=== PATIENT | female | born 1965 | race Caucasian/White ===

== ENCOUNTER 2017-02-11 17:37 | Inpatient (IN) | payer MEDICARE, MEDICAID ==
[2017-02-11] MEDS ORDERED: Albuterol/Ipratropium NEB.SOL* Albuterol 2.5 MG/Ipratropium 0.5 MG 3 ML INH ONE ×2 (18:05→20:23)
[2017-02-11] MEDS ORDERED: methylPREDNISolone 125 MG* 2 ML VIAL IV ONE (18:09)
[2017-02-11 18:38] LABS: Hematocrit 47 % (35-47); Hemoglobin 15.6 g/dl (12.0-16.0); Mean Corpuscular HGB Conc 33 g/dl (31-36); Mean Corpuscular Hemoglobin 29 pg (27-31); Mean Corpuscular Volume 89 fL (80-97); Mean Platelet Volume 8 um3 (7.4-10.4); Red Blood Count 5.33 10^6/ul (4.0-5.4); Red Cell Distribution Width 16 % (10.5-15); White Blood Count 13.3 10^3/ul (3.5-10.8)
[2017-02-11 18:49] LABS: Albumin 3.8 g/dL (3.2-5.2); BUN/Creatinine Ratio 16.2 (8-20); Calcium 9.6 mg/dL (8.6-10.3); EGFR African American 71.6 (>60); EGFR Non-African American 55.7 (>60); Globulin 3.7 g/dL (2-4); Potassium 3.4 mmol/L (3.5-5.0); Total Bilirubin 0.8 mg/dL (0.2-1.0); Total Protein 7.5 g/dL (6.4-8.9)
[2017-02-11 18:51] LABS: Troponin I 0.02 ng/mL (<0.04)
--- NOTE | 2017-02-11 18:54 | RAD ---
INDICATION: Shortness of breath. COMPARISON: Comparison is made with a prior study from April 10, 2014. TECHNIQUE: A portable view of the chest was obtained. FINDINGS: The heart is mildly enlarged. There is mild diffuse prominence of the interstitial markings. No focal infiltrate or pleural effusion is seen. IMPRESSION: MILD PROMINENCE OF THE INTERSTITIAL MARKINGS SUGGESTING THE POSSIBILITY OF MILD CONGESTIVE HEART FAILURE.
[2017-02-11] MEDS ORDERED: Furosemide IV* 10 MG/ML VIAL (40 MG) IV SLOW PU ONE (21:02)
[2017-02-11] MEDS ORDERED: Nitroglycerin TAB 0.4 MG* 0.4 MG TAB SL ONE (21:02)
[2017-02-11] MEDS ORDERED: Nicotine Inhaler* 10 MG AMP INH ONE (21:03)
[2017-02-11] MEDS ORDERED: oxyCODONE/Acetamin 5/325 MG* TAB PO ONE (21:06)
[2017-02-11] MEDS ORDERED: ALPRAZolam TAB* 0.5 MG PO ONE (21:06)
[2017-02-11] MEDS ORDERED: Mouth Piece, Nicotine* 1 EACH CARTRIDGE ONE (21:07)
[2017-02-11] MEDS ORDERED: Nitroglycerin 2% OINT* 1 GM PAK TOPICAL ONE (22:07)
--- NOTE | 2017-02-11 23:43 | ED ---
Dea Temple Gabriel, scribed for Dionicio Chowdary MD on 02/11/17 at 1808 . Respiratory - HPI Summary HPI Summary: This patient is a 51 year old F BIBA to [facility] accompanied by daughter and niece with a chief complaint of brown productive cough since 3 days prior. Patient reports wheezing, SOB, and rhinorrhea. Patient denies fever, diaphoresis, chills , edema, and CP. Patient is on a nebulizer and used it 3 hours ago. She has a history of COPD and CHF. Patients daughter says that her symptoms are worse at night and she cannot lay flat. - History of Current Complaint Chief Complaint: EDShortnessOfBreath Stated Complaint: SHORTNESS OF BREATH Time Seen by Provider: 02/11/17 18:05 Hx Obtained From: Patient Onset/Duration: Lasting Days - 3, Still Present Timing: Constant Pain Intensity: 0 Character: Wheezing, Orthopnea Sputum Amount: Small - brown Aggravating Factor(s): Other - night Associated Signs and Symptoms: Negative - fever, diaphoresis, chills, edema, and CP, Wheezing - Allergy/Home Medications Allergies/Adverse Reactions: Allergies Allergy/AdvReac Type Severity Reaction Status Date / Time Clindamycin Allergy Intermediate Difficulty Verified 02/08/17 11:23 Swallowing Penicillins Allergy Intermediate blisters Verified 02/08/17 11:23 on face as a kid Home Medications: Home Medications Senna TAB* [Senokot TAB*] 2 tab PO BEDTIME 02/11/17 [History Confirmed 02/11/17] traZODone TAB* [Desyrel TAB*] 75 mg PO BEDTIME 02/11/17 [History Confirmed 02/11] PMH/Surg Hx/FS Hx/Imm Hx Previously Healthy: No Endocrine/Hematology History: Reports: Hx Anemia Denies: Hx Diabetes, Hx Thyroid Disease Cardiovascular History: Reports: Hx Congestive Heart Failure - 05/2014 hospitalized, Hx Hypertension Respiratory History: Reports: Hx Asthma, Hx Chronic Bronchitis, Hx Chronic Obstructive Pulmonary Disease (COPD), Hx Pneumonia, Hx Sleep Apnea - Unable to tolerate CPAP, Other Respiratory Problems/Disorders GI History: Reports: Hx Gall Bladder Disease - Cholecystectomy, Hx Gastroesophageal Reflux Disease Denies: Hx Ulcer History: Reports: Other Problems/Disorders - Reports blood in urine. ED test negative. Musculoskeletal History: Reports: Hx Arthritis, Other Musculoskeletal History - bilateral knee pain Sensory History: Reports: Hx Contacts or Glasses Denies: Hx Hearing Problem, Other Sensory Impairments Opthamlomology History: Reports: Hx Contacts or Glasses Denies: Other Sensory Impairments Neurological History: Reports: Hx Headaches Psychiatric History: Reports: Hx Anxiety Denies: Hx of Violent Episodes Against Others - Cancer History Hx Chemotherapy: No Hx Radiation Therapy: No - Surgical History Surgery Procedure, Year, and Place: x 3. cholecystectomy. T&A tonsillectomy. Endoscopy x3 Hx Anesthesia Reactions: No - Immunization History Date of Tetanus Vaccine: UTD Date of Influenza Vaccine: NO Infectious Disease History: No Infectious Disease History: Denies: Hx Clostridium Difficile, Hx Hepatitis, Hx Human Immunodeficiency Virus (HIV), Hx of Known/Suspected MRSA, History Other Infectious Disease, Traveled Outside the [place] in Last 30 Days - Family History Known Family History: Positive: Other - sister of sepsis at age 34 Family History: Mother: Lung CA. Father: CHF - Social History Alcohol Use: None Substance Use Type: Reports: None Substance Use Comment - Amount & Last Used: chronic oxycodone Hx Tobacco Use: Yes Smoking Status (MU): Current Every Day Smoker Type: Cigarettes Amount Used/How Often: 5-10 cigarettes/day Length of Time of Smoking/Using Tobacco: 35 years Have You Smoked in the Last Year: Yes Review of Systems Negative: Fever, Chills Negative: Erythema Positive: Nasal Discharge. Negative: Sore Throat Negative: Chest Pain Positive: Shortness Of Breath, Cough, Other - wheezing Negative: Abdominal Pain, Vomiting, Nausea Negative: dysuria, hematuria Negative: Myalgia, Edema Negative: Rash Neurological: Negative - dizziness All Other Systems Reviewed And Are Negative: Yes Physical Exam - Summary Physical Exam Summary: Constitutional: Well-developed, Well-nourished, Alert. (-) Distressed Skin: Warm, Dry HENT: Normocephalic; Atraumatic Eyes: Conjunctiva normal Neck: Musculoskeletal ROM normal neck. (-) JVD, (-) Stridor, (-) Tracheal deviation Cardio: Rhythm regular, rate normal, Heart sounds normal; Intact distal pulses; The pedal pulses are 2+ and symmetric. Radial pulses are 2+ and symmetric. (-) Murmur Pulmonary/Chest wall: Effort normal. (-) Respiratory distress, (-) Wheezes, (-) Rales. Very diminished breath sounds. Abd: Soft, (-) Tenderness, (-) Distension, (-) Guarding, (-) Rebound Musculoskeletal: (-) Edema Lymph: (-) Cervical adenopathy Neuro: Alert, Oriented x3 Psych: Mood and affect Normal Triage Information Reviewed: Yes Vital Signs On Initial Exam: Initial Vitals Temp Pulse Resp BP Pulse Ox 97.5 F 84 19 126/79 86 02/11/17 17:39 02/11/17 17:39 02/11/17 17:39 02/11/17 17:39 02/11/17 17:39 Vital Signs Reviewed: Yes - [place] Coma Scale Coma Scale Total: 15 Diagnostics - Vital Signs Vital Signs Temp Pulse Resp BP Pulse Ox 02/11/17 17:39 97.5 F 84 19 126/79 86 - Laboratory Result Diagrams: 02/11/17 18:15 02/11/17 18:15 Lab Statement: Any lab studies that have been ordered have been reviewed, and results considered in the medical decision making process. - Radiology CXR Radiology Interpretation Completed By: Radiologist - MILD PROMINENCE OF THE INTERSTITIAL MARKINGS SUGGESTING THE POSSIBILITY OF MILD CONGESTIVE HEART FAILURE. ED physician has reviewed this radiology report and agrees. - EKG 19:21 Cardiac Rate: NL EKG Rhythm: Sinus Rhythm - 84 BPM EKG Interpretation: No STEMI Re-Evaluation - Re-Evaluation First Eval Re-Evaluation Time: 21:00 Change: Unchanged Comment: Patient is at 85% O2 sat. at 5L NC O2. Second Eval Re-Evaluation Time: 21:25 Change: Unchanged - Patient is irritable and is at 82% oxygen sat on 3L NC O2. Third Eval Re-Evaluation Time: 22:00 Change: Unchanged - Patient states she has been out of her chlorthalidone ( Diuretic ) perscription. Comment: Patient says she ran out of her diuretic medication recently. Fourth Eval Re-Evaluation Time: 22:04 Change: Improved - Patient has improved with medication. Disposition - Course Assessment/Plan: This patient is a 51 year old F BIBA to [facility] accompanied by daughter and niece with a chief complaint of brown productive cough since 3 days prior. Patient reports wheezing, SOB, and rhinorrhea. Patient denies fever , diaphoresis, chills, edema, and CP. Patient is on a nebulizer and used it 3 hours ago. She has a history of COPD and CHF. Blood work was drawn with an abnormal BNP An EKG reveals NSR at 84 BPM. CXR reveals, per radiologist, MILD PROMINENCE OF THE INTERSTITIAL MARKINGS SUGGESTING THE POSSIBILITY OF MILD CONGESTIVE HEART FAILURE. Blood tests were obtained. In the ED course the patient was given Albuterol nebulizer and methylprednisone. We discussed patient care with Dr. Pacheco and they agreed to admit the patient for CHF and COPD exacerbation. Patient will be admitted with and follow up from Dr. James. The patient is agreeable with this plan. - Diagnoses Provider Diagnoses: CHF exacerbation, COPD exacerbation, Acute respiratory failure with hypoxemia - Physician Notifications Discussed Care Of Patient With: Jerome Gannon MD Time Discussed With Above Provider: 21:58 Instructed by Provider To: Other - We discussed patient care with Dr. Pacheco and they agreed to admit the patient for CHF and COPD exacerbation. - Critical Care Time Critical Care Time: 30-74 min - 16 minutes Discharge - Discharge Plan Condition: Stable Disposition: ADMITTED TO [facility] Referrals: No Primary Care Phys,NOPCP [Primary Care Provider] - The documentation as recorded by the Dea santa Gabriel accurately reflects the service I personally performed and the decisions made by , Dionicio Chowdary MD.
[2017-02-12] MEDS ORDERED: Cyclobenzaprine TAB* 10 MG PO ONE (01:40)
[2017-02-12] MEDS ORDERED: Spiriva Inhaler DEVICE* 1 EACH DEVICE INH ONE ×2 (02:00→09:00)
[2017-02-12] MEDS: methylPREDNISolone SOD 40 MG* 1 ML VIAL IV SCH ×3 (02:38→17:11)
--- NOTE | 2017-02-12 03:41 | HP ---
H&P (Free Text) History and Physical: PCP: Sean Salgado MD Date/Time: 02/11/20170 CC: SOB HPI: Mrs Reza is a 51YO female HX COPD continuing to smoke 1PPD who began developing progressive SOB 3 days ago associated with cough producing yellowish- brown phlegm and prominent wheeze, but didn't seek evaluation as she "thought it was just pneumonia". SOB is worse with activity, better at rest. Home nebs did not help, but a Duoneb en route via EMS did. She denies chest pain, palpitations, light-headedness, F/C, sweats, N/V, and diarrhea. Of note she was out of chlorthalidone for ~2 weeks last month, but has been back on it for the past 3 weeks. PMedHx chronic diastolic HF COPD tobacco use disorder GERD HTN OA KATHY not on CPAP psoriasis Ambulatory Orders Lisinopril TAB* [Prinivil TAB 10 MG*] 20 mg PO DAILY 01/19/12 Chlorthalidone TAB* [Hygroton TAB*] 50 mg PO DAILY 10/31/13 Ibuprofen [Ibuprofen 200 MG] 400 - 600 mg PO BID PRN 04/03/14 Aspirin [Aspirin Low Dose] 81 mg PO DAILY 07/01/15 oxyCODONE/Acetamin 10/325(NF) [Percocet 10/325 (NF)] 1 tab PO Q4H PRN 12/01/16 Senna TAB* [Senokot TAB*] 2 tab PO BEDTIME 02/11/17 traZODone TAB* [Desyrel TAB*] 75 mg PO BEDTIME 02/11/17 Allergies Clindamycin Allergy (Intermediate, Verified 02/08/17 11:23) Difficulty Swallowing difficulty swallowing Penicillins Allergy (Intermediate, Verified 02/08/17 11:23) blisters on face as a kid SocHx: 1PPD cigarettes w/ ~40PYHX, denies alcohol & recreational drugs; full code status FamHx: positive for HTN, COPD ROS: as above, otherwise reviewed and all were negative vitals: Vital Signs Temp 36.8 C 02/11/17 23:29 Pulse 93 02/11/17 23:29 Resp 24 02/12/17 01:50 BP 134/40 02/11/17 23:29 Pulse Ox 94 02/12/17 01:51 Intake & Output 02/11/17 02/11/17 02/12/17 11:59 23:59 11:59 Weight 126.099 kg Constitutional: NAD, normally developed, morbidly obese white female HEENM: atraumatic; sclera/conjunctiva: anicteric/clear; hearing: clinically intact; oropharynx: clear, mucosa moist Neck: soft tissue: non-tender; thyroid: normal Pulmonary: prominent mid- to end- expiratory wheeze, fair to poor aeration, no accessory muscle use CV: RR/RR, normal S1S2, no carotid bruit, no jugular venous distention, 2+ B DP/ PT, trace BLE edema Abdominal: soft, non-distended, non-tender, no rebound/guarding/rigidity, normoactive bowel sounds, no hepatosplenomegaly or masses, no costovertebral angle tenderness Musculoskeletal: general: grossly intact, no palpable tenderness Integumental: face flushed; otherwise no acute rash or wounds Psychiatric orientation: AA&O to PPS affect: calm mood: cooperative eye contact: good content: reliable responses: timely insight: poor Testing: Lab Results 02/11/17 02/11/17 02/11/17 Range/Units 18:15 18:15 18:15 WBC 13.3 H (3.5-10.8) 10^3/ul RBC 5.33 (4.0-5.4) 10^6/ul Hgb 15.6 (12.0-16.0) g/dl Hct 47 (35-47) % MCV 89 (80-97) fL MCH 29 (27-31) pg MCHC 33 (31-36) g/dl RDW 16 H (10.5-15) % Plt Count 208 (150-450) 10^3/ul MPV 8 (7.4-10.4) um3 Neut % (Auto) 77.8 (38-83) % Lymph % (Auto) 14.3 L (25-47) % [place] % (Auto) 5.4 (1-9) % Eos % (Auto) 1.4 (0-6) % Baso % (Auto) 1.1 (0-2) % Absolute Neuts (auto) 10.4 H (1.5-7.7) 10^3/ul Absolute Lymphs (auto) 1.9 (1.0-4.8) 10^3/ul Absolute Monos (auto) 0.7 (0-0.8) 10^3/ul Absolute Eos (auto) 0.2 (0-0.6) 10^3/ul Absolute Basos (auto) 0.1 (0-0.2) 10^3/ul Absolute Nucleated RBC 0 10^3/ul Nucleated RBC % 0 D-Dimer, Quantitative (Less Than 230) ng/mL Sodium 134 (133-145) mmol/L Potassium 3.4 L (3.5-5.0) mmol/L Chloride 93 L (101-111) mmol/L Carbon Dioxide 36 H (22-32) mmol/L Anion Gap 5 (2-11) mmol/L BUN 17 (6-24) mg/dL Creatinine 1.05 H (0.51-0.95) mg/dL Est GFR ( Amer) 71.6 (>60) Est GFR (Non-Af Amer) 55.7 (>60) BUN/Creatinine Ratio 16.2 (8-20) Glucose 113 H (70-100) mg/dL Lactic Acid (0.5-2.0) mmol/L Calcium 9.6 (8.6-10.3) mg/dL Total Bilirubin 0.80 (0.2-1.0) mg/dL AST 14 (13-39) U/L ALT 10 (7-52) U/L Alkaline Phosphatase 69 (34-104) U/L Troponin I 0.02 (<0.04) ng/mL B-Natriuretic Peptide 145 H ( - 100) pg/mL Total Protein 7.5 (6.4-8.9) g/dL Albumin 3.8 (3.2-5.2) g/dL Globulin 3.7 (2-4) g/dL Albumin/Globulin Ratio 1.0 (1-3) 02/11/17 02/11/17 Range/Units 18:15 18:15 WBC (3.5-10.8) 10^3/ul RBC (4.0-5.4) 10^6/ul Hgb (12.0-16.0) g/dl Hct (35-47) % MCV (80-97) fL MCH (27-31) pg MCHC (31-36) g/dl RDW (10.5-15) % Plt Count (150-450) 10^3/ul MPV (7.4-10.4) um3 Neut % (Auto) (38-83) % Lymph % (Auto) (25-47) % [place] % (Auto) (1-9) % Eos % (Auto) (0-6) % Baso % (Auto) (0-2) % Absolute Neuts (auto) (1.5-7.7) 10^3/ul Absolute Lymphs (auto) (1.0-4.8) 10^3/ul Absolute Monos (auto) (0-0.8) 10^3/ul Absolute Eos (auto) (0-0.6) 10^3/ul Absolute Basos (auto) (0-0.2) 10^3/ul Absolute Nucleated RBC 10^3/ul Nucleated RBC % D-Dimer, Quantitative < 200 (Less Than 230) ng/mL Sodium (133-145) mmol/L Potassium (3.5-5.0) mmol/L Chloride (101-111) mmol/L Carbon Dioxide (22-32) mmol/L Anion Gap (2-11) mmol/L BUN (6-24) mg/dL Creatinine (0.51-0.95) mg/dL Est GFR ( Amer) (>60) Est GFR (Non-Af Amer) (>60) BUN/Creatinine Ratio (8-20) Glucose (70-100) mg/dL Lactic Acid 0.9 (0.5-2.0) mmol/L Calcium (8.6-10.3) mg/dL Total Bilirubin (0.2-1.0) mg/dL AST (13-39) U/L ALT (7-52) U/L Alkaline Phosphatase (34-104) U/L Troponin I (<0.04) ng/mL B-Natriuretic Peptide ( - 100) pg/mL Total Protein (6.4-8.9) g/dL Albumin (3.2-5.2) g/dL Globulin (2-4) g/dL Albumin/Globulin Ratio (1-3) ECG, personally reviewed: NSR rate 84, subtle ST depressions in II/III/AVF; similar to 04/08/2014 comparison CXR, personally reviewed: IMPRESSION: MILD PROMINENCE OF THE INTERSTITIAL MARKINGS SUGGESTING THE POSSIBILITY OF MILD CONGESTIVE HEART FAILURE. Impression: 51F presenting with COPD exacerbation, ongoing tobacco abuse DIAGNOSIS & PLAN Primary COPD exacerbation : albuterol nebs : mometasone/formoterol : tiotropium : IV methylprednisolone : guaifenesin : supplemental oxygen : incentive spirometry : supportive care : smoking cessation recommended, low motivation chronic diastolic HF : CXR suggesting mild congestive failure : continue chlorthalidone : given 40mg furosemide in ED : strict I&Os : daily weights : low sodium diet Secondary GERD : omeprazole HTN : continue lisinopril & chlorthalidone OA : continue aspirin & oxycodone KATHY : not on CPAP Admission Rational: inpatient for management of COPD excerbation & CHF not anticipated to be adequately resolved w/i 48h to allow for discharge DVTp: heparin SQ & SCDs Code Status: full
[2017-02-12] MEDS: oxyCODONE TAB* 5 MG TAB PO PRN ×4 (03:42→19:37)
[2017-02-12] MEDS ORDERED: Albuterol 2.5 MG/3 ML NEB.SOL* (0.083%) INH SCH (07:00)
[2017-02-12 07:13] LABS: Hematocrit 45 % (35-47); Hemoglobin 14.9 g/dl (12.0-16.0); Mean Corpuscular HGB Conc 33 g/dl (31-36); Mean Corpuscular Hemoglobin 29 pg (27-31); Mean Corpuscular Volume 89 fL (80-97); Mean Platelet Volume 8 um3 (7.4-10.4); Red Blood Count 5.08 10^6/ul (4.0-5.4); Red Cell Distribution Width 16 % (10.5-15); White Blood Count 11.4 10^3/ul (3.5-10.8)
[2017-02-12 07:26] LABS: BUN/Creatinine Ratio 23.7 (8-20); Calcium 9.4 mg/dL (8.6-10.3); EGFR African American 65.2 (>60); EGFR Non-African American 50.7 (>60); Potassium 3.7 mmol/L (3.5-5.0)
[2017-02-12] MEDS: Mometasone/Formoter 200/5 MDI INH SCH ×2 (07:31→20:18)
[2017-02-12] MEDS: Tiotropium CAP.INH* CAP.INH/18 MCG (USE ORDER SET !) INH SCH (07:32)
[2017-02-12] MEDS: Chlorthalidone TAB* 50 MG PO SCH (08:26)
[2017-02-12] MEDS: Lisinopril TAB* 10 MG PO SCH (08:26)
[2017-02-12] MEDS: guaiFENesin ER TAB 600 MG PO SCH ×2 (08:26→21:55)
[2017-02-12] MEDS: Aspirin EC Low Dose* 81 MG TAB.EC PO SCH (08:26)
[2017-02-12] MEDS ORDERED: Pneumococcal *Vac Polyvalent 0.5 ML VIAL IM ONE (09:00)
[2017-02-12] MEDS ORDERED: Influenza VAC *QUAD* 2017-18* 0.5 ML SYRINGE IM ONE (09:00)
[2017-02-12] MEDS: Nicotine Inhaler* 10 MG AMP INH PRN (11:41)
[2017-02-12] MEDS: Albuterol 2.5 MG/3 ML NEB.SOL* (0.083%) INH PRN ×2 (17:09→20:17)
--- NOTE | 2017-02-12 17:45 | PN ---
Progress Note - Progress Note Date of Service: 02/12/17 Note: Patient admitted at 3AM this morning. She is still dyspneic w/ exertion. She lost primary care due to repeated no-shows. She is working on quitting smoking. Selected Entries 02/12/17 02/12/17 02/12/17 15:50 15:53 15:57 Temperature 35.9 C Pulse Rate 72 Respiratory 20 16 Rate Blood Pressure 111/70 (mmHg) O2 Sat by Pulse 93 Oximetry Oxygen Flow 8 Rate Patient on Room No No Air 02/12/17 17:30 Temperature Pulse Rate Respiratory 18 Rate Blood Pressure (mmHg) O2 Sat by Pulse Oximetry Oxygen Flow Rate Patient on Room Air Alert, conversant Lungs: diminished throughout, scattered wheezes Heart; RRR, no murmur A/P: COPD exacerbation: will need at least another 24 hours of therapy before potential discharge. CHF: strict I/O, daily weights ordered. On chronic diuretics.
[2017-02-12] MEDS: Azithromycin IV(*) 500 MG in NS 0.9% 250 ML* 250 ML IVPB SCH (18:00)
[2017-02-12] MEDS: Senna TAB PO SCH (21:55)
[2017-02-12] MEDS ORDERED: ALPRAZolam TAB* 0.5 MG PO ONE (23:00)
[2017-02-12] MEDS: traZODone TAB* 50 MG TAB PO SCH (23:35)
[2017-02-12] MEDS ORDERED: ALPRAZolam TAB* 0.5 MG ONE (23:46)
[2017-02-13] MEDS: Nicotine Inhaler* 10 MG AMP INH PRN ×4 (00:30→16:19)
[2017-02-13] MEDS: methylPREDNISolone SOD 40 MG* 1 ML VIAL IV SCH ×3 (01:57→17:53)
[2017-02-13 07:08] LABS: Hematocrit 46 % (35-47); Hemoglobin 14.9 g/dl (12.0-16.0); Mean Corpuscular HGB Conc 33 g/dl (31-36); Mean Corpuscular Hemoglobin 29 pg (27-31); Mean Corpuscular Volume 90 fL (80-97); Mean Platelet Volume 8 um3 (7.4-10.4); Red Cell Distribution Width 16 % (10.5-15); White Blood Count 19.3 10^3/ul (3.5-10.8)
[2017-02-13 07:23] LABS: BUN/Creatinine Ratio 30.8 (8-20); Calcium 9.5 mg/dL (8.6-10.3); EGFR African American 84.5 (>60); EGFR Non-African American 65.7 (>60); Potassium 4.2 mmol/L (3.5-5.0)
[2017-02-13] MEDS: Mometasone/Formoter 200/5 MDI INH SCH ×2 (08:10→20:01)
[2017-02-13] MEDS: Tiotropium CAP.INH* CAP.INH/18 MCG (USE ORDER SET !) INH SCH (08:11)
[2017-02-13] MEDS: guaiFENesin ER TAB 600 MG PO SCH ×2 (09:04→20:42)
[2017-02-13] MEDS: Chlorthalidone TAB* 50 MG PO SCH (09:04)
[2017-02-13] MEDS: oxyCODONE TAB* 5 MG TAB PO PRN ×4 (09:04→21:43)
[2017-02-13] MEDS: Lisinopril TAB* 10 MG PO SCH (09:05)
[2017-02-13] MEDS: Aspirin EC Low Dose* 81 MG TAB.EC PO SCH (09:05)
--- NOTE | 2017-02-13 16:21 | PN ---
Subjective Date of Service: 02/13/17 Interval History: Patient seen and examined at bedside. Denies fever, chills, chest discomfort, N/ V/D. Pt states that she continues to have shortness of breath, but this is improving. Pt reports being out of medications for a least a month after she lost her PCP. Tele: Sinus rhythm, rate 60's. Family History: Unchanged from Admission Social History: Unchanged from Admission Past Medical History: Unchanged from Admission Objective Active Medications: Albuterol (Ventolin 2.5 Mg/3 Ml Neb.Shira*) 2.5 mg INH Q2H PRN Reason: SOB/ WHEEZING Aspirin (Aspirin Ec Low Dose*) 81 mg PO DAILY NATHANAEL Chlorthalidone (Hygroton Tab*) 50 mg PO DAILY NATHANAEL Guaifenesin (Mucinex*) 1,200 mg PO BID NATHANAEL Azithromycin 500 mg/ Sodium (Chloride) 250 mls @ 250 mls/hr IVPB Q24H NATHANAEL Lisinopril (Prinivil Tab*) 20 mg PO DAILY NATHANAEL Methylprednisolone Sodium Succinate (Solu-Medrol 40 Mg) 40 mg IV Q8H NATHANAEL Mometasone Furoate/Formoterol Fumar (Dulera 200/5 Mdi*) 2 puff INH BID NATHANAEL Nicotine (Nicotine Inhaler*) 10 mg INH Q2H PRN Reason: CRAVING Oxycodone HCl (Roxycodone Tab*) 10 mg PO Q4H PRN Reason: PAIN Senna (Senokot Tab*) 2 tab PO BEDTIME NATHANAEL Tiotropium [place] (Spiriva Cap.Inh*) 1 cap INH DAILY NATHANAEL Trazodone HCl (Desyrel Tab*) 75 mg PO BEDTIME [facility] Vital Signs 02/12/17 02/12/17 02/12/17 17:30 19:24 19:37 Temperature 97.6 F Pulse Rate 75 Respiratory 18 20 20 Rate Blood Pressure 138/59 (mmHg) O2 Sat by Pulse 96 Oximetry 02/12/17 02/12/17 02/12/17 20:19 20:20 23:32 Temperature 97.4 F Pulse Rate 69 83 Respiratory 20 20 Rate Blood Pressure 142/71 (mmHg) O2 Sat by Pulse 98 98 95 Oximetry 02/12/17 02/13/17 02/13/17 23:50 00:00 00:51 Temperature Pulse Rate Respiratory 18 20 Rate Blood Pressure (mmHg) O2 Sat by Pulse 95 Oximetry 02/13/17 02/13/17 02/13/17 03:36 03:42 07:40 Temperature 98.2 F Pulse Rate 71 74 Respiratory 18 20 20 Rate Blood Pressure 127/57 121/59 (mmHg) O2 Sat by Pulse 97 97 Oximetry 02/13/17 02/13/17 02/13/17 08:00 08:11 09:04 Temperature Pulse Rate 88 Respiratory 20 20 Rate Blood Pressure (mmHg) O2 Sat by Pulse 97 Oximetry 02/13/17 02/13/17 02/13/17 11:54 13:00 13:03 Temperature Pulse Rate Respiratory 20 22 Rate Blood Pressure (mmHg) O2 Sat by Pulse 98 Oximetry Oxygen Devices in Use Now: High Flow Nasal Cannula - 7L Appearance: NAD, sitting up on the side of the bed Respiratory: Symmetrical Chest Expansion and Respiratory Effort, Clear to Auscultation - , diminished Cardiovascular: NL Sounds; No Murmurs; No JVD, RRR Abdominal: NL Sounds; No Tenderness; No Distention Extremities: No Edema Skin: No Rash or Ulcers Neurological: Alert and Oriented x 3, NL Muscle Strength and Tone Lines/Tubes/Other Access: Clean, Dry and Intact Peripheral IV - site benign Nutrition: Taking PO's Result Diagrams: 02/13/17 06:42 02/13/17 06:42 Assess/Plan/Problems-Billing Assessment: Ms. Reza is a 51 yo female with PMH significant for chronic diastolic HF, COPD , tobacco abuse, GERD, HTN, KATHY not treated, psoriasis who presented to the emergency room with complaints of shortness of breath. - Patient Problems (1) COPD (chronic obstructive pulmonary disease) Code(s): J44.9 - CHRONIC OBSTRUCTIVE PULMONARY DISEASE, UNSPECIFIED SNOMED Code(s): 27901418 Comment: - with exacerbation - on 02 at home, requiring increased O2 now - Continue albuterol nebs, dulera, spiriva, guaifenesin, and azithromycin (2) CHF (congestive heart failure) Code(s): I50.9 - HEART FAILURE, UNSPECIFIED SNOMED Code(s): 90530341 Comment: - Chronic diastolic, EF 65% in 2012 - Chest Xray on admission, mild congestive failure - Continue chlorthalidone, strict I+O's and daily weights (3) Tobacco abuse Code(s): Z72.0 - TOBACCO USE SNOMED Code(s): 611724231 Comment: - Nicotine supplementation. - Encouraged smoking cessation (4) GERD (gastroesophageal reflux disease) Code(s): K21.9 - GASTRO-ESOPHAGEAL REFLUX DISEASE WITHOUT ESOPHAGITIS SNOMED Code(s): 988086340 Comment: - Continue omeprazole (5) Hypertension Code(s): I10 - ESSENTIAL (PRIMARY) HYPERTENSION SNOMED Code(s): 88004133 Comment: - SBP 110-140's - Continue lisinopril and chlorthalidone (6) Osteoarthritis Code(s): M19.90 - UNSPECIFIED OSTEOARTHRITIS, UNSPECIFIED SITE SNOMED Code(s) : 815187921 Comment: - Continue ASA and oxycodone (7) KATHY (obstructive sleep apnea) Code(s): G47.33 - OBSTRUCTIVE SLEEP APNEA (ADULT) (PEDIATRIC) SNOMED Code(s): 82378221 Comment: - Not on CPAP (8) DVT prophylaxis Current Visit: No Status: Acute Priority: Medium Onset Date: 04/08/14 Code(s): DBL8183 - SNOMED Code(s): 249545113 Comment: - SQ heparin and SCDs. (9) Full code status Code(s): Z78.9 - OTHER SPECIFIED HEALTH STATUS SNOMED Code(s): 906877178 Status and Disposition: Inpatient. Discharge to home when medically stable, possibly 1-2 days.
[2017-02-13] MEDS: Azithromycin IV(*) 500 MG in NS 0.9% 250 ML* 250 ML IVPB SCH (17:53)
[2017-02-13] MEDS: Albuterol 2.5 MG/3 ML NEB.SOL* (0.083%) INH PRN (19:59)
[2017-02-13] MEDS: Senna TAB PO SCH (20:42)
[2017-02-13] MEDS: ALPRAZolam TAB* 0.5 MG PO PRN (20:42)
[2017-02-13] MEDS: traZODone TAB* 50 MG TAB PO SCH (20:42)
[2017-02-13] MEDS ORDERED: CMCS: Melatonin (NF) 3 MG TAB PO SCH (21:00)
[2017-02-13] MEDS: Heparin VIAL(*) 5000 UNITS/ML VIAL (FIVE THOUSAND) SUBCUT SCH (21:43)
[2017-02-14] MEDS: methylPREDNISolone SOD 40 MG* 1 ML VIAL IV SCH ×2 (01:05→08:48)
[2017-02-14] MEDS: Albuterol 2.5 MG/3 ML NEB.SOL* (0.083%) INH SCH ×4 (01:36→20:34)
[2017-02-14] MEDS: Heparin VIAL(*) 5000 UNITS/ML VIAL (FIVE THOUSAND) SUBCUT SCH ×3 (06:01→20:06)
[2017-02-14] MEDS: oxyCODONE TAB* 5 MG TAB PO PRN ×4 (06:12→20:04)
[2017-02-14 06:59] LABS: Hematocrit 45 % (35-47); Hemoglobin 14.5 g/dl (12.0-16.0); Mean Corpuscular HGB Conc 32 g/dl (31-36); Mean Corpuscular Hemoglobin 29 pg (27-31); Mean Corpuscular Volume 90 fL (80-97); Mean Platelet Volume 8 um3 (7.4-10.4); Red Blood Count 5.03 10^6/ul (4.0-5.4); Red Cell Distribution Width 17 % (10.5-15); White Blood Count 15.6 10^3/ul (3.5-10.8)
[2017-02-14 07:13] LABS: BUN/Creatinine Ratio 36.3 (8-20); Calcium 8.9 mg/dL (8.6-10.3); EGFR Non-African American 76.2 (>60); Potassium 4.2 mmol/L (3.5-5.0)
[2017-02-14] MEDS: Mometasone/Formoter 200/5 MDI INH SCH ×2 (08:16→20:35)
[2017-02-14] MEDS: Tiotropium CAP.INH* CAP.INH/18 MCG (USE ORDER SET !) INH SCH (08:16)
[2017-02-14] MEDS: guaiFENesin ER TAB 600 MG PO SCH ×2 (08:46→20:04)
[2017-02-14] MEDS: Chlorthalidone TAB* 50 MG PO SCH (08:47)
[2017-02-14] MEDS: Aspirin EC Low Dose* 81 MG TAB.EC PO SCH (08:47)
[2017-02-14] MEDS: Nicotine Inhaler* 10 MG AMP INH PRN ×4 (08:47→20:06)
[2017-02-14] MEDS: Lisinopril TAB* 10 MG PO SCH (08:47)
[2017-02-14] MEDS ORDERED: Al Hydrox/Mg Hydrox/Simet LIQ* 30 ML UDC PO PRN (09:51)
[2017-02-14] MEDS ORDERED: Melatonin (NF) 3 MG TAB PO PRN (10:19)
[2017-02-14] MEDS: Omeprazole CAP* 20 MG PO SCH (10:32)
--- NOTE | 2017-02-14 10:32 | PN ---
Subjective Date of Service: 02/14/17 Interval History: Patient seen and examined at bedside. Denies fever, chills, chest discomfort, N/ V/D. Pt reports feeling bloated with abdominal discomfort. She is passing flatus and having small BMs. Pt continues to have shortness of breath, but feels this is improving. She reports being on 2L oxygen at home and has been titrated down to 3L. Pt's weight is up today, question the accuracy of the weight. Pt states that she doesn't feel like she is retaining fluid, no LE edema or UE edema. Pt states that Dr. Pina has agreed to be her PCP in the past, but she was unable to keep appointments. Tele: Sinus rhythm, rate 60-70's Family History: Unchanged from Admission Social History: Unchanged from Admission Past Medical History: Unchanged from Admission Objective Active Medications: Al Hydrox/Mg Hydrox/Simethicone (Maalox Plus*) 30 ml PO Q6H PRN Reason: INDIGESTION Albuterol (Ventolin 2.5 Mg/3 Ml Neb.Shira*) 2.5 mg INH Q2H PRN Reason: SOB/ WHEEZING Albuterol (Ventolin 2.5 Mg/3 Ml Neb.Shira*) 2.5 mg INH [id number] AWAKE NATHANAEL Alprazolam (Xanax Tab*) 0.5 mg PO BEDTIME PRN Reason: ANXIETY/INSOMNIA Aspirin (Aspirin Ec Low Dose*) 81 mg PO DAILY NATHANAEL Chlorthalidone (Hygroton Tab*) 50 mg PO DAILY NATHANAEL Guaifenesin (Mucinex*) 1,200 mg PO BID NATHANAEL Heparin Sodium (Porcine) (Heparin Vial(*)) 5,000 units SUBCUT Q8HR NATHANAEL Azithromycin 500 mg/ Sodium (Chloride) 250 mls @ 250 mls/hr IVPB Q24H NATHANAEL Lisinopril (Prinivil Tab*) 20 mg PO DAILY [facility] Melatonin (Melatonin (Nf)) 3 mg PO BEDTIME NATHANAEL Mometasone Furoate/Formoterol Fumar (Dulera 200/5 Mdi*) 2 puff INH BID NATHANAEL Nicotine (Nicotine Inhaler*) 10 mg INH Q2H PRN Reason: CRAVING Omeprazole (Prilosec Cap*) 20 mg PO DAILY@0600 NATHANAEL Oxycodone HCl (Roxycodone Tab*) 10 mg PO Q4H PRN Reason: PAIN Prednisone (Deltasone Tab*) 40 mg PO DAILY WITH MEAL [facility] Senna (Senokot Tab*) 2 tab PO BEDTIME NATHANAEL Tiotropium Tobias (Spiriva Cap.Inh*) 1 cap INH DAILY [facility] Trazodone HCl (Desyrel Tab*) 75 mg PO BEDTIME [facility] Vital Signs 02/13/17 02/13/17 02/13/17 11:54 13:00 13:03 Temperature Pulse Rate Respiratory 20 22 Rate Blood Pressure (mmHg) O2 Sat by Pulse 98 Oximetry 02/13/17 02/13/17 02/13/17 15:19 15:48 16:00 Temperature 97.3 F Pulse Rate 68 Respiratory 18 18 Rate Blood Pressure 134/69 (mmHg) O2 Sat by Pulse 98 97 Oximetry 02/13/17 02/13/17 02/13/17 17:52 19:54 19:55 Temperature 97.7 F Pulse Rate 67 Respiratory 20 22 20 Rate Blood Pressure 147/70 (mmHg) O2 Sat by Pulse 98 Oximetry 02/13/17 02/13/17 02/13/17 20:02 20:03 20:42 Temperature Pulse Rate 71 Respiratory 20 18 Rate Blood Pressure (mmHg) O2 Sat by Pulse 97 97 Oximetry 02/13/17 02/13/17 02/13/17 21:43 21:46 23:50 Temperature 97.6 F Pulse Rate 66 Respiratory 20 20 20 Rate Blood Pressure 123/65 (mmHg) O2 Sat by Pulse 98 Oximetry 02/14/17 02/14/17 02/14/17 00:00 03:32 04:13 Temperature 97.7 F Pulse Rate 71 Respiratory 20 20 Rate Blood Pressure 117/67 (mmHg) O2 Sat by Pulse 98 96 Oximetry 02/14/17 02/14/17 02/14/17 04:14 06:12 08:00 Temperature Pulse Rate Respiratory 20 18 22 Rate Blood Pressure (mmHg) O2 Sat by Pulse 95 Oximetry 02/14/17 02/14/17 02/14/17 08:09 08:23 08:47 Temperature 97.7 F Pulse Rate 60 86 Respiratory 16 14 22 Rate Blood Pressure 124/86 (mmHg) O2 Sat by Pulse 95 98 Oximetry 02/14/17 08:58 Temperature Pulse Rate Respiratory Rate Blood Pressure (mmHg) O2 Sat by Pulse 90 Oximetry Oxygen Devices in Use Now: High Flow Nasal Cannula - 3L Appearance: NAD, sitting up on the side of the bed Respiratory: Symmetrical Chest Expansion and Respiratory Effort, - - Lung sounds clear with few scattered wheezes Cardiovascular: NL Sounds; No Murmurs; No JVD, RRR Abdominal: NL Sounds; No Tenderness; No Distention Extremities: No Edema Skin: No Rash or Ulcers Neurological: Alert and Oriented x 3, NL Muscle Strength and Tone Lines/Tubes/Other Access: Clean, Dry and Intact Peripheral IV - site benign Nutrition: Taking PO's Result Diagrams: 02/14/17 06:15 02/14/17 06:15 Assess/Plan/Problems-Billing Assessment: Ms. Reza is a 51 yo female with PMH significant for chronic diastolic HF, COPD , tobacco abuse, GERD, HTN, KATHY not treated, psoriasis who presented to the emergency room with complaints of shortness of breath. - Patient Problems (1) COPD (chronic obstructive pulmonary disease) Code(s): J44.9 - CHRONIC OBSTRUCTIVE PULMONARY DISEASE, UNSPECIFIED SNOMED Code(s): 91812844 Comment: - with exacerbation - on 02 at home, requiring increased O2 now at 3L - Continue albuterol nebs, dulera, spiriva, guaifenesin, steroids (change to PO in AM) and azithromycin - Dr. Luu will see Pt while she is here (2) CHF (congestive heart failure) Code(s): I50.9 - HEART FAILURE, UNSPECIFIED SNOMED Code(s): 69971992 Comment: - Chronic diastolic, EF 65% in 2011 - Chest Xray on admission, mild congestive failure - Continue chlorthalidone, strict I+O's and daily weights (3) Tobacco abuse Code(s): Z72.0 - TOBACCO USE SNOMED Code(s): 980934882 Comment: - Nicotine supplementation. - Encouraged smoking cessation (4) GERD (gastroesophageal reflux disease) Code(s): K21.9 - GASTRO-ESOPHAGEAL REFLUX DISEASE WITHOUT ESOPHAGITIS SNOMED Code(s): 165066860 Comment: - Continue omeprazole (5) Hypertension Code(s): I10 - ESSENTIAL (PRIMARY) HYPERTENSION SNOMED Code(s): 84802523 Comment: - SBP 110-140's - Continue lisinopril and chlorthalidone (6) Osteoarthritis Code(s): M19.90 - UNSPECIFIED OSTEOARTHRITIS, UNSPECIFIED SITE SNOMED Code(s) : 462424206 Comment: - Continue ASA and oxycodone (7) KATHY (obstructive sleep apnea) Code(s): G47.33 - OBSTRUCTIVE SLEEP APNEA (ADULT) (PEDIATRIC) SNOMED Code(s): 56573878 Comment: - Not on CPAP (8) DVT prophylaxis Current Visit: No Status: Acute Priority: Medium Onset Date: 04/08/14 Code(s): TCQ8153 - SNOMED Code(s): 411794824 Comment: - SQ heparin and SCDs. (9) Full code status Code(s): Z78.9 - OTHER SPECIFIED HEALTH STATUS SNOMED Code(s): 867464322 Status and Disposition: Inpatient. Discharge to home when medically stable, possibly 1-2 days.
[2017-02-14] MEDS ORDERED: Magnesium Hydroxide LIQ* 30 ML UDC PO PRN (12:15)
[2017-02-14] MEDS ORDERED: Polyethylene Glycol 3350* 17 GM PACKET PO PRN (12:16)
--- NOTE | 2017-02-14 12:49 | PN ---
"Progress Note - Progress Note Date of Service: 02/14/17 Note: Search Terms: nick reza, 10/28/1911 Search Date: 02/14/2017 12:48:43 PM The Drug Utilization Report below displays all of the controlled substance prescriptions, if any, that your patient has filled in the last twelve months. The information displayed on this report is compiled from pharmacy submissions to the Department, and accurately reflects the information as submitted by the pharmacies. This report was requested by: Tushar Harrington | Reference #: [id number] Others' Prescriptions Patient Name: Nick Reza Date: 10/28/1911 Address: [place] [address] Sex: Female Rx Written Rx Dispensed Drug Quantity Days Supply Prescriber Name 07/19/2016 07/19/2016 lorazepam 0.5 mg tablet 25 6 Cristine Cuellar ([employer]) 04/27/2016 04/28/2016 lorazepam 0.5 mg tablet 20 10 Afshin Davis MD 03/24/2016 03/29/2016 tramadol hcl 50 mg tablet 50 8 Jasen Umanzor MD Patient Name: Nick Reza Date: 10/28/1911 Address: [address] [place] [address] Sex: Female Rx Written Rx Dispensed Drug Quantity Days Supply Prescriber Name 07/04/2016 07/06/2016 tramadol hcl 50 mg tablet 120 20 Corine Umer 07/04/2016 07/06/2016 lorazepam 0.5 mg tablet 90 22 CorineUgoelsa 07/03/2016 07/03/2016 lorazepam 0.5 mg tablet 20 5 Jose Luis Blair DO 07/03/2016 07/03/2016 tramadol hcl 50 mg tablet 30 5 Jose Luis Blair DO"
[2017-02-14] MEDS: Azithromycin IV(*) 500 MG in NS 0.9% 250 ML* 250 ML IVPB SCH (17:36)
[2017-02-14] MEDS: Senna TAB PO SCH (20:03)
[2017-02-14] MEDS: traZODone TAB* 50 MG TAB PO SCH (20:05)
[2017-02-14] MEDS: ALPRAZolam TAB* 0.5 MG PO PRN (20:06)
--- NOTE | 2017-02-14 20:31 | CONS ---
PULMONARY CONSULTATION REPORT: DATE OF CONSULT: 02/14/17 CONSULTATION REQUESTED BY: Ciara Zhang NP REASON FOR CONSULTATION: Evaluation of COPD. HISTORY OF PRESENT ILLNESS: The patient is a 51-year-old old morbidly obese female with history of COPD, current smoker known to me from outpatient evaluation. The patient presents to the hospital for evaluation of worsening shortness of breath associated with cough productive of brown phlegm. The patient reports sick contacts recently, father and other family members with similar symptoms. The patient's symptoms worsened and decided to come into the emergency room for further evaluation. The patient denies chest pain, palpitations, dizziness, nausea, vomiting and diarrhea. The patient also denies urinary symptoms. The patient has history of sleep apnea diagnosed in the past, not being compliant with CPAP. Her machine was taken away due to noncompliance. The patient is on home oxygen and claims to be compliant with usage. Last exacerbation was long time ago. The patient was found to be wheezing significantly, O2 requirements have also increased and she was started on treatment for acute COPD exacerbation. The patient reports slight improvement in her symptoms, not returned to baseline. Her O2 requirements have been improving. The patient is currently on prednisone , antibiotics for possible bronchitis/pneumonia. I have personally reviewed her chest x-ray, evidence of mild congestion with no acute airspace opacities. PAST MEDICAL HISTORY: 1. Chronic diastolic CHF. 2. COPD, on home O2. 3. Current tobacco usage. 4. GERD. 5. Hypertension. 6. Obstructive sleep apnea, not using CPAP. 7. Osteoarthritis. 8. Psoriasis. MEDICATIONS: At home: 1. Lisinopril. 2. Chlorthalidone. 3. Ibuprofen. 4. Aspirin. 5. Oxycodone. 6. Senna. 7. Trazodone. ALLERGIES: 1. CLINDAMYCIN. 2. PENICILLIN. FAMILY HISTORY: Father with COPD and hypertension. SOCIAL HISTORY: One pack per day smoking, currently cut down to 2 to 3 cigarettes per day. Denies alcohol or drug abuse. REVIEW OF SYSTEMS: All systems reviewed and as per HPI. PHYSICAL EXAM: The patient is sitting in bed, in no apparent distress. Vital Signs: Temperature 97.7, heart rate 16 beats per minute, respiratory rate 16 per minute, O2 sat 98% on 3 L, blood pressure 124/68. HEENT: Pupils are equal and reactive to light, mucous membranes moist. No scleral icterus. Neck: Supple. Thyroid is normal. Mallampati class 4 airway. Lungs: No accessory muscle usage, diminished air entry bilaterally, distant breath sounds, and expiratory wheeze. Cardiovascular: S1 and S2 present, regular. No murmurs. Musculoskeletal: Normal range of motion, trace edema bilaterally. Abdomen: Obese, bowel sounds present, nondistended, nontender. Skin: No rash or bruises. Neuro: No focal deficits. DIAGNOSTIC STUDIES/LAB DATA: WBC count 15.6, hemoglobin 14.5, hematocrit 45, and platelet count of 209,000. D-dimer is less than 200. Sodium is 136, potassium 4.2, chloride 94, bicarb 39, BUN 29, creatinine 0.8. Lactic within normal limits. BNP slightly elevated at 145, LFTs within normal limits, calcium is within normal limits. Chest x-ray as described above in the HPI. No acute air space opacities. IMPRESSION AND RECOMMENDATIONS: 51-year-old morbidly obese female, current smoker with history of chronic obstructive pulmonary disease with acute chronic obstructive pulmonary disease exacerbation, likely secondary to viral bronchitis. The patient is improving currently. Continue with prednisone taper. FiO2 requirements coming down. The patient has a history of obstructive sleep apnea and component of obesity hypoventilation, which is also probably resulting in hypoxemia. The patient is noncompliant with CPAP. Discussed pathophysiology of chronic obstructive pulmonary disease in detail. Discussed importance of smoking cessation, smoking cessation counseling and education was performed that lasted 4 minutes. Consequences of smoking and interventions to quit smoking were discussed. She is agreeable to quit smoking. She is more interested in cutting down on the cigarettes and eventually quitting than doing pharmacological therapy. Pathophysiology of sleep apnea was discussed. Consequences of untreated sleep apnea were discussed. She is agreeable to trying CPAP again. The patient reports anxiety with CPAP usage. Mask desensitization might be needed prior to starting CPAP therapy. Will need PFTs and 6-minute walk test as outpatient. The patient does not qualify for low-dose CT for lung cancer screening. Thank you for allowing me to participate in the care of your patient. Will follow up with you. [id number]/[facility] #: [id number] PHYLLIS
[2017-02-15] MEDS: Albuterol 2.5 MG/3 ML NEB.SOL* (0.083%) INH SCH ×2 (01:46→07:36)
[2017-02-15] MEDS: Heparin VIAL(*) 5000 UNITS/ML VIAL (FIVE THOUSAND) SUBCUT SCH (05:31)
[2017-02-15] MEDS: Nicotine Inhaler* 10 MG AMP INH PRN ×2 (05:31→08:19)
[2017-02-15] MEDS: oxyCODONE TAB* 5 MG TAB PO PRN ×2 (05:32→09:36)
[2017-02-15] MEDS: Omeprazole CAP* 20 MG PO SCH (05:32)
[2017-02-15] MEDS: Mometasone/Formoter 200/5 MDI INH SCH (07:39)
[2017-02-15] MEDS: Tiotropium CAP.INH* CAP.INH/18 MCG (USE ORDER SET !) INH SCH (07:40)
[2017-02-15] MEDS: Chlorthalidone TAB* 50 MG PO SCH (08:20)
[2017-02-15] MEDS: Aspirin EC Low Dose* 81 MG TAB.EC PO SCH (08:20)
[2017-02-15] MEDS: guaiFENesin ER TAB 600 MG PO SCH (08:20)
[2017-02-15] MEDS: Lisinopril TAB* 10 MG PO SCH (08:20)
[2017-02-15] MEDS ORDERED: predniSONE TAB* 20 MG PO SCH (08:30)
[2017-02-15 08:38] VITALS: BP 123/56
--- NOTE | 2017-02-15 13:11 | PN ---
Progress Note - Progress Note Date of Service: 02/15/17 - Pulmf/u note Note: Ptseena nd examined at bedside. Reports feeling better. SOB and cough improved. Active Medications Generic Name Dose Route Start Last Admin Trade Name Freq PRN Reason Stop Dose Admin Al Hydrox/Mg Hydrox/Simethicone 30 ml 02/14/17 09:51 02/14/17 10:32 Maalox Plus* PO 30 ml Q6H PRN Administration INDIGESTION Albuterol 2.5 mg 02/12/17 01:40 02/13/17 19:59 Ventolin 2.5 Mg/3 Ml Neb.Shira* INH 2.5 mg Q2H PRN Administration SOB/WHEEZING Albuterol 2.5 mg 02/14/17 01:00 02/15/17 07:36 Ventolin 2.5 Mg/3 Ml Neb.Shira* INH 2.5 mg [id number] AWAKE NATHANAEL Administration Alprazolam 0.5 mg 02/13/17 20:29 02/14/17 20:06 Xanax Tab* PO 0.5 mg BEDTIME PRN Administration ANXIETY/INSOMNIA Aspirin 81 mg 02/12/17 09:00 02/15/17 08:20 Aspirin Ec Low Dose* PO 81 mg DAILY NATHANAEL Administration Chlorthalidone 50 mg 02/12/17 09:00 02/15/17 08:20 [place] Tab* PO 50 mg DAILY NATHANAEL Administration Guaifenesin 1,200 mg 02/12/17 09:00 02/15/17 08:20 Mucinex* PO 1,200 mg BID NATHANAEL Administration Heparin Sodium (Porcine) 5,000 units 02/13/17 22:00 02/15/17 05:31 Heparin Vial(*) SUBCUT 5,000 units Q8HR NATHANAEL Administration Azithromycin 500 mg/ Sodium 250 mls @ 250 mls/hr 02/12/17 18:00 02/14/17 17: 36 Chloride IVPB 250 mls/hr Q24H NATHANAEL Administration Lisinopril 20 mg 02/12/17 09:00 02/15/17 08:20 Prinivil Tab* PO 20 mg DAILY NATHANAEL Administration Magnesium Hydroxide 30 ml 02/14/17 12:15 02/14/17 14:38 Milk Of Magnesia Liq* PO 30 ml Q6H PRN Administration CONSTIPATION Melatonin 3 mg 02/14/17 10:19 Melatonin (Nf) PO BEDTIME PRN INSOMNIA Mometasone Furoate/Formoterol Fumar 2 puff 02/12/17 09:00 02/15/17 07:39 Dulera 200/5 Mdi* INH 2 puff BID NATHANAEL Administration Nicotine 10 mg 02/12/17 10:24 02/15/17 08:19 Nicotine Inhaler* INH 10 mg Q2H PRN Administration CRAVING Omeprazole 20 mg 02/14/17 10:00 02/15/17 05:32 Prilosec Cap* PO 20 mg DAILY@0600 NATHANAEL Administration Oxycodone HCl 10 mg 02/12/17 03:20 02/15/17 09:36 Roxycodone Tab* PO 10 mg Q4H PRN Administration PAIN Polyethylene Glycol/Electrolytes 17 gm 02/14/17 12:16 02/14/17 14:38 Miralax* PO 17 gm DAILY PRN Administration CONSTIPATION Prednisone 40 mg 02/15/17 08:30 02/15/17 08:20 Deltasone Tab* PO 40 mg DAILY WITH MEAL NATHANAEL Administration Senna 2 tab 02/12/17 21:00 02/14/17 20:03 Senokot Tab* PO 2 tab BEDTIME NATHANAEL Administration Tiotropium [place] 1 cap 02/12/17 09:00 02/15/17 07:40 Spiriva Cap.Inh* INH 1 cap DAILY NATHANAEL Administration Trazodone HCl 75 mg 02/12/17 21:00 02/14/17 20:05 Desyrel Tab* PO 75 mg BEDTIME NATHANAEL Administration Vital Signs Temp Pulse Resp BP Pulse Ox 97.6 F 72 20 123/56 91 02/15/17 08:38 02/15/17 08:38 02/15/17 12:07 02/15/17 08:38 02/15/17 08:38 O/E: Pt in NAD HEENT: PERRLA Lungs: Distant breath sounds, scaterred wheeze+ CVS: S1, S2+ Abd: Obese, BS+ Ext: Noraml ROM, trace edema Skin: NO rash or bruise Neuro: No focal defecits Labs: No new labs I/R; 51 y o morbidly obese female, current smoker with acute COPD exacerbation Pt was educated on risk of continued lung damage with smoking Will be d/edouard home with tapering doses of prednisone c/w nebs Pt will complete course of abxx Will f/u as out pt Will need PFTs and sleep study
--- NOTE | 2017-02-16 12:33 | DS ---
CC: Dr. Jarrett; Dr. Luu * DISCHARGE SUMMARY: DATE OF ADMISSION: 02/12/17 DATE OF DISCHARGE: 02/15/17 PRIMARY CARE PROVIDER: None - Dr. Jarrett to be established. CONSULTING DRAIN CLEANER: Dr. Luu. DISCHARGING PROVIDER: CASE Farooq SUPERVISING PHYSICIAN: Dr. Yves Harrington * (DICTATED BY CASE FAROOQ) PRIMARY DISCHARGE DIAGNOSIS: Acute chronic obstructive pulmonary disease exacerbation. SECONDARY DISCHARGE DIAGNOSES: 1. Chronic hypoxic respiratory failure secondary to chronic obstructive pulmonary disease. 2. Chronic diastolic heart failure without acute exacerbation. 3. Tobacco abuse. 4. Gastroesophageal reflux disease. 5. Hypertension. 6. Obstructive sleep apnea. 7. Medical noncompliance. 8. Morbid obesity with a BMI of 50. DISCHARGE MEDICATIONS: 1. DuoNebs 1 neb inhaled q.4 hours as needed for shortness of breath. 2. Aspirin 81 mg p.o. daily. 3. Chlorthalidone 50 mg p.o. daily. 4. Ibuprofen 400 to 600 mg p.o. b.i.d. as needed for pain. 5. Lisinopril 20 mg p.o. daily. 6. Dulera 200/5 two puffs inhaled twice daily. 7. Oxycodone/acetaminophen 1 tablet p.o. q.4 hours as needed for pain. 8. Prednisone at a tapering dose with instructions to take 40 mg x3 days, followed by 20 mg x3 days, then stop. 9. Senna 2 tablets p.o. at bedtime. 10. Spiriva 1 capsule inhaled daily. 11. Trazodone 75 mg p.o. daily. Medication changes: 1. Start Spiriva. 2. Prednisone in a tapering dose. 3. Start Dulera. 4. Start DuoNebs. HOSPITAL IMAGING: Chest x-ray shows mild prominence of interstitial marking suggestive of possible mild pulmonary edema. HOSPITAL COURSE: This is a 51-year-old female with morbid obesity, chronic respiratory failure secondary to COPD, chronic diastolic heart failure, obstructive sleep apnea noncompliant with CPAP, GERD and hypertension, who presented to the emergency department with complaints of shortness of breath. The patient had had a productive cough with increasing shortness of breath for approximately 3 days prior to admission. She had been attempting to use home nebulizer treatments and home oxygen therapy without improvement in her symptoms. Of note, the patient has really been lost to appropriate medical care for quite some time. She has a history of significant noncompliance stating mostly transportation difficulties getting to her appointments and had been excused from her prior primary care provider's office. The patient had mild leukocytosis at the time of admission. No significant infiltrate appreciated on initial chest x-ray. Initial chemistries were significant only for mild hypokalemia and slightly elevated serum bicarb. D- dimer was noted to be negative. She is subsequently admitted for COPD exacerbation, started on appropriate inhalers and corticosteroids. She initially required up to 10 L of supplemental oxygen and titrated down to 3 L at the time of discharge. No signs of associated heart failure. The patient was evaluated by Dr. Luu during this hospitalization, who agreed with plan of care. The patient will continue on supplemental oxygen at home, does require a CPAP machine, but likely requires an additional outpatient sleep study prior to this being ordered. DISPOSITION AND FOLLOWUP PLAN: The patient is being discharged to home with medications as listed above. Attempts were made to get the patient an appointment with Dr. Jarrett to establish primary care as well as follow up with Dr. Luu for further pulmonology care. The patient will need to follow up with these offices to get appropriate appointments. TIME SPENT: Greater than 30 minutes spent on discharge. CASE FAROOQ [id number]/[facility] #: [id number] PHYLLIS
== END 2017-02-15 12:30 | disposition home or self-care (01) | DRG 191 ==
LOC: ED 17:37 → MED 22:26
PROVIDERS: ADMIT Hospitalist; ATTEND Internal Medicine
DX: J44.1 Chronic obstructive pulmonary disease with (acute) exacerbation (principal); I50.32 Chronic diastolic (congestive) heart failure; J96.11 Chronic respiratory failure with hypoxia; I11.0 Hypertensive heart disease with heart failure; E66.2 Morbid (severe) obesity with alveolar hypoventilation; Z68.43 Body mass index [BMI] 50.0-59.9, adult; F17.210 Nicotine dependence, cigarettes, uncomplicated; K21.9 Gastro-esophageal reflux disease without esophagitis; M19.90 Unspecified osteoarthritis, unspecified site; G47.33 Obstructive sleep apnea (adult) (pediatric); L40.9 Psoriasis, unspecified; F41.9 Anxiety disorder, unspecified; R40.2412 Glasgow coma scale score 13-15, at arrival to emergency department; E87.6 Hypokalemia; D72.829 Elevated white blood cell count, unspecified; Z88.0 Allergy status to penicillin; Z88.1 Allergy status to other antibiotic agents; Z82.49 Family history of ischemic heart disease and other diseases of the circulatory system; Z82.5 Family history of asthma and other chronic lower respiratory diseases; Z87.01 Personal history of pneumonia (recurrent); Z80.1 Family history of malignant neoplasm of trachea, bronchus and lung; Z91.19 Patient's noncompliance with other medical treatment and regimen; Z23 Encounter for immunization; Z79.82 Long term (current) use of aspirin; Z99.81 Dependence on supplemental oxygen
CPT/HCPCS: A9270-GY; G0463; G8427; G8730; J0456; J1644; J1940; J2920; J2930; J7512

== ENCOUNTER 2017-06-30 11:43 | Inpatient (IN) | payer MEDICARE, MEDICAID ==
[~2017-06-30 11:43] MED LIST: Buffered Lidocaine 0.9% SYRIN* 5 ML/SYR SYRINGE INTRADERM ONE; Dexamethasone IV* 4 MG/ML 1 ML (4 MG) IV SLOW PU ONE; Famotidine TAB* 20 MG PO ONE
--- OUTSIDE RECORDS SUMMARY | 2017-06-30 11:47 | XMS REPORT ---
:1965 External Reference #:[id number] Author Organization [facility] Address [address] [place] [address] Phone [phone] Care Team Providers Name Role Phone Jaiden Jarrett M.D. 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 Primary Care Physician Unavailable Payers Type Date Identification Numbers Payment Provider Subscriber Medicare Primary Policy Number: [id number] [place] [employer] Niharika Reza PayID: [id number] [address] [place] [address] Problems Date Description Provider Status Onset: 08/14/2014 Essential hypertension Kamlesh Espinoza MD Active Onset: 06/29/2017 Neoplasm of uncertain behavior of larynx Kamlesh Espinoza MD Active Onset: 06/29/2017 Difficulty speaking Kamlesh Espinoza MD Active Onset: 06/29/2017 Esophageal dysphagia Kamlesh Espinoza MD Active Family History Date Family Member(s) Problem(s) Comments General Allergies General Asthma General Cancer Social History Type Date Description Comments Occupation Disabled Cigarette Use Current Cigarette Smoker 1 Pack Daily Cigarette Use for 20 yrs Cigars Never Smoked Cigars Pipe Never Smoked A Pipe Smokeless Tobacco Never Used Smokeless Tobacco ETOH Use Currently rarely consumes alcohol Allergies, Adverse Reactions, Alerts Date Description Reaction Status Severity Comments 07/25/2008 Penicillin active rash, blisters 08/14/2014 Clindamycin active Medications Medication Date Status Form Strength Qnty SIG Indications Ordering Provider Combivent / Active Aerosol 20-100mcg/ 1 puff 4 Arcenio Patel Respimat 0000 Act times M.D. daily Oxycodone-Acetam / Active Tablets 7.5-325mg 1 by Arcenio Patel inophen 0000 mouth M.D. every 4 hours as needed for pain Triamcinolone / Active Cream 0.1% twice a Arcenio Patel Acetonide 0000 day M.D. Chlorthalidone / Active Tablets 25mg 1/2 by Law, Arcenio mouth M.D. every day Lisinopril / Active Tablets 20mg 1 by Law, Arcenio mouth M.D. every day Trazodone HCL / Active Tablets 50mg as Arcenio Patel directed M.D. Omeprazole / Active Capsules 20mg one by Arcenio Patel DR mouth one M.D. per day Aspirin Low Dose / Active Chewtabs 81mg 1 by , Arcenio mouth M.D. every day Dulera / Active Aerosol 100-5mcg/A [address] twice a M.D. day No Active Unknown Medications 2014 - 2014 Omeprazole 07/25/ Hx Capsules 40mg 120cap 40mg PO 530.81 Kamlesh 2008 - DR chris Espinoza 08/14/ MD 2014 Albuteral / Hx Unknown Inhaler - 2014 Atrovent / Hx Unknown - 2014 Triamcinolone / Hx Unknown Long-Term, 0000 - Micronized 2014 Vital Signs Date Vital Result Comment 06/29/2017 Weight 289.00 lb Weight in kg's 131.090 Height 63 inches 5'3" Height in cm's 160.0 cm BMI (Body Mass Index) 51.2 kg/m2 08/28/2008 Heart Rate 82 /min Respiratory Rate 16 /min Weight 325.00 lb Weight in kg's 147.420 07/25/2008 Heart Rate 86 /min Respiratory Rate 20 /min Weight 325.00 lb Weight in kg's 147.420 Results Description No Information Procedures Date CPT Code Description Status 06/29/2017 73884 Fiberoptic Laryngoscopy Completed 08/28/2008 51680 Fiberoptic Laryngoscopy Completed 07/25/2008 03135 Fiberoptic Laryngoscopy Completed Encounters Type Date Location Provider CPT E/M Dx Office Visit 06/29/2017 10:15a [place] 03/20/07 [place] [address] R13.14 R49.8 D38.0 Office Visit 08/28/2008 8:45a [place] 03/20/07 [place] [id number] 784.49 530.81 787.24 780.59 Office Visit 07/25/2008 9:00a [place] 03/20/07 [place] [id number] 787.24 530.81 784.49 Plan of Care Future Appointment(s):06/30/2017 10:45 am - Saul Gotti MD at [facility] [place] O R0 7:00 am - Kamlesh Espinoza MD at [place] 03/20/803 - Kamlesh Espinoza MDR13.14 Dysphagia, pharyngoesophageal phaseNew Labs:Basic Metabolic PanelCBC Auto DiffNew Xrays:EKGR49.8 Other voice and resonance lysqaswicR53.0 Neoplasm of uncertain behavior of larynxComments: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 This is an obstructive lesion. We did discuss options of treatment including awake laryngoscopy flexible endoscopy and intubation subsequently tracheostomy and then subsequently biopsy of the laryngeal lesion with reducing the bulk of the lesion. Further investigations including a PET scan. Further management based on the pathology ofthe laryngeal lesion. She is scheduled for awake tracheostomy, laryngeal biopsy
[2017-06-30] MEDS ORDERED: Dexamethasone IV* 4 MG/ML 1 ML (4 MG) ONE (11:53)
[2017-06-30] MEDS ORDERED: Famotidine TAB* 20 MG ONE (11:54)
[2017-06-30] MEDS ORDERED: Acetaminophen TAB* 325 MG PO PRN (11:56)
[2017-06-30] MEDS ORDERED: Albuterol 2.5 MG/3 ML NEB.SOL* (0.083%) INH PRN (11:56)
[2017-06-30] MEDS ORDERED: Ondansetron INJ* 2 MG/ML VIAL IV PRN (11:56)
[2017-06-30] MEDS ORDERED: oxyCODONE/Acetamin 10/325(NF) TAB PO PRN (11:57)
[2017-06-30] MEDS ORDERED: clonazePAM TAB(*) 0.5 MG PO PRN (11:57)
[2017-06-30] MEDS ORDERED: Nicotine Inhaler* 10 MG AMP INH PRN (12:09)
[2017-06-30] MEDS ORDERED: Mouth Piece, Nicotine* 1 EACH CARTRIDGE INH PRN ×2 (12:09)
[2017-06-30] MEDS ORDERED: Buffered Lidocaine 0.9% SYRIN* 5 ML/SYR SYRINGE ONE (12:11)
[2017-06-30] MEDS ORDERED: oxyCODONE TAB* 5 MG TAB PO PRN (12:18)
[2017-06-30] MEDS ORDERED: Lidocaine 4% TOPICAL* 50 ML TOP.SOLN ONE ×2 (12:28→13:09)
[2017-06-30] MEDS ORDERED: Lidocaine 2% EPI 1:200000 MPF*10-20 ML VIAL ONE ×2 (12:28→13:57)
[2017-06-30] MEDS ORDERED: Oxymetazoline 0.05% NASAL SPR* 15 ML BTL ONE (12:28)
[2017-06-30] MEDS ORDERED: Dexmedetomidine* 200 MCG/2 ML 2 ML VIAL ONE (12:42)
[2017-06-30] MEDS ORDERED: Sodium Chloride 0.9%* 10 ML ONE (12:42)
[2017-06-30] MEDS ORDERED: Lidocaine 1%* 5 ML VIAL ONE (12:53)
[2017-06-30] MEDS ORDERED: Lidocaine 2% VISCOUS* 15 ML UDC ONE (13:42)
[2017-06-30] MEDS ORDERED: fentaNYL* 50 MCG/ML 2 ML VIAL (100 MCG VIAL) ONE (14:34)
[2017-06-30] MEDS ORDERED: oxyCODONE/Acetamin 5/325 MG* TAB PO PRN (15:11)
--- NOTE | 2017-06-30 15:13 | HP ---
AMENDED REPORT NOW INCLUDES COSIGNER DESIGNATION - ESIGNED BEFORE ADJUSTMENT CC: Dr. Raul Jarrett; Dr. Kamlesh Espinoza * ADMISSION HISTORY AND PHYSICAL: DATE OF ADMISSION: 06/30/17 PRIMARY CARE PROVIDER: Dr. Raul Jarrett. MY ATTENDING WHILE IN THE HOSPITAL: Dr. Micha Bean.* (DICTATED BY CASE COFFEY) CONSULTING ENT: Dr. Kamlesh Espinoza. 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 HISTORY OF PRESENT ILLNESS: Ms. Reza is a 52-year-old female with a past medical history significant for COPD, obstructive sleep apnea, diastolic CHF, ongoing tobacco abuse, and recent diagnosis of laryngeal mass, who presents today for surgery with Dr. Espinoza of ENT for removal. The patient states that she is feeling well except for being exhausted because whenever she lies flat, she feels like she cannot breathe and that her trachea becomes occluded. This has been significantly decreasing her ability to sleep; however, she has not noticed any upper respiratory stress. The patient has wheezing but she feels like it originates from her upper airway, does not feel like previous COPD exacerbations. The patient has increased swelling in her legs, but has not been able to lie flat and has not been elevating her legs for over a week. The patient has known diastolic CHF. The patient has not had any dietary indiscretions. The patient has no pain except for baseline left knee pain due to osteoarthritis, which is well controlled with Percocet and new pain in her foot from stubbing her toe. She feels as though she may have broken her toe, but the pain is not intense and there is no deformity. The patient is still able to do activities of daily living such as cooking and getting around her house; however, she needs assistance from her son with moving her concentrator which is new. The patient has not been very active, cannot quantify her decrease in exercise tolerance. We are admitting this patient for co-medical management while she is admitted for removal of her laryngeal tumor. PAST MEDICAL HISTORY: COPD; obstructive sleep apnea, on CPAP, noncompliance; psoriasis; diastolic CHF; tobacco abuse; GERD; hypertension; hyperlipidemia; osteoarthritis; obesity. MEDICATIONS: 1. Lisinopril 20 mg p.o. daily. 2. Chlorthalidone 50 mg p.o. daily. 3. Aspirin 81 mg p.o. daily. 4. Albuterol 2 puffs q.4 hours as needed. 5. Triamcinolone topical ointment 1 application daily as needed. 6. Senokot 2 tabs p.o. q.p.m. 7. Percocet 10/325 q.4 hours as needed for pain. 8. Ibuprofen 200 mg as needed. 9. Omeprazole 20 mg p.o. daily. The patient did not take her lisinopril, chlorthalidone, omeprazole, or aspirin this morning. The patient's only med was her Percocet. ALLERGIES: PENICILLIN, CLINDAMYCIN. FAMILY HISTORY: The patient's mother had lung cancer. The patient's father is alive and has diabetes. The patient's maternal grandmother and great grandmother of breast cancer. The patient's paternal grandmother of bone cancer. SOCIAL HISTORY: The patient is a current tobacco user. The patient smokes 10 cigarettes to a pack a day. Has been trying to cut this back, is willing to quit with the aid of pharmacologic assistance, and states she has nicotine patch at home. The patient is never , has a partner of 23 years. The patient has 3 children, all of whom are adults and are healthy. REVIEW OF SYSTEMS: A 14-point review of systems were reviewed and is negative except for the above. PHYSICAL EXAMINATION GENERAL: The patient is a 52-year-old female, who appears older than stated age and is sitting comfortably in the chair and exam room, in no acute distress. VITAL SIGNS: Temperature 97.8, pulse rate 78, respiratory rate 20, oxygen saturation 94% on 2 L, and blood pressure 120/71. HEENT: Head is normocephalic, atraumatic. Sclerae anicteric. No conjunctival injection. Nasal mucosa is moist. Oral mucosa is moist. No pharyngeal erythema or discharge or exudate. NECK: Supple, nontender. No lymphadenopathy. No carotid bruits auscultated. No JVD. RESPIRATORY: Breath sounds diminished throughout, harsh upper airway sounds auscultated. No wheezes, rales, or rhonchi in the bilateral lobes throughout. No accessory muscle use. The patient is on 2 L of oxygen. CARDIAC: Regular rate and rhythm. No clicks, murmurs, gallops, or rubs. Pulses 2+ in bilateral dorsalis pedis, posterior tibial, and radial areas. 2+ pitting edema in the bilateral lower extremities, no calf tenderness noted. ABDOMEN: Soft, nontender, nondistended. Bowel sounds present, normoactive in all 4 quadrants. No hepatosplenomegaly, no abdominal bruits are auscultated. NEUROLOGIC: Cranial nerves II through XII intact. No focal deficits. Alert and oriented x3. PSYCHIATRIC: Pleasant and cooperative. Somewhat anxious. SKIN: Clean, dry, and intact. No rash. DIAGNOSTIC STUDIES/LAB DATA: From 06/29/17, white blood cell count 11.8, hemoglobin 14.8, hematocrit 45, platelet count 215. Sodium 137, potassium 3.4 , chloride 93, carbon dioxide 37, anion gap 7, BUN 18, glucose 119, calcium 9.3. Electrocardiogram from 06/29/17 shows sinus rhythm, right bundle branch block, rate of 76, probable left atrial enlargement or other enlargement or hypertrophy consistent with previous exam. QTc of 466. Normal axis. ASSESSMENT AND PLAN: Impression: Ms. Reza is a 52-year-old female with past medical history significant for chronic obstructive pulmonary disease, ongoing tobacco abuse, obstructive sleep apnea, psoriasis, diastolic heart failure, hypertension, dyslipidemia, who was recently diagnosed with a laryngeal mass. The patient is admitted for removal of this mass by Dr. Espinoza of ENT today. 1. Laryngeal mass. This has been interfering with the patient's breathing when she lies down for over a week now. This does not sound as if this is orthopnea from congestive heart failure, as she feels like her airway is closed off at the top, consistent with the pathological findings from her recent laryngoscopy. The patient has no crackles in her lungs. The patient does have an increased swelling in her legs probably from increased dependency. We will have the patient elevates her legs and continue her chlorthalidone postoperatively if her blood pressure will allow it. Trend H and H. The patient will need to be intubated for surgery. The patient may need tracheostomy if she is unable to be extubated due to the location of the tumor, we will leave this determination to her surgeon. The patient's disposition will be based upon this. The patient's home medications will be continued. At this time, it will be adjusted if the patient needs to remain intubated or have a tracheostomy as this might require long-term sedation. 2. Chronic obstructive pulmonary disease. We will convert the patient's albuterol inhaler to a nebulizer while in the hospital. The patient is not on maintenance therapy. The patient is not currently wheezing. The patient should follow up with her primary care provider as outpatient. 3. Obstructive sleep apnea. The patient is not compliant with the CPAP at home. The patient will have CPAP in the hospital if she is able to be extubated postsurgically. 4. Diastolic heart failure. We will continue the patient's chlorthalidone. After her surgery, the patient should have her legs elevated. The patient will have strict I's and O's and daily weights. We will diurese additionally as indicated. The patient does not have any signs of current exacerbation. 5. Gastroesophageal reflux disease. Continue omeprazole. This dose may need to be increased and change pantoprazole to decrease risk of ventilator associated ulcers if this is her course. 6. Osteoarthritis. Continue the patient's home pain control. The patient should not take ibuprofen while in the hospital. 7. Tobacco abuse. The patient will have inhalers available as needed for cravings while she is in hospital, this should be continued outpatient as well as nicotine patch. The patient is currently motivated to quit. 8. Hypertension. We will resume lisinopril and chlorthalidone as dictated by blood pressure postoperatively. The patient did not take her medications this morning. 9. FEN. The patient will have lactated Ringer's until she is able to tolerate oral intake again. The patient is NPO, reintroduce diet as tolerated. 10. DVT prophylaxis. The patient will have SCDs at this time and have appropriate DVT prophylaxis postoperatively. The patient is a moderate risk. 11. Code status. The patient would like to be a full code. The patient's current surrogate decision maker is her son, Kirby Gil. 12. Disposition. The patient's disposition will be dictated by her postsurgical course. TIME SPENT: Approximately 60 minutes of time was spent on this admission, 30 of which was spent [id number] with the patient obtaining history and physical and discussing treatment plan. CASE COFFEY [id number]/[facility] #: [id number] PHYLLIS
[2017-06-30] MEDS ORDERED: LORazepam INJ* 2 MG/ML 1 ML VIAL IV PUSH PRN (15:37)
[2017-06-30] MEDS ORDERED: Morphine VIAL* 4 MG/ML VIAL (1 ml vial) IV PRN (15:37)
[2017-06-30] MEDS ORDERED: Nicotine GUM* 2 MG PO PRN (15:44)
[2017-06-30] MEDS: Pantoprazole IV* 40 MG IV SCH (16:29)
--- NOTE | 2017-06-30 18:18 | PN ---
Hospitalist Progress Note Date of Service: 06/30/17 Patient seen and examined postoperatively. Still sedated and not communicative. Patient has tracheostomy which is draining small amounts of blood around it. No respiratory distress, lungs clear to auscultation. Vital Signs Stable. Patient to be NPO until the cuff around the tracheostomy can be deflated to trial PO intake. Medications changed to IV. Pain well controlled.
[2017-06-30] MEDS ORDERED: Acetaminophen SUPP* 650 MG SUPP PR PRN (18:19)
[2017-06-30] MEDS: Morphine VIAL* 4 MG/ML VIAL (1 ml vial) IV PRN (19:25)
[2017-06-30] MEDS: LORazepam INJ* 2 MG/ML 1 ML VIAL IV PUSH PRN (20:26)
[2017-06-30] MEDS ORDERED: CMCS Melatonin (NF) 3 MG TAB PO PRN (21:00)
[2017-06-30] MEDS ORDERED: Senna TAB PO SCH (21:00)
[2017-06-30] MEDS: Nystatin TOP POWDER* 15 GM BTL TOPICAL SCH (21:47)
--- NOTE | 2017-06-30 23:42 | OP ---
DATE OF OPERATION: 06/30/17 - ROOM #ICU-05 DATE OF : 69 SURGEON: Kamlesh Espinoza MD PRE-OP DIAGNOSIS: Neoplasm, supraglottic larynx with airway obstruction. POST-OP DIAGNOSIS: Neoplasm, supraglottic larynx with airway obstruction. OPERATIVE PROCEDURE: Awake tracheostomy and biopsy of supraglottic larynx. BRIEF HISTORY: This 52-year-old presenting with progressive airway difficulty. Flexible laryngoscopy showed a large exophytic mass of the supraglottic larynx suspicious for squamous cell carcinoma. DESCRIPTION OF PROCEDURE: The patient was taken to the operating room. General anesthetic was given and multiple attempts at intubation fiberoptically were futile. We then proceeded with doing an awake tracheostomy. The neck was then prepped and draped in the usual fashion. Dr. Gotti was assisting. A small incision was made and subsequently strap muscle was identified. A lot of the fat was removed. The strap muscles were then secured with multiple sutures to the skin and closing up the defect. Subsequently, the cricoid was identified, elevated and the second ring was incised. A #6 endotracheal tube was inserted. When the patient was asleep, we switched it to a #6 Shiley uncuffed, unfenestrated. When the patient had a full general anesthetic, we turned our attention to the larynx. The larynx was suspended. Microscope was utilized. Laryngeal biopsies were then carried out of supraglottic larynx. There was no extension of the lesion into the vocal process. The tumor was very friable. Biopsy specimen was sent for permanent section. The patient was awakened, remained intubated with a tracheostomy tube, to be transferred to the ICU. [id number]/[facility] #: [id number] MTDD
[2017-07-01] MEDS: Morphine VIAL* 4 MG/ML VIAL (1 ml vial) IV PRN ×8 (01:06→20:49)
[2017-07-01 05:59] LABS: ABS Basophils 0.1 10^3/ul (0-0.2); ABS Eosinophils 0 10^3/ul (0-0.6); ABS Lymphocytes 1.2 10^3/ul (1.0-4.8); ABS Monocytes 0.6 10^3/ul (0-0.8); ABS Neutrophils 11.6 10^3/ul (1.5-7.7); ABS Nucleated RBC 0 10^3/ul; Eosinophil % 0.1 % (0-6); Hematocrit 42 % (35-47); Hemoglobin 13.8 g/dl (12.0-16.0); Mean Corpuscular HGB Conc 33 g/dl (31-36); Mean Corpuscular Hemoglobin 28 pg (27-31); Mean Corpuscular Volume 86 fL (80-97); Mean Platelet Volume 7.5 um3 (7.4-10.4); Nucleated Red Blood Cells % 0; Platelet Count 177 10^3/ul (150-450); Red Blood Count 4.86 10^6/ul (4.0-5.4); Red Cell Distribution Width 16 % (10.5-15); White Blood Count 13.4 10^3/ul (3.5-10.8)
[2017-07-01 06:19] LABS: EGFR Non-African American 78.2 (>60)
[2017-07-01] MEDS ORDERED: Magnesium Sulfate 1 GM IV* 1 GM/100 ML BAG IV ONE (07:30)
--- NOTE | 2017-07-01 08:39 | PN ---
Subjective Date of Service: 07/01/17 Interval History: Pt is s/p tracheostomy -due to that nonverbal. Able to indicate that post op pain was at 3. Objective Active Medications: Acetaminophen (Tylenol Supp*) 650 mg MO Q6H PRN PRN Reason: FEVER/PAIN Albuterol (Ventolin 2.5 Mg/3 Ml Neb.Shira*) 2.5 mg INH Q4H PRN PRN Reason: SOB/WHEEZING Lactated Ringer's (Lactated Ringers 1000 Ml Bag*) 1,000 mls @ 75 mls/hr IV PER RATE [facility] Stop: 07/02/17 05:19 Last Admin: 07/01/17 05:18 Dose: 75 mls/hr Lorazepam (Ativan Inj*) 1 mg IV PUSH Q2H PRN PRN Reason: ANXIETY Last Admin: 06/30/17 20:26 Dose: 1 mg Morphine Sulfate (Morphine Vial*) 4 mg IV Q2H PRN PRN Reason: PAIN Last Admin: 07/01/17 05:18 Dose: 4 mg Nicotine Polacrilex (Nicotine Gum*) 2 mg PO Q2H PRN PRN Reason: CRAVING Nystatin (Nystatin Top Powder*) 1 applic TOPICAL BID [facility] Last Admin: 06/30/17 21:47 Dose: Not Given Ondansetron HCl (Zofran Inj*) 4 mg IV Q6H PRN PRN Reason: NAUSEA Pantoprazole Sodium (Protonix Iv*) 40 mg IV Q24H [facility] Last Admin: 06/30/17 16:29 Dose: 40 mg Vital Signs - 8 hr 07/01/17 07/01/17 07/01/17 01:00 01:01 02:00 Temperature Pulse Rate 75 76 68 Respiratory 21 14 19 Rate Blood Pressure 115/79 128/78 (mmHg) O2 Sat by Pulse 95 94 96 Oximetry 07/01/17 07/01/17 07/01/17 03:00 03:21 04:00 Temperature 98.1 F Pulse Rate 70 69 Respiratory 18 28 Rate Blood Pressure 118/82 135/81 (mmHg) O2 Sat by Pulse 96 96 Oximetry 07/01/17 07/01/17 07/01/17 05:00 06:00 06:01 Temperature Pulse Rate 77 73 75 Respiratory 24 27 23 Rate Blood Pressure 125/82 112/74 (mmHg) O2 Sat by Pulse 95 91 91 Oximetry 07/01/17 07/01/17 07/01/17 07:00 07:01 07:53 Temperature Pulse Rate 77 76 Respiratory 20 21 20 Rate Blood Pressure 134/91 (mmHg) O2 Sat by Pulse 94 94 Oximetry 07/01/17 08:00 Temperature 97.3 F Pulse Rate 78 Respiratory 22 Rate Blood Pressure 143/93 (mmHg) O2 Sat by Pulse 97 Oximetry Oxygen Devices in Use Now: Tracheostomy Collar Appearance: 52 yo F in nAD, s/p trach, nonverbal, alert, following commands Eyes: No Scleral Icterus, PERRLA Ears/Nose/Mouth/Throat: NL Teeth, Lips, Gums, Mucous Membranes Moist Neck: NL Appearance and Movements; NL JVP, Trachea Midline, - - tracheostomy in place with trach collar on Respiratory: Symmetrical Chest Expansion and Respiratory Effort, Clear to Auscultation Cardiovascular: NL Sounds; No Murmurs; No JVD, RRR Abdominal: NL Sounds; No Tenderness; No Distention, No Hepatosplenomegaly Lymphatic: No Cervical Adenopathy Extremities: No Edema, No Clubbing, Cyanosis Skin: No Rash or Ulcers, No Nodules or Sclerosis Neurological: NL Muscle Strength and Tone Result Diagrams: 07/01/17 05:46 07/01/17 05:46 Microbiology and Other Data: Microbiology 06/30/17 16:00 Nasal Screen MRSA (PCR)(ANTONIO) - Final Nasal Mrsa Detected Assess/Plan/Problems-Billing Assessment: 52 yo F with h/o KATHY, COPD, obesity, HTN s/p surgery for laryngeal mass by Dr. Espinoza and subsequent tracheostomy - Patient Problems (1) Laryngeal mass Comment: as per Dr. Espinoza, pathology pending tracheostomy in place cont supportive care with IVF and GI prophylaxis when NPO (2) COPD (chronic obstructive pulmonary disease) Comment: not in exacerbation, cont to monitor cont nebs prn (3) Hypertension Comment: normotensive off meds, cont to monitor (4) DVT prophylaxis Comment: cont SCD's would start heparin if OK by DR. Espinoza Status and Disposition: inpatient
[2017-07-01] MEDS ORDERED: Omeprazole CAP* 20 MG PO SCH (09:00)
[2017-07-01] MEDS: Nystatin TOP POWDER* 15 GM BTL TOPICAL SCH ×2 (14:54→20:00)
[2017-07-01] MEDS: Pantoprazole IV* 40 MG IV SCH (15:55)
[2017-07-01] MEDS: Nicotine PATCH 21 MG/24 HR* PATCH TRANSDERM SCH (15:55)
[2017-07-01] MEDS ORDERED: Ketorolac INJ* 15 MG/ML 1 ML VIAL IV ONE (20:43)
[2017-07-01] MEDS ORDERED: Ketorolac INJ* 15 MG/ML 1 ML VIAL ONE (20:47)
[2017-07-01] MEDS: Nicotine Patch Removal NOTE PATCH OFF SCH (20:52)
[2017-07-02] MEDS: Morphine VIAL* 4 MG/ML VIAL (1 ml vial) IV PRN ×8 (01:49→23:10)
[2017-07-02] MEDS: Ketorolac INJ* 15 MG/ML 1 ML VIAL IV PRN ×4 (03:16→21:07)
[2017-07-02 05:31] LABS: ABS Basophils 0 10^3/ul (0-0.2); ABS Eosinophils 0 10^3/ul (0-0.6); ABS Lymphocytes 1.3 10^3/ul (1.0-4.8); ABS Monocytes 0.6 10^3/ul (0-0.8); ABS Nucleated RBC 0 10^3/ul; Eosinophil % 0.3 % (0-6); Hematocrit 42 % (35-47); Hemoglobin 13.6 g/dl (12.0-16.0); Lymphocyte % 11.9 % (25-47); Mean Corpuscular HGB Conc 33 g/dl (31-36); Mean Corpuscular Hemoglobin 29 pg (27-31); Mean Corpuscular Volume 87 fL (80-97); Mean Platelet Volume 7.3 um3 (7.4-10.4); Nucleated Red Blood Cells % 0; Platelet Count 161 10^3/ul (150-450); Red Blood Count 4.79 10^6/ul (4.0-5.4); Red Cell Distribution Width 16 % (10.5-15)
[2017-07-02 05:43] LABS: EGFR Non-African American 83.1 (>60)
--- NOTE | 2017-07-02 09:06 | PN ---
Subjective Date of Service: 07/02/17 Interval History: pt feels well. Pain was relieved with Toradol. Unable to verbalize, but able to make needs known. Objective Active Medications: Acetaminophen (Tylenol Supp*) 650 mg CO Q6H PRN PRN Reason: FEVER/PAIN Albuterol (Ventolin 2.5 Mg/3 Ml Neb.Shira*) 2.5 mg INH Q4H PRN PRN Reason: SOB/WHEEZING Ketorolac Tromethamine (Toradol Inj*) 15 mg IV Q6H PRN PRN Reason: PAIN Last Admin: 07/02/17 03:16 Dose: 15 mg Lorazepam (Ativan Inj*) 1 mg IV PUSH Q2H PRN PRN Reason: ANXIETY Last Admin: 06/30/17 20:26 Dose: 1 mg Morphine Sulfate (Morphine Vial*) 4 mg IV Q2H PRN PRN Reason: PAIN Last Admin: 07/02/17 06:38 Dose: 4 mg Nicotine (Nicotine Patch 21 Mg/24 Hr*) 1 patch TRANSDERM DAILY [facility] Last Admin: 07/01/17 15:55 Dose: 1 patch Nicotine Polacrilex (Nicotine Gum*) 2 mg PO Q2H PRN PRN Reason: CRAVING Nystatin (Nystatin Top Powder*) 1 applic TOPICAL BID [facility] Last Admin: 07/01/17 20:00 Dose: Not Given Ondansetron HCl (Zofran Inj*) 4 mg IV Q6H PRN PRN Reason: NAUSEA Pantoprazole Sodium (Protonix Iv*) 40 mg IV Q24H [facility] Last Admin: 07/01/17 15:55 Dose: 40 mg Pharmacy Profile Note (Nicotine Patch Removal Note*) 1 note PATCH OFF 2100 [facility] Last Admin: 07/01/17 20:52 Dose: 1 note Vital Signs - 8 hr 07/02/17 07/02/17 07/02/17 01:00 02:00 02:21 Temperature Pulse Rate 79 76 Respiratory 19 21 19 Rate Blood Pressure 123/77 136/73 (mmHg) O2 Sat by Pulse 98 98 Oximetry 07/02/17 07/02/17 07/02/17 03:00 03:39 04:00 Temperature 99.3 F Pulse Rate 77 89 Respiratory 21 21 Rate Blood Pressure 112/76 141/70 (mmHg) O2 Sat by Pulse 96 93 Oximetry 07/02/17 07/02/17 07/02/17 05:00 06:00 07:00 Temperature Pulse Rate 80 77 92 Respiratory 20 23 28 Rate Blood Pressure 121/73 118/73 (mmHg) O2 Sat by Pulse 97 99 94 Oximetry 07/02/17 07:35 Temperature 98.8 F Pulse Rate Respiratory Rate Blood Pressure (mmHg) O2 Sat by Pulse Oximetry Oxygen Devices in Use Now: Tracheostomy Collar Appearance: 52 yo F in NAD, alert, nonverbal due to trach Eyes: No Scleral Icterus, PERRLA Ears/Nose/Mouth/Throat: NL Teeth, Lips, Gums, Mucous Membranes Moist Neck: NL Appearance and Movements; NL JVP, - - tracheostomy with trach collar in place Respiratory: Symmetrical Chest Expansion and Respiratory Effort, - - coarse rhonchi b/l Cardiovascular: NL Sounds; No Murmurs; No JVD, RRR Abdominal: NL Sounds; No Tenderness; No Distention Lymphatic: No Cervical Adenopathy Extremities: No Edema, No Clubbing, Cyanosis Skin: No Rash or Ulcers, No Nodules or Sclerosis Neurological: NL Muscle Strength and Tone Result Diagrams: 07/02/17 05:10 07/02/17 05:10 Microbiology and Other Data: Microbiology 06/30/17 16:00 Nasal Screen MRSA (PCR)([facility]) - Final Nasal Mrsa Detected Assess/Plan/Problems-Billing Assessment: 52 yo F with h/o KATHY, COPD, obesity, HTN s/p surgery for laryngeal mass by Dr. Espinoza and subsequent tracheostomy - Patient Problems (1) Laryngeal mass Comment: as per Dr. Espinoza, pathology pending tracheostomy in place, will ask Dr. Garcia to assist with trach management cont supportive care with IVF and GI prophylaxis when NPO (2) COPD (chronic obstructive pulmonary disease) Comment: not in exacerbation, cont to monitor cont nebs prn (3) Hypertension Comment: normotensive off meds, cont to monitor (4) DVT prophylaxis Comment: cont SCD's HSQ Status and Disposition: inpatient
[2017-07-02] MEDS: Nicotine PATCH 21 MG/24 HR* PATCH TRANSDERM SCH (09:10)
[2017-07-02] MEDS: Nystatin TOP POWDER* 15 GM BTL TOPICAL SCH ×2 (13:06→21:14)
[2017-07-02] MEDS: Heparin VIAL(*) 5000 UNITS/ML VIAL (FIVE THOUSAND) SUBCUT SCH ×2 (13:11→21:07)
[2017-07-02] MEDS: Pantoprazole IV* 40 MG IV SCH (16:48)
[2017-07-02] MEDS: Nicotine Patch Removal NOTE PATCH OFF SCH (21:03)
[2017-07-03] MEDS: LORazepam INJ* 2 MG/ML 1 ML VIAL IV PUSH PRN ×2 (00:12→21:38)
[2017-07-03] MEDS: Morphine VIAL* 4 MG/ML VIAL (1 ml vial) IV PRN ×4 (00:58→07:06)
[2017-07-03] MEDS: Ketorolac INJ* 15 MG/ML 1 ML VIAL IV PRN ×4 (03:03→21:38)
[2017-07-03] MEDS: Heparin VIAL(*) 5000 UNITS/ML VIAL (FIVE THOUSAND) SUBCUT SCH ×3 (05:10→21:38)
[2017-07-03] MEDS ORDERED: Morphine VIAL* 4 MG/ML VIAL (1 ml vial) IV ONE (06:40)
[2017-07-03] MEDS: Nicotine PATCH 21 MG/24 HR* PATCH TRANSDERM SCH (08:39)
[2017-07-03] MEDS: Nystatin TOP POWDER* 15 GM BTL TOPICAL SCH ×2 (11:28→21:38)
[2017-07-03] MEDS: HYDROmorphone INJ* 1 MG/ML CARPUJECT SYRINGE IV SLOW PU PRN ×4 (11:28→23:21)
--- NOTE | 2017-07-03 11:42 | CONSULT ---
Consult Consult: Consultation Note Critical Care Requesting Physician: Dr Lorrie Brunson Reason for consult: tracheostomy management Limitations in history/physical: trach+, some limitation Date of consult: 07/03/2017 HPI: 52y F pmhx COPD, KATHY on CPAP, Chronic Diastolic CHF, Obesity, HTN, HLD, Psoriasis, active tobacco use, recent Right laryngeal mass diagnosis. Admitted 06/30 for elective surgical removal of laryngeal mass. She had elective tracheostomy performed in the OR followed by laryngeal mass biopsies. Since OR, she has been in the ICU, doing well on TC. In chair, no distress. Pain around trach site being controlled. Daughter at bedside. Has been NPO since monday. No lima in place. She states she feels okay. Has rash over body, but has history of psoriasis, on steroids topical at home. Thirsty and hungry+. No abd pain/n/v/cp/sob. Denies any other complaints. ROS: negative except for pertinent positives mentioned above. PMHx: COPD, KATHY on CPAP, Chronic Diastolic CHF, Obesity, HTN, HLD, Psoriasis, active tobacco use, recent Right laryngeal mass PSHx: s/p trach 06/30 Family History: Mother with Lung CA. Father DM. Maternal Grandmother/great grandmother with breast Ca. Paternal Grandmother Bone Cancer. Social History: Alcohol-no, Smoking- ppd for years, Drug use-no; Single, not , children 3. Allergies: Allergies Allergy/AdvReac Type Severity Reaction Status Date / Time Penicillins Allergy Severe See Comment Verified 06/30/17 12:23 clindamycin Allergy Intermediate Difficulty Verified 06/30/17 12:23 Swallowing latex Allergy WELTS Verified 06/30/17 12:23 Home Medications: Ibuprofen [Ibuprofen 200 MG] 600 mg PO BID PRN 04/03/14 [History Confirmed 06/30] oxyCODONE/Acetamin 10/325(NF) [Percocet 10/325 (NF)] 1 - 2 tab PO SEE INSTRUCTIONS PRN 12/01/16 [History Confirmed 06/30/17] Senna TAB* [Senokot TAB*] 2 tab PO BEDTIME 02/11/17 [History Confirmed 06/30/17] traZODone TAB* [Desyrel TAB*] 100 mg PO BEDTIME 02/11/17 [History Confirmed ] Albuterol/Ipratropium NEB.DEWAYNE* [Duoneb (Albuterol 2.5 MG/Ipratropium 0.5 MG)] 1 neb INH Q4H PRN #2 box 02/15/17 [Rx Confirmed 06/30/17] Aspirin 81 mg PO QAM 05/04/17 [History Confirmed 06/30/17] clonazePAM [Clonazepam] 0.5 tab PO BID PRN 05/08/17 [History Confirmed 06/30/17] Albuterol HFA INHALER* [Ventolin HFA Inhaler*] 1 - 2 puff INH Q4H PRN 06/29/17 [ History Confirmed 06/30/17] Chlorthalidone TAB* [Hygroton TAB*] 50 mg PO QAM 06/29/17 [History Confirmed ] Lisinopril TAB* [Prinivil TAB 10 MG*] 20 mg PO QAM 06/29/17 [History Confirmed 06/30/17] Omeprazole CAP* [Prilosec CAP* 20 MG] 20 mg PO QAM 06/29/17 [History Confirmed 06/30/17] Tele: NSR Vitals: Vital Signs Temp 98.1 F 07/03/17 07:39 Pulse 74 07/03/17 09:01 Resp 22 07/03/17 09:55 BP 142/94 07/03/17 09:00 Pulse Ox 96 07/03/17 09:01 Intake & Output 07/02/17 07/03/17 07/03/17 18:59 06:59 18:59 Intake Total 538 986 Output Total 325 200 50 Balance 213 786 -50 Weight 286 lb 9.615 oz Intake: IV Fluids 538 986 LR 538 986 Oral 0 Output: Urine 325 200 50 Other: Estimated Void Medium O2/Vent: TC 70% Infusions: LR 50cc/hour Current Medications: Acetaminophen (Tylenol Supp*) 650 mg [place] Q6H PRN PRN Reason: FEVER/PAIN Albuterol (Ventolin 2.5 Mg/3 Ml Neb.Dewayne*) 2.5 mg INH Q4H PRN PRN Reason: SOB/WHEEZING Heparin Sodium (Porcine) (Heparin Vial(*)) 5,000 units SUBCUT Q8HR [facility] Last Admin: 07/03/17 05:10 Dose: 5,000 units Hydromorphone HCl (Dilaudid Injic*) 1 mg IV SLOW PU Q4H PRN PRN Reason: PAIN Lactated Ringer's (Lactated Ringers 1000 Ml Bag*) 1,000 mls @ 50 mls/hr IV PER RATE [facility] Ketorolac Tromethamine (Toradol Inj*) 15 mg IV Q6H PRN PRN Reason: PAIN Last Admin: 07/03/17 08:39 Dose: 15 mg Lorazepam (Ativan Inj*) 1 mg IV PUSH Q2H PRN PRN Reason: ANXIETY Last Admin: 07/03/17 00:12 Dose: 1 mg Nicotine (Nicotine Patch 21 Mg/24 Hr*) 1 patch TRANSDERM DAILY [facility] Last Admin: 07/03/17 08:39 Dose: 1 patch Nicotine Polacrilex (Nicotine Gum*) 2 mg PO Q2H PRN PRN Reason: CRAVING Nystatin (Nystatin Top Powder*) 1 applic TOPICAL BID [facility] Last Admin: 07/02/17 21:14 Dose: 1 applic Ondansetron HCl (Zofran Inj*) 4 mg IV Q6H PRN PRN Reason: NAUSEA Pantoprazole Sodium (Protonix Iv*) 40 mg IV Q24H [facility] Last Admin: 07/02/17 16:48 Dose: 40 mg Pharmacy Profile Note (Nicotine Patch Removal Note*) 1 note PATCH OFF 2100 [facility] Last Admin: 07/02/17 21:03 Dose: 1 note Physical Exam: General: awake, alert, no distress, obese Head: normocephalic, atraumatic HEENT: no pallor, no icterus, moist mucous membranes Neck: soft, supple, no jvd; Trach+ CVS: normal rate, regular, no murmur Resp: bilateral air entry, no rhales, no wheeze, no rhonchi, no acc muscle use Abdomen: soft, nontender, nondistended, bowel sounds present Ext: pulses+, warm, no edema Skin: intact; diffuse mild rash in upper thighs and abdomen, macular/papular in nature, itchy+ Neuro: awake, alert, orientedx3, moving all extremities, no gross focal deficit Labs: reviewed Imaging: - Assessment: 52y F pmhx COPD, KATHY on CPAP, Chronic Diastolic CHF, Obesity, HTN, HLD, Psoriasis, active tobacco use, recent Right laryngeal mass diagnosis. Admitted 06/30 for elective surgical removal of laryngeal mass. She had elective tracheostomy performed in the OR followed by laryngeal mass biopsies -Laryngeal Mass -S/P tracheostomy 06/30 -Rash, suspect psoriasis flare Plan: Neuro- stable CVS- hemodyn stable. cont LR infusion while NPO for hydration. Resp- on TC, no distress. able to cough and bring up secretions. ENT f/u for usp management and post op trach management. Wean down TC to 50% or less. Currently 100% o2 sats without resp distress, No wheezing. pending biopsy for laryngeal mass still. Pain control for trach site pain. ID- afebrile. wbc last was 11. no ind for abx at this time. GI- NPO. swallow eval today and can advance diet, has uncuffed trach in place. Renal- Cr okay, making urine. LR 50cc/hour for now. no edema noted. Heme- hg okay, plt okay. Heparin sq proph. Endo- fingersticks as needed. Musculsk- oob to chair and ambulate. Wounds- none Nutrition- NPO. swallow eval and advance diet. DVT prophylaxis: heparin sq GI prophylaxis: PPI Central Line: no Arterial Line: no Lima Cathetor: no Disposition: can be transferred to medical floor once oxygen weaned further. possible discharge home in 24-48 hours. Will follow as needed to assist care. Code Status: full code Tono Souza MD Right Of [address] Man (Electronically Signed)
--- NOTE | 2017-07-03 12:04 | PN ---
Subjective Date of Service: 07/03/17 Interval History: pt c/o itchy rash, likely due to exacerbation of her psoriasis. Pain better controlled with Dilaudid. Still NPO awaiting speech eval Objective Active Medications: Acetaminophen (Tylenol Supp*) 650 mg [place] Q6H PRN PRN Reason: FEVER/PAIN Albuterol (Ventolin 2.5 Mg/3 Ml Neb.Shira*) 2.5 mg INH Q4H PRN PRN Reason: SOB/WHEEZING Heparin Sodium (Porcine) (Heparin Vial(*)) 5,000 units SUBCUT Q8HR [facility] Last Admin: 07/03/17 05:10 Dose: 5,000 units Hydromorphone HCl (Dilaudid Injic*) 1 mg IV SLOW PU Q4H PRN PRN Reason: PAIN Last Admin: 07/03/17 11:28 Dose: 1 mg Lactated Ringer's (Lactated Ringers 1000 Ml Bag*) 1,000 mls @ 50 mls/hr IV PER RATE [facility] Ketorolac Tromethamine (Toradol Inj*) 15 mg IV Q6H PRN PRN Reason: PAIN Last Admin: 07/03/17 08:39 Dose: 15 mg Lorazepam (Ativan Inj*) 1 mg IV PUSH Q2H PRN PRN Reason: ANXIETY Last Admin: 07/03/17 00:12 Dose: 1 mg Nicotine (Nicotine Patch 21 Mg/24 Hr*) 1 patch TRANSDERM DAILY [facility] Last Admin: 07/03/17 08:39 Dose: 1 patch Nicotine Polacrilex (Nicotine Gum*) 2 mg PO Q2H PRN PRN Reason: CRAVING Nystatin (Nystatin Top Powder*) 1 applic TOPICAL BID [facility] Last Admin: 07/03/17 11:28 Dose: Not Given Ondansetron HCl (Zofran Inj*) 4 mg IV Q6H PRN PRN Reason: NAUSEA Pantoprazole Sodium (Protonix Iv*) 40 mg IV Q24H [facility] Last Admin: 07/02/17 16:48 Dose: 40 mg Pharmacy Profile Note (Nicotine Patch Removal Note*) 1 note PATCH OFF 2100 [facility] Last Admin: 07/02/17 21:03 Dose: 1 note Vital Signs - 8 hr 07/03/17 07/03/17 07/03/17 05:00 05:01 06:00 Temperature Pulse Rate 85 87 87 Respiratory 24 20 22 Rate Blood Pressure 141/82 151/84 (mmHg) O2 Sat by Pulse 93 92 93 Oximetry 07/03/17 07/03/17 07/03/17 06:01 07:00 07:01 Temperature Pulse Rate 83 84 87 Respiratory 23 21 18 Rate Blood Pressure 148/92 (mmHg) O2 Sat by Pulse 93 96 96 Oximetry 07/03/17 07/03/17 07/03/17 07:39 08:00 08:31 Temperature 98.1 F Pulse Rate 84 84 Respiratory 15 17 Rate Blood Pressure 134/95 (mmHg) O2 Sat by Pulse 97 96 Oximetry 07/03/17 07/03/17 07/03/17 08:36 09:00 09:01 Temperature Pulse Rate 86 76 74 Respiratory 17 17 17 Rate Blood Pressure 142/94 (mmHg) O2 Sat by Pulse 96 96 96 Oximetry 07/03/17 07/03/17 07/03/17 09:55 10:00 11:00 Temperature Pulse Rate 74 73 Respiratory 22 18 18 Rate Blood Pressure 126/74 134/83 (mmHg) O2 Sat by Pulse 94 96 Oximetry 07/03/17 11:28 Temperature Pulse Rate Respiratory 22 Rate Blood Pressure (mmHg) O2 Sat by Pulse Oximetry Oxygen Devices in Use Now: Tracheostomy Collar Appearance: 52 yo F in nAD, AAOx3, nonverbal due to trach Eyes: No Scleral Icterus, PERRLA Ears/Nose/Mouth/Throat: NL Teeth, Lips, Gums, Mucous Membranes Moist Neck: NL Appearance and Movements; NL JVP, Trachea Midline, - - trach in place Respiratory: Symmetrical Chest Expansion and Respiratory Effort, Clear to Auscultation Cardiovascular: NL Sounds; No Murmurs; No JVD, RRR Abdominal: NL Sounds; No Tenderness; No Distention Lymphatic: No Cervical Adenopathy Extremities: No Edema, No Clubbing, Cyanosis Skin: No Nodules or Sclerosis, - - dry scaly rash on b/l arms and thighs Neurological: Alert and Oriented x 3, NL Muscle Strength and Tone Result Diagrams: 07/02/17 05:10 07/02/17 05:10 Microbiology and Other Data: Microbiology 06/30/17 16:00 Nasal Screen MRSA (PCR)([facility]ONIO) - Final Nasal Mrsa Detected Assess/Plan/Problems-Billing Assessment: 52 yo F with h/o KATHY, COPD, obesity, HTN s/p surgery for laryngeal mass by Dr. Espinoza and subsequent tracheostomy - Patient Problems (1) Laryngeal mass Comment: as per Dr. Espinoza, pathology pending tracheostomy in place, will ask Dr. Souza to assist with trach management cont supportive care with IVF and GI prophylaxis when NPO Swallow eval today, if pt passes we can start diet (2) COPD (chronic obstructive pulmonary disease) Comment: not in exacerbation, cont to monitor cont nebs prn (3) Hypertension Comment: normotensive off meds, cont to monitor (4) DVT prophylaxis Comment: cont SCD's HSQ Status and Disposition: inpatient
[2017-07-03] MEDS: Triamcinolone 0.5% OINT * 15 GM TUBE TOPICAL SCH ×2 (15:20→20:09)
[2017-07-03] MEDS: Pantoprazole IV* 40 MG IV SCH (15:50)
[2017-07-03] MEDS: Nicotine Patch Removal NOTE PATCH OFF SCH (20:08)
[2017-07-04] MEDS: HYDROmorphone INJ* 1 MG/ML CARPUJECT SYRINGE IV SLOW PU PRN (02:49)
[2017-07-04] MEDS: Ketorolac INJ* 15 MG/ML 1 ML VIAL IV PRN (02:49)
[2017-07-04] MEDS: Heparin VIAL(*) 5000 UNITS/ML VIAL (FIVE THOUSAND) SUBCUT SCH ×3 (05:46→22:26)
[2017-07-04] MEDS: HYDROmorphone INJ* 2 MG/ML CARPUJECT SYRINGE IV SLOW PU PRN ×3 (06:46→20:54)
[2017-07-04] MEDS ORDERED: Magnesium Hydroxide LIQ* 30 ML UDC PO PRN (08:56)
[2017-07-04] MEDS ORDERED: Docusate CAP* 100 MG PO SCH (09:00)
[2017-07-04] MEDS: oxyCODONE/Acetamin 5/325 MG* TAB PO PRN ×3 (09:52→22:24)
[2017-07-04] MEDS: Triamcinolone 0.5% OINT * 15 GM TUBE TOPICAL SCH ×2 (09:52→22:26)
[2017-07-04] MEDS: Nicotine PATCH 21 MG/24 HR* PATCH TRANSDERM SCH (09:53)
[2017-07-04] MEDS ORDERED: Docusate CAP* 100 MG PO PRN (09:59)
[2017-07-04] MEDS: Nystatin TOP POWDER* 15 GM BTL TOPICAL SCH ×2 (10:24→22:25)
[2017-07-04] MEDS: Lisinopril TAB* 10 MG PO SCH (10:53)
--- NOTE | 2017-07-04 11:30 | PN ---
Subjective Date of Service: 07/04/17 Interval History: Mildly hypertensive today. c/o pain at trach site. coughing up a fair amount of secretions Objective Active Medications: Acetaminophen (Tylenol Supp*) 650 mg [place] Q6H PRN PRN Reason: FEVER/PAIN Albuterol (Ventolin 2.5 Mg/3 Ml Neb.Shira*) 2.5 mg INH Q4H PRN PRN Reason: SOB/WHEEZING Clonazepam (Klonopin Tab(*)) 0.5 mg PO BID PRN PRN Reason: ANXIETY Docusate Sodium (Colace Cap*) 100 mg PO BID PRN PRN Reason: CONSTIPATION Heparin Sodium (Porcine) (Heparin Vial(*)) 5,000 units SUBCUT Q8HR [facility] Last Admin: 07/04/17 05:46 Dose: 5,000 units Hydromorphone HCl (Dilaudid Inj*) 1 mg IV SLOW PU Q4H PRN PRN Reason: PAIN Last Admin: 07/04/17 06:46 Dose: 1 mg Lactated Ringer's (Lactated Ringers 1000 Ml Bag*) 1,000 mls @ 50 mls/hr IV PER RATE [facility] Last Admin: 07/04/17 05:48 Dose: 50 mls/hr Lisinopril (Prinivil Tab*) 20 mg PO QAM [facility] Last Admin: 07/04/17 10:53 Dose: 20 mg Lorazepam (Ativan Inj*) 1 mg IV PUSH Q2H PRN PRN Reason: ANXIETY Last Admin: 07/03/17 21:38 Dose: 1 mg Magnesium Hydroxide (Milk Of Magnesia Liq*) 30 ml PO Q4H PRN PRN Reason: CONSTIPATION Nicotine (Nicotine Patch 21 Mg/24 Hr*) 1 patch TRANSDERM DAILY [facility] Last Admin: 07/04/17 09:53 Dose: 1 patch Nicotine Polacrilex (Nicotine Gum*) 2 mg PO Q2H PRN PRN Reason: CRAVING Nystatin (Nystatin Top Powder*) 1 applic TOPICAL BID [facility] Last Admin: 07/04/17 10:24 Dose: Not Given Omeprazole (Prilosec Cap*) 20 mg PO DAILY@0600 [facility] Ondansetron HCl (Zofran Inj*) 4 mg IV Q6H PRN PRN Reason: NAUSEA Oxycodone/Acetaminophen (Percocet 5/325 Tab*) 1 tab PO Q4H PRN PRN Reason: PAIN Last Admin: 07/04/17 09:52 Dose: 1 tab Pharmacy Profile Note (Nicotine Patch Removal Note*) 1 note PATCH OFF 2099 [facility] Last Admin: 07/03/17 20:08 Dose: 1 note Senna (Senokot Tab*) 2 tab PO BEDTIME [facility] Trazodone HCl (Desyrel Tab*) 100 mg PO BEDTIME [facility] Triamcinolone Acetonide (Triamcinolone 0.5% Oint *) 1 applic TOPICAL BID [facility] Last Admin: 07/04/17 09:52 Dose: 1 applic Vital Signs - 8 hr 07/04/17 07/04/17 07/04/17 04:00 05:00 06:00 Temperature 97.7 F Pulse Rate 77 74 71 Respiratory 18 20 20 Rate Blood Pressure 155/93 (mmHg) O2 Sat by Pulse 93 93 93 Oximetry 07/04/17 07/04/17 07/04/17 06:01 06:46 07:00 Temperature Pulse Rate 68 75 Respiratory 25 19 19 Rate Blood Pressure 148/90 (mmHg) O2 Sat by Pulse 93 88 Oximetry 07/04/17 07/04/17 07/04/17 07:31 07:56 08:00 Temperature 97.8 F Pulse Rate 74 71 Respiratory 19 17 Rate Blood Pressure (mmHg) O2 Sat by Pulse 88 91 Oximetry 07/04/17 07/04/17 07/04/17 09:00 09:52 10:00 Temperature Pulse Rate 70 78 Respiratory 25 15 22 Rate Blood Pressure 166/99 (mmHg) O2 Sat by Pulse 88 94 Oximetry 07/04/17 10:01 Temperature Pulse Rate 75 Respiratory 21 Rate Blood Pressure 154/98 (mmHg) O2 Sat by Pulse 89 Oximetry Oxygen Devices in Use Now: Tracheostomy Collar - at 35% Appearance: 52 yo F in nAD, AAOx3 Eyes: No Scleral Icterus, PERRLA Ears/Nose/Mouth/Throat: NL Teeth, Lips, Gums, Mucous Membranes Moist Neck: NL Appearance and Movements; NL JVP, Trachea Midline Respiratory: Symmetrical Chest Expansion and Respiratory Effort, - - coarse upper lung rhonchi b/l Cardiovascular: NL Sounds; No Murmurs; No JVD, RRR Abdominal: NL Sounds; No Tenderness; No Distention, No Hepatosplenomegaly Lymphatic: No Cervical Adenopathy Extremities: No Clubbing, Cyanosis, - - trace ankle edema b/l Skin: No Nodules or Sclerosis, - - dry skin with scant psoriasis plagues on b/l forearms Neurological: Alert and Oriented x 3, NL Muscle Strength and Tone Result Diagrams: 07/02/17 05:10 07/02/17 05:10 Microbiology and Other Data: Microbiology 06/30/17 16:00 Nasal Screen MRSA (PCR)([facility]) - Final Nasal Mrsa Detected Assess/Plan/Problems-Billing Assessment: 52 yo F with h/o KATHY, COPD, obesity, HTN s/p surgery for laryngeal mass by Dr. Espinoza and subsequent tracheostomy - Patient Problems (1) Laryngeal mass Comment: as per Dr. Espinoza, pathology pending tracheostomy in place, appreciate Dr. Souza's assistance with trach management OK'ed for pureed food, swallow eval to floow daily (2) COPD (chronic obstructive pulmonary disease) Comment: not in exacerbation, cont to monitor cont nebs prn (3) Hypertension Comment: high BP today, restarting lisinopril (4) DVT prophylaxis Comment: cont SCD's HSQ Status and Disposition: inpatient, transfer to [facility]
[2017-07-04] MEDS: oxyCODONE TAB* 5 MG TAB PO PRN ×2 (17:09→22:24)
[2017-07-04] MEDS: clonazePAM TAB(*) 0.5 MG PO PRN ×2 (21:06→22:25)
[2017-07-04] MEDS: Senna TAB PO SCH (22:24)
[2017-07-04] MEDS: Nicotine Patch Removal NOTE PATCH OFF SCH (22:25)
[2017-07-04] MEDS: traZODone TAB* 100 MG PO SCH (22:25)
[2017-07-05] MEDS: HYDROmorphone INJ* 2 MG/ML CARPUJECT SYRINGE IV SLOW PU PRN ×5 (00:57→21:23)
[2017-07-05] MEDS: oxyCODONE TAB* 5 MG TAB PO PRN ×5 (02:26→21:24)
[2017-07-05] MEDS: oxyCODONE/Acetamin 5/325 MG* TAB PO PRN ×5 (02:26→21:23)
[2017-07-05] MEDS: Heparin VIAL(*) 5000 UNITS/ML VIAL (FIVE THOUSAND) SUBCUT SCH ×3 (05:10→21:24)
[2017-07-05 06:04] LABS: ABS Basophils 0.1 10^3/ul (0-0.2); ABS Eosinophils 0.1 10^3/ul (0-0.6); ABS Lymphocytes 1.4 10^3/ul (1.0-4.8); ABS Monocytes 0.7 10^3/ul (0-0.8); ABS Neutrophils 6.9 10^3/ul (1.5-7.7); ABS Nucleated RBC 0 10^3/ul; Hematocrit 42 % (35-47); Hemoglobin 14.2 g/dl (12.0-16.0); Lymphocyte % 14.9 % (25-47); Mean Corpuscular HGB Conc 34 g/dl (31-36); Mean Corpuscular Hemoglobin 29 pg (27-31); Mean Corpuscular Volume 86 fL (80-97); Mean Platelet Volume 7.4 um3 (7.4-10.4); Nucleated Red Blood Cells % 0; Platelet Count 179 10^3/ul (150-450); Red Blood Count 4.88 10^6/ul (4.0-5.4); Red Cell Distribution Width 16 % (10.5-15); White Blood Count 9.1 10^3/ul (3.5-10.8)
[2017-07-05] MEDS: Omeprazole CAP* 20 MG PO SCH (06:38)
[2017-07-05] MEDS: Nicotine PATCH 21 MG/24 HR* PATCH TRANSDERM SCH (07:42)
[2017-07-05] MEDS: clonazePAM TAB(*) 0.5 MG PO PRN (07:42)
[2017-07-05] MEDS: Lisinopril TAB* 10 MG PO SCH (07:42)
--- NOTE | 2017-07-05 09:44 | RAD ---
INDICATION: Hypoxemia COMPARISON: February 11, 2017 TECHNIQUE: An AP portable view obtained at 0922 hours is submitted. FINDINGS: Bones/Soft Tissues: There are no acute bony findings. There is tracheostomy Cardiomediastinal: The cardiac silhouette, central pulmonary vessels, and interstitium are prominent consistent with moderate vascular congestion with worsening. Lungs: There is focal alveolar change in right lung base. This could represent an acute pneumonitis or could represent alveolar edema. Pleura: Small bilateral effusions. Other: None IMPRESSION: MODERATE VASCULAR CONGESTION WITH WORSENING. ALVEOLAR CHANGE RIGHT LUNG BASE COULD BE RELATED TO AN ACUTE INFILTRATE VERSUS ALVEOLAR EDEMA
[2017-07-05] MEDS ORDERED: LORazepam TAB(*) 1 MG PO PRN (10:00)
[2017-07-05] MEDS ORDERED: LORazepam TAB(*) 1 MG ONE (10:03)
[2017-07-05] MEDS: Nystatin TOP POWDER* 15 GM BTL TOPICAL SCH ×2 (10:09→21:24)
[2017-07-05] MEDS: Triamcinolone 0.5% OINT * 15 GM TUBE TOPICAL SCH ×2 (10:31→21:25)
[2017-07-05] MEDS ORDERED: Potassium Chlor TAB* 10 MEQ TAB.ER PO ONE (11:36)
[2017-07-05] MEDS ORDERED: Furosemide IV* 10 MG/ML VIAL (40 MG) IV ONE (11:36)
--- NOTE | 2017-07-05 11:36 | RAD ---
HISTORY: Dysphagia COMPARISONS: None TECHNIQUE: A videofluoroscopic evaluation of swallow was performed in conjunction with speech therapy. Barium laced foods and liquids of varying consistency were administered under fluoroscopic observation. Total fluoroscopy time is 0.8 minutes. FINDINGS: ORAL PHASE: Transfer initiation. PHARYNGEAL PHASE: A tracheostomy tube is noted. There is apparent elevation. ASPIRATION/PENETRATION: There is aspiration of nectar thick barium. OTHER FINDINGS: There is blunting of the epiglottis which may be related to treatment effect. IMPRESSION: ASPIRATION OF NECTAR THICK LIQUID BARIUM.. PLEASE SEE THE SPEECH THERAPIST REPORT FOR FURTHER INFORMATION CPT II Codes: G9500
[2017-07-05] MEDS ORDERED: HYDROmorphone INJ* 2 MG/ML CARPUJECT SYRINGE IV SLOW PU PRN (12:20)
[2017-07-05] MEDS ORDERED: Iohexol 300* (CONTRAST) 10 ML SDV IV ONE (14:36)
[2017-07-05] MEDS: LORazepam INJ* 2 MG/ML 1 ML VIAL IV PUSH PRN (15:40)
--- NOTE | 2017-07-05 15:48 | PN ---
Subjective Date of Service: 07/05/17 Interval History: More SOB today. foul smelling discharge noted from tracheostomy C/o migraine headache Swallow OK'ed for honey thick, aspirating on thin liquids Objective Active Medications: Acetaminophen (Tylenol Supp*) 650 mg [place] Q6H PRN PRN Reason: FEVER/PAIN Albuterol (Ventolin 2.5 Mg/3 Ml Neb.Shira*) 2.5 mg INH Q4H PRN PRN Reason: SOB/WHEEZING Clonazepam (Klonopin Tab(*)) 0.5 mg PO BID PRN PRN Reason: ANXIETY Last Admin: 07/05/17 07:42 Dose: 0.5 mg Docusate Sodium (Colace Cap*) 100 mg PO BID PRN PRN Reason: CONSTIPATION Heparin Sodium (Porcine) (Heparin Vial(*)) 5,000 units SUBCUT Q8HR ON [facility] OF [facility] Last Admin: 07/05/17 14:32 Dose: 5,000 units Hydromorphone HCl (Dilaudid Inj*) 1 mg IV SLOW PU Q4H PRN PRN Reason: PAIN Last Admin: 07/05/17 12:55 Dose: 1 mg Hydromorphone HCl (Dilaudid Inj*) 1 mg IV SLOW PU Q4H PRN PRN Reason: PAIN Lisinopril (Prinivil Tab*) 20 mg PO QAM [facility] Last Admin: 07/05/17 07:42 Dose: 20 mg Lorazepam (Ativan Inj*) 1 mg IV PUSH Q2H PRN PRN Reason: ANXIETY Last Admin: 07/03/17 21:38 Dose: 1 mg Lorazepam (Ativan Tab(*)) 1 mg PO Q2H PRN PRN Reason: ANXIETY Magnesium Hydroxide (Milk Of Magnesia Liq*) 30 ml PO Q4H PRN PRN Reason: CONSTIPATION Nicotine (Nicotine Patch 21 Mg/24 Hr*) 1 patch TRANSDERM DAILY ON [facility] OF [facility] Last Admin: 07/05/17 07:42 Dose: 1 patch Nicotine Polacrilex (Nicotine Gum*) 2 mg PO Q2H PRN PRN Reason: CRAVING Nystatin (Nystatin Top Powder*) 1 applic TOPICAL BID [facility] Last Admin: 07/05/17 10:09 Dose: Not Given Omeprazole (Prilosec Cap*) 20 mg PO DAILY@0600 [facility] Last Admin: 07/05/17 06:38 Dose: 20 mg Ondansetron HCl (Zofran Inj*) 4 mg IV Q6H PRN PRN Reason: NAUSEA Oxycodone HCl (Roxycodone Tab*) 5 mg PO Q4H PRN PRN Reason: PAIN Last Admin: 07/05/17 12:55 Dose: 5 mg Oxycodone/Acetaminophen (Percocet 5/325 Tab*) 1 tab PO Q4H PRN PRN Reason: PAIN Last Admin: 07/05/17 12:55 Dose: 1 tab Pharmacy Profile Note (Nicotine Patch Removal Note*) 1 note PATCH OFF 2100 [facility] Last Admin: 07/04/17 22:25 Dose: 1 note Senna (Senokot Tab*) 2 tab PO BEDTIME [facility] Last Admin: 07/04/17 22:24 Dose: 2 tab Trazodone HCl (Desyrel Tab*) 100 mg PO BEDTIME [facility] Last Admin: 07/04/17 22:25 Dose: 100 mg Triamcinolone Acetonide (Triamcinolone 0.5% Oint *) 1 applic TOPICAL BID [facility] Last Admin: 07/05/17 10:31 Dose: Not Given Vital Signs - 8 hr 07/05/17 07/05/17 07/05/17 08:00 10:10 12:55 Temperature Pulse Rate Respiratory 18 18 18 Rate Blood Pressure (mmHg) O2 Sat by Pulse Oximetry 07/05/17 07/05/17 07/05/17 13:44 13:48 13:49 Temperature 98.1 F Pulse Rate 117 Respiratory 28 18 20 Rate Blood Pressure 147/69 (mmHg) O2 Sat by Pulse 86 Oximetry 07/05/17 07/05/17 14:47 14:48 Temperature Pulse Rate Respiratory 18 18 Rate Blood Pressure (mmHg) O2 Sat by Pulse Oximetry Oxygen Devices in Use Now: Tracheostomy Collar Appearance: 52 yo f in [place], AAOx3 Eyes: No Scleral Icterus, PERRLA Ears/Nose/Mouth/Throat: NL Teeth, Lips, Gums, Mucous Membranes Moist Neck: No Thyroid Enlargement, Masses, - - JVD b/l +, tracheostomy in place Respiratory: Symmetrical Chest Expansion and Respiratory Effort, - - crackles b/ l lower to mid lungs Cardiovascular: NL Sounds; No Murmurs; No JVD, RRR Abdominal: NL Sounds; No Tenderness; No Distention Lymphatic: No Cervical Adenopathy Extremities: No Clubbing, Cyanosis, - - +1 pitting pedal edema b/l Skin: No Nodules or Sclerosis, - - tracheostomy in place, skin with mild erythema by the incision site noted Neurological: Alert and Oriented x 3, NL Muscle Strength and Tone Result Diagrams: 07/05/17 05:41 07/05/17 05:41 Microbiology and Other Data: Microbiology 06/30/17 16:00 Nasal Screen MRSA (PCR)([facility]ONIO) - Final Nasal Mrsa Detected Assess/Plan/Problems-Billing Assessment: 52 yo F with h/o KATHY, COPD, obesity, HTN s/p surgery for laryngeal mass by Dr. 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 Asked Dr. Elam to see pt in consult. Dr. Gee also consulted. CT neck/chest/abd/pelvis ordered Tracheostomy in place, appreciate RT assistance. Acetic acid trach care ordered by OK'ed for pureed food, swallow eval to follow daily (2) COPD (chronic obstructive pulmonary disease) Comment: not in exacerbation, cont to monitor cont nebs prn (3) Hypertension Comment: controled on lisinopril (4) Fluid overload Comment: due to IVF since admssion CXR shows vascular congestion. 02 sats decreased today will tx with IV Lasix (5) DVT prophylaxis Comment: cont SCD's HSQ Status and Disposition: inpatient
--- NOTE | 2017-07-05 19:19 | RAD ---
INDICATION: Laryngeal cancer evaluate for metastatic disease. COMPARISON: Comparison is made with a prior chest x-ray study from July 05, 2017. TECHNIQUE: A CT scan of the chest, abdomen and pelvis was performed with intravenous and oral contrast following intravenous injection of 150 ml of Omnipaque 300 nonionic contrast. Contiguous axial sections were obtained from the lung apices through the symphysis pubis. Images were reconstructed in the coronal and sagittal planes. The patient was scanned and a large [id number] possibly related to the patient's body habitus which slightly limits the study exam. FINDINGS: There is a tracheostomy tube present. There is mild prominence of the interstitial markings. There are moderate-sized patchy and confluent infiltrates present in the right middle and lower lobes and a small infiltrate present in the left lower lobe suggestive of pneumonia. No pleural effusion is seen. There are enlarged lymph nodes in the precarinal, aorticopulmonary window and subcarinal regions measuring up to 1.8 cm in transverse dimension. The heart appears mildly enlarged. There is a trace pericardial effusion present. The thoracic aorta is normal in caliber. The liver and spleen are moderately enlarged. No significant focal hepatic abnormality is seen. The patient is status post cholecystectomy. There is fatty infiltration of the pancreas which otherwise appears unremarkable. The kidneys and adrenal glands are normal in size. There is no evidence for hydronephrosis. No significant focal renal abnormality is seen. The aorta is normal in caliber and there is mild calcific plaque present. No significant enlarged retroperitoneal lymph nodes are seen. The stomach, small and large bowel appear nondistended. The appendix appears normal. There is no evidence for diverticulitis or colitis. The uterus is anteverted and normal in size. No free intraperitoneal air or fluid is seen. No significant focal osseous abnormality is seen. IMPRESSION: 1. RIGHT MIDDLE AND BILATERAL LOWER LOBE INFILTRATES. RECOMMEND FOLLOW-UP CHEST X-RAYS TO RESOLUTION. 2. ENLARGED MEDIASTINAL LYMPH NODES. 3. HEPATOSPLENOMEGALY. 4. SLIGHTLY LIMITED EXAM.
[2017-07-05] MEDS: traZODone TAB* 100 MG PO SCH (21:24)
[2017-07-05] MEDS: Senna TAB PO SCH (21:24)
[2017-07-05] MEDS: Nicotine Patch Removal NOTE PATCH OFF SCH (21:29)
[2017-07-06] MEDS: HYDROmorphone INJ* 2 MG/ML CARPUJECT SYRINGE IV SLOW PU PRN ×7 (00:27→23:28)
[2017-07-06] MEDS ORDERED: Furosemide IV* 10 MG/ML VIAL (40 MG) IV ONE (01:00)
--- NOTE | 2017-07-06 01:02 | PN ---
Progress Note - Progress Note Date of Service: 07/06/17 Note: Paged for persistent sats in the 70's, RT trying to suction with no success. Changed out trach and still difficulty getting sats up despite bagging patient. Eventually after suctioning and manipulating trach, sats came back up . Patient sounds coarse with b/l rhonchi . CXR ?increase in interstital markings. Will give Lasix 40 mg IV. I did call Dr. Espinoza regarding trach issue and transfer to ICU for closer monitoring.
[2017-07-06] MEDS: Acetic Acid 0.25%* 250 ML BTL TOPICAL SCH ×3 (01:18→23:26)
[2017-07-06] MEDS: oxyCODONE/Acetamin 5/325 MG* TAB PO PRN ×4 (03:30→21:32)
[2017-07-06] MEDS: oxyCODONE TAB* 5 MG TAB PO PRN ×5 (03:30→21:32)
[2017-07-06] MEDS: Omeprazole CAP* 20 MG PO SCH (06:26)
[2017-07-06] MEDS: Heparin VIAL(*) 5000 UNITS/ML VIAL (FIVE THOUSAND) SUBCUT SCH ×3 (06:26→21:49)
[2017-07-06 07:14] LABS: ABS Basophils 0.1 10^3/ul (0-0.2); ABS Eosinophils 0 10^3/ul (0-0.6); ABS Lymphocytes 1.4 10^3/ul (1.0-4.8); ABS Monocytes 1.3 10^3/ul (0-0.8); ABS Neutrophils 17.7 10^3/ul (1.5-7.7); ABS Nucleated RBC 0 10^3/ul; Eosinophil % 0.1 % (0-6); Hematocrit 43 % (35-47); Hemoglobin 13.9 g/dl (12.0-16.0); Lymphocyte % 6.9 % (25-47); Mean Corpuscular HGB Conc 33 g/dl (31-36); Mean Corpuscular Hemoglobin 28 pg (27-31); Mean Corpuscular Volume 86 fL (80-97); Mean Platelet Volume 7.5 um3 (7.4-10.4); Nucleated Red Blood Cells % 0.1; Platelet Count 199 10^3/ul (150-450); Red Blood Count 4.97 10^6/ul (4.0-5.4); Red Cell Distribution Width 16 % (10.5-15); White Blood Count 20.4 10^3/ul (3.5-10.8)
[2017-07-06 07:25] LABS: EGFR Non-African American 75.9 (>60)
--- NOTE | 2017-07-06 07:46 | RAD ---
HISTORY: laryngeal cancer, rule out metastatic disease COMPARISONS: None TECHNIQUE: Multiple contiguous axial CT scans were obtained of the neck after the administration of nonionic intravenous contrast, with coronal and sagittal multiplanar reformations. FINDINGS: Evaluation is limited by suboptimal contrast opacification. BRAIN AND ORBITS: The visualized brain and orbits are normal. PARANASAL SINUSES: The visualized paranasal sinuses are clear. SALIVARY GLANDS: The parotid glands, submandibular glands, sublingual glands are normal. NASAL CAVITY/NASOPHARYNX: The nasal cavity and nasopharynx are normal. ORAL CAVITY/OROPHARYNX: There is asymmetric mucosal thickening of the epiglottis on the left, though crossing midline LARYNGEAL APPARATUS/HYPOPHARYNX: The tracheostomy tube is noted. There is asymmetric mucosal thickening of the epiglottis extending to the supraglottic larynx on the left, though crossing midline at the level of the anterior commissure. UPPER AIRWAY/UPPER ESOPHAGUS: The tracheostomy tube is noted with the tip in the trachea. LUNG APICES: The lung apices are clear. THYROID GLAND: The thyroid gland is normal. LYMPH NODES: There are scattered small, less than 1 cm short axis, lymph nodes noted along the anterior and posterior cervical chain. There is a 1.5 cm short axis right paratracheal lymph node. There are enlarged subcarinal lymph nodes. VASCULATURE: The vasculature is unremarkable. BONES AND SOFT TISSUES: Mild degenerative changes are noted. OTHER: None. IMPRESSION: 1. THERE IS ASYMMETRIC MUCOSAL THICKENING OF THE EPIGLOTTIS AND SUPRAGLOTTIC LARYNX, CENTERED ON THE LEFT, THOUGH CROSSING MIDLINE, CONCERNING FOR NEOPLASM GIVEN THE CLINICAL HISTORY. 2. THERE ARE ENLARGED MEDIASTINAL LYMPH NODES. THERE IS NO CERVICAL LYMPHADENOPATHY BY SIZE CRITERIA.
[2017-07-06] MEDS: Lisinopril TAB* 10 MG PO SCH (07:59)
[2017-07-06] MEDS: Nicotine PATCH 21 MG/24 HR* PATCH TRANSDERM SCH (07:59)
--- NOTE | 2017-07-06 08:04 | RAD ---
Indication: Chest pain, respiratory distress. Single frontal view of the chest performed at 0050 hours was reviewed. Comparison is made with previous exam dated July 05, 2017. This is a CT of the chest abdomen and pelvis.. Cardiomegaly is noted.. Persistent airspace disease in the right base consistent with right basilar pneumonia is noted. This is similar to that seen on previous exam. Mild interstitial edema is noted. IMPRESSION: PERSISTENT RIGHT BASILAR PNEUMONIA. FINDINGS ARE SIMILAR TO THAT SEEN ON JULY 05, 2017.
[2017-07-06] MEDS: Triamcinolone 0.5% OINT * 15 GM TUBE TOPICAL SCH ×2 (09:45→21:41)
[2017-07-06] MEDS: metroNIDAZOLE IV 500 MG/100ML* 500 MG/100 ML BAG IVPB SCH ×2 (09:45→16:44)
[2017-07-06] MEDS: Nystatin TOP POWDER* 15 GM BTL TOPICAL SCH ×2 (09:45→21:41)
--- NOTE | 2017-07-06 10:14 | PN ---
Subjective Date of Service: 07/06/17 Interval History: Had a respiratory distress and trach was exchanged . Lasix 40 mg IV was administered. now better on 8 l 02 trach collar Feels better, but still copious purulent foul smelly discharge from trach. / able to plug trach and talk. Objective Active Medications: Acetaminophen (Tylenol Supp*) 650 mg WI Q6H PRN PRN Reason: FEVER/PAIN Acetic Acid (Acetic Acid 0.25%*) 10 ml TOPICAL 0900,2100 [facility] Last Admin: 07/06/17 01:18 Dose: Not Given Albuterol (Ventolin 2.5 Mg/3 Ml Neb.Shira*) 2.5 mg INH Q4H PRN PRN Reason: SOB/WHEEZING Clonazepam (Klonopin Tab(*)) 0.5 mg PO BID PRN PRN Reason: ANXIETY Last Admin: 07/05/17 07:42 Dose: 0.5 mg Docusate Sodium (Colace Cap*) 100 mg PO BID PRN PRN Reason: CONSTIPATION Heparin Sodium (Porcine) (Heparin Vial(*)) 5,000 units SUBCUT Q8HR [facility] Last Admin: 07/06/17 06:26 Dose: 5,000 units Hydromorphone HCl (Dilaudid Inj*) 1 mg IV SLOW PU Q4H PRN PRN Reason: PAIN Last Admin: 07/06/17 07:59 Dose: 1 mg Hydromorphone HCl (Dilaudid Inj*) 1 mg IV SLOW PU Q4H PRN PRN Reason: PAIN Cefepime HCl 1 gm/ Sodium (Chloride) 50 mls @ 100 mls/hr IVPB Q12H [facility] Metronidazole/Sodium Chloride (Flagyl 500 Mg Ivpb*) 500 mg in 100 mls @ 100 mls /hr IVPB Q8H [facility] Last Admin: 07/06/17 09:45 Dose: 100 mls/hr Lisinopril (Prinivil Tab*) 20 mg PO QAM [facility] Last Admin: 07/06/17 07:59 Dose: 20 mg Lorazepam (Ativan Inj*) 1 mg IV PUSH Q2H PRN PRN Reason: ANXIETY Last Admin: 07/05/17 15:40 Dose: 1 mg Lorazepam (Ativan Tab(*)) 1 mg PO Q2H PRN PRN Reason: ANXIETY Magnesium Hydroxide (Milk Of Magnesia Liq*) 30 ml PO Q4H PRN PRN Reason: CONSTIPATION Nicotine (Nicotine Patch 21 Mg/24 Hr*) 1 patch TRANSDERM DAILY [facility] Last Admin: 07/06/17 07:59 Dose: 1 patch Nicotine Polacrilex (Nicotine Gum*) 2 mg PO Q2H PRN PRN Reason: CRAVING Nystatin (Nystatin Top Powder*) 1 applic TOPICAL BID [facility] Last Admin: 07/06/17 09:45 Dose: Not Given Omeprazole (Prilosec Cap*) 20 mg PO DAILY@0600 [facility] Last Admin: 07/06/17 06:26 Dose: 20 mg Ondansetron HCl (Zofran Inj*) 4 mg IV Q6H PRN PRN Reason: NAUSEA Oxycodone HCl (Roxycodone Tab*) 5 mg PO Q4H PRN PRN Reason: PAIN Last Admin: 07/06/17 07:59 Dose: 5 mg Oxycodone/Acetaminophen (Percocet 5/325 Tab*) 1 tab PO Q4H PRN PRN Reason: PAIN Last Admin: 07/06/17 03:30 Dose: 1 tab Pharmacy Profile Note (Nicotine Patch Removal Note*) 1 note PATCH OFF 2100 [facility] Last Admin: 07/05/17 21:29 Dose: 1 note Senna (Senokot Tab*) 2 tab PO BEDTIME [facility] Last Admin: 07/05/17 21:24 Dose: 2 tab Trazodone HCl (Desyrel Tab*) 100 mg PO BEDTIME [facility] Last Admin: 07/05/17 21:24 Dose: 100 mg Triamcinolone Acetonide (Triamcinolone 0.5% Oint *) 1 applic TOPICAL BID [facility] Last Admin: 07/06/17 09:45 Dose: 1 applic Vital Signs - 8 hr 07/06/17 07/06/17 07/06/17 03:00 03:30 03:55 Pulse Rate 83 Respiratory 27 25 24 Rate O2 Sat by Pulse 93 Oximetry 07/06/17 07/06/17 07/06/17 04:00 05:00 06:00 Pulse Rate 77 74 Respiratory 20 19 24 Rate O2 Sat by Pulse 90 93 Oximetry 07/06/17 07:59 Pulse Rate Respiratory 22 Rate O2 Sat by Pulse Oximetry Oxygen Devices in Use Now: Tracheostomy Collar Appearance: 52 yo obese f in nAD, aAOx3 Eyes: No Scleral Icterus, PERRLA Ears/Nose/Mouth/Throat: NL Teeth, Lips, Gums, Mucous Membranes Moist Neck: Trachea Midline, - - trach in place, purulent discharge around trach and skin irritation from it noted Respiratory: Symmetrical Chest Expansion and Respiratory Effort, - - coarse rhonchi b/l Cardiovascular: NL Sounds; No Murmurs; No JVD, RRR Abdominal: NL Sounds; No Tenderness; No Distention, No Hepatosplenomegaly Lymphatic: No Cervical Adenopathy Extremities: No Clubbing, Cyanosis, - - +1 pitting pedal edema b/l Skin: No Nodules or Sclerosis, - - skin erythema/irritiation/discharge around trach Neurological: Alert and Oriented x 3, NL Muscle Strength and Tone Result Diagrams: 07/06/17 06:50 07/06/17 06:50 Microbiology and Other Data: Microbiology 06/30/17 16:00 Nasal Screen MRSA (PCR)(ANTONIO) - Final Nasal Mrsa Detected Assess/Plan/Problems-Billing Assessment: 52 yo F with h/o KATHY, COPD, obesity, HTN s/p surgery for laryngeal mass by Dr. Espinoza and subsequent tracheostomy - Patient Problems (1) Acute respiratory failure Comment: Pt was not able to be ventilated via her trach on 07/05/17, trach needed to be exchanged. CT shows right lung infiltrate -aspiration pneumonia( suspect pt aspirated on thin liquids on 07/04/17). will start Cefepime and Flagyl , also to cover pseudomonas (due to trach secretions) Trach secretions' cx polymicrobial (2) Laryngeal mass Comment: Bx of mass positive for squamous cell ca. Dr. Elam's consult pending. Dr. Gee also consulted. CT neck/chest/abd/pelvis = shows chest adenopathy (may be related to ongoing infection, pt needs PET scan after discharge) Tracheostomy in place, appreciate RT assistance. Acetic acid trach care ordered by . Due to last night's events, RT d/w DR. Espinoza possibility to exchange trach to longer one. (3) COPD (chronic obstructive pulmonary disease) Comment: not in exacerbation, cont to monitor cont nebs prn (4) Hypertension Comment: controled on lisinopril (5) Fluid overload Comment: due to IVF since admssion CXR showed vascular congestion. treated with IV Lasix x 2 doses on 07/05/17. Will hold off further diuresis due to ongoing infection and thickened fluids for diet. (6) Dysphagia Comment: due to post op tracheostomy. Video swallow showed aspiration for thin liquids on 07/05/17, diet modified back to honey thick liquids (7) DVT prophylaxis Comment: cont SCD's HSQ Status and Disposition: inpatient
[2017-07-06] MEDS: Cefepime(*) 1 GM in NS 0.9% 50 ML* 50 ML IVPB SCH ×2 (11:18→21:49)
--- NOTE | 2017-07-06 12:59 | RADMED ---
CC: Dr. Espinoza; Dr. Raul Jarrett * RADIATION ONCOLOGY INPATIENT CONSULTATION: DATE OF SERVICE: 07/05/17 REFERRING PHYSICIAN: Dr. Espinoza PRIMARY CARE PHYSICIAN: Dr. Raul Jarrett DIAGNOSIS: Supraglottic larynx, squamous cell carcinoma, T2, N0, M0, additional evaluation pending. PERFORMANCE STATUS: ECOG stage 3. HISTORY OF PRESENT ILLNESS: Niharika Reza is a 52-year-old woman with significant medical comorbidity who presented with increasing shortness of breath. Her evaluation identified a suspicious obstructing supraglottic mass and on 06/30/17, she underwent emergent tracheostomy and biopsy which did confirm squamous cell carcinoma, p16 negative. She is referred for Radiation Oncology consultation. 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 MEDICATIONS: 1. Albuterol. 2. Klonopin. 3. Colace. 4. Dilaudid. 5. Lisinopril. 6. Lorazepam. 7. Metronidazole. 8. Omeprazole. 9. Zofran. 10. Oxycodone. 11. Trazodone. 12. Triamcinolone. ALLERGIES: PENICILLIN, CLINDAMYCIN, LATEX. FAMILY HISTORY: Significant for her mother who had lung cancer. SOCIAL HISTORY: She has been an active smoker for her entire adult life. She is accompanied by her daughter and her daughter's family who are quite supportive. She does not drink significant amount of alcohol. REVIEW OF SYSTEMS: Related to recent tracheostomy. A complete review of systems as from the patient results in no other specific immediate concerns, although she was medicated for pain, and to help her get through upcoming CT scans and most of the history is obtained from family and the patient's chart for that reason. PHYSICAL EXAM: Vital Signs: Temperature 99.1, pulse rate 111, respiratory rate 18, oxygen saturation 90% on room air, blood pressure 121/69. General: She is awake, alert, oriented, in no acute distress. Tracheostomy in the anterior neck. Normocephalic, atraumatic. Sclerae are anicteric. Neck: Tracheostomy in place. No palpable mass or adenopathy appreciated. Lungs have symmetric air entry bilaterally. Cardiovascular: S1, S2, regular. Abdomen: Nontender. Extremities: Bilateral ankle edema. PATHOLOGY: Reviewed as in history of present illness. IMPRESSION: Niharika Reza is a 52-year-old woman with significant medical comorbidity and newly-diagnosed supra-glottic squamous cell carcinoma with additional radiographic workup pending, now status post emergent tracheostomy to protect the airway. I did review her history as well as the pathologic findings and discussed this at some length with the patient and her family as they are already well informed and familiar. We reviewed the natural history of laryngeal cancer and considerations for management, briefly comparing surgery and radiation therapy depending on the situation. She does have CT scans scheduled for staging, and would benefit from PET CT most likely on an outpatient basis after discharge. Definitive surgery would include total laryngectomy, and she is not felt to be a candidate for partial laryngectomy with her comorbidities and almost certainly with problems protecting her airway after any conservative surgery. Radiation therapy or radiation therapy with concurrent chemotherapy for organ preservation is commonly used for treatment of supraglottic squamous cell carcinoma for organ preservation. I briefly introduced this treatment in terms of logistics and rationale, and will follow up for results of her additional evaluation planned. I will set up a PET scan and an outpatient followup visit in order to provide additional management for her newly diagnosed head and neck cancer. I did invite her to contact me with any questions or concerns sooner and will follow up with her for further evaluation and management in short order. Thank you for giving me the opportunity to participate in the care of this very pleasant patient. [id number]/[facility] #: [id number] PHYLLIS
--- NOTE | 2017-07-06 13:07 | RADMED ---
RADIATION ONCOLOGY INPATIENT CONSULTATION: DATE OF SERVICE: 07/05/17 DIAGNOSIS: Supraglottic larynx, squamous cell carcinoma, T2N0M0, additional workup pending. PERFORMANCE STATUS: ECOG 2. HISTORY OF PRESENT ILLNESS: Niharika Reza is a 52-year-old woman with multiple medical comorbidities. She presented with progressive shortness of breath presenting with exophytic supraglottic mass. There was significant airway obstruction and on 06/30/17, she underwent urgent tracheostomy and biopsy, pathology confirming squamous cell carcinoma p16 negative. She is referred for radiation oncology consultation. PAST MEDICAL HISTORY: Laryngeal cancer as in history of present illness, history of COPD, sleep apnea, congestive heart failure, obesity, hypertension, and psoriasis. DICTATION ENDS HERE [id number]/[facility] #: [id number] [facility] CENTER[facility]aby
[2017-07-06] MEDS: traZODone TAB* 100 MG PO SCH (21:38)
[2017-07-06] MEDS: Nicotine Patch Removal NOTE PATCH OFF SCH (21:42)
[2017-07-06] MEDS: Senna TAB PO SCH (21:49)
[2017-07-07] MEDS: metroNIDAZOLE IV 500 MG/100ML* 500 MG/100 ML BAG IVPB SCH ×3 (01:09→17:09)
[2017-07-07] MEDS: oxyCODONE/Acetamin 5/325 MG* TAB PO PRN ×3 (03:23→14:15)
[2017-07-07] MEDS: oxyCODONE TAB* 5 MG TAB PO PRN ×4 (03:23→22:26)
[2017-07-07] MEDS: HYDROmorphone INJ* 2 MG/ML CARPUJECT SYRINGE IV SLOW PU PRN ×4 (03:25→20:13)
[2017-07-07 06:03] LABS: ABS Basophils 0.1 10^3/ul (0-0.2); ABS Eosinophils 0.1 10^3/ul (0-0.6); ABS Lymphocytes 1.2 10^3/ul (1.0-4.8); ABS Neutrophils 12.1 10^3/ul (1.5-7.7); ABS Nucleated RBC 0 10^3/ul; Eosinophil % 0.8 % (0-6); Hematocrit 40 % (35-47); Hemoglobin 12.9 g/dl (12.0-16.0); Lymphocyte % 8.1 % (25-47); Mean Corpuscular HGB Conc 32 g/dl (31-36); Mean Corpuscular Hemoglobin 28 pg (27-31); Mean Corpuscular Volume 86 fL (80-97); Mean Platelet Volume 7.5 um3 (7.4-10.4); Nucleated Red Blood Cells % 0.1; Platelet Count 189 10^3/ul (150-450); Red Blood Count 4.61 10^6/ul (4.0-5.4); Red Cell Distribution Width 16 % (10.5-15); White Blood Count 14.4 10^3/ul (3.5-10.8)
[2017-07-07] MEDS: Heparin VIAL(*) 5000 UNITS/ML VIAL (FIVE THOUSAND) SUBCUT SCH ×3 (06:36→22:04)
[2017-07-07] MEDS: Omeprazole CAP* 20 MG PO SCH (06:36)
[2017-07-07] MEDS: Nicotine PATCH 21 MG/24 HR* PATCH TRANSDERM SCH (09:40)
[2017-07-07] MEDS: Lisinopril TAB* 10 MG PO SCH (09:41)
[2017-07-07] MEDS: Cefepime(*) 1 GM in NS 0.9% 50 ML* 50 ML IVPB SCH (09:43)
[2017-07-07] MEDS: Nystatin TOP POWDER* 15 GM BTL TOPICAL SCH ×2 (10:30→20:45)
[2017-07-07] MEDS: Triamcinolone 0.5% OINT * 15 GM TUBE TOPICAL SCH ×2 (10:30→20:45)
[2017-07-07] MEDS: Acetic Acid 0.25%* 250 ML BTL TOPICAL SCH (14:00)
--- NOTE | 2017-07-07 18:20 | PN ---
Subjective Date of Service: 07/07/17 Interval History: Pt is feeling well. She has still been coughing up a significant amount of sputum. She denies any SOB. She is worried about changing her pain medication regimen at this time. Objective Active Medications: Acetaminophen (Tylenol Supp*) 650 mg DE Q6H PRN PRN Reason: FEVER/PAIN Acetic Acid (Acetic Acid 0.25%*) 10 ml TOPICAL 0900,2100 [facility] Last Admin: 07/07/17 14:00 Dose: 1 applic Albuterol (Ventolin 2.5 Mg/3 Ml Neb.Shira*) 2.5 mg INH Q4H PRN PRN Reason: SOB/WHEEZING Docusate Sodium (Colace Cap*) 100 mg PO BID PRN PRN Reason: CONSTIPATION Heparin Sodium (Porcine) (Heparin Vial(*)) 5,000 units SUBCUT Q8HR [facility] Last Admin: 07/07/17 14:15 Dose: 5,000 units Hydromorphone HCl (Dilaudid Inj*) 1 mg IV SLOW PU Q6H PRN PRN Reason: PAIN Cefepime HCl 1 gm/ Sodium (Chloride) 50 mls @ 100 mls/hr IVPB Q12H [facility] Stop: 07/07/17 20:59 Last Admin: 07/07/17 09:43 Dose: 100 mls/hr Metronidazole/Sodium Chloride (Flagyl 500 Mg Ivpb*) 500 mg in 100 mls @ 100 mls /hr IVPB Q8H [facility] Last Admin: 07/07/17 17:09 Dose: 100 mls/hr Cefepime HCl (Maxipime 1 Gm In Dextrose Duplex (*)) 1 gm in 50 mls @ 100 mls/ hr IV Q12H [facility] Lisinopril (Prinivil Tab*) 20 mg PO QAM [facility] Last Admin: 07/07/17 09:41 Dose: 20 mg Lorazepam (Ativan Tab(*)) 1 mg PO Q6H PRN PRN Reason: ANXIETY Magnesium Hydroxide (Milk Of Magnesia Liq*) 30 ml PO Q4H PRN PRN Reason: CONSTIPATION Nicotine (Nicotine Patch 21 Mg/24 Hr*) 1 patch TRANSDERM DAILY [facility] Last Admin: 07/07/17 09:40 Dose: 1 patch Nicotine Polacrilex (Nicotine Gum*) 2 mg PO Q2H PRN PRN Reason: CRAVING Nystatin (Nystatin Top Powder*) 1 applic TOPICAL BID [facility] Last Admin: 07/07/17 10:30 Dose: 1 applic Omeprazole (Prilosec Cap*) 20 mg PO DAILY@0600 [facility] Last Admin: 07/07/17 06:36 Dose: 20 mg Ondansetron HCl (Zofran Inj*) 4 mg IV Q6H PRN PRN Reason: NAUSEA Oxycodone HCl (Roxycodone Tab*) 10 mg PO Q4H PRN PRN Reason: PAIN Pharmacy Profile Note (Nicotine Patch Removal Note*) 1 note PATCH OFF 2100 [facility] Last Admin: 07/06/17 21:42 Dose: 1 note Senna (Senokot Tab*) 2 tab PO BEDTIME [facility] Last Admin: 07/06/17 21:49 Dose: 2 tab Trazodone HCl (Desyrel Tab*) 100 mg PO BEDTIME [facility] Last Admin: 07/06/17 21:38 Dose: 100 mg Triamcinolone Acetonide (Triamcinolone 0.5% Oint *) 1 applic TOPICAL BID [facility] Last Admin: 07/07/17 10:30 Dose: 1 applic Vital Signs - 8 hr 07/07/17 07/07/17 07/07/17 11:00 11:01 12:00 Temperature 97.6 F Pulse Rate 81 78 76 Respiratory 23 19 13 Rate Blood Pressure 86/56 (mmHg) O2 Sat by Pulse 100 95 85 Oximetry 07/07/17 07/07/17 07/07/17 12:01 13:00 14:00 Temperature Pulse Rate 78 69 81 Respiratory 15 18 20 Rate Blood Pressure 108/73 94/60 (mmHg) O2 Sat by Pulse 92 90 90 Oximetry 07/07/17 07/07/17 07/07/17 14:01 14:15 15:00 Temperature Pulse Rate 80 78 Respiratory 21 20 20 Rate Blood Pressure 103/67 (mmHg) O2 Sat by Pulse 90 91 Oximetry 07/07/17 07/07/17 07/07/17 15:01 16:00 16:01 Temperature 97.9 F Pulse Rate 70 72 74 Respiratory 15 19 15 Rate Blood Pressure 100/68 97/59 (mmHg) O2 Sat by Pulse 92 93 93 Oximetry 07/07/17 07/07/17 17:00 17:01 Temperature Pulse Rate 69 71 Respiratory 16 16 Rate Blood Pressure 80/59 (mmHg) O2 Sat by Pulse 91 90 Oximetry Oxygen Devices in Use Now: Tracheostomy Collar Appearance: Middle aged obese female sitting up in a chair, NAD Eyes: No Scleral Icterus Ears/Nose/Mouth/Throat: Mucous Membranes Moist Respiratory: Symmetrical Chest Expansion and Respiratory Effort, Clear to Auscultation - diminshed breath sounds in all lung lock Cardiovascular: NL Sounds; No Murmurs; No JVD, RRR, - - 1+ LE edema Abdominal: NL Sounds; No Tenderness; No Distention Extremities: No Clubbing, Cyanosis Skin: No Nodules or Sclerosis, - - marked bruising to lower abdominal wall Neurological: Alert and Oriented x 3 Result Diagrams: 07/07/17 05:30 07/07/17 05:30 Microbiology and Other Data: Microbiology 06/30/17 16:00 Nasal Screen MRSA (PCR)([facility]IO) - Final Nasal Mrsa Detected Assess/Plan/Problems-Billing Ms Reza is a 52 yo F with h/o KATHY, COPD, obesity, HTN s/p surgery for laryngeal mass by Dr. Espinoza and subsequent tracheostomy. - Patient Problems (1) Laryngeal mass Current Visit: Yes Status: Acute Code(s): J38.7 - OTHER DISEASES OF LARYNX SNOMED Code(s): 63250976 Comment: Biopsy of mass positive for squamous cell ca. The patient had a tracheostomy performed and currently is doing better than she had. Continue suctioning as needed. Will conitnue cefepime and flagyl for now but likely taper to ceftriaxone to cover just h influnezae, Continue acetic acid trach care per Dr. Espinoza. Will need PEG placed to prepare for XRT. (2) COPD (chronic obstructive pulmonary disease) Current Visit: Yes Status: Chronic Code(s): J44.9 - CHRONIC OBSTRUCTIVE PULMONARY DISEASE, UNSPECIFIED SNOMED Code(s): 03915122 Comment: No signs of exacerbation. (3) Hypertension Current Visit: Yes Status: Chronic Code(s): I10 - ESSENTIAL (PRIMARY) HYPERTENSION SNOMED Code(s): 59754635 Comment: BP is soft, will stop lisinopril and monitor BP. (4) GERD (gastroesophageal reflux disease) Current Visit: Yes Status: Chronic Code(s): K21.9 - GASTRO-ESOPHAGEAL REFLUX DISEASE WITHOUT ESOPHAGITIS SNOMED Code(s): 544935290 Comment: Continue omeprazole (5) Tobacco abuse Current Visit: Yes Status: Chronic Code(s): Z72.0 - TOBACCO USE SNOMED Code(s): 641434049 Comment: Smoking cessation recommended. (6) DVT prophylaxis Current Visit: Yes Status: Acute Code(s): QLJ5316 - SNOMED Code(s): 823814036 Comment: SQ heparin (7) Full code status Current Visit: Yes Status: Acute Onset Date: 04/08/14 Code(s): Z78.9 - OTHER SPECIFIED HEALTH STATUS SNOMED Code(s): 489404116 Status and Disposition: .
[2017-07-07] MEDS: Cefepime 1 GM in Dextrose(*) 1 GM/50 ML BAG IV SCH (21:48)
[2017-07-07] MEDS: LORazepam TAB(*) 1 MG PO PRN (22:03)
[2017-07-07] MEDS: traZODone TAB* 100 MG PO SCH (22:03)
[2017-07-07] MEDS: Senna TAB PO SCH (22:04)
[2017-07-07] MEDS: Nicotine Patch Removal NOTE PATCH OFF SCH (22:14)
[2017-07-08] MEDS: metroNIDAZOLE IV 500 MG/100ML* 500 MG/100 ML BAG IVPB SCH ×3 (01:21→17:41)
[2017-07-08] MEDS: oxyCODONE TAB* 5 MG TAB PO PRN ×5 (02:32→21:31)
[2017-07-08] MEDS: HYDROmorphone INJ* 2 MG/ML CARPUJECT SYRINGE IV SLOW PU PRN ×4 (02:32→21:38)
[2017-07-08] MEDS: Acetic Acid 0.25%* 250 ML BTL TOPICAL SCH ×3 (03:00→20:58)
[2017-07-08] MEDS: Heparin VIAL(*) 5000 UNITS/ML VIAL (FIVE THOUSAND) SUBCUT SCH ×3 (05:55→21:44)
[2017-07-08] MEDS: Omeprazole CAP* 20 MG PO SCH (05:58)
[2017-07-08 06:12] LABS: ABS Basophils 0.1 10^3/ul (0-0.2); ABS Eosinophils 0.1 10^3/ul (0-0.6); ABS Lymphocytes 1.4 10^3/ul (1.0-4.8); ABS Monocytes 0.7 10^3/ul (0-0.8); ABS Neutrophils 8.6 10^3/ul (1.5-7.7); ABS Nucleated RBC 0 10^3/ul; Eosinophil % 1.2 % (0-6); Hematocrit 38 % (35-47); Hemoglobin 12.8 g/dl (12.0-16.0); Lymphocyte % 12.8 % (25-47); Mean Corpuscular HGB Conc 33 g/dl (31-36); Mean Corpuscular Hemoglobin 29 pg (27-31); Mean Corpuscular Volume 86 fL (80-97); Mean Platelet Volume 7.6 um3 (7.4-10.4); Nucleated Red Blood Cells % 0.1; Platelet Count 196 10^3/ul (150-450); Red Blood Count 4.47 10^6/ul (4.0-5.4); Red Cell Distribution Width 16 % (10.5-15); White Blood Count 10.9 10^3/ul (3.5-10.8)
[2017-07-08] MEDS: Nicotine PATCH 21 MG/24 HR* PATCH TRANSDERM SCH (07:53)
[2017-07-08] MEDS: Cefepime 1 GM in Dextrose(*) 1 GM/50 ML BAG IV SCH ×2 (08:40→21:36)
[2017-07-08] MEDS: Triamcinolone 0.5% OINT * 15 GM TUBE TOPICAL SCH ×2 (11:09→21:33)
[2017-07-08] MEDS: Nystatin TOP POWDER* 15 GM BTL TOPICAL SCH ×2 (11:10→21:33)
[2017-07-08] MEDS: LORazepam TAB(*) 1 MG PO PRN (13:23)
--- NOTE | 2017-07-08 14:39 | PN ---
Subjective Date of Service: 07/08/17 Interval History: Pt is feeling ok today. Her pain is however not completely controlled. She states she is coughing up more sputum today than yesterday. She has been working on deep suctioning her trach as well as working on more superficial suctioning. Objective Active Medications: Acetaminophen (Tylenol Supp*) 650 mg [place] Q6H PRN PRN Reason: FEVER/PAIN Acetic Acid (Acetic Acid 0.25%*) 10 ml TOPICAL 0900,2100 [facility] Last Admin: 07/08/17 03:00 Dose: 1 applic Albuterol (Ventolin 2.5 Mg/3 Ml Neb.Shira*) 2.5 mg INH Q4H PRN PRN Reason: SOB/WHEEZING Docusate Sodium (Colace Cap*) 100 mg PO BID PRN PRN Reason: CONSTIPATION Heparin Sodium (Porcine) (Heparin Vial(*)) 5,000 units SUBCUT Q8HR [facility] Last Admin: 07/08/17 13:26 Dose: 5,000 units Hydromorphone HCl (Dilaudid Inj*) 1 mg IV SLOW PU Q6H PRN PRN Reason: PAIN Last Admin: 07/08/17 09:22 Dose: 1 mg Metronidazole/Sodium Chloride (Flagyl 500 Mg Ivpb*) 500 mg in 100 mls @ 100 mls /hr IVPB Q8H [facility] Last Admin: 07/08/17 07:45 Dose: 100 mls/hr Cefepime HCl (Maxipime 1 Gm In Dextrose Duplex (*)) 1 gm in 50 mls @ 100 mls/ hr IV Q12H [facility] Last Admin: 07/08/17 08:40 Dose: 100 mls/hr Lorazepam (Ativan Tab(*)) 1 mg PO Q6H PRN PRN Reason: ANXIETY Last Admin: 07/08/17 13:23 Dose: 1 mg Magnesium Hydroxide (Milk Of Magnesia Liq*) 30 ml PO Q4H PRN PRN Reason: CONSTIPATION Nicotine (Nicotine Patch 21 Mg/24 Hr*) 1 patch TRANSDERM DAILY [facility] Last Admin: 07/08/17 07:53 Dose: 1 patch Nicotine Polacrilex (Nicotine Gum*) 2 mg PO Q2H PRN PRN Reason: CRAVING Nystatin (Nystatin Top Powder*) 1 applic TOPICAL BID [facility] Last Admin: 07/08/17 11:10 Dose: Not Given Omeprazole (Prilosec Cap*) 20 mg PO DAILY@0600 [facility] Last Admin: 07/08/17 05:58 Dose: Not Given Ondansetron HCl (Zofran Inj*) 4 mg IV Q6H PRN PRN Reason: NAUSEA Oxycodone HCl (Roxycodone Tab*) 10 mg PO Q4H PRN PRN Reason: PAIN Last Admin: 07/08/17 13:23 Dose: 10 mg Pharmacy Profile Note (Nicotine Patch Removal Note*) 1 note PATCH OFF 2100 [facility] Last Admin: 07/07/17 22:14 Dose: 1 note Senna (Senokot Tab*) 2 tab PO BEDTIME [facility] Last Admin: 07/07/17 22:04 Dose: 2 tab Trazodone HCl (Desyrel Tab*) 100 mg PO BEDTIME [facility] Last Admin: 07/07/17 22:03 Dose: 100 mg Triamcinolone Acetonide (Triamcinolone 0.5% Oint *) 1 applic TOPICAL BID [facility] Last Admin: 07/08/17 11:09 Dose: Not Given Vital Signs - 8 hr 07/08/17 07/08/17 07/08/17 08:00 08:03 09:22 Temperature 98.5 F Pulse Rate 72 Respiratory 15 18 16 Rate Blood Pressure 149/78 (mmHg) O2 Sat by Pulse 97 Oximetry 07/08/17 07/08/17 07/08/17 10:22 11:09 11:42 Temperature 98.2 F Pulse Rate 70 Respiratory 16 16 18 Rate Blood Pressure 118/67 (mmHg) O2 Sat by Pulse 97 Oximetry 07/08/17 13:23 Temperature Pulse Rate Respiratory 16 Rate Blood Pressure (mmHg) O2 Sat by Pulse Oximetry Oxygen Devices in Use Now: Tracheostomy Collar Appearance: Middle aged female sitting up in a chair, NAD Eyes: No Scleral Icterus Ears/Nose/Mouth/Throat: Mucous Membranes Moist Respiratory: Symmetrical Chest Expansion and Respiratory Effort, Clear to Auscultation - diminished breath sounds in all lung lock Cardiovascular: NL Sounds; No Murmurs; No JVD, RRR, No Edema Abdominal: NL Sounds; No Tenderness; No Distention Extremities: No Clubbing, Cyanosis Skin: No Nodules or Sclerosis - b, - - marked bruising noted to lower abdominal wall Neurological: Alert and Oriented x 3 Result Diagrams: 07/08/17 05:24 07/08/17 05:24 Microbiology and Other Data: Microbiology 06/30/17 16:00 Nasal Screen MRSA (PCR)(ANTONIO) - Final Nasal Mrsa Detected Assess/Plan/Problems-Billing Ms Reza is a 52 yo F with h/o KATHY, COPD, obesity, HTN s/p surgery for laryngeal mass by Dr. Espinoza and subsequent tracheostomy. - Patient Problems (1) Laryngeal mass Current Visit: Yes Status: Acute Code(s): J38.7 - OTHER DISEASES OF LARYNX SNOMED Code(s): 18438894 Comment: Biopsy of mass positive for squamous cell ca. The patient had a tracheostomy placed. Continue suctioning as needed. Will conitnue cefepime and flagyl for now as she is having more sputum. Continue acetic acid trach care per Dr. Espinoza. Will need PEG placed to prepare for XRT. (2) COPD (chronic obstructive pulmonary disease) Current Visit: Yes Status: Chronic Code(s): J44.9 - CHRONIC OBSTRUCTIVE PULMONARY DISEASE, UNSPECIFIED SNOMED Code(s): 87509578 Comment: No signs of exacerbation. (3) Hypertension Current Visit: Yes Status: Chronic Code(s): I10 - ESSENTIAL (PRIMARY) HYPERTENSION SNOMED Code(s): 00944057 Comment: BP is under good control off lisinopril. Monitor. (4) GERD (gastroesophageal reflux disease) Current Visit: Yes Status: Chronic Code(s): K21.9 - GASTRO-ESOPHAGEAL REFLUX DISEASE WITHOUT ESOPHAGITIS SNOMED Code(s): 902042131 Comment: Continue omeprazole (5) Tobacco abuse Current Visit: Yes Status: Chronic Code(s): Z72.0 - TOBACCO USE SNOMED Code(s): 616303504 Comment: Smoking cessation recommended. (6) DVT prophylaxis Current Visit: Yes Status: Acute Code(s): VUG4204 - SNOMED Code(s): 329046859 Comment: SQ heparin (7) Full code status Current Visit: Yes Status: Acute Onset Date: 04/08/14 Code(s): Z78.9 - OTHER SPECIFIED HEALTH STATUS SNOMED Code(s): 610803111 Status and Disposition: .
[2017-07-08] MEDS: Senna TAB PO SCH (21:32)
[2017-07-08] MEDS: traZODone TAB* 100 MG PO SCH (21:32)
[2017-07-08] MEDS: Nicotine Patch Removal NOTE PATCH OFF SCH (21:36)
[2017-07-09] MEDS: metroNIDAZOLE IV 500 MG/100ML* 500 MG/100 ML BAG IVPB SCH (01:39)
[2017-07-09] MEDS: oxyCODONE TAB* 5 MG TAB PO PRN ×6 (01:42→22:31)
[2017-07-09] MEDS: HYDROmorphone INJ* 2 MG/ML CARPUJECT SYRINGE IV SLOW PU PRN ×3 (05:19→18:25)
[2017-07-09] MEDS: Heparin VIAL(*) 5000 UNITS/ML VIAL (FIVE THOUSAND) SUBCUT SCH ×3 (05:23→22:36)
[2017-07-09] MEDS: Omeprazole CAP* 20 MG PO SCH (05:23)
--- NOTE | 2017-07-09 09:06 | PN ---
Subjective Date of Service: 07/09/17 Interval History: Pt is feeling ok. She states she is still bringing up quite a bit of sputum but it is very thick and she struggles to get it up. She denies any SOB. She states the increase in the oxycodone has helped her pain. Objective Active Medications: Acetaminophen (Tylenol Supp*) 650 mg [place] Q6H PRN PRN Reason: FEVER/PAIN Acetic Acid (Acetic Acid 0.25%*) 10 ml TOPICAL 0900,2100 [facility] Last Admin: 07/08/17 20:58 Dose: Not Given Albuterol (Ventolin 2.5 Mg/3 Ml Neb.Shira*) 2.5 mg INH Q4H PRN PRN Reason: SOB/WHEEZING Docusate Sodium (Colace Cap*) 100 mg PO BID PRN PRN Reason: CONSTIPATION Guaifenesin (Mucinex*) 1,200 mg PO BID [facility] Heparin Sodium (Porcine) (Heparin Vial(*)) 5,000 units SUBCUT Q8HR [facility] Last Admin: 07/09/17 05:23 Dose: 5,000 units Hydromorphone HCl (Dilaudid Inj*) 1 mg IV SLOW PU Q6H PRN PRN Reason: PAIN Last Admin: 07/09/17 05:19 Dose: 1 mg Cefepime HCl (Maxipime 1 Gm In Dextrose Duplex (*)) 1 gm in 50 mls @ 100 mls/ hr IV Q12H [facility] Last Admin: 07/08/17 21:36 Dose: 100 mls/hr Lorazepam (Ativan Tab(*)) 1 mg PO Q6H PRN PRN Reason: ANXIETY Last Admin: 07/08/17 13:23 Dose: 1 mg Magnesium Hydroxide (Milk Of Magnesia Liq*) 30 ml PO Q4H PRN PRN Reason: CONSTIPATION Nicotine (Nicotine Patch 21 Mg/24 Hr*) 1 patch TRANSDERM DAILY [facility] Last Admin: 07/08/17 07:53 Dose: 1 patch Nicotine Polacrilex (Nicotine Gum*) 2 mg PO Q2H PRN PRN Reason: CRAVING Nystatin (Nystatin Top Powder*) 1 applic TOPICAL BID [facility] Last Admin: 07/08/17 21:33 Dose: 1 applic Omeprazole (Prilosec Cap*) 20 mg PO DAILY@0600 [facility] Last Admin: 07/09/17 05:23 Dose: 20 mg Ondansetron HCl (Zofran Inj*) 4 mg IV Q6H PRN PRN Reason: NAUSEA Oxycodone HCl (Roxycodone Tab*) 15 mg PO Q4H PRN PRN Reason: PAIN Last Admin: 07/09/17 05:21 Dose: 15 mg Pharmacy Profile Note (Nicotine Patch Removal Note*) 1 note PATCH OFF 2100 [facility] Last Admin: 07/08/17 21:36 Dose: 1 note Senna (Senokot Tab*) 2 tab PO BEDTIME [facility] Last Admin: 07/08/17 21:32 Dose: 2 tab Trazodone HCl (Desyrel Tab*) 100 mg PO BEDTIME [facility] Last Admin: 07/08/17 21:32 Dose: 100 mg Triamcinolone Acetonide (Triamcinolone 0.5% Oint *) 1 applic TOPICAL BID [facility] Last Admin: 07/08/17 21:33 Dose: 1 applic Vital Signs - 8 hr 07/09/17 07/09/17 07/09/17 01:42 03:39 05:19 Temperature 98.1 F Pulse Rate 72 Respiratory 18 18 20 Rate Blood Pressure 127/71 (mmHg) O2 Sat by Pulse 96 Oximetry 07/09/17 07/09/17 07/09/17 05:21 05:36 07:46 Temperature 98.7 F Pulse Rate 70 Respiratory 20 16 20 Rate Blood Pressure 119/66 (mmHg) O2 Sat by Pulse 97 Oximetry 07/09/17 07:53 Temperature Pulse Rate Respiratory 20 Rate Blood Pressure (mmHg) O2 Sat by Pulse Oximetry Oxygen Devices in Use Now: Tracheostomy Collar Appearance: Middle aged obese female sitting up in a recliner sleeping, awakens to voice, NAD Eyes: No Scleral Icterus Ears/Nose/Mouth/Throat: Mucous Membranes Moist Respiratory: Symmetrical Chest Expansion and Respiratory Effort, Clear to Auscultation, - - scant secretions noted on gauze surrounding the trach Abdominal: NL Sounds; No Tenderness; No Distention Extremities: No Clubbing, Cyanosis Skin: No Nodules or Sclerosis Neurological: Alert and Oriented x 3 Result Diagrams: 07/08/17 05:24 07/08/17 05:24 Microbiology and Other Data: Microbiology 06/30/17 16:00 Nasal Screen MRSA (PCR)(ANTONIO) - Final Nasal Mrsa Detected Assess/Plan/Problems-Billing Ms Reza is a 52 yo F with h/o KATHY, COPD, obesity, HTN s/p surgery for laryngeal mass by Dr. Espinoza and subsequent tracheostomy. - Patient Problems (1) Laryngeal mass Current Visit: Yes Status: Acute Code(s): J38.7 - OTHER DISEASES OF LARYNX SNOMED Code(s): 29064845 Comment: Biopsy of mass positive for squamous cell ca. The patient had a tracheostomy placed. Continue suctioning as needed. Will change to ceftriaxone alone for treatment of H influenzae. Monitor WBC count with Abx change. Will get GI evaluation for PEG placement in preparation of XRT. (2) COPD (chronic obstructive pulmonary disease) Current Visit: Yes Status: Chronic Code(s): J44.9 - CHRONIC OBSTRUCTIVE PULMONARY DISEASE, UNSPECIFIED SNOMED Code(s): 65780884 Comment: No signs of exacerbation. (3) Hypertension Current Visit: Yes Status: Chronic Code(s): I10 - ESSENTIAL (PRIMARY) HYPERTENSION SNOMED Code(s): 05965625 Comment: BP is under good control off lisinopril. Monitor. (4) GERD (gastroesophageal reflux disease) Current Visit: Yes Status: Chronic Code(s): K21.9 - GASTRO-ESOPHAGEAL REFLUX DISEASE WITHOUT ESOPHAGITIS SNOMED Code(s): 270558495 Comment: Continue omeprazole. (5) Tobacco abuse Current Visit: Yes Status: Chronic Code(s): Z72.0 - TOBACCO USE SNOMED Code(s): 188279057 Comment: Smoking cessation recommended. (6) DVT prophylaxis Current Visit: Yes Status: Acute Code(s): JGV2076 - SNOMED Code(s): 545048751 Comment: SQ heparin (7) Full code status Current Visit: Yes Status: Acute Onset Date: 04/08/14 Code(s): Z78.9 - OTHER SPECIFIED HEALTH STATUS SNOMED Code(s): 772428913 Status and Disposition: .
[2017-07-09] MEDS: Nicotine PATCH 21 MG/24 HR* PATCH TRANSDERM SCH (09:07)
[2017-07-09] MEDS: Cefepime 1 GM in Dextrose(*) 1 GM/50 ML BAG IV SCH (09:08)
[2017-07-09] MEDS: guaiFENesin ER TAB 600 MG PO SCH ×2 (11:05→22:34)
[2017-07-09] MEDS: cefTRIAXone(*) 1 GM in NS 0.9% 50 ML* 50 ML IVPB SCH (11:12)
[2017-07-09] MEDS: Triamcinolone 0.5% OINT * 15 GM TUBE TOPICAL SCH ×2 (13:18→22:29)
[2017-07-09] MEDS: Acetic Acid 0.25%* 250 ML BTL TOPICAL SCH ×2 (13:18→20:34)
[2017-07-09] MEDS: Nystatin TOP POWDER* 15 GM BTL TOPICAL SCH ×2 (13:18→22:29)
[2017-07-09] MEDS: Nicotine Patch Removal NOTE PATCH OFF SCH (22:30)
[2017-07-09] MEDS: Senna TAB PO SCH (22:32)
[2017-07-09] MEDS: traZODone TAB* 100 MG PO SCH (22:35)
--- NOTE | 2017-07-09 22:43 | CONS ---
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 HISTORY OF PRESENT ILLNESS: Niharika Reza is a 52-year-old female with multiple previous medical problem including COPD, sleep apnea, obesity, diastolic congestive heart failure and ongoing tobacco use and abuse. She was recently found to have a laryngeal mass and had surgery on 06/30/[address] Espinoza. A tracheostomy was placed and the mass was biopsied. This revealed a squamous cell carcinoma at the time of the emergent tracheostomy due to the obstruction of the supraglottic mass. The squamous cell carcinoma was P16 negative and therefore not likely related to HPV, instead more likely related to smoking. The patient has had significant wheezing recently along with increasing edema in her legs. She has been having more difficulty with any activities due to decrease in exercise tolerance. CT scan was obtained on the day of his consultation and reviewed the following morning as there were no CT scan reports available at the time when the patient was seen. CT scan of the neck confirmed a mass in the supraglottic region with a tracheostomy in place. There is asymmetric mucosal thickening of the epiglottis extending to supraglottis larynx crossing the midline of the anterior commissure. There are small less than 1 cm short axis lymph nodes noted in the anterior and posterior cervical chain. Adenopathy in the chest was also noted, although better seen on the accompanied CT scan of the chest, abdomen and pelvis. This revealed up to 1.8 cm mediastinal adenopathy in the AP window, subcarinal and precarinal regions. In addition, right middle lobe and bilateral lower lobe infiltrates were seen most consistent with aspiration pneumonia. There were no masses seen in the lungs. Liver and spleen were both mildly enlarged. PAST MEDICAL HISTORY: COPD with a longstanding history of smoking up until the time of this hospitalization; obstructive sleep apnea, using CPAP at home, but often times noncompliant. History of diastolic CHF. History of hypertension. History of hyperlipidemia. History of obesity with a BMI well into the obese range. History of GERD. MEDICATIONS AT THE TIME OF ADMISSION: Includes: 1. Lisinopril 20 mg daily. 2. Chlorthalidone 50 mg daily. 3. Aspirin 81 mg daily. 4. Albuterol 2 puffs q.4 hours p.r.n. 5. Senokot 2 tabs q.h.s. 6. Percocet 10/325 q.4 hours p.r.n. pain. 7. Ibuprofen 200 mg p.r.n. 8. Omeprazole 20 mg daily. 9. Triamcinolone topical as needed. ALLERGIES: PENICILLIN and CLINDAMYCIN. FAMILY HISTORY: Mother, who is a smoker had lung cancer. Father is alive. Maternal grandmother and maternal great grandmother both had breast cancer. Paternal grandmother had metastatic carcinoma to the bone, unclear as to the primary site. SOCIAL HISTORY: The patient has smoked since age 12 for a total of 40-pack years, typically 2 packs per day for of this time. Alcohol occasional. She has a common-law partner for the past 23 years, but never . Three children in good health. She does not work outside of the home. REVIEW OF SYSTEMS: Difficult to obtain, the patient is not short of breath, but does report has some difficulties with breathing. Denies any recent active signs of infections specifically fevers, sweats or chills. Does report a cough. Reports weight has been stable and appetite good until this period of time. No major changes in bowel or bladder habits. Does have ongoing arthritic and bony complaints. This has helped somewhat with her narcotics and/ or ibuprofen. PHYSICAL EXAM: A 52-year-old female with significant obesity. Vital Signs: Blood pressure 121/69, pulse 110, afebrile. O2 saturation 90% on room air with a trach in place. HEENT: PERRL. EOMI. No erythema or exudate. Tracheostomy in the anterior neck. No palpable cervical supraclavicular axillary adenopathy. Lungs: Occasional wheezes. Heart: Regular rate and rhythm. No murmurs, rubs or gallops. Abdomen exam sitting, without tenderness, guarding, rebound or organomegaly. Normal active bowel sounds. Extremities: Without bilateral pitting edema 1+. Neurologic Exam: No focal deficits. DIAGNOSTIC STUDIES/LAB DATA: CBC: White count on admission of 11,800, H and H of 45/14.8, platelet count 215,000. Electrolytes without significant abnormalities. 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 She currently has a tracheostomy in place to protect her airway. Per Dr. Espinoza's handwritten note, he feels that this is likely a T2 to T3 lesion ___ __ this tumor would have to either cause vocal chord fixation which was not reported by Dr. Espinoza at the time of his surgery or invade one of the following structure postcricoid area, preepiglottic space, periglottic space or the inner cortex of the thyroid cartilage; on the limited review of the CT scan , I do not see any of these present. She does not have any significantly enlarged lymph nodes in the neck. It is more likely the lymph nodes in the chest relate either to some other tumor such as a concurrent second primary given the smoking history or to the infection. I believe it will be very reasonable for her to have a PET scan performed to better evaluate the lymph nodes in the neck as well as lymph nodes in the chest. If this turns out be a T2 N0 M0 supraglottic laryngeal carcinoma, then a definitive radiation therapy would certainly be a very reasonable option. She is likely not going to be a good candidate for surgery as I believe she would require a total laryngectomy and would not like to be a candidate for a partial laryngectomy given her comorbidities. If she were found to have adenopathy and/or found to have T3 disease, then other options would include induction chemotherapy followed by radiation or concurrent systemic chemotherapy and radiation therapy. I believe she would likely be a candidate for chemo, so radiation by itself would not be the preferable option. If she were found to have involved lymph nodes in the neck, then a combined chemoradiation therapy approach would also be reasonable as would surgery. If she were found to have metastatic disease to the mediastinal lymph nodes, then a short course of radiation therapy for symptom control followed by systemic chemotherapy would be the most reasonable option. The patient will continue to be followed while she is in the hospital and a PET scan will be needed to further workup this patient. If she is a candidate for radiation therapy following the PET scan without significant other signs or sites of disease, it would be up to Dr. Gee as to whether he feels she needs a PEG tube or not to be able to complete the radiation therapy. In the meantime, the patient will continue to be treated for presumed aspiration pneumonia and remainder of the workup will be expedited as quickly as possible. [id number]/[facility] #: [id number] [facility]PITALGaby
[2017-07-10] MEDS: HYDROmorphone INJ* 2 MG/ML CARPUJECT SYRINGE IV SLOW PU PRN ×4 (00:29→17:59)
[2017-07-10] MEDS: LORazepam TAB(*) 1 MG PO PRN (00:37)
[2017-07-10] MEDS: oxyCODONE TAB* 5 MG TAB PO PRN ×5 (02:52→20:01)
[2017-07-10] MEDS: Omeprazole CAP* 20 MG PO SCH (05:47)
[2017-07-10] MEDS: Heparin VIAL(*) 5000 UNITS/ML VIAL (FIVE THOUSAND) SUBCUT SCH ×3 (05:59→22:23)
[2017-07-10 06:59] LABS: Hematocrit 38 % (35-47); Hemoglobin 12.6 g/dl (12.0-16.0); Mean Corpuscular HGB Conc 33 g/dl (31-36); Mean Corpuscular Hemoglobin 28 pg (27-31); Mean Corpuscular Volume 86 fL (80-97); Mean Platelet Volume 7.5 um3 (7.4-10.4); Platelet Count 193 10^3/ul (150-450); Red Blood Count 4.45 10^6/ul (4.0-5.4); Red Cell Distribution Width 16 % (10.5-15); White Blood Count 7.8 10^3/ul (3.5-10.8)
[2017-07-10 07:10] LABS: ABS Basophils 0.1 10^3/ul (0-0.2); ABS Eosinophils 0.1 10^3/ul (0-0.6); ABS Lymphocytes 1.3 10^3/ul (1.0-4.8); ABS Monocytes 0.7 10^3/ul (0-0.8); ABS Neutrophils 5.5 10^3/ul (1.5-7.7); ABS Nucleated RBC 0 10^3/ul; Eosinophil % 1.6 % (0-6); Lymphocyte % 16.6 % (25-47); Nucleated Red Blood Cells % 0.1
[2017-07-10 07:11] LABS: EGFR Non-African American 84.4 (>60)
[2017-07-10] MEDS: Acetic Acid 0.25%* 250 ML BTL TOPICAL SCH ×2 (08:25→22:56)
[2017-07-10] MEDS: Nicotine PATCH 21 MG/24 HR* PATCH TRANSDERM SCH (08:29)
[2017-07-10] MEDS ORDERED: guaiFENesin LIQ* 100 MG/5 ML UDC PO SCH (09:00)
[2017-07-10] MEDS: guaiFENesin ER TAB 600 MG PO SCH ×4 (09:41→22:56)
[2017-07-10] MEDS: cefTRIAXone(*) 1 GM in NS 0.9% 50 ML* 50 ML IVPB SCH (10:07)
[2017-07-10] MEDS: Nystatin TOP POWDER* 15 GM BTL TOPICAL SCH ×2 (10:08→22:57)
[2017-07-10] MEDS: Triamcinolone 0.5% OINT * 15 GM TUBE TOPICAL SCH ×2 (10:08→22:57)
[2017-07-10] MEDS ORDERED: Furosemide IV* 10 MG/ML 2 ML VIAL (20 MG) IV ONE (16:18)
--- NOTE | 2017-07-10 16:51 | PN ---
Subjective Date of Service: 07/10/17 Interval History: Pt feels better every day. Able to suction herself. c/o constipation. Tracheostomy site feels better. c/o leg edema and requests "a fluid pill" Objective Active Medications: Acetaminophen (Tylenol Supp*) 650 mg [place] Q6H PRN PRN Reason: FEVER/PAIN Acetic Acid (Acetic Acid 0.25%*) 10 ml TOPICAL 0900,2100 [facility] Last Admin: 07/10/17 08:25 Dose: Not Given Albuterol (Ventolin 2.5 Mg/3 Ml Neb.Shira*) 2.5 mg INH Q4H PRN PRN Reason: SOB/WHEEZING Docusate Sodium (Colace Cap*) 100 mg PO BID PRN PRN Reason: CONSTIPATION Furosemide (Lasix Tab*) 40 mg PO DAILY [facility] Guaifenesin (Mucinex*) 1,200 mg PO BID [facility] Last Admin: 07/10/17 10:07 Dose: 1,200 mg Heparin Sodium (Porcine) (Heparin Vial(*)) 5,000 units SUBCUT Q8HR [facility] Last Admin: 07/10/17 14:20 Dose: 5,000 units Hydromorphone HCl (Dilaudid Inj*) 1 mg IV SLOW PU Q6H PRN PRN Reason: PAIN Last Admin: 07/10/17 13:07 Dose: 1 mg Ceftriaxone Sodium 1 gm/ (Sodium Chloride) 50 mls @ 200 mls/hr IVPB Q24H [facility] Last Admin: 07/10/17 10:07 Dose: 200 mls/hr Lactulose (Lactulose*) 30 ml PO TID PRN PRN Reason: CONSTIPATION Lorazepam (Ativan Tab(*)) 1 mg PO Q6H PRN PRN Reason: ANXIETY Last Admin: 07/10/17 00:37 Dose: 1 mg Magnesium Hydroxide (Milk Of Magnesia Liq*) 30 ml PO Q4H PRN PRN Reason: CONSTIPATION Nicotine (Nicotine Patch 21 Mg/24 Hr*) 1 patch TRANSDERM DAILY [facility] Last Admin: 07/10/17 08:29 Dose: 1 patch Nicotine Polacrilex (Nicotine Gum*) 2 mg PO Q2H PRN PRN Reason: CRAVING Nystatin (Nystatin Top Powder*) 1 applic TOPICAL BID [facility] Last Admin: 07/10/17 10:08 Dose: 1 applic Nystatin (Nystatin Cream*) 1 applic TOPICAL BID [facility] Omeprazole (Prilosec Cap*) 20 mg PO DAILY@0600 [facility] Last Admin: 07/10/17 05:47 Dose: 20 mg Ondansetron HCl (Zofran Inj*) 4 mg IV Q6H PRN PRN Reason: NAUSEA Oxycodone HCl (Roxycodone Tab*) 15 mg PO Q4H PRN PRN Reason: PAIN Last Admin: 07/10/17 16:02 Dose: 15 mg Pharmacy Profile Note (Nicotine Patch Removal Note*) 1 note PATCH OFF 2100 [facility] Last Admin: 07/09/17 22:30 Dose: 1 note Senna (Senokot Tab*) 2 tab PO BEDTIME [facility] Last Admin: 07/09/17 22:32 Dose: 2 tab Trazodone HCl (Desyrel Tab*) 100 mg PO BEDTIME [facility] Last Admin: 07/09/17 22:35 Dose: 100 mg Triamcinolone Acetonide (Triamcinolone 0.5% Oint *) 1 applic TOPICAL BID [facility] Last Admin: 07/10/17 10:08 Dose: 1 applic Vital Signs - 8 hr 07/10/17 07/10/17 07/10/17 09:16 11:28 11:52 Temperature 98.0 F Pulse Rate 71 Respiratory 18 18 18 Rate Blood Pressure 133/58 (mmHg) O2 Sat by Pulse 96 Oximetry 07/10/17 07/10/17 07/10/17 13:07 13:52 14:20 Temperature Pulse Rate Respiratory 18 18 18 Rate Blood Pressure (mmHg) O2 Sat by Pulse Oximetry 07/10/17 07/10/17 16:02 16:22 Temperature Pulse Rate 71 Respiratory 22 18 Rate Blood Pressure (mmHg) O2 Sat by Pulse 96 Oximetry Oxygen Devices in Use Now: Tracheostomy Collar Appearance: 52 yo F in nAD, AAOx3 Eyes: No Scleral Icterus, PERRLA Ears/Nose/Mouth/Throat: NL Teeth, Lips, Gums, Mucous Membranes Moist Neck: NL Appearance and Movements; NL JVP, Trachea Midline, - - tracheostomy in place, slight surrounding erythema noted-improved, no evidence of cellulitis Respiratory: Symmetrical Chest Expansion and Respiratory Effort, - - faint bibasiliar rhonchi Cardiovascular: NL Sounds; No Murmurs; No JVD, RRR Abdominal: NL Sounds; No Tenderness; No Distention, No Hepatosplenomegaly Lymphatic: No Cervical Adenopathy Extremities: No Clubbing, Cyanosis, - - +1 pitting pedal edema b/l Skin: - - jean pierre intertrigo b/l groin Neurological: Alert and Oriented x 3, NL Muscle Strength and Tone Result Diagrams: 07/10/17 06:42 07/10/17 06:42 Microbiology and Other Data: Microbiology 06/30/17 16:00 Nasal Screen MRSA (PCR)(ANTONIO) - Final Nasal Mrsa Detected Assess/Plan/Problems-Billing Ms Reza is a 52 yo F with h/o KATHY, COPD, obesity, HTN s/p surgery for laryngeal mass by Dr. Espinoza and subsequent tracheostomy. - Patient Problems (1) Laryngeal mass Comment: Biopsy of mass positive for squamous cell ca. The patient had a tracheostomy placed. Continue suctioning as needed. Will change to ceftriaxone alone for treatment of H influenzae. Monitor WBC count with Abx change. GI evaluation for PEG placement in preparation of XRT ongoing. Pt may need IR to do the PEG. (2) COPD (chronic obstructive pulmonary disease) Comment: No signs of exacerbation. (3) Hypertension Comment: BP is under good control off lisinopril. Monitor. (4) Fluid overload Comment: due to IVF since admission will treat with one dose of IV Lasix tonight (5) Dysphagia Comment: due to post op tracheostomy. Video swallow showed aspiration for thin liquids on 07/05/17, diet modified back to honey thick liquids. will ask speech therapy to re-visit (6) DVT prophylaxis Comment: SQ heparin Status and Disposition: inpatient
--- NOTE | 2017-07-10 18:38 | CONS ---
CC: Dr. Jarrett* CONSULTATION REPORT: DATE OF CONSULT: 07/10/17 REQUESTING PHYSICIAN: Dr. Brunson. INDICATION: Possible PEG tube placement. NARRATIVE: This is a 52-year-old female with multiple medical issues. She was newly diagnosed with a supraglottic laryngeal cancer. She underwent an emergent tracheostomy and is planning on having radiation therapy and more definitive treatments of the laryngeal cancer. In the meantime, she developed aspiration pneumonia. She is now on a regular nursing floor. She is eating honey-thickened liquids; however, will start radiation therapy most likely here in the next week or 2. She denies any dysphagia at this point. There was a history of aspiration pneumonia. She also has a history of COPD, sleep apnea, obesity, congestive heart failure, continued tobacco abuse. PAST MEDICAL HISTORY: Please see the HPI, also GERD. MEDICATIONS AT HOME: Included: 1. Lisinopril. 2. Aspirin. 3. Albuterol. 4. Senokot. 5. Percocet. 6. Ibuprofen. 7. Omeprazole. ALLERGIES: PENICILLIN and CLINDAMYCIN. FAMILY HISTORY: Positive for lung cancer, breast cancer, bone cancer. SOCIAL HISTORY: She quit smoking when she came to the hospital. She has been smoking 2 packs a day. Rare alcohol. REVIEW OF SYSTEMS: Twelve systems were reviewed, other than that mentioned in the HPI were unremarkable. PHYSICAL EXAM: Temperature is 97.8, blood pressure is 126/65, pulse is 67, respiratory rate of 16, O2 sat is 98%. General: Chronically ill-appearing female, sitting up in a chair, alert, oriented, pleasant, fluent. HEENT: She does have a new trach. Dentition is poor. Lungs: Expiratory wheeze. Coarse bilateral breath sounds. Heart: Regular rate and rhythm. Abdomen is obese. Positive bowel sounds. Soft, nontender, nondistended. No hepatosplenomegaly, masses, rebound, or guarding. Skin is warm and dry. DIAGNOSTIC STUDIES/LAB DATA: Labs of note: White count is 7.8, platelets of 193. BUN is 18, creatinine is 0.73. I did review the laryngoscopy from Dr. Espinoza. It does show a very large supraglottic mass. I am concerned about whether or not we are able to pull a PEG tube through that area. I think we can potentially get a scope down there, but the PEG tube bumper I think could get stuck. I did speak to Dr. Espinoza also and he was unsure as to whether or not we would be able to pull a PEG tube down through that area. ASSESSMENT AND PLAN: A 52-year-old female with laryngeal cancer, very large mass, who will likely need a PEG tube given the fact she is going to start radiation therapy soon. I had a long discussion with the patient regarding the [address] a PEG tube. I am concerned about endoscopic placement given the large size of the mass. I did review the laryngoscopy films and I do worry about whether or not we can safely pull a PEG tube down through that without it getting stuck and/or causing too much trauma. Another possibility would be to have Interventional Radiology place it from the outside. I will touch base with Dr. Condon in Interventional Radiology to see if this could possibly be an option for her. [id number]/CPS #: [id number] MTDGaby
[2017-07-10] MEDS: LORazepam INJ* 2 MG/ML 1 ML VIAL IV PUSH PRN (22:23)
[2017-07-10] MEDS: Nicotine Patch Removal NOTE PATCH OFF SCH (22:23)
[2017-07-10] MEDS: traZODone TAB* 100 MG PO SCH (22:23)
[2017-07-10] MEDS: Senna TAB PO SCH (22:23)
[2017-07-10] MEDS: Nystatin CREAM* 15 GM TUBE TOPICAL SCH (22:57)
[2017-07-11] MEDS: oxyCODONE TAB* 5 MG TAB PO PRN ×4 (00:06→21:59)
[2017-07-11] MEDS: HYDROmorphone INJ* 2 MG/ML CARPUJECT SYRINGE IV SLOW PU PRN ×4 (00:06→12:39)
[2017-07-11] MEDS: Omeprazole CAP* 20 MG PO SCH (06:07)
[2017-07-11] MEDS: Heparin VIAL(*) 5000 UNITS/ML VIAL (FIVE THOUSAND) SUBCUT SCH ×3 (06:13→21:58)
[2017-07-11] MEDS: guaiFENesin ER TAB 600 MG PO SCH ×2 (08:02→22:03)
[2017-07-11] MEDS: cefTRIAXone(*) 1 GM in NS 0.9% 50 ML* 50 ML IVPB SCH (08:55)
[2017-07-11] MEDS: Nicotine PATCH 21 MG/24 HR* PATCH TRANSDERM SCH (08:59)
[2017-07-11] MEDS: Furosemide TAB* 40 MG PO SCH (09:25)
[2017-07-11] MEDS: Triamcinolone 0.5% OINT * 15 GM TUBE TOPICAL SCH ×2 (12:44→22:04)
[2017-07-11] MEDS: Nystatin CREAM* 15 GM TUBE TOPICAL SCH ×2 (12:44→22:03)
[2017-07-11] MEDS: Acetic Acid 0.25%* 250 ML BTL TOPICAL SCH (12:46)
[2017-07-11] MEDS: Nystatin TOP POWDER* 15 GM BTL TOPICAL SCH ×2 (12:46→22:04)
[2017-07-11] MEDS ORDERED: Furosemide IV* 10 MG/ML 2 ML VIAL (20 MG) IV ONE (13:56)
[2017-07-11] MEDS: LORazepam INJ* 2 MG/ML 1 ML VIAL IV PUSH PRN ×2 (14:36→20:22)
--- NOTE | 2017-07-11 15:07 | PN ---
Subjective Date of Service: 07/11/17 Interval History: Pt feels well. "almost "ready to go home. Plans for discharge tomorrow. C/o leg edema Objective Active Medications: Acetaminophen (Tylenol Supp*) 650 mg ME Q6H PRN PRN Reason: FEVER/PAIN Acetic Acid (Acetic Acid 0.25%*) 10 ml TOPICAL 0900,2100 [facility] Last Admin: 07/11/17 12:46 Dose: 1 applic Albuterol (Ventolin 2.5 Mg/3 Ml Neb.Shira*) 2.5 mg INH Q4H PRN PRN Reason: SOB/WHEEZING Docusate Sodium (Colace Cap*) 100 mg PO BID PRN PRN Reason: CONSTIPATION Furosemide (Lasix Tab*) 40 mg PO DAILY [facility] Last Admin: 07/11/17 09:25 Dose: Not Given Guaifenesin (Mucinex*) 1,200 mg PO BID [facility] Last Admin: 07/11/17 08:02 Dose: Not Given Heparin Sodium (Porcine) (Heparin Vial(*)) 5,000 units SUBCUT Q8HR [facility] Last Admin: 07/11/17 13:47 Dose: 5,000 units Hydromorphone HCl (Dilaudid Inj*) 1 mg IV SLOW PU Q4H PRN PRN Reason: PAIN Last Admin: 07/11/17 12:39 Dose: 1 mg Ceftriaxone Sodium 1 gm/ (Sodium Chloride) 50 mls @ 200 mls/hr IVPB Q24H [facility] Last Admin: 07/11/17 08:55 Dose: 200 mls/hr Lactulose (Lactulose*) 30 ml PO TID PRN PRN Reason: CONSTIPATION Last Admin: 07/10/17 16:54 Dose: 30 ml Lorazepam (Ativan Inj*) 1 mg IV PUSH Q6H PRN PRN Reason: ANXIETY Last Admin: 07/11/17 14:36 Dose: 1 mg Magnesium Hydroxide (Milk Of Magnesia Liq*) 30 ml PO Q4H PRN PRN Reason: CONSTIPATION Nicotine (Nicotine Patch 21 Mg/24 Hr*) 1 patch TRANSDERM DAILY [facility] Last Admin: 07/11/17 08:59 Dose: 1 patch Nicotine Polacrilex (Nicotine Gum*) 2 mg PO Q2H PRN PRN Reason: CRAVING Nystatin (Nystatin Top Powder*) 1 applic TOPICAL BID [facility] Last Admin: 07/11/17 12:46 Dose: 1 applic Nystatin (Nystatin Cream*) 1 applic TOPICAL BID [facility] Last Admin: 07/11/17 12:44 Dose: 1 top.lotion Omeprazole (Prilosec Cap*) 20 mg PO DAILY@0600 [facility] Last Admin: 07/11/17 06:07 Dose: Not Given Ondansetron HCl (Zofran Inj*) 4 mg IV Q6H PRN PRN Reason: NAUSEA Oxycodone HCl (Roxycodone Tab*) 15 mg PO Q4H PRN PRN Reason: PAIN Last Admin: 07/11/17 13:46 Dose: 15 mg Pharmacy Profile Note (Nicotine Patch Removal Note*) 1 note PATCH OFF 2100 [facility] Last Admin: 07/10/17 22:23 Dose: 1 note Senna (Senokot Tab*) 2 tab PO BEDTIME [facility] Last Admin: 07/10/17 22:23 Dose: Not Given Trazodone HCl (Desyrel Tab*) 100 mg PO BEDTIME [facility] Last Admin: 07/10/17 22:23 Dose: 100 mg Triamcinolone Acetonide (Triamcinolone 0.5% Oint *) 1 applic TOPICAL BID [facility] Last Admin: 07/11/17 12:44 Dose: 1 applic Vital Signs - 8 hr 07/11/17 07/11/17 07/11/17 07:39 08:13 09:15 Temperature 98.2 F Pulse Rate 73 Respiratory 20 16 16 Rate Blood Pressure 120/38 (mmHg) O2 Sat by Pulse 98 Oximetry 07/11/17 07/11/17 07/11/17 11:10 12:39 13:46 Temperature Pulse Rate 73 Respiratory 20 18 16 Rate Blood Pressure (mmHg) O2 Sat by Pulse 98 Oximetry 07/11/17 14:36 Temperature Pulse Rate Respiratory 16 Rate Blood Pressure (mmHg) O2 Sat by Pulse Oximetry Oxygen Devices in Use Now: Tracheostomy Collar Appearance: 52 yo F in nAD, AAOx3 Eyes: No Scleral Icterus, PERRLA Ears/Nose/Mouth/Throat: NL Teeth, Lips, Gums, Mucous Membranes Moist Neck: NL Appearance and Movements; NL JVP, Trachea Midline, - - tracheostomy in place Respiratory: Symmetrical Chest Expansion and Respiratory Effort, - - coarse breath sounds b/l Cardiovascular: NL Sounds; No Murmurs; No JVD Abdominal: NL Sounds; No Tenderness; No Distention, No Hepatosplenomegaly Lymphatic: No Cervical Adenopathy Extremities: No Clubbing, Cyanosis, - - +1 pitting pedal edema b/l Skin: No Nodules or Sclerosis, - - scattered dry psoriasis plaques on arms and legs. Claritza intertrigo in groin b/l Neurological: Alert and Oriented x 3, NL Muscle Strength and Tone Result Diagrams: 07/10/17 06:42 07/10/17 06:42 Microbiology and Other Data: Microbiology 06/30/17 16:00 Nasal Screen MRSA (PCR)(ANTONIO) - Final Nasal Mrsa Detected Assess/Plan/Problems-Billing Ms Reza is a 52 yo F with h/o KATHY, COPD, obesity, HTN s/p surgery for laryngeal mass by Dr. Espinoza and subsequent tracheostomy. - Patient Problems (1) Laryngeal mass Comment: Biopsy of mass positive for squamous cell ca. The patient had a tracheostomy placed. Continue suctioning as needed. Cont eftriaxone alone for treatment of H influenzae. PEG planned by IR as outpatient on 07/13/17 (2) COPD (chronic obstructive pulmonary disease) Comment: No signs of exacerbation. (3) Hypertension Comment: BP is under good control off lisinopril. Monitor. (4) Fluid overload Comment: due to IVF since admission Placed on PO lasix daily. will tx with one IV dose tonight (5) Dysphagia Comment: due to post op tracheostomy. Video swallow showed aspiration for thin liquids on 07/05/17, diet modified back to honey thick liquids. (6) DVT prophylaxis Comment: SQ heparin Status and Disposition: inpatient
[2017-07-11] MEDS: traZODone TAB* 100 MG PO SCH (21:59)
[2017-07-11] MEDS: Senna TAB PO SCH (21:59)
[2017-07-11] MEDS: Nicotine Patch Removal NOTE PATCH OFF SCH (22:03)
[2017-07-12] MEDS: Morphine VIAL* 4 MG/ML VIAL (1 ml vial) IV PRN ×2 (01:18→06:04)
[2017-07-12] MEDS: Acetic Acid 0.25%* 250 ML BTL TOPICAL SCH ×2 (01:34→09:13)
[2017-07-12] MEDS: LORazepam INJ* 2 MG/ML 1 ML VIAL IV PUSH PRN (03:32)
[2017-07-12] MEDS: Heparin VIAL(*) 5000 UNITS/ML VIAL (FIVE THOUSAND) SUBCUT SCH ×2 (06:04→14:21)
[2017-07-12] MEDS: Omeprazole CAP* 20 MG PO SCH (06:08)
[2017-07-12 07:28] VITALS: BP 109/62
[2017-07-12] MEDS: cefTRIAXone(*) 1 GM in NS 0.9% 50 ML* 50 ML IVPB SCH (09:09)
[2017-07-12] MEDS: oxyCODONE TAB* 5 MG TAB PO PRN ×2 (09:12→13:19)
[2017-07-12] MEDS: Furosemide TAB* 40 MG PO SCH (09:12)
[2017-07-12] MEDS: Nicotine PATCH 21 MG/24 HR* PATCH TRANSDERM SCH (09:12)
[2017-07-12] MEDS: Nystatin CREAM* 15 GM TUBE TOPICAL SCH (09:13)
[2017-07-12] MEDS: Triamcinolone 0.5% OINT * 15 GM TUBE TOPICAL SCH (09:13)
[2017-07-12] MEDS: Nystatin TOP POWDER* 15 GM BTL TOPICAL SCH (09:13)
[2017-07-12] MEDS: guaiFENesin ER TAB 600 MG PO SCH (09:13)
[2017-07-12] MEDS ORDERED: Magnesium CITRATE* 300 ML BTL PO ONE (09:40)
--- NOTE | 2017-07-12 22:01 | DS ---
CC: Dr. Jarrett; Dr. Gee, Radiation Oncology; Dr. Elam, Oncology; Dr. Espinoza, ENT; Dr. Condon, Interventional Radiology; Dr. Garcia* DISCHARGE SUMMARY: DATE OF ADMISSION: 06/30/17 DATE OF DISCHARGE: 07/12/17 PRIMARY CARE PROVIDER: Dr. Jarrett. DISCHARGE DIAGNOSES: 1. 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 Espinoza on 06/30/17. 2. Dysphagia that is after the tracheostomy. 3. An episode of acute hypoxemic respiratory failure due to aspiration that occurred during patient's hospital stay due to dysphagia. 4. Fluid overload likely due to intravenous fluid hydration during her hospital stay. SECONDARY DIAGNOSES: 1. Morbid obesity with a BMI of 47. 2. History of chronic obstructive pulmonary disease. 3. History of obstructive sleep apnea, on CPAP. 4. History of psoriasis. 5. History of diastolic congestive heart failure. 6. History of tobacco use. 7. Gastroesophageal reflux disease. 8. Hypertension. 9. Hyperlipidemia. 10. Osteoarthritis. MEDICATIONS AT DISCHARGE: Include: 1. Albuterol inhaler on a p.r.n. basis. 2. Nebulizers with albuterol and Atrovent on a p.r.n. basis. 3. Aspirin 81 mg daily. 4. Keflex 500 mg 3 times a day for 4 days total, then stop. 5. Clonazepam 0.5 mg b.i.d. p.r.n. 6. Furosemide 40 mg daily for 7 days, then stop. 7. Ibuprofen 600 mg b.i.d. p.r.n. 8. Prinivil 20 mg daily. 9. Omeprazole 20 mg daily. 10. Oxycodone with acetaminophen 10/325 mg. The patient is to take 1 tablet every 3 hours p.r.n. pain. The patient was prescribed a total of 80 tablets and no refill, I-STOP was checked. The patient was dispensed 30 day supply of oxycodone and acetaminophen on 06/21/17. Unfortunately, she is going to require to use more narcotics due to postoperative pain and was prescribed higher frequency of narcotics at discharge. 11. Senokot 2 tablets at bedtime. 12. Trazodone 100 mg at bedtime. Additionally, the patient was set up with [facility] for respiratory supplies in regards to the tracheostomy care. The patient was advised to continue her tracheostomy care as she was taught by our respiratory therapist and Dr. Espinoza during her hospital stay. FOLLOWUP APPOINTMENTS: The patient is going to see: 1. Dr. Condon. The patient is scheduled tomorrow at 8:30 a.m. on 07/13/17 for Interventional Radiology for PEG tube placement. 2. Dr. Gee was notified about the patient's discharge and the patient is going to call Dr. Gee's office for an appointment. 3. Dr. Elam. The patient is asked to call Dr. Elam's office and schedule an appointment within the next 1 to 2 weeks. 4. Our office is in the process of arranging a followup with Dr. Jarrett. 5. Dr. Espinoza is aware of the patient is being discharged and asked for the patient to call the office when she is discharged for to schedule an appointment within the next 4 days. ACTIVITY AT DAY OF DISCHARGE: As tolerated. DIET: Regular diet with consistency is going to be pureed with honey-thick liquids. LABORATORY DATA AND STUDIES PERFORMED DURING THE HOSPITAL STAY: Included: On 07/10/17, white blood cell count of 7.8, hemoglobin 12.6, hematocrit of 38, and platelets of 193. On 07/10/17, sodium of 139, potassium 3.7, chloride 98, carbon dioxide 36, BUN 18, creatinine 0.73. Most recent chest x-ray documented on 07/06/17, impression: "Persistent right basilar pneumonia. Findings are similar to that seen on 07/05/17." Chest, abdomen, and pelvis CT obtained with contrast to evaluate for metastatic disease, impression: "Right middle and bilateral lower lobe infiltrates. Recommend followup chest x-rays to a resolution. Enlarged mediastinal lymph nodes. Hepatosplenomegaly. Slightly limited exam." Please note that the patient's enlarge lymph nodes other than precarinal area to pulmonary window on the subcarinal regions measuring up to 1.8 cm in transverse dimension. Neck CT obtained on 07/05/17, impression: There is an asymmetric mucosal thickening of the epiglottis and supraglottic larynx, centered in the left, but crossing midline. Concerning for history. There are large mediastinal lymph nodes. There is no cervical lymphadenopathy by size criteria." Video swallow evaluation obtained on 07/05/17, impression: "Aspiration of nectar- thick liquid volume." CONSULTATIONS DURING THE HOSPITAL STAY: Included: 1. Dr. Elam from Oncology. 2. Dr. Espinoza from ENT. 3. Dr. Gee from Radiation Oncology. 4. Dr. Condon from Interventional Radiology. 5. Dr. Souza from Intensive Care. 6. Dr. Garcia from Gastroenterology. HOSPITALIZATION COURSE: 1. Niharika Reza is a 52-year-old female with a history of morbid obesity as well as smoking, who was brought into the hospital by Dr. Espinoza for tracheostomy placement due to airway compromise secondary to supralaryngeal mass. Dr. Espinoza visualized the mass and performed tracheostomy on 06/30/17. Postoperatively, the patient was in the ICU and advancing well for the next several days. Once she was cleared for thin liquids to swallow, she was transferred to surgical unit for further evaluation and treatment. Within 24 hours of transfer, the patient developed respiratory distress and needed to be transferred back to the ICU. At that point, her tracheostomy tube was replaced. It was thought that the respiratory failure was due to the combination of aspiration pneumonia and fluid overload. She was given several doses of IV Lasix. She was also treated with Zosyn with good results. Subsequent CT of chest, abdomen and pelvis showed pulmonary infiltrates on the right likely due to aspiration pneumonia. The patient spent a couple of days in ICU and then she was ready to be transferred back to surgical unit. Though, she continued to progress well. The delay was caused by the patient's decreased mobility and the time that required for the patient to be taught how to do her stoma care. The patient also developed purulent discharge from her tracheostomy site that needed to be treated with acetic acid flushes. By the time of discharge, she is more comfortable, although she is still in significant amount of pain. The sputum culture was positive for Haemophilus influenza and she was transitioned to treatment with ceftriaxone only and by the time of discharge, she is going to be switched to Keflex for another 4 days at discharge. After being seen by Dr. Elam from Oncology and Dr. Gee from Radiation Oncology, it was suggested for the patient to have consideration for PEG tube placement, which likely will be needed in the future. The patient also was noted to have dysphagia and was okayed by speech therapy after her aspiration episode for pureed, solids and honey thick liquids , which are difficult to swallow for the patient. Initially, Dr. Garcia saw the patient in consultation and thought that due to the size of the mass and the location, it may be difficult to do an endoscopic PEG tube placement. I discussed the case with Dr. Condon who agreed for the patient to have a PEG tube placement via Interventional Radiology methods. The patient is planned to have this procedure done as outpatient tomorrow. 2. By the time of discharge, the patient had been utilizing a trach collar with an oxygen flow rate of 35%, which is set up for the patient to use at home. She knows how to use her tracheostomy, knows how to suction. She is able to comfortably speak. Unfortunately, she experienced more pain and she was prescribed more narcotics to go home with. Followup for the patient after discharge recommended as above mentioned. PHYSICAL EXAMINATION AT THE TIME OF DISCHARGE: Blood pressure of 109/62, heart rate of 67 and regular, respiratory rate 18, oxygen saturation 94% on trach collar with 35% O2, temperature of 98.2. General: The patient is a very pleasant 52-year- old female, who is in no acute distress. Alert, awake, and oriented x3. HEENT: Head: Atraumatic, normocephalic. Eyes: Pupils are equal , reactive to light and accommodation. Oropharynx is clear. Mucosa moist. Neck: Supple. Tracheostomy in place midline with slight area of erythema, but no discharge noted around the orifice of the stoma. Respiratory: Coarse breath sounds bilaterally. Cardiovascular: Regular rate and rhythm. No murmur. Abdomen: Soft, nontender. Bowel sounds are present in all 4 quadrants. Extremities: There is +1 pitting and pedal edema. Pulses are +2 bilaterally. No clubbing or cyanosis. On neuro evaluation, speech is clear. Cranial nerves II through XII grossly intact. Motor strength is 5/5 bilaterally. Please note that this is a short summary of the patient's prolonged hospitalization. Please refer to further medical records for details. TIME SPENT: Approximately 50 minutes was spent on preparation of the patient's discharge. [id number]/[facility] #: [id number] MTDD
== END 2017-07-12 17:00 | disposition home health service (06) | DRG 11 ==
LOC: AA 11:43 → EDSTATUS 12:30 → ICU 14:35 → SSU 07-04 15:00 → ICU 07-06 00:59 → SSU 07-07 18:20
PROVIDERS: ADMIT Otolaryngology; ATTEND Internal Medicine
PROC: 0BH17EZ Insertion of Endotracheal Airway into Trachea, Via Natural or Artificial Opening (ICD-10-PCS; 2017-06-30)
PROC: 0B110F4 Bypass Trachea to Cutaneous with Tracheostomy Device, Open Approach (ICD-10-PCS; principal; 2017-06-30 12:30)
PROC: 0CBS0ZX Excision of Larynx, Open Approach, Diagnostic (ICD-10-PCS; 2017-06-30 12:30)
DX: C32.1 Malignant neoplasm of supraglottis (principal); J96.01 Acute respiratory failure with hypoxia; J69.0 Pneumonitis due to inhalation of food and vomit; I50.32 Chronic diastolic (congestive) heart failure; Z68.42 Body mass index [BMI] 45.0-49.9, adult; G47.33 Obstructive sleep apnea (adult) (pediatric); L40.9 Psoriasis, unspecified; K21.9 Gastro-esophageal reflux disease without esophagitis; E78.5 Hyperlipidemia, unspecified; I11.0 Hypertensive heart disease with heart failure; F17.210 Nicotine dependence, cigarettes, uncomplicated; M17.12 Unilateral primary osteoarthritis, left knee; I45.10 Unspecified right bundle-branch block; G43.909 Migraine, unspecified, not intractable, without status migrainosus; J43.9 Emphysema, unspecified; R13.14 Dysphagia, pharyngoesophageal phase; E87.70 Fluid overload, unspecified; E66.01 Morbid (severe) obesity due to excess calories; K59.00 Constipation, unspecified; Z79.82 Long term (current) use of aspirin; Z91.19 Patient's noncompliance with other medical treatment and regimen; Z80.1 Family history of malignant neoplasm of trachea, bronchus and lung; Z88.1 Allergy status to other antibiotic agents; Z88.0 Allergy status to penicillin; Z80.3 Family history of malignant neoplasm of breast; Z80.8 Family history of malignant neoplasm of other organs or systems; Z83.3 Family history of diabetes mellitus; Z99.81 Dependence on supplemental oxygen
CPT/HCPCS: 36415; 70491; 71045; 71260; 74177; 74230; 80048; 83735; 85025; 87070; 87077; 87184; 87185; 87186; 87205; 87641; 88305; 88342; 93005; 94760; A9270-GY; G8978-GP-CJ; G8979-GP-CH; J0692; J0696; J1100; J1170; J1644; J1885; J1940; J2060; J2270; J3010; J3475; J3490; Q9967

== ENCOUNTER 2017-07-13 12:54 | Observation (INO) | payer MEDICARE, MEDICAID ==
[2017-07-13] MEDS ORDERED: clonazePAM TAB(*) 0.5 MG PO PRN (13:33)
[2017-07-13] MEDS ORDERED: Albuterol/Ipratropium NEB.SOL* Albuterol 2.5 MG/Ipratropium 0.5 MG 3 ML INH PRN (13:33)
[2017-07-13] MEDS: Cephalexin CAP* 500 MG PO SCH ×2 (14:29→21:30)
[2017-07-13] MEDS: Enoxaparin(*) 40 MG/0.4 ML SYR SUBCUT SCH (14:29)
[2017-07-13] MEDS: oxyCODONE TAB* 5 MG TAB PO PRN ×3 (14:29→21:40)
[2017-07-13] MEDS ORDERED: Nicotine Lozenge* 4 MG LOZENGE MT PRN (15:23)
[2017-07-13] MEDS: HYDROmorphone INJ* 2 MG/ML CARPUJECT SYRINGE IV SLOW PU PRN ×2 (16:09→20:00)
--- NOTE | 2017-07-13 20:06 | HP ---
CC: Dr. Jarrett; Dr. Elam; Dr. Gee; Dr. Espinoza* ADMISSION HISTORY AND PHYSICAL: DATE OF ADMISSION: 07/13/17. PRIMARY CARE PROVIDER: Dr. Jarrett. PRIMARY ONCOLOGIST: Dr. Elam. RADIATION ONCOLOGIST: Dr. Jaiden Gee. ENT: Dr. Espinoza. ATTENDING PHYSICIAN: Dr. Radha Yarbrough* (dictated by CASE Farooq). ADMITTING PROVIDER: CASE Farooq. CHIEF COMPLAINT: Status post PEG tube placement. HISTORY OF PRESENT ILLNESS: This is a 52-year-old female, who was discharged yesterday after prolonged hospitalization following tracheostomy by Dr. Espinoza for a near obstructing laryngeal mass found to squamous cell carcinoma. Her hospitalization was compromised by dysphagia and episodes of aspiration with acute hypoxemic respiratory failure. The patient was discharged to home yesterday with plan for a PEG tube placement today. PEG tube was successfully placed by Dr. Zoltan Condon in Interventional Radiology. The patient is being admitted for an observation stay following the procedure. At the time of evaluation, she is complaining of significant pain at the PEG tube insertion site. She denies any other changes since discharge yesterday. PAST MEDICAL HISTORY: 1. Recent diagnosis of laryngeal squamous cell carcinoma, pending full staging and status post tracheostomy placement with Dr. Espinoza. 2. Morbid obesity with a BMI of 47. 3. COPD. 4. Obstructive sleep apnea. 5. Psoriasis. 6. Diastolic heart failure. 7. Tobacco abuse - interested in quitting. 8. GERD. 9. Hypertension. 10. Hyperlipidemia. HOME MEDICATIONS: 1. DuoNeb inhaled q.4 hours as needed for shortness of breath. 2. Aspirin 81 mg p.o. daily. 3. Keflex 500 mg p.o. 3 times daily x4 days. 4. Clonazepam 0.5 mg p.o. b.i.d. as needed for anxiety. 5. Furosemide 20 mg p.o. daily. 6. Ibuprofen 600 mg p.o. twice daily as needed for pain. 7. Lisinopril 20 mg p.o. daily. 8. Omeprazole 20 mg p.o. daily. 9. Oxycodone/acetaminophen 10/325, 1 tablet p.o. q.3 hours as needed for pain. 10. Senna 2 tablets p.o. at bedtime. 11. Trazodone 100 mg p.o. at bedtime. SOCIAL HISTORY: The patient is an active smoker and interested in quitting. She lives with her common law partner of 23 years and has 3 children. REVIEW OF SYSTEMS: As noted above in HPI. In addition to this she has chronic cough, no significant dyspnea. No recent fevers, or rashes. She has some lower extremity edema since hospitalization. PHYSICAL EXAMINATION GENERAL: This is a morbidly obese 52-year-old female, who appears older than stated age, and chronically ill, who is in no acute distress. VITAL SIGNS: Recent vitals, temperature 97.9 degrees Fahrenheit, pulse 78 beats per minute, respiratory rate 22, oxygen saturation 99% on 6 liters, blood pressure 126/61 mmHg. HEENT: Head is normocephalic, atraumatic. NECK: Tracheostomy in place with trach collar. RESPIRATORY: Few rhonchi appreciated in posterior lungs lock and occasional cough on exam. CARDIOVASCULAR: Heart has a regular rate and rhythm without murmurs, rubs, or gallops. ABDOMEN: PEG tube in place in left upper quadrant, minimal bleeding. Abdomen is otherwise soft and nontender with bowel sounds present. EXTREMITIES: The patient has 1+ lower extremity edema bilaterally. PSYCH: The patient is alert and appropriately oriented. LABORATORY EVALUATION: No labs from today's date. ASSESSMENT AND PLAN: This is a 52-year-old female with new diagnosis of laryngeal squamous cell carcinoma, status post tracheostomy placement, pending full staging and initiation of treatment, who underwent placement of a PEG tube today, and is being admitted for an overnight observation post tube placement. 1. Status post PEG tube placement - tube management orders per Dr. Condon. Requested consultation from a registered dietitian. Right now, the patient is able to tolerate pureed foods and honey thickened liquids by mouth, but anticipate that her oral intake will decline after initiating therapy. 2. Laryngeal squamous cell carcinoma, status post tracheostomy placement with pending PET scan for staging and followup with Dr. Gee, and Dr. Elam as an outpatient for further discussion of plan of care. 3. Morbid obesity with a BMI of 47. 4. Chronic obstructive pulmonary disease without acute exacerbation - plan to continue home inhaled medications. 5. Obstructive sleep apnea. 6. Diastolic heart failure with some evidence of fluid overload - continue Lasix as previously prescribed. 7. Hypertension. 8. Hyperlipidemia. 9. Gastroesophageal reflux disease. 10. DVT prophylaxis, subcu Lovenox. 11. Code status. The patient is full code. 12. Healthcare proxy is her significant other. DISPOSITION: The patient is being admitted to period of observation with anticipated discharge to home after 1 midnight. CASE FAROOQ [id number]/CPS #: [id number] [facility]US[facility]
[2017-07-13] MEDS ORDERED: traZODone TAB* 100 MG PO SCH (21:00)
[2017-07-13] MEDS ORDERED: Nicotine Patch Removal NOTE FOLLOW UP SCH (21:00)
[2017-07-13] MEDS ORDERED: Senna TAB PO SCH (21:00)
[2017-07-13] MEDS ORDERED: Simethicone TAB* 80 MG TAB.CHEW PO PRN (21:20)
[2017-07-14] MEDS: HYDROmorphone INJ* 2 MG/ML CARPUJECT SYRINGE IV SLOW PU PRN ×4 (00:37→13:02)
[2017-07-14] MEDS: oxyCODONE TAB* 5 MG TAB PO PRN ×6 (00:40→15:17)
[2017-07-14 06:28] LABS: ABS Basophils 0.1 10^3/ul (0-0.2); ABS Eosinophils 0.1 10^3/ul (0-0.6); ABS Lymphocytes 1.4 10^3/ul (1.0-4.8); ABS Monocytes 0.8 10^3/ul (0-0.8); ABS Neutrophils 7.5 10^3/ul (1.5-7.7); ABS Nucleated RBC 0 10^3/ul; Eosinophil % 0.9 % (0-6); Hematocrit 40 % (35-47); Hemoglobin 13.4 g/dl (12.0-16.0); Lymphocyte % 14.4 % (25-47); Mean Corpuscular HGB Conc 33 g/dl (31-36); Mean Corpuscular Hemoglobin 28 pg (27-31); Mean Corpuscular Volume 85 fL (80-97); Mean Platelet Volume 7.6 um3 (7.4-10.4); Nucleated Red Blood Cells % 0; Platelet Count 257 10^3/ul (150-450); Red Blood Count 4.74 10^6/ul (4.0-5.4); Red Cell Distribution Width 16 % (10.5-15); White Blood Count 9.8 10^3/ul (3.5-10.8)
[2017-07-14 06:48] LABS: EGFR Non-African American 78.2 (>60)
[2017-07-14] MEDS ORDERED: Omeprazole CAP* 20 MG PO SCH (07:30)
[2017-07-14] MEDS ORDERED: Aspirin 81 mg CHEW TAB* 81 MG TAB.CHEW PO SCH (09:00)
[2017-07-14] MEDS ORDERED: Nicotine PATCH 21 MG/24 HR* PATCH TRANSDERM SCH (09:00)
[2017-07-14] MEDS ORDERED: Lisinopril TAB* 10 MG PO SCH (09:00)
[2017-07-14] MEDS ORDERED: Furosemide TAB* 40 MG PO SCH (09:00)
[2017-07-14] MEDS: Cephalexin CAP* 500 MG PO SCH ×2 (09:06→13:50)
--- NOTE | 2017-07-14 10:12 | PN ---
Progress Note - Progress Note Date of Service: 07/14/17 SOAP: Subjective: Mild 2/10 when coughing or moving, but "okay". No nausea or emesis. Objective: Laboratory Tests 07/14/17 05:53 WBC 9.8 RBC 4.74 Hgb 13.4 Hct 40 Selected Entries 07/14/17 07/14/17 08:12 09:21 Temperature 97.6 F Temperature Temporal Artery Source Scan Pulse Rate 67 Respiratory 18 Rate Blood Pressure 111/67 (mmHg) Blood Pressure 78 Mean O2 Sat by Pulse 99 Oximetry Patient on Room No Air NAD, Sitting up in chair eating breakfast Adbomen is soft, minimally tender at tube insertion site. Dressing from yesterday with dried blood stained serious fluid Drainage bag (in bathroom, not connected) with green bilious fluid. No discernible blood. Tube is clamped with clear flush visible in lumen Assessment: 52 YOF POD #1 US & fluoroscopy guided PEG tube with no apparent complications. Plan: 1. Tube feeds may commence per nutrition/oncology. 2. Retention tacks (3 surrounding tube exit site) should be removed in 7-10 days. This can be done by a provider or the patient can return to IR for removal. 3. Routine tube exchange will occur every 8-12 weeks.
[2017-07-14] MEDS: Enoxaparin(*) 40 MG/0.4 ML SYR SUBCUT SCH (13:02)
[2017-07-14 16:47] VITALS: BP 110/60
--- NOTE | 2017-07-15 00:40 | DS ---
CC: Raul Jarrett MD; Dr. Elam; Dr. Gee; Dr. Espinoza * DISCHARGE SUMMARY: DATE OF ADMISSION: 07/13/17 DATE OF DISCHARGE: 07/14/17 PRIMARY ONCOLOGIST: Dr. Elam. RADIATION ONCOLOGIST: Dr. Gee. ENT: Dr. Espinoza. PRIMARY CARE PROVIDER: Raul Jarrett MD ATTENDING PHYSICIAN: Dr. Radha Yarbrough.* (DICTATED BY CASE FAROOQ) DISCHARGING PROVIDER: CASE Farooq. PRIMARY DISCHARGE DIAGNOSIS: Status post PEG tube placement. SECONDARY DISCHARGE DIAGNOSES: 1. Laryngeal squamous cell carcinoma, status post recent tracheostomy complicated by aspiration event. 2. Morbid obesity. 3. Chronic obstructive pulmonary disease. 4. Obstructive sleep apnea. 5. Psoriasis. 6. Diastolic heart failure without acute exacerbation. 7. Gastroesophageal reflux disease. 8. Hypertension. 9. Hyperlipidemia. DISCHARGE MEDICATIONS: 1. Albuterol 1 to 2 puffs inhaled every 4 hours as needed for shortness of breath. 2. DuoNeb inhaled every 4 hours as needed for shortness of breath. 3. Aspirin 81 mg p.o. daily. 4. Keflex 500 mg p.o. 3 times daily for a total of 4 days. 5. Clonazepam 0.5 mg p.o. 3 times daily as needed for anxiety. 6. Lasix 40 mg p.o. daily. 7. Dilaudid 4 mg p.o. q.6 hours as needed for pain. 8. Ibuprofen 600 mg p.o. twice daily as needed for pain. 9. Lisinopril 20 mg p.o. daily. 10. Omeprazole 20 mg p.o. daily. 11. Percocet 10/325 one tablet p.o. q.2 hours as needed for pain - this is on hold while utilizing Dilaudid in the postoperative period. 12. Senna 2 tablets p.o. at bedtime. 13. Trazodone 100 mg p.o. at bedtime. HOSPITAL IMAGING: None. HOSPITAL COURSE: This is a 52-year-old female with COPD, morbidly obese and was recently admitted with a near obstructing laryngeal mass, who received tracheostomy by Dr. Espinoza. Patient was hospitalized from 06/30/17 through 07/12/17. Please see discharge summary from Dr. Lorrie Brunson dated 07/12/17 for more details of this hospital admission. Patient was readmitted for an observation period after a PEG tube was placed. Patient has had some dysphagia following tracheostomy and has been able to tolerate pureed foods and honey thickened liquids and has mostly been eating soft foods such as yogurt and pudding. PEG tube was placed in anticipation of worsening dysphagia with treatment of her newly diagnosed laryngeal cancer and to supplement her current nutrition. Patient experienced no complications with the insertion of her PEG tube. Pain was managed during her hospitalization. She met with a registered dietitian regarding to tube feed needs. Recommendation at this time is for her to began Jevity 1.2 with a goal of 4 cans per day, which will roughly provide about 50% of her caloric needs. This may need to go up in the future if her dysphagia becomes worse after initiating treatment. DISPOSITION AND FOLLOWUP PLAN: Patient is being discharged to home. She received instructions on her PEG tube care. She can have sutures removed in 7 to 10 days. She will follow up with Dr. Jose Elam, medical oncologist, on in regards to treatment options. She will see Dr. Gee, radiation oncologist prior to that on 07/20/17 and a PET scan is scheduled for her for further staging of her laryngeal cancer on 07/24/17. Patient has received instructions on this. She has previously established followup with ENT, Dr. Espinoza, which she is encouraged to keep. CASE FAROOQ [id number]/[facility] #: [id number] F [facility] TH[facility]PSON HOSPITALGaby
== END 2017-07-14 17:00 | disposition home or self-care (01) ==
LOC: SSU 13:15
PROVIDERS: ADMIT Internal Medicine Hematology & Oncology; ATTEND Internal Medicine Hematology & Oncology
DX: C32.9 Malignant neoplasm of larynx, unspecified (principal); G89.18 Other acute postprocedural pain; Z98.890 Other specified postprocedural states; I11.0 Hypertensive heart disease with heart failure; I50.30 Unspecified diastolic (congestive) heart failure; E66.01 Morbid (severe) obesity due to excess calories; Z68.42 Body mass index [BMI] 45.0-49.9, adult; G47.33 Obstructive sleep apnea (adult) (pediatric); J44.9 Chronic obstructive pulmonary disease, unspecified; K21.9 Gastro-esophageal reflux disease without esophagitis; E78.5 Hyperlipidemia, unspecified; L40.9 Psoriasis, unspecified; F17.210 Nicotine dependence, cigarettes, uncomplicated; Z79.899 Other long term (current) drug therapy; R13.14 Dysphagia, pharyngoesophageal phase; I50.9 Heart failure, unspecified; Z79.82 Long term (current) use of aspirin; Z88.0 Allergy status to penicillin; Z88.1 Allergy status to other antibiotic agents
CPT/HCPCS: 36415; 49440; 49446; 80053; 85025; 85610; 85730; 96372; 96375; 96376; 99156; 99157; 99217; 99219; A9270-GY; C1887; G0378; J1170; J1610; J1650; J2250; J3010; Q9967

== ENCOUNTER 2017-07-20 12:28 | Emergency (ER) | payer MEDICARE, MEDICAID ==
[2017-07-20 15:57] VITALS: BP 97/48
--- NOTE | 2017-07-20 18:04 | ED ---
Edgardo Temple Jennifer, scribed for Moy Munroe MD on 07/20/17 at 1404 . Shortness of Breath - HPI Summary HPI Summary: The patient is a 52 year old female who presents with problems with her tracheal tube since June 30. The caregiver explained that the cannula is not in the correct position and the patient is unable to breathe when the cannula is put into the trach. - History of Current Complaint Chief Complaint: EDShortnessOfBreath Time Seen by Provider: 07/20/17 13:33 Hx Obtained From: Patient Onset/Duration: Gradual Onset, Lasting Weeks - 3-4 weeks, Still Present Timing: Constant Current Severity: Moderate Aggrevating Factors: Deep Breaths Alleviating Factors: Nothing - Allergy/Home Medications Allergies/Adverse Reactions: Allergies Allergy/AdvReac Type Severity Reaction Status Date / Time Penicillins Allergy Severe See Comment Verified 07/20/17 11:49 clindamycin Allergy Intermediate Difficulty Verified 07/20/17 11:49 Swallowing latex Allergy WELTS Verified 07/20/17 11:49 Home Medications: Home Medications Aspirin EC TAB* [Ecotrin EC Low Dose 81 MG*] 81 mg PO DAILY 07/20/17 [History Confirmed 07/20/17] Chlorthalidone TAB* [Hygroton TAB*] 50 mg PO DAILY 07/20/17 [History Confirmed 07/20/17] HYDROmorphone TAB* [Dilaudid TAB*] 4 mg PO Q6H PRN 07/20/17 [History Confirmed 07/20/17] clonazePAM TAB(*) [KlonoPIN TAB(*)] 0.5 - 1 tab PO BID PRN 07/20/17 [History Confirmed 07/20/17] PMH/Surg Hx/FS Hx/Imm Hx Endocrine/Hematology History: Reports: Hx Anemia Denies: Hx Diabetes, Hx Thyroid Disease Cardiovascular History: Reports: Hx Congestive Heart Failure, Hx Hypercholesterolemia, Hx Hypertension, Other Cardiovascular Problems/Disorders - STATES IS RETAINING FLUID IN FEET- REPORTS HAS NOT BEEN ABLE TO ELEVATE FEE Respiratory History: Reports: Hx Asthma, Hx Chronic Bronchitis, Hx Chronic Obstructive Pulmonary Disease (COPD), Hx Pneumonia, Hx Sleep Apnea - Unable to tolerate CPAP, Other Respiratory Problems/Disorders GI History: Reports: Hx Gall Bladder Disease - Cholecystectomy, Hx Gastroesophageal Reflux Disease Denies: Hx Ulcer History: Reports: Hx Kidney Infection - HX OF, Hx Kidney Stones - HX OF, Other Problems/Disorders - Reports blood in urine. ED test negative. 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 cholecystectomy. T&A tonsillectomy. Endoscopy x3 Hx Anesthesia Reactions: No - Immunization History Date of Tetanus Vaccine: UTD Date of Influenza Vaccine: NO Infectious Disease History: No Infectious Disease History: Reports: Hx of Known/Suspected MRSA - [facility], nares Denies: Hx Clostridium Difficile, Hx Hepatitis, Hx Human Immunodeficiency Virus (HIV), History Other Infectious Disease, Traveled Outside the [place] in Last 30 Days - Family History Known Family History: Positive: Other - sister of sepsis at age 34 Family History: Mother: Lung CA. 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 Neck: supple, non-tender Respiratory: CTA, breath sounds present Cardiovascular: RRR, pulses symmetrical Abdomen: non-tender, soft Bowel Sounds: present Musculoskeletal: normal, strength/ROM intact Neuro: normal, sensory motor intact, A&Ox3 Triage Information Reviewed: Yes Vital Signs On Initial Exam: Initial Vitals Temp Pulse Resp BP Pulse Ox 98.0 F 61 16 92/48 99 07/20/17 12:32 07/20/17 12:32 07/20/17 12:32 07/20/17 12:32 07/20/17 12:32 Vital Signs Reviewed: Yes Diagnostics - Vital Signs Vital Signs Temp Pulse Resp BP Pulse Ox 07/20/17 12:32 98.0 F 61 16 92/48 99 - Laboratory Lab Statement: Any lab studies that have been ordered have been reviewed, and results considered in the medical decision making process. Course/Dx - Course Course Of Treatment: Trach was changed out by resp/nursing. Skin underlying was reddened and macerated. Min brown drainage from trach. No resp distress. Will cover with abx, antifungal powder -- but this appears likely from being moist and mechanical means. F/U PMD or ENT surgeon for recheck. - Diagnoses Provider Diagnoses: Cellulitis, Complication of tracheostomy Discharge - Sign-Out/Discharge Documenting (check all that apply): Discharge/Admit/Transfer - Discharge Plan Condition: Improved Disposition: HOME Prescriptions: Cephalexin CAP* [Keflex CAP*] 500 mg PO TID #21 cap Nystatin TOP POWDER* 1 applic TOPICAL BID 7 Days #1 btl Patient Education Materials: Tracheostomy Care (ED), Cellulitis (ED) Referrals: Raul Jarrett MD [Primary Care Provider] - Additional Instructions: Follow up with the ENT doctor for reevaluation of site. Trach care as discussed. Return if worse, trouble breathing, new symptoms or other concerns. - Billing Disposition and Condition Condition: IMPROVED Disposition: HOME The documentation as recorded by the Edgardo santa Jennifer accurately reflects the service I personally performed and the decisions made by , Moy Munroe MD.
== END 2017-07-20 15:54 | disposition home or self-care (01) ==
LOC: ED 12:28
DX: J95.02 Infection of tracheostomy stoma (principal); L03.221 Cellulitis of neck; Y84.8 Other medical procedures as the cause of abnormal reaction of the patient, or of later complication, without mention of misadventure at the time of the procedure; Z87.891 Personal history of nicotine dependence; I50.9 Heart failure, unspecified; E78.00 Pure hypercholesterolemia, unspecified; K21.9 Gastro-esophageal reflux disease without esophagitis; Z87.442 Personal history of urinary calculi; Z79.82 Long term (current) use of aspirin; M23.8X2 Other internal derangements of left knee; C32.9 Malignant neoplasm of larynx, unspecified; Z79.891 Long term (current) use of opiate analgesic; Z93.0 Tracheostomy status
CPT/HCPCS: 99211; 99282; G0463

== ENCOUNTER 2017-11-24 21:30 | Inpatient (IN) | payer MEDICARE, MEDICAID ==
--- OUTSIDE RECORDS SUMMARY | 2017-11-24 21:57 | XMS REPORT ---
:1965 External Reference #:[id number] Author Organization [facility] Address [address] [place] [address] Phone [phone] Care Team Providers Name Role Phone Jaiden Jarrett M.D. Care Team Information Online Content Editor Unavailable Jaiden Jarrett M.D. Primary Care Physician Unavailable Payers Type Date Identification Numbers Payment Provider Subscriber Medicare Primary Policy Number: [id number] [place] [employer] Niharika Reza PayID: [id number] [address] [place] [address] Problems Date Description Provider Status Onset: 08/14/2014 [...] Omeprazole / Active Capsules 20mg one by , Arcenio DR mouth one M.D. per day Aspirin Low Dose / Active Chewtabs 81mg 1 by , Arcenio mouth M.D. every day Dulera / Active Aerosol 100-5mcg/A [address] twice a M.D. day No Active 08/14/ Unknown Medications 2014 - 2014 Omeprazole 07/25/ Hx Capsules 40mg 120cap 40mg PO 530.81 Kamlesh 2009 - DR chris hernandez Ruparelia 08/14/ MD 2014 Albuteral / Hx Unknown Inhaler - 2014 Atrovent / Hx Unknown 2014 Triamcinolone / Hx Unknown Assisted, 0000 - Micronized 2014 Vital Signs Date Vital Result Comment 11/06/2017 Weight 205.00 lb Weight in kg's 92.988 Height 63 inches 5'3" Height in cm's 160.0 cm BMI (Body Mass Index) 36.3 kg/m2 09/04/2017 Weight 289.00 lb Weight in kg's 131.090 Height 63 inches 5'3" Height in cm's 160.0 cm BMI (Body Mass Index) 51.2 kg/m2 06/29/2017 Weight 289.00 lb Weight in kg's 131.090 Height 63 inches 5'3" Height in cm's 160.0 cm BMI (Body Mass Index) 51.2 kg/m2 08/28/2008 Heart Rate 82 /min Respiratory Rate 16 /min Weight 325.00 lb Weight in kg's 147.420 07/25/2008 Heart Rate 86 /min Respiratory Rate 20 /min Weight 325.00 lb Weight in kg's 147.420 Results Test Date Test Result H/L Range Note Basic Metabolic Panel 06/29/2017 Sodium 137 mmol/L Low 139-145 Potassium 3.4 mmol/L Low 3.5-5.0 Chloride 93 mmol/L Low 101-111 Co2 Carbon Dioxide 37 mmol/L High 22-32 Anion Gap 7 mmol/L 2-11 Glucose 119 mg/dL High 70-100 Blood Urea Nitrogen 18 mg/dL 6-24 Creatinine 0.74 mg/dL 0.51-0.95 BUN/Creatinine Ratio 24.3 High 8-20 Calcium 9.3 mg/dL 8.6-10.3 Egfr Non- 83.1 >60 Egfr 106.8 >60 1 CBC Auto Diff 06/29/2017 White Blood Count 11.8 10^3/uL High 3.5-10.8 Red Blood Count 5.20 10^6/uL 4.0-5.4 Hemoglobin 14.8 g/dL 12.0-16.0 Hematocrit 45 % 35-47 Mean Corpuscular Volume 86 fL 80-97 Mean Corpuscular Hemoglobin 28 pg 27-31 Mean Corpuscular HGB Conc 33 g/dL 31-36 Red Cell Distribution Width 16 % High 10.5-15 Platelet Count 215 10^3/uL 150-450 Mean Platelet Volume 7.5 um3 7.4-10.4 Abs Neutrophils 8.6 10^3/uL High 1.5-7.7 Abs Lymphocytes 2.5 10^3/uL 1.0-4.8 Abs Monocytes 0.5 10^3/uL 0-0.8 Abs Eosinophils 0.1 10^3/uL 0-0.6 Abs Basophils 0.1 10^3/uL 0-0.2 Abs Nucleated RBC 0 10^3/uL Granulocyte % 72.7 % 38-83 Lymphocyte % 21.5 % Low 25-47 Monocyte % 4.2 % 0-7 Eosinophil % 0.6 % 0-6 Basophil % 1.0 % 0-2 Nucleated Red Blood Cells % 0 1 Because ethnic data is not always readily available, this report includes an eGFR for both -Americans and non- Americans. The National Kidney Disease Education Program (NKDEP) does not endorse the use of the MDRD equation for patients that are not between the ages of 18 and 70, are , have extremes of body size, muscle mass, or nutritional status, or are non- or non-. According to the National Kidney Foundation, irrespective of diagnosis, the stage of the disease is based on the level of kidney function: Stage Description GFR(mL/min/1.73 m(2)) 1 Kidney damage with normal or decreased GFR 90 2 Kidney damage with mild decrease in GFR 60-89 3 Moderate decrease in GFR 30-59 4 Severe decrease in GFR 15-29 5 Kidney failure <15 (or dialysis) Procedures Date CPT Code Description Status 09/04/2017 38088 Fiberoptic Laryngoscopy Completed 06/30/2017 68206 Tracheostomy W/Skin Flaps Completed 06/30/2017 69809 Tracheostomy W/Skin Flaps Completed 06/30/2017 23318 Laryngoscopy, Direct, Operative, With Biopsy Completed 06/30/2017 61490 Laryngoscopy, Direct, Operative, With Biopsy Completed 06/29/2017 83718 Fiberoptic Laryngoscopy Completed 08/28/2008 51026 Fiberoptic Laryngoscopy Completed 07/25/2008 48034 Fiberoptic Laryngoscopy Completed Encounters Type Date Location Provider CPT E/M Dx Office Visit 11/06/2017 11:00a [place],After 03/20/07 [place] [address] D38.0 Office Visit 09/04/2017 11:15a [place],After 03/20/07 [place] [address] R49.8 D38.0 Office Visit 06/29/2017 10:15a [place],After 03/20/07 [place] [address] R13.14 R49.8 D38.0 Office Visit 08/28/2008 8:45a [place],After 03/20/07 [place] [address] 784.49 530.81 787.24 780.59 Office Visit 07/25/2008 9:00a [place],After 03/20/07 [place] [address] 787.24 530.81 784.49 Plan of Care Future Appointment(s):12/04/2017 11:00 am - Kamlesh Espinoza MD at [place],After - Kamlesh Ruparelia, MDD38.0 Neoplasm of uncertain behavior of larynxComments:Repeat examination of larynx in 6 weeks time. Possible removal of tracheostomy if patient is demonstrating a stable airway.
[2017-11-24] MEDS ORDERED: Phytonadione Oral Solution* 5 MG/25 ML UDC PO ONE (21:59)
--- NOTE | 2017-11-24 22:13 | ED ---
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 The patient rates the pain 0/10 in severity. Symptoms aggravated by nothing. Symptoms alleviated by nothing. Patient reports nausea. Patient denies diaphoresis. Patient states she had similar symptoms yesterday that resolved with TUMS. - History of Current Complaint Chief Complaint: EDChestPainROMI Time Seen by Provider: 11/24/17 22:03 Hx Obtained From: Patient Hx Last Menstrual Period: spots occas over last year Onset/Duration: Started Hours Ago Time of Onset: 18:00 Timing: Constant, Lasting Hours Initial Severity: Mild Current Severity: Mild Pain Intensity: 0 Pain Scale Used: 0-10 Numeric Chest Pain Location: Diffuse Chest Pain Radiates: No Aggravating Factor(s): Nothing Alleviating Factor(s): Nothing Associated Signs and Symptoms: Positive: Nausea. Negative: Diaphoresis - Additional Pertinent History Primary Care Physician: [id number] - Allergy/Home Medications Allergies/Adverse Reactions: Allergies Allergy/AdvReac Type Severity Reaction Status Date / Time Penicillins Allergy Severe See Comment Verified 09/22/17 14:19 clindamycin Allergy Intermediate Difficulty Verified 09/22/17 14:19 Swallowing latex Allergy WELTS Verified 09/22/17 14:19 morphine Allergy Itching Verified 11/24/17 21:46 PMH/Surg Hx/FS Hx/Imm Hx Previously Healthy: No Endocrine/Hematology History: Reports: Hx Anemia Denies: Hx Diabetes, Hx Thyroid Disease Cardiovascular History: Reports: Hx Congestive Heart Failure, Hx Hypercholesterolemia, Hx Hypertension, Other Cardiovascular Problems/Disorders - STATES IS RETAINING FLUID IN FEET- REPORTS HAS NOT BEEN ABLE TO ELEVATE FEE Respiratory History: Reports: Hx Asthma, Hx Chronic Bronchitis, Hx Chronic Obstructive Pulmonary Disease (COPD), Hx Pneumonia, Hx Sleep Apnea - Unable to tolerate CPAP, Other Respiratory Problems/Disorders GI History: Reports: Hx Gall Bladder Disease - Cholecystectomy, Hx Gastroesophageal Reflux Disease Denies: Hx Ulcer History: Reports: Hx Kidney Infection - HX OF, Hx Kidney Stones - HX OF, Other Problems/Disorders - Reports blood in urine. ED test negative. 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 cholecystectomy. T&A tonsillectomy. Endoscopy x3 Hx Anesthesia Reactions: No - Immunization History Date of Tetanus Vaccine: UTD Date of Influenza Vaccine: NO Infectious Disease History: No Infectious Disease History: Reports: Hx of Known/Suspected MRSA - [facility], nares Denies: Hx Clostridium Difficile, Hx Hepatitis, Hx Human Immunodeficiency Virus (HIV), History Other Infectious Disease, Traveled Outside the in Last 30 Days - Family History Known Family History: Positive: Other - sister of sepsis at age 34 Family History: Mother: Lung CA. Father: CHF - Social History Occupation: Disabled Lives: With Family Alcohol Use: None Hx Substance Use: Yes Substance Use Type: Reports: Prescribed Substance Use Comment - Amount & Last Used: chronic oxycodone Hx Tobacco Use: Yes Smoking Status (MU): Former Smoker Type: Cigarettes Amount Used/How Often: 5-10 cigarettes/day Length of Time of Smoking/Using Tobacco: 50 years Have You Smoked in the Last Year: Yes Review of Systems Negative: Skin Diaphoresis Positive: Chest Pain Positive: Nausea All Other Systems Reviewed And Are Negative: Yes Physical Exam - Summary Physical Exam Summary: VITAL SIGNS: Reviewed. GENERAL: Patient is a well-developed and nourished female who is lying comfortable in the stretcher. Patient is not in any acute respiratory distress. HEAD AND FACE: No signs of trauma. No ecchymosis, hematomas or skull depressions. No sinus tenderness. EYES: PERRLA, EOMI x 2, No injected conjunctiva, no nystagmus. EARS: Hearing grossly intact. Ear canals and tympanic membranes are within normal limits. MOUTH: Oropharynx within normal limits. NECK: Supple, trachea is midline, no adenopathy, no JVD, no carotid bruit, no c- spine tenderness, neck with full ROM.Tracheostomy CHEST: Symmetric, no tenderness at palpation LUNGS: Clear to auscultation bilaterally. No wheezing or crackles. Decreased breath sounds bilaterally. CVS: Regular rate and rhythm, S1 and S2 present, no murmurs or gallops appreciated. ABDOMEN: Soft. No signs of distention. No rebound no guarding, and no masses palpated. Bowel sounds are normal. Does have G tube. Sub epigastric tenderness EXTREMITIES: FROM in all major joints, no edema, no cyanosis or clubbing. NEURO: Alert and oriented x 3. No acute neurological deficits. Speech is normal and follows commands. SKIN: Dry and warm Triage Information Reviewed: Yes Vital Signs On Initial Exam: Initial Vitals Temp Pulse Resp BP Pulse Ox 97.3 F 70 18 141/92 99 11/24/17 21:43 11/24/17 21:43 11/24/17 21:43 11/24/17 21:43 11/24/17 21:43 Vital Signs Reviewed: Yes Diagnostics - Vital Signs Vital Signs Temp Pulse Resp BP Pulse Ox 11/24/17 21:43 97.3 F 70 18 141/92 99 - Laboratory Result Diagrams: 11/24/17 22:25 11/24/17 22:25 Lab Statement: Any lab studies that have been ordered have been reviewed, and results considered in the medical decision making process. - Radiology CXR Radiology Interpretation Completed By: ED Physician - CXR reveals, per ED physician, no acute disease. - EKG 2220 Cardiac Rate: NL EKG Rhythm: Sinus Rhythm - 83 BPM EKG Interpretation: Nml axis. 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 Physical Exam Findings: Tracheostomy. Moves air. Does have G tube. Decreased breath sounds bilaterally. Sub epigastric tenderness. An EKG taken at 2220 reveals nml sinus rhythm at 83 BPM, nml axis, and ST depression in anterolateral leads with T wave inversion. CXR reveals, per ED physician, no acute disease. Blood work obtained. In the ED course the patient was given Aspirin, vitamin K, and protonix. Consult with Dr. James (hospitalist) at 2328. He agrees to admit pt for further evaluation. The patient is agreeable with this plan. - Diagnoses Provider Diagnoses: Chest pain - Provider Notifications Discussed Care Of Patient With: Rod James Time Discussed With Above Provider: 23:28 Discharge - Sign-Out/Discharge Documenting (check all that apply): Patient Departure - Admit to [facility] - Discharge Plan Condition: Stable Disposition: ADMITTED TO [facility] Referrals: Raul Jarrett MD [Primary Care Provider] - - Attestation Statements Document Initiated by Scribe: Yes Documenting Scribe: Mara Paredes Provider For Whom Scribe is Documenting (Include Credential): Susan Velasquez MD Scribe Attestation: IMara, scribed for Susan Velasquez MD on 11/24/17 at 2331.
[2017-11-24] MEDS ORDERED: Pantoprazole IV* 40 MG IV ONE (22:26)
[2017-11-24] MEDS ORDERED: Aspirin 81 mg CHEW TAB* 81 MG TAB.CHEW PO ONE (22:26)
[2017-11-24 22:32] LABS: ABS Basophils 0.1 10^3/ul (0-0.2); ABS Eosinophils 0.1 10^3/ul (0-0.6); ABS Lymphocytes 0.6 10^3/ul (1.0-4.8); ABS Monocytes 0.6 10^3/ul (0-0.8); ABS Neutrophils 7.8 10^3/ul (1.5-7.7); ABS Nucleated RBC 0 10^3/ul; Eosinophil % 0.7 % (0-6); Hematocrit 33 % (35-47); Hemoglobin 11.6 g/dl (12.0-16.0); Lymphocyte % 6.7 % (25-47); Mean Corpuscular HGB Conc 35 g/dl (31-36); Mean Corpuscular Hemoglobin 31 pg (27-31); Mean Corpuscular Volume 89 fL (80-97); Mean Platelet Volume 6.1 um3 (7.4-10.4); Nucleated Red Blood Cells % 0; Platelet Count 284 10^3/ul (150-450); Red Blood Count 3.73 10^6/ul (4.00-5.40); Red Cell Distribution Width 15 % (10.5-15); White Blood Count 9.2 10^3/ul (3.5-10.8)
[2017-11-24 22:40] LABS: INR 1.15 (0.77-1.02)
[2017-11-24] MEDS ORDERED: Potassium Chloride LIQUID* 20 MEQ PACKET G TUBE ONE (23:07)
[2017-11-24] MEDS ORDERED: oxyCODONE/Acetamin 5/325 MG* TAB PO ONE (23:40)
--- NOTE | 2017-11-25 01:21 | HP ---
H&P (Free Text) History and Physical: PCP: KARLOS Jarrett MD Date/Time: 11/25/2017 0110 CC: chest pressure HPI: Mrs Reza is a 52YO female HX laryngeal SCCA s/p trach, chronic diastolic HF, HTN, HLD, COPD, KATHY, GERD, psoriasis, tobacco use who was sitting at home this evening ~1730 when she experienced the onset of sub-sternal non-radiating non-exertional chest pressure associated with nausea/dry heaves, sweats, and light-headedness, but no SOB or palpitations. She had a similar episode yesterday relieved with TUMS, but they did not help today and so she presented for evaluation which has revealed and abnormal ECG showing NSR rate 83, mild ST depression V4-6, T-wave inversion V1-3/II/III, biphasic T V4-6/I/AVF. Labs are reasonably normal with a troponin of zero. PMedHx laryngeal SCCA s/p trach chronic diastolic HF HTN HLD COPD KATHY GERD psoriasis tobacco use Ambulatory Orders Nursing to reconcile. traZODone TAB* [Desyrel TAB*] 100 mg PO BEDTIME 02/11/17 Albuterol/Ipratropium NEB.DEWAYNE* [Duoneb (Albuterol 2.5 MG/Ipratropium 0.5 MG)] 1 neb INH Q4H PRN #2 box 02/15/17 Albuterol HFA INHALER* [Ventolin HFA Inhaler*] 1 - 2 puff INH Q4H PRN 06/29/17 Omeprazole CAP* [Prilosec CAP* 20 MG] 20 mg PO QAM 06/29/17 oxyCODONE/Acetamin 10/325(NF) [Percocet 10/325 (NF)] 1 tab PO Q3H PRN #80 tab MDD 8 tabs 07/12/17 Aspirin EC TAB* [Ecotrin EC Low Dose 81 MG*] 81 mg PO DAILY 07/20/17 Chlorthalidone TAB* [Hygroton TAB*] 50 mg PO DAILY 07/20/17 clonazePAM TAB(*) [KlonoPIN TAB(*)] 0.5 - 1 tab PO BID PRN 07/20/17 oxyCODONE SR TAB(*) [Oxycontin 10 mg (*)] 10 mg PO Q12HR #60 tab.sr MDD 20mg oxyCODONE SR TAB(*) [Oxycontin 10 mg (*)] 10 mg PO TID #90 tab.sr MDD 30mg 09/27 oxyCODONE/Acetamin 10/325(NF) [Percocet 10/325 (NF)] 1 - 2 tab PO Q4HR PRN #180 tab MDD 6 tablets 10/05/17 oxyCODONE SR TAB(*) [Oxycontin 10 mg (*)] 10 mg PO Q12HR #60 tab.sr MDD 20mg oxyCODONE/Acetamin 10/325(NF) [Percocet 10/325 (NF)] 1 tab PO Q4H PRN #180 tab MDD 6 tablets 11/15/17 Allergies Penicillins Allergy (Severe, Verified 09/22/17 14:19) See Comment blisters on face as a kid clindamycin Allergy (Intermediate, Verified 09/22/17 14:19) Difficulty Swallowing latex Allergy (Verified 09/22/17 14:19) WELTS morphine Allergy (Verified 11/24/17 21:46) Itching PSurgHx tracheostomy G-tube placement section x3 exploratory laparotomy tonsillectomy SocHx: quit smoking 06/2017, no alcohol or recreational drugs; single; lives alone, full code status FamHx: Mother passed at 59 2nd lung CA. Father is alive at 77 with CHF & AFIB. ROS: as above, otherwise reviewed and all were negative vitals: Vital Signs Temp 36.3 C 11/24/17 21:43 Pulse 62 11/25/17 00:08 Resp 20 11/24/17 23:56 BP 132/76 11/25/17 00:08 Pulse Ox 99 11/25/17 00:08 Constitutional: NAD, normally developed, obese white female HEENM: atraumatic; sclera/conjunctiva: anicteric/clear; hearing: clinically intact; oropharynx: clear, mucosa tacky Neck: soft tissue: tracheostomy in place, non-tender w/ skin erythema of radioTX ; thyroid: non-tender Pulmonary: clear to auscultation bilaterally, good aeration, no accessory muscle use CV: RR/RR, normal S1S2, no carotid bruit, no jugular venous distention, 2+ B DP/ PT, no edema Abdominal: soft, non-distended, non-tender, no rebound/guarding/rigidity, normoactive bowel sounds, no hepatosplenomegaly or masses, no costovertebral angle tenderness Musculoskeletal: general: grossly intact, non-tender Integumental: as above Psychiatric orientation: AA&O to PPS affect: calm mood: cooperative eye contact: fair content: reliable responses: timely insight: fair to good Testing: Lab Results 11/24/17 11/24/17 11/24/17 Range/Units 22:25 22:25 22:25 WBC 9.2 (3.5-10.8) 10^3/ul RBC 3.73 L (4.00-5.40) 10^6/ul Hgb 11.6 L (12.0-16.0) g/dl Hct 33 L (35-47) % MCV 89 (80-97) fL MCH 31 (27-31) pg MCHC 35 (31-36) g/dl RDW 15 (10.5-15) % Plt Count 284 (150-450) 10^3/ul MPV 6.1 L (7.4-10.4) um3 Neut % (Auto) 84.7 H (38-83) % Lymph % (Auto) 6.7 L (25-47) % Divide % (Auto) 7.1 H (0-7) % Eos % (Auto) 0.7 (0-6) % Baso % (Auto) 0.8 (0-2) % Absolute Neuts (auto) 7.8 H (1.5-7.7) 10^3/ul Absolute Lymphs (auto) 0.6 L (1.0-4.8) 10^3/ul Absolute Monos (auto) 0.6 (0-0.8) 10^3/ul Absolute Eos (auto) 0.1 (0-0.6) 10^3/ul Absolute Basos (auto) 0.1 (0-0.2) 10^3/ul Absolute Nucleated RBC 0 10^3/ul Nucleated RBC % 0 INR (Anticoag Therapy) (0.77-1.02) APTT (26.0-36.3) seconds Sodium 134 L (135-145) mmol/L Potassium 2.3 L* (3.5-5.0) mmol/L Chloride 84 L (101-111) mmol/L Carbon Dioxide 40 H (22-32) mmol/L Anion Gap 10 (2-11) mmol/L BUN 13 (6-24) mg/dL Creatinine 0.79 (0.51-0.95) mg/dL Est GFR ( Amer) 93.2 (>60) Est GFR (Non-Af Amer) 77.0 (>60) BUN/Creatinine Ratio 16.5 (8-20) Glucose 105 H (70-100) mg/dL Calcium 8.5 L (8.6-10.3) mg/dL Total Bilirubin 0.50 (0.2-1.0) mg/dL AST 13 (13-39) U/L ALT 7 (7-52) U/L Alkaline Phosphatase 88 (34-104) U/L Troponin I 0.01 (<0.04) ng/mL B-Natriuretic Peptide 68 ( - 100) pg/mL Total Protein 6.7 (6.4-8.9) g/dL Albumin 2.9 L (3.2-5.2) g/dL Globulin 3.8 (2-4) g/dL Albumin/Globulin Ratio 0.8 L (1-3) 11/24/17 Range/Units 22:25 WBC (3.5-10.8) 10^3/ul RBC (4.00-5.40) 10^6/ul Hgb (12.0-16.0) g/dl Hct (35-47) % MCV (80-97) fL MCH (27-31) pg MCHC (31-36) g/dl RDW (10.5-15) % Plt Count (150-450) 10^3/ul MPV (7.4-10.4) um3 Neut % (Auto) (38-83) % Lymph % (Auto) (25-47) % Divide % (Auto) (0-7) % Eos % (Auto) (0-6) % Baso % (Auto) (0-2) % Absolute Neuts (auto) (1.5-7.7) 10^3/ul Absolute Lymphs (auto) (1.0-4.8) 10^3/ul Absolute Monos (auto) (0-0.8) 10^3/ul Absolute Eos (auto) (0-0.6) 10^3/ul Absolute Basos (auto) (0-0.2) 10^3/ul Absolute Nucleated RBC 10^3/ul Nucleated RBC % INR (Anticoag Therapy) 1.15 H (0.77-1.02) APTT 35.8 (26.0-36.3) seconds Sodium (135-145) mmol/L Potassium (3.5-5.0) mmol/L Chloride (101-111) mmol/L Carbon Dioxide (22-32) mmol/L Anion Gap (2-11) mmol/L BUN (6-24) mg/dL Creatinine (0.51-0.95) mg/dL Est GFR ( Amer) (>60) Est GFR (Non-Af Amer) (>60) BUN/Creatinine Ratio (8-20) Glucose (70-100) mg/dL Calcium (8.6-10.3) mg/dL Total Bilirubin (0.2-1.0) mg/dL AST (13-39) U/L ALT (7-52) U/L Alkaline Phosphatase (34-104) U/L Troponin I (<0.04) ng/mL B-Natriuretic Peptide ( - 100) pg/mL Total Protein (6.4-8.9) g/dL Albumin (3.2-5.2) g/dL Globulin (2-4) g/dL Albumin/Globulin Ratio (1-3) ECG, personally reviewed: NSR rate 83, mild ST depression V4-6, T-wave inversion V1-3/II/III, biphasic T V4-6/I/AVF CXR, personally reviewed: tracheostomy in place, no acute process Impression: 52F HX laryngeal SCCA s/p trach, chronic diastolic HF, HTN, HLD, COPD, KATHY, GERD, psoriasis, tobacco use presenting with chest pressure and ECG changes DIAGNOSIS & PLAN Primary chest pressure w/ ECG changes : aspirin given in ED : metoprolol 2.5mg IV x1 : telemetry : trend troponin : recheck ECG in AM : supplemental oxygen : consider cardiology consult in AM pending above : supportive care hypoKalemia : given 40mEq via G-tube in ED, trend Secondary laryngeal SCCA s/p trach & 6wk radioTX : continue management per oncology chronic diastolic HF : strict I&Os : daily weights HTN : continue chlorthalidone HLD : not on meds COPD : continue albuterol & albuterol/ipratropium KATHY : does not use CPAP GERD : continue omeprazole Admission Rational: observation for r/o ACS DVTp: SCDs & heparin SQ Code Status: full HCP: daughterWilliam
[2017-11-25] MEDS ORDERED: Acetaminophen TAB* 325 MG PO PRN (01:54)
[2017-11-25] MEDS ORDERED: Ondansetron ODT TAB* 4 MG PO PRN (01:55)
[2017-11-25] MEDS ORDERED: Metoprolol Tartrate IV* 1 MG/ML 5 ML VIAL IV ONE (01:57)
[2017-11-25] MEDS ORDERED: NS 0.9% 1000 ML* 1,000 ML IV SCH (02:00)
[2017-11-25] MEDS ORDERED: KCL 10 MEQ/50 ML IVPREMIX* 10 MEQ/50 ML BAG IV SCH (02:00)
[2017-11-25] MEDS ORDERED: Albuterol HFA INHALER* 8 gm MDI INH PRN (02:01)
[2017-11-25] MEDS ORDERED: Ondansetron ODT TAB* 4 MG ONE (02:11)
[2017-11-25] MEDS: Ondansetron INJ* 2 MG/ML VIAL IV PRN ×3 (04:25→23:07)
[2017-11-25] MEDS: clonazePAM TAB(*) 0.5 MG PO PRN ×2 (04:25→23:06)
[2017-11-25] MEDS: traZODone TAB* 100 MG PO SCH ×2 (04:25→23:06)
[2017-11-25] MEDS: oxyCODONE SR TAB(*) 10 MG TAB.SR PO SCH ×4 (04:50→23:05)
[2017-11-25] MEDS ORDERED: Omeprazole CAP* 20 MG PO SCH (06:00)
[2017-11-25 07:00] LABS: EGFR Non-African American 96.5 (>60)
[2017-11-25] MEDS ORDERED: Potassium Chloride LIQUID* 20 MEQ PACKET G TUBE ONE (07:31)
--- NOTE | 2017-11-25 08:20 | RAD ---
Indication: Chest pain. Single Frontal view of the chest performed at 2310 hours was reviewed. Comparison is made with previous exam dated July 28, 2017. No mediastinal shift is noted. Heart is of normal size and configuration. Lung lock appear clear. IMPRESSION: NO ACTIVE CARDIOPULMONARY DISEASE IS NOTED. R0
[2017-11-25] MEDS ORDERED: Ondansetron INJ* 2 MG/ML VIAL IV ONE (08:27)
[2017-11-25] MEDS: KCL 20 MEQ/100 ML IVPREMIX* 20 MEQ/100 ML BAG IV SCH ×2 (09:21→15:36)
[2017-11-25] MEDS: Heparin VIAL(*) 5000 UNITS/ML VIAL (FIVE THOUSAND) SUBCUT SCH ×3 (09:26→23:07)
--- NOTE | 2017-11-25 10:32 | PN ---
Hospitalist Progress Note Date of Service: 11/25/17 I have seen and examined Ms. Reza and will assume her care today. ACS has been ruled out and she has no chest pain. Her predominant symptom at this time is constant nausea, which she and her daughter explain has been going on for the past week with dry heaving and occasional emesis, with her home compazine not working. She has been unable to tolerate PO at all, and also unable to tolerate tube feeds even with a pump that allows slow tube feeds overnight. It seems that both the chest discomfort and the hypokalemia are a result of persistent nausea and vomiting, of which the etiology is unclear. A CT head in august was unremarkable and a PET showed no metastatic disease in July, but a central cause of nausea is on the differential. She has been having normal bowel movements and no abdominal pain, but SBO may be possible. I will start with an oncology consult and a KUB and consider further imaging based on their recommendation.
[2017-11-25] MEDS: PROCHLORPERAZINE INJ 5 MG/ML 2 ML VIAL IV PRN ×2 (11:05→18:16)
[2017-11-25] MEDS: HYDROmorphone INJ1* 1 MG/ML SYRINGE IV SLOW PU PRN ×3 (11:09→23:07)
[2017-11-25] MEDS: Aspirin EC TAB* 81 MG TAB.EC PO SCH (12:25)
[2017-11-25] MEDS: Chlorthalidone TAB* 50 MG PO SCH (12:26)
--- NOTE | 2017-11-25 14:27 | RAD ---
Indication: Small bowel obstruction Flat plate of the abdomen demonstrates gastrostomy tube in place. No definite obstructive pattern is noted. Minimal distention of small bowel is noted. IMPRESSION: Minimal distention of small bowel. No evidence of bowel obstruction is noted.
[2017-11-25] MEDS: Pantoprazole IV* 40 MG IV SCH (14:30)
[2017-11-26] MEDS: HYDROmorphone INJ1* 1 MG/ML SYRINGE IV SLOW PU PRN ×6 (02:42→22:17)
[2017-11-26] MEDS: PROCHLORPERAZINE INJ 5 MG/ML 2 ML VIAL IV PRN ×3 (02:42→18:18)
[2017-11-26] MEDS: Ondansetron INJ* 2 MG/ML VIAL IV PRN ×3 (06:21→22:18)
[2017-11-26] MEDS: Heparin VIAL(*) 5000 UNITS/ML VIAL (FIVE THOUSAND) SUBCUT SCH ×3 (06:21→21:06)
[2017-11-26 08:13] LABS: ABS Basophils 0 10^3/ul (0-0.2); ABS Eosinophils 0.1 10^3/ul (0-0.6); ABS Lymphocytes 0.5 10^3/ul (1.0-4.8); ABS Monocytes 0.4 10^3/ul (0-0.8); ABS Nucleated RBC 0 10^3/ul; Eosinophil % 2.4 % (0-6); Hematocrit 30 % (35-47); Hemoglobin 10.7 g/dl (12.0-16.0); Lymphocyte % 8.4 % (25-47); Mean Corpuscular HGB Conc 36 g/dl (31-36); Mean Corpuscular Hemoglobin 32 pg (27-31); Mean Corpuscular Volume 90 fL (80-97); Nucleated Red Blood Cells % 0; Platelet Count 222 10^3/ul (150-450); Red Blood Count 3.35 10^6/ul (4.00-5.40); Red Cell Distribution Width 15 % (10.5-15); White Blood Count 6.2 10^3/ul (3.5-10.8)
[2017-11-26 08:29] LABS: EGFR Non-African American 91.6 (>60)
[2017-11-26] MEDS: Pantoprazole IV* 40 MG IV SCH (08:45)
[2017-11-26] MEDS: oxyCODONE SR TAB(*) 10 MG TAB.SR PO SCH ×3 (08:45→20:55)
[2017-11-26] MEDS: Chlorthalidone TAB* 50 MG PO SCH (08:45)
[2017-11-26] MEDS: Aspirin EC TAB* 81 MG TAB.EC PO SCH (08:46)
[2017-11-26] MEDS ORDERED: Aspirin EC TAB* 81 MG TAB.EC PO SCH (09:00)
[2017-11-26] MEDS ORDERED: Magnesium Sulfate 2 GM IV* 2 GM/50 ML BAG IVPB ONE (11:18)
--- NOTE | 2017-11-26 11:35 | PN ---
Subjective Date of Service: 11/26/17 Interval History: Patient continues to remain nauseated. No further dry heaving. Events started 3-4 days ago. No CP or SOB. STates she took all her prn anxiety meds and is tired and wants to take a nap. Interested in trying to eat regular food. Had a loose stool this AM but that is not new for her. Objective Active Medications: Acetaminophen (Tylenol Tab*) 650 mg PO Q6H PRN PRN Reason: FEVER/PAIN Albuterol (Ventolin Hfa Inhaler*) 2 puff INH Q4H PRN PRN Reason: SOB/WHEEZING Albuterol/Ipratropium (Duoneb (Albuterol 2.5 Mg/Ipratropium 0.5 Mg)) 1 neb INH Q4H PRN PRN Reason: SHORTNESS OF BREATH Aspirin (Aspirin Ec Tab*) 81 mg PO DAILY [facility] Last Admin: 11/26/17 08:46 Dose: 81 mg Clonazepam (Klonopin Tab(*)) 0.5 mg PO BID PRN PRN Reason: ANXIETY Last Admin: 11/25/17 23:06 Dose: 0.5 mg Heparin Sodium (Porcine) (Heparin Vial(*)) 5,000 units SUBCUT Q8HR [facility] Last Admin: 11/26/17 06:21 Dose: 5,000 units Hydromorphone HCl (Dilaudid Inj1s*) 1 mg IV SLOW PU Q4H PRN PRN Reason: PAIN Last Admin: 11/26/17 10:11 Dose: 1 mg Magnesium Sulfate (Magnesium Sulfate 2 Gm Iv*) 2 gm in 50 mls @ 50 mls/hr IVPB ONCE ONE Stop: 11/26/17 12:17 Ondansetron HCl (Zofran Inj*) 4 mg IV Q6H PRN PRN Reason: NAUSEA Last Admin: 11/26/17 06:21 Dose: 4 mg Oxycodone HCl (Oxycontin(*)) 10 mg PO TID [facility] Last Admin: 11/26/17 08:45 Dose: 10 mg Pantoprazole Sodium (Protonix Iv*) 40 mg IV DAILY [facility] Last Admin: 11/26/17 08:45 Dose: 40 mg Prochlorperazine Edisylate (Compazine Inj*) 5 mg IV Q6H PRN PRN Reason: NAUSEA/VOMITING Last Admin: 11/26/17 10:11 Dose: 5 mg Trazodone HCl (Desyrel Tab*) 100 mg PO BEDTIME [facility] Last Admin: 11/25/17 23:06 Dose: 100 mg Vital Signs - 8 hr 11/26/17 11/26/17 11/26/17 04:00 06:21 08:44 Respiratory 20 18 22 Rate O2 Sat by Pulse Oximetry 11/26/17 11/26/17 11/26/17 08:45 08:48 10:11 Respiratory 22 18 Rate O2 Sat by Pulse 98 Oximetry Oxygen Devices in Use Now: None, Tracheostomy Collar Appearance: obese, NAD Ears/Nose/Mouth/Throat: Mucous Membranes Moist Respiratory: - - B/l faint expiratory wheezes Cardiovascular: NL Sounds; No Murmurs; No JVD, RRR Abdominal: NL Sounds; No Tenderness; No Distention, No Hepatosplenomegaly, - - morbidly obese Extremities: - - trace edema Neurological: Alert and Oriented x 3, NL Muscle Strength and Tone Result Diagrams: 11/26/17 08:06 11/26/17 08:06 Assess/Plan/Problems-Billing Assessment: This is a 52 yr old with PMHx of laryngeal cancer s/p trach, now admitted with Chest pain, N/V - Patient Problems (1) Chest pain Current Visit: Yes Status: Acute Code(s): R07.9 - CHEST PAIN, UNSPECIFIED SNOMED Code(s): 83287694 Comment: A/P - ACS ruled out. Suspect its secondary to nausea/dry heaves and wretching (2) Nausea and vomiting Current Visit: Yes Status: Acute Code(s): R11.2 - NAUSEA WITH VOMITING, UNSPECIFIED SNOMED Code(s): 64959792 Comment: A. Unclear the etiology. Abdominal exam benign. Concern central process with her history of cancer. Plan MRI tomorrow Oncology consult pending She would like to eat - will advance (3) Laryngeal squamous cell carcinoma Current Visit: Yes Status: Acute Code(s): C32.9 - MALIGNANT NEOPLASM OF LARYNX, UNSPECIFIED SNOMED Code(s): 783661896 Comment: A/P - s/p trach - plans for radiation and states she has apt. to see Dr. Elam. (4) COPD (chronic obstructive pulmonary disease) Current Visit: No Status: Chronic Code(s): J44.9 - CHRONIC OBSTRUCTIVE PULMONARY DISEASE, UNSPECIFIED SNOMED Code(s): 70888058 Comment: No signs of exacerbation. Wheezing present. NO respiratory distress Continue Inhaler/neb regimen (5) GERD (gastroesophageal reflux disease) Current Visit: No Status: Chronic Code(s): K21.9 - GASTRO-ESOPHAGEAL REFLUX DISEASE WITHOUT ESOPHAGITIS SNOMED Code(s): 873573328 Comment: Continue IV PPI for now while still with N/V (6) Hypertension Current Visit: No Status: Chronic Code(s): I10 - ESSENTIAL (PRIMARY) HYPERTENSION SNOMED Code(s): 04461442 Comment: BP's soft - will hold chlorthalidone (7) Metabolic alkalosis Current Visit: Yes Status: Acute Code(s): E87.3 - ALKALOSIS SNOMED Code(s) : 1123628 Comment: A. Suspect due to N/V. Also with hypokalemia and hypomag Plan Repelete K and Mag D/C Chlorthalidone (8) DVT prophylaxis Current Visit: No Status: Acute Code(s): XTZ5220 - SNOMED Code(s): 873502304 Comment: SQ heparin Status and Disposition: pending further workup for N/V
[2017-11-26] MEDS ORDERED: Potassium Chloride LIQUID* 20 MEQ PACKET PO SCH (12:00)
[2017-11-26] MEDS: Potassium Chloride LIQUID* 20 MEQ PACKET PO SCH (20:58)
[2017-11-26] MEDS: traZODone TAB* 100 MG PO SCH (20:59)
[2017-11-27] MEDS: HYDROmorphone INJ1* 1 MG/ML SYRINGE IV SLOW PU PRN ×3 (02:29→11:31)
[2017-11-27] MEDS: PROCHLORPERAZINE INJ 5 MG/ML 2 ML VIAL IV PRN (02:29)
[2017-11-27] MEDS: Heparin VIAL(*) 5000 UNITS/ML VIAL (FIVE THOUSAND) SUBCUT SCH ×3 (05:25→21:04)
[2017-11-27] MEDS: Ondansetron INJ* 2 MG/ML VIAL IV PRN (06:53)
[2017-11-27 07:03] LABS: EGFR Non-African American 84.4 (>60)
--- NOTE | 2017-11-27 08:54 | PN ---
Subjective Date of Service: 11/27/17 Interval History: Ms. Reza is relieved to learn that her MRI brain did not show evidence of a brain tumor. She reports that her nausea and vomiting are much improved though she is reliant currently on frequent IV anti-emetics. She denies any chest pain and states that the edema in her lower extremities has resolved. Objective Active Medications: Acetaminophen (Tylenol Tab*) 650 mg PO Q6H PRN Albuterol (Ventolin Hfa Inhaler*) 2 puff INH Q4H PRN Albuterol/Ipratropium (Duoneb (Albuterol 2.5 Mg/Ipratropium 0.5 Mg)) 1 neb INH Q4H PRN Aspirin (Aspirin Ec Tab*) 81 mg PO DAILY [facility] Clonazepam (Klonopin Tab(*)) 0.5 mg PO BID PRN Heparin Sodium (Porcine) (Heparin Vial(*)) 5,000 units SUBCUT Q8HR [facility] Hydromorphone HCl (Dilaudid Inj1s*) 1 mg IV SLOW PU Q4H PRN Ondansetron HCl (Zofran Inj*) 4 mg IV Q6H PRN Oxycodone HCl (Oxycontin(*)) 10 mg PO TID [facility] Pantoprazole Sodium (Protonix Iv*) 40 mg IV DAILY [facility] Potassium Chloride (Klor-Con Liquid*) 40 meq PO BID [facility] Prochlorperazine Edisylate (Compazine Inj*) 5 mg IV Q6H PRN Trazodone HCl (Desyrel Tab*) 100 mg PO BEDTIME [facility] Vital Signs: Temp Pulse Resp BP Pulse Ox 98.4 F 55 22 91/47 96 11/27/17 03:45 11/27/17 03:45 11/27/17 06:53 11/27/17 03:45 11/27/17 04:17 Oxygen Devices in Use Now: Tracheostomy Collar Appearance: Female lying in bed in NAD Eyes: No Scleral Icterus Ears/Nose/Mouth/Throat: Mucous Membranes Moist Respiratory: Symmetrical Chest Expansion and Respiratory Effort, Clear to Auscultation Cardiovascular: NL Sounds; No Murmurs; No JVD, No Edema Abdominal: NL Sounds; No Tenderness; No Distention Lymphatic: No Cervical Adenopathy Extremities: No Edema Skin: No Rash or Ulcers Neurological: Alert and Oriented x 3, NL Muscle Strength and Tone Nutrition: Taking PO's Result Diagrams: 11/26/17 08:06 11/27/17 06:24 Assess/Plan/Problems-Billing Assessment: Ms. Reza is a 52 yr old with PMHx of laryngeal cancer s/p trach, now admitted with chest pain and nausea with vomiting. - Patient Problems (1) Nausea and vomiting Comment: - Resolving, acute on chronic problem. Unclear the etiology. Abdominal exam benign. Concern central process with her history, but MRI negative. - Plan to switch to zofran and compazine via PEG tube and monitor overnight. (2) Metabolic alkalosis Comment: - Suspect due to N/V. Also with hypokalemia and hypomag. - Mag repleted, continue K supplementation. - Hold chlorthalidone. (3) Chest pain Comment: - Troponins negative. Suspect its secondary to nausea/dry heaves and wretching (4) Laryngeal squamous cell carcinoma Comment: - s/p trach - completed radiation, follows with Dr. Elam. (5) CHF (congestive heart failure) Comment: - Chronic diastolic, EF 65% in 2012. (6) COPD (chronic obstructive pulmonary disease) Comment: - No signs of exacerbation. - Continue Inhaler/neb regimen (7) GERD (gastroesophageal reflux disease) Comment: - Swith to omeprazole via PEG tube. (8) Hypertension Comment: - SBP 90-110s. - Hold chlorthalidone (9) KATHY (obstructive sleep apnea) Comment: - Not on CPAP (10) Osteoarthritis Comment: - Continue ASA and oxycodone (11) DVT prophylaxis Comment: - SQ heparin (12) Full code status Comment: Status and Disposition: Inpatient. Anticipate discharge to home when medically stable.
[2017-11-27] MEDS: oxyCODONE SR TAB(*) 10 MG TAB.SR PO SCH ×3 (09:02→21:03)
[2017-11-27] MEDS: Aspirin EC TAB* 81 MG TAB.EC PO SCH (09:04)
[2017-11-27] MEDS: Potassium Chloride LIQUID* 20 MEQ PACKET PO SCH (09:05)
[2017-11-27] MEDS: Pantoprazole IV* 40 MG IV SCH (09:07)
[2017-11-27] MEDS ORDERED: Gadoteridol* (CONTRAST) 279.3 MG/ML 10 ML IV ONE (11:01)
--- NOTE | 2017-11-27 12:42 | RAD ---
Indication: Nausea, laryngeal squamous cell carcinoma. Image Sequences: Sagittal and axial T1, axial T2, FLAIR, diffusion and susceptibility weighted images of the brain were obtained. Eighteen mL of ProHance was injected and postcontrast sagittal, axial and coronal T1-weighted images were obtained. Ventricular structures are midline. No midline shift is noted. The extra-axial spaces are unremarkable. There is no evidence of intracranial mass or hemorrhage. No abnormally enhancing lesions are identified. Susceptibility weighted images demonstrate no susceptibility artifact. Diffusion-weighted images demonstrate no restriction of diffusion. Mastoid air cells and paranasal sinuses are otherwise unremarkable. IMPRESSION: Chronic ischemic white matter change is noted. No evidence of intracranial mass or hemorrhage is noted.
[2017-11-27] MEDS ORDERED: Ondansetron ODT TAB* 4 MG SL PRN (13:51)
[2017-11-27] MEDS: KCL 20 MEQ/100 ML IVPREMIX* 20 MEQ/100 ML BAG IV SCH ×4 (14:43→23:47)
[2017-11-27] MEDS: Ondansetron TAB* 4 MG PEG TUBE PRN ×2 (14:53→21:03)
[2017-11-27] MEDS: oxyCODONE TAB* 5 MG TAB PRN (16:54)
[2017-11-27] MEDS: Prochlorperazine TAB* 10 MG PEG TUBE PRN ×2 (17:01→23:38)
[2017-11-27] MEDS: clonazePAM TAB(*) 0.5 MG PO PRN (21:03)
[2017-11-27] MEDS: Potassium Chloride LIQUID* 20 MEQ PACKET PEG TUBE SCH (21:03)
[2017-11-27] MEDS: traZODone TAB* 100 MG PO SCH (21:03)
[2017-11-27] MEDS ORDERED: KCL 20 MEQ/100 ML IVPREMIX* 20 MEQ/100 ML BAG ONE (23:37)
[2017-11-28] MEDS: Ondansetron TAB* 4 MG PEG TUBE PRN ×4 (01:07→18:18)
[2017-11-28] MEDS: oxyCODONE TAB* 5 MG TAB PRN ×4 (01:07→21:51)
[2017-11-28 05:20] LABS: ABS Basophils 0.1 10^3/ul (0-0.2); ABS Eosinophils 0.3 10^3/ul (0-0.6); ABS Lymphocytes 0.6 10^3/ul (1.0-4.8); ABS Monocytes 0.4 10^3/ul (0-0.8); ABS Neutrophils 3.9 10^3/ul (1.5-7.7); ABS Nucleated RBC 0 10^3/ul; Hematocrit 30 % (35-47); Hemoglobin 10.5 g/dl (12.0-16.0); Lymphocyte % 10.7 % (25-47); Mean Corpuscular HGB Conc 34 g/dl (31-36); Mean Corpuscular Hemoglobin 31 pg (27-31); Mean Corpuscular Volume 91 fL (80-97); Mean Platelet Volume 6.4 um3 (7.4-10.4); Nucleated Red Blood Cells % 0.1; Platelet Count 208 10^3/ul (150-450); Red Blood Count 3.33 10^6/ul (4.00-5.40); Red Cell Distribution Width 15 % (10.5-15); White Blood Count 5.2 10^3/ul (3.5-10.8)
[2017-11-28] MEDS: Heparin VIAL(*) 5000 UNITS/ML VIAL (FIVE THOUSAND) SUBCUT SCH ×3 (05:48→21:49)
[2017-11-28] MEDS: Prochlorperazine TAB* 10 MG PEG TUBE PRN (05:48)
[2017-11-28] MEDS: Aspirin EC TAB* 81 MG TAB.EC PO SCH (07:52)
[2017-11-28] MEDS: Lansoprazole susp Kit 3 MG/ML (15 MG = 5 ML) PO SCH (07:52)
[2017-11-28] MEDS: Potassium Chloride LIQUID* 20 MEQ PACKET PEG TUBE SCH ×2 (07:52→21:46)
[2017-11-28] MEDS: oxyCODONE SR TAB(*) 10 MG TAB.SR PO SCH ×3 (08:12→21:46)
--- NOTE | 2017-11-28 08:56 | PN ---
Subjective Date of Service: 11/28/17 Interval History: Ms. Reza reports a productive cough today. Chest xray was checked and it was negative for CHF or infiltrate. She is not hypoxic on her home O2. She continues to report nausea and dry heaves and is having trouble tolerating intake. She denies chest pain, abdominal pain. Objective Active Medications: Acetaminophen (Tylenol Tab*) 650 mg PO Q6H PRN Albuterol (Ventolin Hfa Inhaler*) 2 puff INH Q4H PRN Albuterol/Ipratropium (Duoneb (Albuterol 2.5 Mg/Ipratropium 0.5 Mg)) 1 neb INH Q4H PRN Aspirin (Aspirin Ec Tab*) 81 mg PO DAILY [facility] Clonazepam (Klonopin Tab(*)) 0.5 mg PO BID PRN Heparin Sodium (Porcine) (Heparin Vial(*)) 5,000 units SUBCUT Q8HR [facility] Lansoprazole (Lansoprazole Susp Kit) 15 mg PO DAILY@0730 [facility] Ondansetron HCl (Zofran Tab*) 4 mg PEG TUBE Q4H PRN Oxycodone HCl (Oxycontin(*)) 10 mg PO TID [facility] Oxycodone HCl (Roxycodone Tab*) 10 mg .SEE ORDER Q4H PRN Potassium Chloride (Klor-Con Liquid*) 40 meq PEG TUBE BID [facility] Prochlorperazine (Compazine Tab*) 10 mg PEG TUBE Q6HR PRN Trazodone HCl (Desyrel Tab*) 100 mg PO BEDTIME [facility] Vital Signs: Temp Pulse Resp BP Pulse Ox 98.1 F 76 22 129/70 92 11/28/17 08:07 11/28/17 08:07 11/28/17 08:12 11/28/17 08:07 11/28/17 08:07 Oxygen Devices in Use Now: None Appearance: Female lying in bed in NAD Eyes: No Scleral Icterus Ears/Nose/Mouth/Throat: Mucous Membranes Moist Neck: Trachea Midline Respiratory: Symmetrical Chest Expansion and Respiratory Effort, Clear to Auscultation Cardiovascular: NL Sounds; No Murmurs; No JVD, No Edema Abdominal: NL Sounds; No Tenderness; No Distention Lymphatic: No Cervical Adenopathy Extremities: No Edema Skin: No Rash or Ulcers Neurological: Alert and Oriented x 3, NL Muscle Strength and Tone Lines/Tubes/Other Access: Clean, Dry and Intact Tracheostomy Nutrition: Taking PO's Result Diagrams: 11/28/17 05:07 11/28/17 11:17 Assess/Plan/Problems-Billing Assessment: Ms. Reza is a 52 yr old with PMHx of laryngeal cancer s/p trach, now admitted with chest pain and nausea with vomiting. - Patient Problems (1) Nausea and vomiting Comment: - Persistent symptoms today, acute on chronic problem. Unclear the etiology. Abdominal exam benign. Concern for central process with her history, but MRI negative. - Plan to switch from compazine to reglan to see if that helps her symptoms, continue zofran. (2) Metabolic alkalosis Comment: - Suspect due to N/V. Also with hypokalemia and hypomag. - Mag repleted, K repleted. - Hold chlorthalidone. (3) Chest pain Comment: - Troponins negative. Suspect its secondary to nausea/dry heaves and wretching (4) Laryngeal squamous cell carcinoma Comment: - s/p trach - completed radiation, follows with Dr. Elam. (5) CHF (congestive heart failure) Comment: - Chronic diastolic, EF 65% in 2012. (6) COPD (chronic obstructive pulmonary disease) Comment: - No signs of exacerbation. - Continue Inhaler/neb regimen (7) GERD (gastroesophageal reflux disease) Comment: - Switch to omeprazole via PEG tube. (8) Hypertension Comment: - SBP 90-120s. - Hold chlorthalidone (9) KATHY (obstructive sleep apnea) Comment: - Not on CPAP (10) Osteoarthritis Comment: - Continue ASA and oxycodone (11) DVT prophylaxis Comment: - SQ heparin (12) Full code status Comment: Status and Disposition: Inpatient. Anticipate discharge to home when medically stable.
[2017-11-28] MEDS: Albuterol/Ipratropium NEB.SOL* Albuterol 2.5 MG/Ipratropium 0.5 MG 3 ML INH PRN (11:00)
[2017-11-28 12:07] LABS: EGFR Non-African American 87.1 (>60)
--- NOTE | 2017-11-28 12:09 | RAD ---
INDICATION: Shortness of breath. COMPARISON: Comparison is made with a prior chest x-ray study from November 24, 2017. TECHNIQUE: A portable view of the chest was obtained. FINDINGS: Cardiac and mediastinal contours appear to be within normal limits. There is a tracheostomy tube which projects over the midline. The lungs are clear. No pleural effusion is seen. IMPRESSION: NO EVIDENCE FOR ACUTE DISEASE.
[2017-11-28] MEDS: Metoclopramide TAB* 10 MG PO PRN (17:36)
[2017-11-28] MEDS ORDERED: oxyCODONE TAB* 5 MG TAB PO ONE (17:49)
[2017-11-28] MEDS: traZODone TAB* 100 MG PO SCH (21:46)
[2017-11-28] MEDS: clonazePAM TAB(*) 0.5 MG PO PRN (22:04)
[2017-11-29] MEDS: Ondansetron TAB* 4 MG PEG TUBE PRN ×3 (00:47→13:31)
[2017-11-29] MEDS: Metoclopramide TAB* 10 MG PO PRN ×2 (01:20→08:19)
[2017-11-29] MEDS: oxyCODONE TAB* 5 MG TAB PRN ×4 (01:57→18:00)
[2017-11-29] MEDS: Albuterol/Ipratropium NEB.SOL* Albuterol 2.5 MG/Ipratropium 0.5 MG 3 ML INH PRN ×3 (03:48→13:55)
[2017-11-29] MEDS: Heparin VIAL(*) 5000 UNITS/ML VIAL (FIVE THOUSAND) SUBCUT SCH ×2 (05:49→13:31)
[2017-11-29] MEDS: Lansoprazole susp Kit 3 MG/ML (15 MG = 5 ML) PO SCH (08:22)
[2017-11-29] MEDS: Potassium Chloride LIQUID* 20 MEQ PACKET PEG TUBE SCH (08:49)
[2017-11-29] MEDS: Aspirin EC TAB* 81 MG TAB.EC PO SCH (08:50)
[2017-11-29] MEDS: oxyCODONE SR TAB(*) 10 MG TAB.SR PO SCH ×2 (08:51→13:32)
--- NOTE | 2017-11-29 09:48 | PN ---
Subjective Date of Service: 11/29/17 Interval History: Ms. Reza reports that she feels short of breath with activity and wheezy today consistent with her past history of COPD exacerbations. She has a cough but it is no longer productive. She feels well at rest and is not wearing her home oxygen except with ambulation per her home routine. She denies chest pain. She reports continued nausea and dry heaves but no vomiting. She is able to eat small amounts of food. She feels that the protein in the boost and ensure makes her nauseous but that it is worse over the past month. Her symptoms are improved though not completely resolved with zofran and compazine. She denies abdominal pain. Objective Active Medications: Acetaminophen (Tylenol Tab*) 650 mg PO Q6H PRN Albuterol (Ventolin Hfa Inhaler*) 2 puff INH Q4H PRN Albuterol/Ipratropium (Duoneb (Albuterol 2.5 Mg/Ipratropium 0.5 Mg)) 1 neb INH Q4H PRN Aspirin (Aspirin Ec Tab*) 81 mg PO DAILY NATHANAEL Clonazepam (Klonopin Tab(*)) 0.5 mg PO BID PRN Heparin Sodium (Porcine) (Heparin Vial(*)) 5,000 units [facility] Lansoprazole (Lansoprazole Susp Kit) 15 mg PO DAILY@0730 NATHANAEL Metoclopramide HCl (Reglan Tab*) 10 mg PO Q6H PRN Ondansetron HCl (Zofran Tab*) 4 mg PEG TUBE Q4H PRN Oxycodone HCl (Oxycontin(*)) 10 mg PO TID NATHANAEL Oxycodone HCl (Roxycodone Tab*) 10 mg .SEE ORDER Q4H PRN Potassium Chloride (Klor-Con Liquid*) 40 meq PEG TUBE BID NATHANAEL Trazodone HCl (Desyrel Tab*) 100 mg PO [facility] Vital Signs: Temp Pulse Resp BP Pulse Ox 98.6 F 66 20 97/65 97 11/29/17 15:42 11/29/17 15:42 11/29/17 18:00 11/29/17 15:42 11/29/17 15:42 Oxygen Devices in Use Now: Tracheostomy Collar Appearance: Female lying in bed in NAD Eyes: No Scleral Icterus Neck: Trachea Midline Respiratory: Symmetrical Chest Expansion and Respiratory Effort, - - Wheezing bilaterally, good aeration Cardiovascular: No Edema Abdominal: NL Sounds; No Tenderness; No Distention Extremities: No Edema Skin: No Rash or Ulcers Neurological: Alert and Oriented x 3, NL Muscle Strength and Tone Nutrition: Taking PO's - Nutrition: Malnutrition Diagnosis/Plan Malnutrition Assessment by Registered Dietitian: Malnutrition Assessment Clinical Characteristics Chronic,Severe Malnutrition Assessment: - Severe wt loss x 5 mos (27%) Criteria - Anticipate <75% of energy expenditure >1 month (evidence by severe wt loss) Malnutrition Assessment: - Will trial Ensure Enlive tonight w/ dinner Interventions tray and monitor acceptance/tolerance (350 kcals , 20 grams protein - Recommend resuming bolus tube feeding if intake does not improve following resolution of nausea - Calorie count in place to monitor adequacy of intake Malnutrition Assessment: Goals 1) Intake via PO/enteral nutrition will be adequate to maintain hydration, preserve lean body mass, and prevent additional wt loss Result Diagrams: 11/28/17 05:07 11/28/17 11:17 Assess/Plan/Problems-Billing Assessment: Ms. Reza is a 52 yr old with PMHx of laryngeal cancer s/p trach and radiation with PEG tube, now admitted with chest pain and worsening of chronic nausea with vomiting, now with SOB and suspected mild COPD exacerbation. - Patient Problems (1) COPD exacerbation Comment: - Mild wheezing today, but no hypoxia. - Continue prednisone 40mg daily x 5 days. Continue Inhaler/neb regimen. (2) Nausea and vomiting Comment: - Persistent symptoms today, acute on chronic problem. Unclear the etiology. Abdominal exam benign. Concern for central process with her history, but MRI negative. - Patient feels symptoms are made worse by nutritional supplements via PEG, have asked for nutrition consult for alternate options. Appreciate their consultation, they have been working with her about this issue since she originally had the PEG placed. - Continue zofran. Switch back from reglan to compazine as patient prefers compazine. (3) Chest pain Comment: - Troponins negative. Suspect its secondary to nausea/dry heaves and wretching - EKG with ST depressions and T wave inversions on arrival, now resolved. Consistent with hypokalemic EKG changes. - Echo with intact EF, no significant wall motion or valvular abnormalities. (4) Metabolic alkalosis Comment: - Suspect due to N/V. Also with hypokalemia and hypomag. - Mag repleted, K repleted. - Hold chlorthalidone. (5) Laryngeal squamous cell carcinoma Comment: - s/p trach - completed radiation, follows with Dr. Elam. (6) CHF (congestive heart failure) Comment: - Chronic diastolic, EF 65% in 2012. (7) GERD (gastroesophageal reflux disease) Comment: - Switch to omeprazole via PEG tube. (8) Hypertension Comment: - SBP 90-120s. - Hold chlorthalidone (9) KATHY (obstructive sleep apnea) Comment: - Not on CPAP (10) Osteoarthritis Comment: - Continue ASA and oxycodone (11) DVT prophylaxis Comment: - SQ heparin (12) Full code status Comment: Status and Disposition: Inpatient. Discharge to home.
[2017-11-29] MEDS ORDERED: predniSONE TAB* 20 MG PO SCH (10:00)
[2017-11-29] MEDS: Prochlorperazine TAB* 10 MG PO PRN ×2 (10:27→18:00)
[2017-11-29] MEDS: clonazePAM TAB(*) 0.5 MG PO PRN (14:54)
--- NOTE | 2017-11-29 15:29 | ECHO ---
Patient: DOMINIQUE MILES [facility] Rec#: [id number] : 1965 Date: 11/29/2017 Age: 52y Height: 165 cm / 65.0 in Weight: 86 kg / 189.5 lbs Sex: F BSA: 1.93 Room#: 453 Admit Date#: 11/26/2017 Type: Inpatient Referring: Madalyn Martinez NP Reading: Kierra Hodges MD Director [employer]: Abbey Huitron RDCS,RDMS CC: Raul Jarrett MD Transthoracic Echocardiogram Indication: CP BP: 114/56 HR: 66 Rhythm: NSR Findings History: Laryngeal cancer, diastolic heart failure, HTN, HLD, COPD Technical Comments: The study is technically limited due to the patient's history of COPD. The patient was unable to lay flat for any length of time. Left Ventricle: The left ventricular chamber size is normal. Mild concentric left ventricular hypertrophy is observed. Global left ventricular wall motion and contractility are within normal limits. The estimated ejection fraction is 55-60%. There is an E to A reversal in the mitral valve flow pattern suggestive of diastolic dysfunction. Left Atrium: The left atrium is mildly dilated. Right Ventricle: The right ventricular chamber size and systolic function are within normal limits. The right ventricle wall thickness is moderately increased. Right Atrium: The right atrial cavity size is normal. Aortic Valve: There is no evidence of aortic valve thickening. Systolic excursion of the aortic valve is normal. There is no evidence of aortic regurgitation. There is no evidence of aortic stenosis. Mitral Valve: The mitral valve leaflets appear normal. There is mitral annular calcification. There is no evidence of mitral regurgitation. There is no evidence of mitral stenosis. Tricuspid Valve: The tricuspid valve leaflets are normal. There is no evidence of tricuspid valve regurgitation. Unable to estimate the right ventricular systolic pressure. Pulmonic Valve: There is no evidence of pulmonic valve thickening. There is a trace pulmonic regurgitation. Pericardium: A trivial pericardial effusion is visualized. Aorta: The ascending aorta is not well visualized. The aortic arch is not well visualized. The aortic root is normal in size. Pulmonary Artery: The main pulmonary artery is not well visualized. Venous: The inferior vena cava appears normal in size. There is a greater than 50% respiratory change in the inferior vena cava dimension. Conclusions BOdy habitus affects image quality, apical views best. Mild concentric left ventricular hypertrophy is observed. Global left ventricular wall motion and contractility are within normal limits. The estimated ejection fraction is 55-60%. There is an E to A reversal in the mitral valve flow pattern suggestive of diastolic dysfunction. The right ventricle wall thickness is moderately increased. The right ventricular chamber size and systolic function are within normal limits. Normal valve function. Compared with prior study of 10/11/11, no significant changes. Measurements Name Value Normal Range RVIDd (AP) 2D 2.6 cm (0.9 - 2.6) RVDdMajor (2D) 2.5 cm (2.2 - 4.4) RAd ISD 4CH 4.4 cm (3.4 - 4.9) RA (A4C)W 2.8 cm (2.9 - 4.6) IVSd (2D) 1.2 cm (0.6 - 1) LVPWd (2D) 1.1 cm (0.6 - 1) LVIDd (2D) 4.6 cm (3.6 - 5.4) LVIDs (2D) 3.7 cm - LV FS (2D) 20 % (25 - 45) Aortic Annulus 2 cm (1.4 - 2.6) Ao root diameter (2D) 3.2 cm (2.1 - 3.5) LA dimension (AP) 2D 4 cm (2.3 - 3.8) LAd ISD 4CH 5.6 cm (2.9 - 5.3) LA ISD 4CH W 3 cm (2.5 - 4.5) Name Value Normal Range MV E-wave Vmax 0.7 m/sec - MV deceleration time 216 msec - MV A-wave Vmax 1 m/sec - MV E:A ratio 0.7 ratio - LV septal e' Vmax 0.08 m/sec - LV lateral e' Vmax 0.08 m/sec - LV E:e' septal ratio 9 ratio - LV E:e' lateral ratio 9 ratio - Name Value Normal Range AV Vmax 1.6 m/sec - AV VTI 32 cm - AV peak gradient 10 mmHg - AV mean gradient 6 mmHg - LVOT Vmax 1.2 m/sec - LVOT VTI 20 cm - LVOT peak gradient 6 mmHg - LVOT mean gradient 3 mmHg - Name Value Normal Range MV Vmax 1.2 m/sec - MV VTI 34 cm - MV peak gradient 6 mmHg - MV mean gradient 2 mmHg - MV PHT 93 msec - MVA (PHT) 2.4 cm2 - Name Value Normal Range RAP 8 mmHg - IVC diameter 1.5 cm - Name Value Normal Range PV Vmax 0.7 m/sec - PV peak gradient 2 mmHg -
[2017-11-29 15:58] VITALS: BP 97/65
== END 2017-11-29 19:00 | disposition home health service (06) | DRG 392 ==
LOC: ED 21:30 → MEDTELE 11-25 01:52 → OBSVTOIN 11-26 14:11
PROVIDERS: ADMIT Hospitalist; ATTEND Internal Medicine
DX: R11.2 Nausea with vomiting, unspecified (principal); I50.32 Chronic diastolic (congestive) heart failure; E87.3 Alkalosis; J44.1 Chronic obstructive pulmonary disease with (acute) exacerbation; I11.0 Hypertensive heart disease with heart failure; R07.9 Chest pain, unspecified; E83.42 Hypomagnesemia; E78.5 Hyperlipidemia, unspecified; G47.33 Obstructive sleep apnea (adult) (pediatric); K21.9 Gastro-esophageal reflux disease without esophagitis; L40.9 Psoriasis, unspecified; F41.9 Anxiety disorder, unspecified; F32.9 Major depressive disorder, single episode, unspecified; M19.90 Unspecified osteoarthritis, unspecified site; E66.9 Obesity, unspecified; E87.6 Hypokalemia; C32.9 Malignant neoplasm of larynx, unspecified; Z68.31 Body mass index [BMI] 31.0-31.9, adult; Z93.0 Tracheostomy status; Z87.891 Personal history of nicotine dependence; Z82.49 Family history of ischemic heart disease and other diseases of the circulatory system; Z80.1 Family history of malignant neoplasm of trachea, bronchus and lung; Z88.5 Allergy status to narcotic agent; Z88.0 Allergy status to penicillin; Z92.3 Personal history of irradiation; Z87.01 Personal history of pneumonia (recurrent); Z87.442 Personal history of urinary calculi; Z86.14 Personal history of Methicillin resistant Staphylococcus aureus infection; Z88.1 Allergy status to other antibiotic agents; Z91.040 Latex allergy status; Z83.1 Family history of other infectious and parasitic diseases; Z90.49 Acquired absence of other specified parts of digestive tract; Z93.1 Gastrostomy status
CPT/HCPCS: 36415; 70553; 71045; 74018; 80048; 80053; 83735; 83880; 84484; 85025; 85610; 85730; 93005; 93306; 94640; 99284; A9270-GY; A9579; G0378; J0780; J1170; J1644; J2405; J3475; J3480; J7512; Q0164

== ENCOUNTER 2018-01-12 15:06 | Emergency (ER) | payer MEDICARE, MEDICAID ==
--- NOTE | 2018-01-12 15:22 | ED ---
GI/ HPI - HPI Summary HPI Summary: The pt is a 52 y/o female accompanied by her daughter presenting to [facility] c/o hematuria since today afternoon. She had a Turpin catheter placed on 01/06/2018 due to urinary retention. She notes hypokalemia (medicated), abd pain, back pain , dizziness, loss of appetite, nausea, and dehydration but denies fevers, and chills. - History of Current Complaint Chief Complaint: EDAbdPain Time Seen by Provider: 01/12/18 15:12 Stated Complaint: SEVER ABD PAIN,DIZZINESS Hx Obtained From: Patient, Family/[employer]icon[employer] Lab Technician - Daughter Hx Last Menstrual Period: spots occassionally over last year Onset/Duration: Started Days Ago - 1 day, Still Present Timing: Constant Severity: Severe Current Severity: Severe Pain Intensity: 8 Location of Pain: Diffuse - Lower abdomen Pain Radiates to: Back Associated Signs and Symptoms: Positive: Back Pain, Dizziness, Nausea, Hematuria , Abdominal Pain - Additional Pertinent History Primary Care Physician: [id number] - Allergy/Home Medications Allergies/Adverse Reactions: Allergies Allergy/AdvReac Type Severity Reaction Status Date / Time Penicillins Allergy Severe See Comment Verified 01/12/18 15:12 clindamycin Allergy Intermediate Difficulty Verified 01/12/18 15:12 Swallowing latex Allergy WELTS Verified 01/12/18 15:12 morphine Allergy Itching Verified 01/12/18 15:12 PMH/Surg Hx/FS Hx/Imm Hx Previously Healthy: No Endocrine/Hematology History: Reports: Hx Anemia Denies: Hx Diabetes, Hx Thyroid Disease Cardiovascular History: Reports: Hx Congestive Heart Failure, Hx Hypercholesterolemia, Hx Hypertension, Other Cardiovascular Problems/Disorders - STATES IS RETAINING FLUID IN FEET- REPORTS HAS NOT BEEN ABLE TO ELEVATE FEE Denies: Hx Pacemaker/ICD Respiratory History: Reports: Hx Asthma, Hx Chronic Bronchitis, Hx Chronic Obstructive Pulmonary Disease (COPD), Hx Pneumonia, Hx Sleep Apnea - Unable to tolerate CPAP, Other Respiratory Problems/Disorders GI History: Reports: Hx Gall Bladder Disease - Cholecystectomy, Hx Gastroesophageal Reflux Disease Denies: Hx Ulcer History: Reports: Hx Kidney Infection - HX OF, Hx Kidney Stones - HX OF, Other Problems/Disorders - Reports blood in urine. ED test negative. Musculoskeletal History: Reports: Hx Arthritis, Other Musculoskeletal History - bilateral knee pain Sensory History: Reports: Hx Contacts or Glasses - reading Denies: Hx Cataracts, Hx Eye Injury, Hx Eye Prosthesis, Hx Hearing Aid, Hx Hearing Problem, Other Sensory Impairments Opthamlomology History: Reports: Hx Contacts or Glasses - reading Denies: Hx Cataracts, Hx Eye Injury, Hx Eye Prosthesis, Other Sensory Impairments Neurological History: Reports: Hx Headaches, Other Neuro Impairments/Disorders - REPORTS CARPAL TUNNEL -HANDS Psychiatric History: Reports: Hx Anxiety, Hx Depression Denies: Hx Panic Disorder, Hx of Violent Episodes Against Others - Cancer History Cancer Type, 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 Hx Chemotherapy: No Hx Radiation Therapy: Yes - Surgical History Surgery Procedure, Year, and Place: TRACHEOSTOMY, G-TUBE PLACED, X3, EXPLORATORY LAPAROTOMY, TONSILS, GALLBLADDER Hx Anesthesia Reactions: No - Immunization History Date of Tetanus Vaccine: UTD Date of Influenza Vaccine: NO Infectious Disease History: No Infectious Disease History: Reports: Hx of Known/Suspected MRSA - [facility], nares Denies: Hx Clostridium Difficile, Hx Hepatitis, Hx Human Immunodeficiency Virus (HIV), History Other Infectious Disease, Traveled Outside the in Last 30 Days - Family History Known Family History: Positive: Other - sister of sepsis at age 34 Family History: Mother: Lung CA. Father: CHF - Social History Occupation: Unemployed, Disabled Lives: With Family Alcohol Use: None Hx Substance Use: Yes Substance Use Type: Reports: None Substance Use Comment - Amount & Last Used: chronic oxycodone Hx Tobacco Use: Yes Smoking Status (MU): Former Smoker Type: Cigarettes Amount Used/How Often: 5-10 cigarettes/day Length of Time of Smoking/Using Tobacco: 50 years Have You Smoked in the Last Year: Yes Review of Systems Constitutional: Other - Positive: Dizziness, loss of appetite, dehydration Negative: Fever, Chills Cardiovascular: Other - Positive: Hypokalemia (medicated) Positive: Abdominal Pain, Nausea Positive: hematuria, other - Positive: Urinary retention All Other Systems Reviewed And Are Negative: Yes Physical Exam - Summary Physical Exam Summary: GENERAL: Patient is a well developed and nourished __(M/F)__ who is lying comfortable in the stretcher. Patient is not in any acute respiratory distress. HEAD AND FACE: Normocephalic EYES: PERRLA, EOMI x 2. EARS: Hearing grossly intact. MOUTH: Oropharynx within normal limits. NECK: Supple, trachea is midline, no adenopathy, no JVD, no carotid bruit. CHEST: Symmetric, no tenderness at palpation LUNGS: Clear to auscultation bilaterally. Bilateral expiatory wheezing CVS: Regular rate and rhythm, S1 and S2 present, no murmurs or gallops appreciated. ABDOMEN: Soft, non-tender. Bowel sounds are normal. No abdominal abnormal pulsations. EXTREMITIES: Full ROM in all major joints, no edema, no cyanosis or clubbing. NEURO: Alert and oriented x 3. No acute neurological deficits. Speech is normal and follows commands. SKIN: Dry and warm Triage Information Reviewed: Yes Vital Signs On Initial Exam: Initial Vitals Temp Pulse Resp BP Pulse Ox 97.5 F 73 20 96/73 99 01/12/18 15:09 01/12/18 15:09 01/12/18 15:09 01/12/18 15:09 01/12/18 15:09 Vital Signs Reviewed: Yes Diagnostics - Vital Signs Vital Signs Temp Pulse Resp BP Pulse Ox 01/12/18 15:09 97.5 F 73 20 96/73 99 - Laboratory Result Diagrams: 01/12/18 16:55 01/12/18 16:55 Lab Statement: Any lab studies that have been ordered have been reviewed, and results considered in the medical decision making process. - Radiology CXR Radiology Interpretation Completed By: Radiologist - IMPRESSION: HYPERINFLATION , CONSISTENT WITH COPD. NO ACTIVE CARDIOPULMONARY DISEASE. The ED physician reviewed this radiology report. - CT Abd/Pel CT CT Interpretation Completed By: Radiologist - IMPRESSION: 1. DYSTROPHIC CALCIFICATION OF THE CORTEX OF THE RIGHT KIDNEY WITHOUT APPRECIABLE HYDRONEPHROSIS OR CALCULUS OF THE RENAL COLLECTING SYSTEM. 2. SMALL PERICARDIAL EFFUSION. 3. ATHEROSCLEROSIS The ED physician reviewed this radiology report. GIGU Course/Dx - Course Course Of Treatment: A 52 year-old F presents to the ED with a CC of hematuria since today afternoon. She had a Turpin catheter placed on 01/06/2018 due to urinary retention. She notes hypokalemia (medicated), abd pain rated 8/10 in severity, back pain, dizziness, loss of appetite, nausea, hematuria, and dehydration but denies fevers, and chills. A physical exam revealed bilateral expiatory wheezing. A CXR reveals hyper infiltration, consistent with COPD but is negative fo cardiopulmonary disease. An Abd/Pel CT revealed dystrophic calcification of the R kidney cortex without hydro nephrosis, small pericardial effusion and atherosclerosis. In the ED course, pt was given Albuterol 2 jyoti INH , Dexamethasone 10 mg IV, Ketorolac 30 mg IV , Ceftriaxone 1mg in 50ml N.s 0.9 % IVPB and N.s 0.9% 250mL IV which improved the symptoms. Her Turpin catheter was also changed. The pt requests a Compazine prescription to be able to tolerate her G tube feeding. Results discussed with patient in great details including the finding of dystrophic calcification of the kidney, pericardial effusion. The pt said she has an appointment with her Oncologist this monday. She will be discharged with a final Dx of small Pericardial effusion (which is a incidental finding and patient is asyptomatic and so can be followed outpatient with an ECHO), UTI and urinary retention. I instructed her to follow up with a railroad detective, a urologist and her oncologist. She is hemodynamically stable upon discharge. Strict return precautions given and she will otherwise follow up as discussed. Allergies noted. Patient sent home on cefdinir for UTI - Diagnoses Provider Diagnoses: Pericardial effusion, Urinary retention, UTI (urinary tract infection) Discharge - Sign-Out/Discharge Documenting (check all that apply): Patient Departure - DC - Discharge Plan Condition: Stable Disposition: HOME Prescriptions: Cefdinir [Cefdinir 300 MG CAP] 300 mg PO BID 7 Days #14 capsule Prochlorperazine TAB* [Compazine Tab*] 10 mg PO Q6H PRN #20 tab PRN Reason: Nausea Patient Education Materials: Pulmonary Edema (ED), Turpin Catheter Placement and Care (ED), Urinary Tract Infection in Older Adults (ED) Referrals: Raul Jarrett MD [Primary Care Provider] - Ronen Chauhan MD [Medical Doctor] - Jaiden Gee MD [Medical Doctor] - Abbey Quesada MD [Medical Doctor] - Additional Instructions: Follow up with PCP in 1- 3 days. Follow up with the urologist , cardiologista and your oncologist as soon as possible. Return to ED for any new or worsening symptoms - Billing Disposition and Condition Condition: STABLE Disposition: Home - Attestation Statements Document Initiated by Scribe: Yes Documenting Scribe: Ju Reilly Provider For Whom Scribe is Documenting (Include Credential): Dr. Rd Shields MD Scribe Attestation: I, Ju Reilly , scribed for Dr. Rd Shields MD on 01/12/18 at 2102. Scribe Documentation Reviewed: Yes Provider Attestation: The documentation as recorded by the scribe, Ju Reilly accurately reflects the service I personally performed and the decisions made by me, Dr. Rd Shields MD
[2018-01-12] MEDS ORDERED: Albuterol/Ipratropium NEB.SOL* Albuterol 2.5 MG/Ipratropium 0.5 MG 3 ML INH ONE (15:28)
[2018-01-12] MEDS ORDERED: NS 0.9% 250 ML* 250 ML IV ONE (15:28)
[2018-01-12] MEDS ORDERED: Dexamethasone IV* 4 MG/ML 5 ML VIAL (20 MG) IVPB ONE (15:29)
[2018-01-12] MEDS ORDERED: Ketorolac INJ* 30 MG/ML 1 ML VIAL IV PUSH ONE (16:24)
[2018-01-12 16:25] LABS: Urine Appearance Cloudy; Urine Blood 3+ (Negative); Urine Color Amber; Urine Ketones 1+ (Negative); Urine Protein 2+(100 mg/dL) (Negative); Urine Red Blood Cell 3+(>10/hpf) (Absent); Urine Specific Gravity 1.029 (1.010-1.030); Urine Urobilinogen Negative (Negative); Urine White Blood Cell 3+(>20/hpf) (Absent)
--- NOTE | 2018-01-12 16:57 | RAD ---
CLINICAL HISTORY: eval for stone COMPARISON: August 04, 2017 TECHNIQUE: Multiple contiguous axial CT scans were obtained of the abdomen and pelvis, without intravenous contrast enhancement. Coronal and sagittal multiplanar reformations are submitted for review. Oral contrast was not administered. FINDINGS: Evaluation is limited due to the lack of intravenous contrast. This limits evaluation of the solid organs and vasculature. LUNG BASES: There is a small pericardial effusion. LIVER: The liver is normal in shape, size, contour, and attenuation. BILE DUCTS: There is no intrahepatic or extrahepatic biliary dilatation. GALLBLADDER: The gallbladder is not visualized. Surgical clips are noted in the gallbladder fossa. PANCREAS: The pancreas is normal, without mass or ductal dilatation. SPLEEN: Normal in size and appearance. UPPER GI TRACT: Evaluation of the gastrointestinal tract is limited by incomplete gastric distention. A gastrostomy tube is noted with the tip in the body of the stomach. SMALL BOWEL AND MESENTERY: The small bowel is normal in contour, course, and caliber. There is no obstruction or dilatation. COLON: The colon is normal in contour, course, caliber. There is no pericolonic inflammatory change. ADRENALS: Normal bilaterally. KIDNEYS: There is dystrophic calcification within the cortex of the right kidney. There is no appreciable hydronephrosis or nephrolithiasis. BLADDER: The bladder is collapsed around a Turpin catheter and is not well evaluated. PELVIC ORGANS: The uterus and adnexa are grossly normal for technique. AORTA: There is calcific atherosclerotic disease of the abdominal aorta and its branches, without aneurysmal dilatation IVC: Unremarkable LYMPH NODES: There is no lymphadenopathy by size criteria. ABDOMINAL WALL: There is no evidence for abdominal wall hernia. BONES AND SOFT TISSUES: There are mild diffuse degenerative changes. OTHER: None IMPRESSION: 1. DYSTROPHIC CALCIFICATION OF THE CORTEX OF THE RIGHT KIDNEY WITHOUT APPRECIABLE HYDRONEPHROSIS OR CALCULUS OF THE RENAL COLLECTING SYSTEM. 2. SMALL PERICARDIAL EFFUSION. 3. ATHEROSCLEROSIS
--- NOTE | 2018-01-12 16:57 | RAD ---
HISTORY: cough COMPARISONS: November 28, 2017 VIEWS: 4: Frontal dual-energy and lateral views of the chest. FINDINGS: CARDIOMEDIASTINAL SILHOUETTE: The cardiomediastinal silhouette is normal. MARIIA: The mariia are normal. PLEURA: The costophrenic angles are sharp. No pleural abnormalities are noted. LUNG PARENCHYMA: There is hyperinflation with flattening of the diaphragm and expansion of the AP diameter of the chest. ABDOMEN: The upper abdomen is clear. There is no subphrenic gas. BONES AND SOFT TISSUES: Degenerative changes are noted. OTHER: None. IMPRESSION: HYPERINFLATION, CONSISTENT WITH COPD. NO ACTIVE CARDIOPULMONARY DISEASE.
[2018-01-12 17:06] LABS: ABS Basophils 0.1 10^3/ul (0-0.2); ABS Eosinophils 0.1 10^3/ul (0-0.6); ABS Lymphocytes 0.6 10^3/ul (1.0-4.8); ABS Monocytes 0.3 10^3/ul (0-0.8); ABS Neutrophils 4.9 10^3/ul (1.5-7.7); ABS Nucleated RBC 0 10^3/ul; Eosinophil % 1.7 % (0-6); Hematocrit 36 % (35-47); Hemoglobin 12.2 g/dl (12.0-16.0); Lymphocyte % 10.4 % (25-47); Mean Corpuscular HGB Conc 34 g/dl (31-36); Mean Corpuscular Hemoglobin 32 pg (27-31); Mean Corpuscular Volume 94 fL (80-97); Mean Platelet Volume 6.6 um3 (7.4-10.4); Nucleated Red Blood Cells % 0.1; Platelet Count 184 10^3/ul (150-450); Red Blood Count 3.82 10^6/ul (4.00-5.40); Red Cell Distribution Width 14 % (10.5-15)
[2018-01-12 17:29] LABS: EGFR Non-African American 81.8 (>60)
[2018-01-12] MEDS ORDERED: cefTRIAXone(*) 1 GM in NS 0.9% 50 ML* 50 ML IVPB ONE (17:46)
[2018-01-12 17:58] LABS: INR 1.09 (0.77-1.02)
[2018-01-12] MEDS ORDERED: Prochlorperazine TAB* 10 MG PO ONE (19:31)
[2018-01-12] MEDS ORDERED: oxyCODONE/Acetamin 5/325 MG* TAB PO ONE (19:31)
[2018-01-12 19:46] VITALS: BP 103/67
--- NOTE | 2018-01-14 06:43 | ED ---
Progress - Progress Note Progress Note: Patient's preliminary urine culture reveals Acinetobacter baumannii complex. She was diagnosed with UTI and placed on cefdinir. Final results pending. Course/Dx - Course Course Of Treatment: A 52 year-old F presents to the ED with a CC of hematuria since today afternoon. She had a Turpin catheter placed on 01/06/2018 due to urinary retention. She notes hypokalemia (medicated), abd pain rated 8/10 in severity, back pain, dizziness, loss of appetite, nausea, hematuria, and dehydration but denies fevers, and chills. A physical exam revealed bilateral expiatory wheezing. A CXR reveals hyper infiltration, consistent with COPD but is negative fo cardiopulmonary disease. An Abd/Pel CT revealed dystrophic calcification of the R kidney cortex without hydro nephrosis, small pericardial effusion and atherosclerosis. In the ED course, pt was given Albuterol 2 jyoti INH , Dexamethasone 10 mg IV, Ketorolac 30 mg IV , Ceftriaxone 1mg in 50ml N.s 0.9 % IVPB and N.s 0.9% 250mL IV which improved the symptoms. Her Turpin catheter was also changed. The pt requests a Compazine prescription to be able to tolerate her G tube feeding. Results discussed with patient in great details including the finding of dystrophic calcification of the kidney, pericardial effusion. The pt said she has an appointment with her Oncologist this monday. She will be discharged with a final Dx of small Pericardial effusion (which is a incidental finding and patient is asyptomatic and so can be followed outpatient with an ECHO), UTI and urinary retention. I instructed her to follow up with a escalator service mechanic, a urologist and her oncologist. She is hemodynamically stable upon discharge. Strict return precautions given and she will otherwise follow up as discussed. Allergies noted. Patient sent home on cefdinir for UTI - Diagnoses Provider Diagnoses: Pericardial effusion, Urinary retention, UTI (urinary tract infection) Discharge - Sign-Out/Discharge Documenting (check all that apply): Post-Discharge Follow Up - Discharge Plan Condition: Stable Disposition: HOME Prescriptions: Cefdinir [Cefdinir 300 MG CAP] 300 mg PO BID 7 Days #14 capsule Prochlorperazine TAB* [Compazine Tab*] 10 mg PO Q6H PRN #20 tab PRN Reason: Nausea Patient Education Materials: Pulmonary Edema (ED), Turpin Catheter Placement and Care (ED), Urinary Tract Infection in Older Adults (ED) Referrals: Jaiden Jarrett-MD Jb [Primary Care Provider] - Jaiden Gee MD [Medical Doctor] - Abbey Quesada MD [Medical Doctor] - Ronen Chauhan MD [Medical Doctor] - Additional Instructions: Follow up with PCP in 1- 3 days. Follow up with the urologist , cardiologista and your oncologist as soon as possible. Return to ED for any new or worsening symptoms - Billing Disposition and Condition Condition: STABLE Disposition: Home
== END 2018-01-12 20:14 | disposition home or self-care (01) ==
LOC: ED 15:06
DX: I31.3 Pericardial effusion (noninflammatory) (principal); R33.9 Retention of urine, unspecified; N39.0 Urinary tract infection, site not specified; B96.89 Other specified bacterial agents as the cause of diseases classified elsewhere; E78.00 Pure hypercholesterolemia, unspecified; I10 Essential (primary) hypertension; R31.9 Hematuria, unspecified; I50.9 Heart failure, unspecified; E87.6 Hypokalemia; Z88.5 Allergy status to narcotic agent; Z88.0 Allergy status to penicillin; Z87.442 Personal history of urinary calculi; Z87.891 Personal history of nicotine dependence
CPT/HCPCS: 36415; 71046; 74176; 80053; 81003; 81015; 83605; 83880; 84484; 85025; 85610; 85730; 86140; 87077; 87086; 87186; 96361; 96374; 96375; 99284; A9270-GY; J0696; J1100; J1885; Q0164

== ENCOUNTER 2018-03-01 01:26 | Inpatient (IN) | payer MEDICARE, MEDICAID ==
[2018-03-01] MEDS ORDERED: Etomidate* 2 MG/ML 20 ML VIAL (40 MG) ONE (01:34)
[2018-03-01] MEDS ORDERED: NS 0.9% 1000 ML* 1,000 ML IV ONE (01:38)
[2018-03-01] MEDS ORDERED: Propofol* 10 MG/ML 50 ML BTL ONE (01:40)
--- NOTE | 2018-03-01 01:49 | ED ---
Respiratory - HPI Summary HPI Summary: This patient is a 52 year old F brought in by ambulance to [facility] with a chief complaint of difficulty breathing since earlier this evening. Patients reports that the patient was eating and then started choking and was unable to cough up the food. The Heimlich maneuver was attempted but the patient just fell over and was unable to breathe. Mouth-to mouth was performed by the patient s family and the patient began to breathe again but with great difficulty. EMS was called. Patient was unresponsive upon EMS arrival. EMS notes that were unable to visualize the food in the patients mouth or airway. Symptoms aggravated by nothing. Symptoms alleviated by nothing. Patient was agonized breathing and unable to speak upon arrival with EMS assisting breathing with a bag valve mask. EMS notes that were unable to visualize the food in the patient s mouth or airway. Symptoms aggravated by nothing. Symptoms alleviated by nothing.Hx of COPD and laryngeal CA S/P radiation, PEG tube, and tracheostomy. Tracheostomy was closed 3 months ago and patient was eating. - History of Current Complaint Stated Complaint: UNRESPONSIVE Time Seen by Provider: 03/01/18 01:38 Hx Obtained From: Patient Onset/Duration: Sudden Onset, Lasting Minutes, Still Present Timing: Constant Initial Severity: Severe Current Severity: Severe Aggravating Factor(s): Other - choking Alleviating Factor(s): Nothing Associated Signs and Symptoms: SOB - unresponsive - Allergy/Home Medications Allergies/Adverse Reactions: Allergies Allergy/AdvReac Type Severity Reaction Status Date / Time Penicillins Allergy Severe See Comment Verified 01/12/18 15:12 clindamycin Allergy Intermediate Difficulty Verified 01/12/18 15:12 Swallowing latex Allergy WELTS Verified 01/12/18 15:12 morphine Allergy Itching Verified 01/12/18 15:12 PMH/Surg Hx/FS Hx/Imm Hx Endocrine/Hematology History: Reports: Hx Anemia Denies: Hx Diabetes, Hx Thyroid Disease Cardiovascular History: Reports: Hx Congestive Heart Failure, Hx Hypercholesterolemia, Hx Hypertension, Other Cardiovascular Problems/Disorders - STATES IS RETAINING FLUID IN FEET- REPORTS HAS NOT BEEN ABLE TO ELEVATE FEE Denies: Hx Pacemaker/ICD Respiratory History: Reports: Hx Asthma, Hx Chronic Bronchitis, Hx Chronic Obstructive Pulmonary Disease (COPD), Hx Pneumonia, Hx Sleep Apnea - Unable to tolerate CPAP, Other Respiratory Problems/Disorders GI History: Reports: Hx Gall Bladder Disease - Cholecystectomy, Hx Gastroesophageal Reflux Disease Denies: Hx Ulcer History: Reports: Hx Kidney Infection - HX OF, Hx Kidney Stones - HX OF, Other Problems/Disorders - Reports blood in urine. ED test negative. Musculoskeletal History: Reports: Hx Arthritis, Other Musculoskeletal History - bilateral knee pain Sensory History: Reports: Hx Contacts or Glasses - reading Denies: Hx Cataracts, Hx Eye Injury, Hx Eye Prosthesis, Hx Hearing Aid, Hx Hearing Problem, Other Sensory Impairments Opthamlomology History: Reports: Hx Contacts or Glasses - reading Denies: Hx Cataracts, Hx Eye Injury, Hx Eye Prosthesis, Other Sensory Impairments Neurological History: Reports: Hx Headaches, Other Neuro Impairments/Disorders - REPORTS CARPAL TUNNEL -HANDS Psychiatric History: Reports: Hx Anxiety, Hx Depression Denies: Hx Panic Disorder, Hx of Violent Episodes Against Others - Cancer History Cancer Type, 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 Hx Chemotherapy: No Hx Radiation Therapy: Yes - Surgical History Surgery Procedure, Year, and Place: TRACHEOSTOMY, G-TUBE PLACED, X3, EXPLORATORY LAPAROTOMY, TONSILS, GALLBLADDER Hx Anesthesia Reactions: No - Immunization History Date of Tetanus Vaccine: UTD Date of Influenza Vaccine: NO Infectious Disease History: Reports: Hx of Known/Suspected MRSA - [facility], nares Denies: Hx Clostridium Difficile, Hx Hepatitis, Hx Human Immunodeficiency Virus (HIV), History Other Infectious Disease, Traveled Outside the [place] in Last 30 Days - Family History Known Family History: Positive: Other - sister of sepsis at age 34 Family History: Mother: Lung CA. Father: CHF - Social History Alcohol Use: None Hx Substance Use: Yes Substance Use Type: Reports: None Substance Use Comment - Amount & Last Used: chronic oxycodone Hx Tobacco Use: Yes Smoking Status (MU): Former Smoker Type: Cigarettes Amount Used/How Often: 5-10 cigarettes/day Length of Time of Smoking/Using Tobacco: 50 years Have You Smoked in the Last Year: Yes Review of Systems Negative: Fever Negative: Epistaxis Positive: Shortness Of Breath Negative: Vomiting Neurological: Other - unresponsive All Other Systems Reviewed And Are Negative: Yes Physical Exam - Summary Physical Exam Summary: VITAL SIGNS: Reviewed. GENERAL: Patient is a well-developed and nourished FEMALE. HEAD AND FACE: No signs of trauma. No ecchymosis, hematomas or skull depressions. No sinus tenderness. EYES: PERRLA, EOMI x 2, No injected conjunctiva, no nystagmus. EARS: Hearing grossly intact. Ear canals and tympanic membranes are within normal limits. MOUTH: large piece of flesh FB visualized over the epiglottis with glidescope. Edema of epiglottis observed when FB was removed NECK: Supple, trachea is midline, no adenopathy, no JVD, no carotid bruit, no c- spine tenderness, neck with full ROM. CHEST: Symmetric, no tenderness at palpation LUNGS: Agonized breathing. No wheezing or crackles. CVS: Regular rate and rhythm, S1 and S2 present, no murmurs or gallops appreciated. ABDOMEN: PEG tube in place. Soft, non-tender. No signs of distention. No rebound no guarding, and no masses palpated. Bowel sounds are normal. EXTREMITIES: FROM in all major joints, no edema, no cyanosis or clubbing. NEURO: responsive and opening her eyes to pain. No acute neurological deficits. Unable to speak. Follows commands. SKIN: Dry and warm Triage Information Reviewed: Yes Vital Signs Reviewed: Yes Procedures - Procedure Summary Procedure Summary: Orolarygeal FB removal: Direct larynostomy using Zohreh forceps. FB seen covering the larynx and epiglottis was removed. It appeared to be piece of chicken. - Intubation Time of Intubation: 01:30 - ET tube 7.0 placed using glidscope with no complications. Etomidate was administered. Left line is 24 cm. During intubation epiglottis was edematous Intubation Method: orotracheal - ET tube 7.0 placed using glidescope Tube Size (cm): 7.0 Breath Sounds after Intubation: equal Intubation Complications: no complications Post Intubation Xray: Yes Progress/Xray Impression: ET tube above the severiano. Bilateral increase interstitial markings. Diagnostics - Laboratory Result Diagrams: 03/01/18 02:30 03/01/18 02:30 Lab Statement: Any lab studies that have been ordered have been reviewed, and results considered in the medical decision making process. - Radiology CXR Radiology Interpretation Completed By: ED Physician - Dr. Velasquez, pending official report Summary of Radiographic Findings: ET tube above the severiano. Bilateral increase interstitial markings. - EKG 02:41 Cardiac Rate: NL - at 87 bpm EKG Rhythm: Sinus Rhythm ST Segment: Normal Ectopy: None Summary of EKG Findings: NSR at 87 bpm with nml axis, nml intervals, and no ischemic changes. Disposition - Course Course Of Treatment: This patient is a 52 year old F brought in by ambulance after started choking while eating and was unable to cough up the food. The Heimlich maneuver and mouth-to mouth was performed by the patients family. Patient was unresponsive upon EMS arrival. Hx of COPD and laryngeal CA S/P radiation, PEG tube, and tracheostomy. Tracheostomy was closed 3 months ago and patient was eating. Patient was agonized breathing and not talking [facility] [place] as assisting breathing with Ambu bag. Glidescope was used to visualize throat and flesh FB over the epiglottis. Using direct laryngoscopy, I was able to remove a big piece of chicken that was covering the epiglottis. Breathing improved somewhat after FB was removed and edema of epiglottis was seen. Patient was intubated with glidescope with ET tube 7.0. An EKG reveals NSR at 87 bpm with nml axis, nml intervals, and no ischemic changes. CXR reveals ET tube above the severiano. Bilateral increase interstitial markings. Hospitalist was paged at 03:24. Test results with no significant abnormalities except for elevated lactic acid. In the ED course the patient was given Etomidate, IV fluids, and Diprivan. At 03:29 discussed patient care with Dr. Blanco, hospitalist, and they agreed to admit the patient. 50 minutes of critical care time were given. Patient will be admitted to [facility]. The patient is agreeable with this plan. - Diagnoses Provider Diagnoses: Choking episode, Respiratory failure - Physician Notifications Discussed Care Of Patient With: Jsoe Blanco Time Discussed With Above Provider: 03:29 Instructed by Provider To: Admit As Inpatient - Critical Care Time Critical Care Time: 30-74 min - 50 minutes Discharge - Sign-Out/Discharge Documenting (check all that apply): Patient Departure - Discharge Plan Condition: Stable Disposition: ADMITTED TO [facility] Referrals: Raul Jarrett MD [Primary Care Provider] - - Attestation Statements Document Initiated by Scribe: Yes Documenting Scribe: Darlene Degroot Provider For Whom Scribe is Documenting (Include Credential): Susan Velasquez MD Scribe Attestation: Darlene Temple, brittneyibed for Susan Velasquez MD on 03/01/18 at 0340. Status of Scribe Document: Ready
[2018-03-01] MEDS ORDERED: Propofol* 500 MG/50 ML BTL IV SCH (02:00)
[2018-03-01] MEDS ORDERED: Etomidate* 2 MG/ML 10 ML VIAL IV ONE (02:10)
[2018-03-01 02:44] LABS: Hematocrit 38 % (35-47); Hemoglobin 12.2 g/dl (12.0-16.0); Mean Corpuscular HGB Conc 32 g/dl (31-36); Mean Corpuscular Hemoglobin 31 pg (27-31); Mean Corpuscular Volume 95 fL (80-97); Platelet Count 174 10^3/ul (150-450); Red Blood Count 3.94 10^6/ul (4.00-5.40); Red Cell Distribution Width 14 % (10.5-15); White Blood Count 9.8 10^3/ul (3.5-10.8)
[2018-03-01 02:49] LABS: Albumin 2.8 g/dL (3.2-5.2); CO2 Carbon Dioxide 20 mmol/L (22-32); Calcium 8.8 mg/dL (8.6-10.3); Chloride 101 mmol/L (101-111); Sodium 133 mmol/L (135-145)
[2018-03-01 02:55] LABS: ALT 11 U/L (7-52); Albumin/Globulin Ratio 0.9 (1-3); Alkaline Phosphatase 78 U/L (34-104); BUN/Creatinine Ratio 11.3 (8-20); Blood Urea Nitrogen 11 mg/dL (6-24); C Reactive Protein 1.99 mg/L (<8.01); EGFR Non-African American 60.8 (>60); Globulin 3.2 g/dL (2-4); Glucose 203 mg/dL (70-100)
[2018-03-01 03:04] LABS: Immature Granulocytes 1 % (0-9); Lymphocytes % 8 %; Monocytes % 1 %; Neutrophil % 90 %
[2018-03-01 03:07] LABS: ABS Neutrophils 8.9 10^3/ul (1.5-7.7)
[2018-03-01 03:09] LABS: Anion Gap 12 mmol/L (2-11)
[2018-03-01 03:24] LABS: Urine Appearance Cloudy; Urine Bacteria Absent (Absent); Urine Bilirubin Negative (Negative); Urine Blood Negative (Negative); Urine Color Yellow; Urine Glucose Negative (Negative); Urine Ketones Negative (Negative); Urine Nitrite Negative (Negative); Urine Protein 1+(30 mg/dL) (Negative); Urine Red Blood Cell Trace(0-2/hpf) (Absent); Urine Specific Gravity 1.017 (1.010-1.030); Urine Urobilinogen Negative (Negative); Urine White Blood Cell Trace(0-5/hpf) (Absent)
[2018-03-01] MEDS ORDERED: Ondansetron INJ* 2 MG/ML VIAL IV PRN (03:50)
[2018-03-01] MEDS ORDERED: Acetaminophen ADULT LIQ* 650 MG/20.3 ML UDC PO PRN (03:50)
[2018-03-01] MEDS ORDERED: Albuterol 2.5 MG/3 ML NEB.SOL* (0.083%) INH PRN (03:59)
[2018-03-01] MEDS ORDERED: NS 0.9% 1000 ML* 1,000 ML IV SCH (04:00)
[2018-03-01] MEDS ORDERED: Propofol* 100 ML IV SCH (04:00)
[2018-03-01] MEDS ORDERED: Propofol* 100 ML ONE (04:13)
[2018-03-01] MEDS: Cefepime 2 GM in Dextrose(*) 2 GM/50 ML BAG IV SCH ×2 (05:15→17:09)
[2018-03-01 06:37] LABS: ABS Basophils 0 10^3/ul (0-0.2); ABS Eosinophils 0 10^3/ul (0-0.6); ABS Lymphocytes 0.6 10^3/ul (1.0-4.8); ABS Monocytes 0.6 10^3/ul (0-0.8); ABS Neutrophils 12.7 10^3/ul (1.5-7.7); ABS Nucleated RBC 0 10^3/ul; Eosinophil % 0.3 %; Hematocrit 34 % (35-47); Hemoglobin 11.5 g/dl (12.0-16.0); Lymphocyte % 4.4 %; Mean Corpuscular HGB Conc 34 g/dl (31-36); Mean Corpuscular Hemoglobin 31 pg (27-31); Mean Corpuscular Volume 91 fL (80-97); Nucleated Red Blood Cells % 0; Platelet Count 232 10^3/ul (150-450); Red Blood Count 3.75 10^6/ul (4.00-5.40); Red Cell Distribution Width 13 % (10.5-15)
[2018-03-01 06:49] LABS: EGFR Non-African American 65.4 (>60)
[2018-03-01 06:55] LABS: Activated Partial Thrombo Time 32.5 seconds (26.0-36.3); INR 0.98 (0.77-1.02)
[2018-03-01 06:59] LABS: BUN/Creatinine Ratio 13.5 (8-20); Calcium 8.8 mg/dL (8.6-10.3); EGFR Non-African American 67.1 (>60); Potassium 4.1 mmol/L (3.5-5.0)
[2018-03-01] MEDS ORDERED: Albuterol/Ipratropium NEB.SOL* Albuterol 2.5 MG/Ipratropium 0.5 MG 3 ML INH SCH ×2 (07:00→13:00)
--- NOTE | 2018-03-01 07:06 | HP ---
CC: Dr. Raul Jarrett; Dr. Espinoza; Dr. Gee; Dr. Elam; Dr. Lr; Dr. Capone * HISTORY AND PHYSICAL: DATE OF ADMISSION: 03/01/18 PRIMARY CARE PROVIDER: Dr. Raul Jarrett. ATTENDING PHYSICIAN WHILE IN THE HOSPITAL: Dr. Rhona Villa * (report dictated by Jose Blanco NP). PRIMARY ENT PHYSICIAN: Dr. Espinoza. CONSULTING TANK MAKER WOOD: Dr. Lr. CHIEF COMPLAINT: 1. Choking. 2. Hypoxia. HISTORY OF PRESENT ILLNESS: I would like to preface the report by saying that the patient is intubated currently on propofol. He is really unable to give history. Most of the history is obtained from discussion with Dr. Velasquez and discussion with the patient's family. Ms. Reza is a 52-year-old female patient , who carries a history of laryngeal squamous cell cancer, who is status post radiation tracheostomy, NG tube placement. She has a history of CHF, hypertension, hyperlipidemia, COPD, KATHY, GERD, psoriasis, and tobacco abuse. She, about 2 months ago, had her trach removed and the tracheostomy had been slowly closing. In the last few days, she actually started eating. Unfortunately, tonight according to the daughter, she was eating chicken, she started choking, she was unable to clear the obstruction. Heimlich maneuver was started, she was turning grayson and blue, the patient's family was concerned, they called 911. EMS arrived, they were unable to alleviate the obstruction. The patient was brought in and they were having difficulty time bagging her. She was brought into the ER. She was found on GlideScope to having an obstruction from a foreign body, which appeared to be chicken. This was removed and she was then subsequently intubated. There was concern for swelling near the epiglottis and near the vocal cords. Because of this, we were asked to evaluate. She was noted to be hypoxic when she presented into the 60s. The family says that she was eating fast. There were no reports of vomiting. No reports of recent fevers or chills. No reports of chest pain prior to or after this event, but because of the hypoxia, the fact she has required intubation and possible aspiration, we were asked to evaluate for admission. PAST MEDICAL HISTORY: 1. Squamous cell laryngeal cancer. 2. CHF. 3. Hypertension. 4. Hyperlipidemia. 5. COPD. 6. KATHY. 7. GERD 8. Psoriasis. 9. Tobacco abuse. PAST SURGICAL HISTORY: She has had: 1. Tracheostomy. 2. G-tube. 3. . 4. Exploratory laparotomy. 5. Tonsillectomy. MEDICATIONS: Home meds according to the list in the computer, we will need to clarify this tomorrow, include: 1. Trazodone 100 mg at bedtime. 2. Percocet 10/325 one tablet every 4 hours as needed. 3. OxyContin 10 mg every 12 hours. 4. Klonopin 0.5 to 1 tab p.o. b.i.d. 5. Compazine 10 mg p.o. every 6 hours as needed. 6. Potassium 20 mEq per PEG tube daily. 7. Omeprazole 20 mg daily. 8. Aspirin 81 mg daily. 9. DuoNeb 1 neb inhaled every 4 hours as needed. 10. Ventolin inhaler 1 to 2 puffs every 4 hours as needed. ALLERGIES TO MEDICATIONS: Include PENICILLIN, CLINDAMYCIN, LATEX, MORPHINE. FAMILY HISTORY: Mother had lung cancer. Father had CHF and AFib. SOCIAL HISTORY: Former smoker. She does not drink alcohol. Surrogate decision maker is unable to be obtained at this point from the patient, but she does have a daughter and the involved. REVIEW OF SYSTEMS: Unable to be obtained from the patient given that she is intubated. PHYSICAL EXAMINATION GENERAL: At this time, Ms. Reza is a 52-year-old female patient. She is intubated. She appears to be older than stated age. She is in the ED stretcher. VITAL SIGNS: Blood pressure 116/85 with a pulse of 62, respirations 16, O2 sat 100%, temperature 97.4, end-tidal CO2 24. HEENT: Head: Atraumatic. Eyes: EOMs are intact. Sclerae anicteric. Pupils react to light. NECK: Supple. Throat: Oral mucosa appears to be dry. No oropharyngeal erythema. She does have an old tracheostomy site, which is well healed. LUNGS: She had rhonchi in the lobes bilaterally, in the upper lobes, equal diaphragmatic expansion. HEART: Sounds S1, S2. Regular rate and rhythm. No murmurs, rubs, or gallops. ABDOMEN: Soft, flat, nontender. She has a G-tube in place, which is clean, dry , and intact. EXTREMITIES: Pulses were 2+ throughout. She had no peripheral edema. NEUROLOGICAL: She is RASS -2, but she awakens and follow very simple commands. No gross obvious focal deficits. SKIN: Her skin was intact. DIAGNOSTIC STUDIES/LAB DATA: WBC 9.8, RBC of 3.94, hemoglobin 12.2, hematocrit 38, and platelet count 174. Blood gas: pH is 7.22, PCO2 of 53, Sodium 133, chloride 101, bicarb 20, BUN 11, creatinine 0.97, glucose 203, calcium 8.8, lactate 4.4. Total bili 0.4, ALT 11, alk phos 78. Troponin 0. CRP 1.99. Albumin 2.8. Urine showed 1+ protein, present squamous epithelial cells, present hyaline casts. She had a chest x-ray obtained today, which when I reviewed it, I do appreciate what appears to be new right lower lobe infiltrate, which did not appear to be present previously. She did have an echo in November of this year, her EF was 55% to 60%. She had an EKG showing a normal sinus rhythm with rate of 87. She had multiple lateral artifacts noted, but there was no ST elevation or T-wave inversions. Old medical records were reviewed. ASSESSMENT AND PLAN: Ms. Reza is a 52-year-old female patient coming into the ED today with choking episode requiring intubation. She will be admitted under inpatient status for: 1. Acute hypoxic respiratory failure secondary to laryngeal obstruction due to choking on chicken. At this point, the patient will be admitted. Again, when Dr. Velasquez went to intubate, there was concern for swelling near the vocal cords and epiglottis. She will be placed on Decadron. I will give her broad- spectrum antibiotics for presumed aspiration pneumonitis and aspiration pneumonia. I placed her on standing nebs because of the rhonchi, aggressive pulmonary toileting. We will try to get a sputum culture on the patient and I will touch base with the ENT in the morning to evaluate to help us with the extubation process. She is intubated now on assist control settings with a rate of 16, her settings are 40%. Ventilator mode CMV, she had set tidal volume of 550 with a PEEP of 5. She again was noted to be at 40% and she appears to be tolerating this well. Her peak pressures are right around 24. Continue with p.r.n. suctioning and aggressive pulmonary toileting. When she is extubated, we will need to consider getting swallow eval. 2. History of laryngeal cancer. She can follow with Dr. Gee and Dr. Elam. 3. History of congestive heart failure. I did order fluids because she is n.p.o. obviously currently now, I will certainly monitor. 4. Hypertension. We are holding her meds while she is on the propofol for sedation. 5. Hyperlipidemia. We will restart meds when able. 6. Chronic obstructive pulmonary disease. She is on Decadron, she is on aggressive nebs at this point and we will continue with pulmonary toileting. 7. Obstructive sleep apnea. She is intubated currently. 8. Gastroesophageal reflux disease. I ordered famotidine. 9. History of psoriasis. Follow up with PCP. 10. DVT prophylaxis. She is a high risk and placed on heparin subcu. 11. Code status. Full code. 12. Fluids, electrolytes, and nutrition: She is n.p.o. TIME SPENT: On the admission was 60 minutes, greater than half the time was spent [id number] with the patient obtaining my history and physical, other half of the time was spent going over the plan of care with the patient and implementing the plan of care. I did discuss the plan of care with my attending, Dr. Villa; she is in agreement. JOSE BLANCO NP [id number]/CPS #: [id number] PHYLLIS
[2018-03-01] MEDS: metroNIDAZOLE IV 500 MG/100ML* 500 MG/100 ML BAG IVPB SCH ×3 (08:33→22:26)
[2018-03-01] MEDS: Dexamethasone IV* 4 MG/ML 1 ML (4 MG) IV SLOW PU SCH ×3 (08:36→22:25)
[2018-03-01] MEDS: Heparin VIAL(*) 5000 UNITS/ML VIAL (FIVE THOUSAND) SUBCUT SCH ×3 (08:36→22:25)
[2018-03-01] MEDS ORDERED: Famotidine IV * 20 MG in NS 0.9% 100 ML* 100 ML IVPB SCH (09:00)
[2018-03-01] MEDS ORDERED: Famotidine IV* 10 MG/ML 2 ML (20 mg) IV SCH (09:00)
--- NOTE | 2018-03-01 09:17 | PN ---
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 In the ER the foreign body was removed but she was intubated as there may have been some airway edema. 03/01: The patient is awake and following commands. Tolerating SBT. +Cuff Leak. Likely extubation today. Vital Signs: Temp Pulse Resp BP SpO2 FiO2 100.2 F 81 13 103/80 100 30 03/01/18 09:01 03/01/18 09:01 03/01/18 08:00 03/01/18 09:01 03/01/18 09:01 03/01 08:00 Physical Exam: Gen - intubated, nad heent - +neck scar cv - s1/s2, no murmur lungs - cta, no wheeze abd - soft, nt, +g tube ext - no cce neuro - non-focal Fluid Balance (Past 24 Hours): I= O= Net Intake & Output 02/27/18 02/28/18 03/01/18 03/02/18 06:59 06:59 06:59 06:59 Intake Total 1107 Output Total 60 335 Balance 1047 -335 Weight 79 kg Intake: IV Fluids 819 NS (0.9%) 69 IVPB 220 NS (0.9%) 220 Medicated IV 68 CC - Propofol/Diprivan 68 Output: Turpin 60 335 Labs: Laboratory Results - last 24 hr 03/01/18 03/01/18 03/01/18 02:00 02:30 02:30 WBC 9.8 RBC 3.94 L Hgb 12.2 Hct 38 MCV 95 MCH 31 MCHC 32 RDW 14 Plt Count 174 MPV 7.0 L Neut % (Auto) Not Reportable Lymph % (Auto) Not Reportable Rankin % (Auto) Not Reportable Eos % (Auto) Not Reportable Baso % (Auto) Not Reportable Absolute Neuts (auto) Not Reportable Absolute Lymphs (auto) Not Reportable Absolute Monos (auto) Not Reportable Absolute Eos (auto) Not Reportable Absolute Basos (auto) Not Reportable Absolute Nucleated RBC Not Reportable Immature Gran % 1 Neutrophils % 90 Band Neutrophils % 1 Lymphocytes % 8 Monocytes % 1 Nucleated RBC % Not Reportable Abs Neuts (Manual) 8.9 H Abs Lymphs (Manual) 0.8 L Abs Monocytes (Manual) 0.1 Normal RBC Morphology Normal INR (Anticoag Therapy) APTT ABG pH 7.22 L ABG pCO2 53 H ABG pO2 225 H ABG HCO3 20.1 ABG O2 Saturation 100.4 H ABG Base Excess -6.2 L Sodium 133 L Potassium TNP Chloride 101 Carbon Dioxide 20 L Anion Gap 12 H BUN 11 Creatinine 0.97 H Est GFR ( Amer) 73.6 Est GFR (Non-Af Amer) 60.8 BUN/Creatinine Ratio 11.3 Glucose 203 H Lactic Acid Calcium 8.8 Total Bilirubin 0.40 AST TNP ALT 11 Alkaline Phosphatase 78 Troponin I 0.00 C-Reactive Protein 1.99 B-Natriuretic Peptide Total Protein 6.0 L Albumin 2.8 L Globulin 3.2 Albumin/Globulin Ratio 0.9 L Urine Color Urine Appearance Urine pH Ur Specific [place] Urine Protein Urine Ketones Urine Blood Urine Nitrate Urine Bilirubin Urine Urobilinogen Ur Leukocyte Esterase Urine WBC (Auto) Urine RBC (Auto) Ur Squamous Epith Cells Urine Bacteria Hyaline Casts Urine Glucose Urine Ascorbic Acid 03/01/18 03/01/18 03/01/18 02:30 02:40 03:22 WBC RBC Hgb Hct MCV MCH MCHC RDW Plt Count MPV Neut % (Auto) Lymph % (Auto) Rankin % (Auto) Eos % (Auto) Baso % (Auto) Absolute Neuts (auto) Absolute Lymphs (auto) Absolute Monos (auto) Absolute Eos (auto) Absolute Basos (auto) Absolute Nucleated RBC Immature Gran % Neutrophils % Band Neutrophils % Lymphocytes % Monocytes % Nucleated RBC % Abs Neuts (Manual) Abs Lymphs (Manual) Abs Monocytes (Manual) Normal RBC Morphology INR (Anticoag Therapy) APTT ABG pH ABG pCO2 ABG pO2 ABG HCO3 ABG O2 Saturation ABG Base Excess Sodium Potassium Chloride Carbon Dioxide Anion Gap BUN Creatinine Est GFR ( Amer) Est GFR (Non-Af Amer) BUN/Creatinine Ratio Glucose Lactic Acid 4.4 H* Calcium Total Bilirubin AST ALT Alkaline Phosphatase Troponin I C-Reactive Protein B-Natriuretic Peptide 108 H Total Protein Albumin Globulin Albumin/Globulin Ratio Urine Color Yellow Urine Appearance Cloudy Urine pH 5.0 Ur Specific [place] 1.017 Urine Protein 1+(30 mg/dl) A Urine Ketones Negative Urine Blood Negative Urine Nitrate Negative Urine Bilirubin Negative Urine Urobilinogen Negative Ur Leukocyte Esterase Negative Urine WBC (Auto) Trace(0-5/hpf) Urine RBC (Auto) Trace(0-2/hpf) Ur Squamous Epith Cells Present A Urine Bacteria Absent Hyaline Casts Present A Urine Glucose Negative Urine Ascorbic Acid * A 03/01/18 03/01/18 03/01/18 03:23 06:13 06:13 WBC RBC Hgb Hct MCV MCH MCHC RDW Plt Count MPV Neut % (Auto) Lymph % (Auto) Rankin % (Auto) Eos % (Auto) Baso % (Auto) Absolute Neuts (auto) Absolute Lymphs (auto) Absolute Monos (auto) Absolute Eos (auto) Absolute Basos (auto) Absolute Nucleated RBC Immature Gran % Neutrophils % Band Neutrophils % Lymphocytes % Monocytes % Nucleated RBC % Abs Neuts (Manual) Abs Lymphs (Manual) Abs Monocytes (Manual) Normal RBC Morphology INR (Anticoag Therapy) 0.98 APTT 32.5 ABG pH ABG pCO2 ABG pO2 ABG HCO3 ABG O2 Saturation ABG Base Excess Sodium 135 Potassium TNP 4.1 Chloride 100 L Carbon Dioxide 26 Anion Gap 9 BUN 12 Creatinine 0.89 Est GFR ( Amer) 81.2 Est GFR (Non-Af Amer) 67.1 BUN/Creatinine Ratio 13.5 Glucose 99 Lactic Acid Calcium 8.8 Total Bilirubin AST TNP ALT Alkaline Phosphatase Troponin I C-Reactive Protein B-Natriuretic Peptide Total Protein Albumin Globulin Albumin/Globulin Ratio Urine Color Urine Appearance Urine pH Ur Specific [place] Urine Protein Urine Ketones Urine Blood Urine Nitrate Urine Bilirubin Urine Urobilinogen Ur Leukocyte Esterase Urine WBC (Auto) Urine RBC (Auto) Ur Squamous Epith Cells Urine Bacteria Hyaline Casts Urine Glucose Urine Ascorbic Acid 03/01/18 03/01/18 03/01/18 06:13 06:16 06:16 WBC 14.0 H RBC 3.75 L Hgb 11.5 L Hct 34 L MCV 91 MCH 31 MCHC 34 RDW 13 Plt Count 232 MPV 7.0 L Neut % (Auto) 90.5 Lymph % (Auto) 4.4 Rankin % (Auto) 4.5 Eos % (Auto) 0.3 Baso % (Auto) 0.3 Absolute Neuts (auto) 12.7 H Absolute Lymphs (auto) 0.6 L Absolute Monos (auto) 0.6 Absolute Eos (auto) 0 Absolute Basos (auto) 0 Absolute Nucleated RBC 0 Immature Gran % Neutrophils % Band Neutrophils % Lymphocytes % Monocytes % Nucleated RBC % 0 Abs Neuts (Manual) Abs Lymphs (Manual) Abs Monocytes (Manual) Normal RBC Morphology INR (Anticoag Therapy) APTT ABG pH ABG pCO2 ABG pO2 ABG HCO3 ABG O2 Saturation ABG Base Excess Sodium Potassium Chloride Carbon Dioxide Anion Gap BUN 12 Creatinine 0.91 Est GFR ( Amer) 79.2 Est GFR (Non-Af Amer) 65.4 BUN/Creatinine Ratio Glucose Lactic Acid 1.9 Calcium Total Bilirubin AST ALT Alkaline Phosphatase Troponin I C-Reactive Protein B-Natriuretic Peptide Total Protein Albumin Globulin Albumin/Globulin Ratio Urine Color Urine Appearance Urine pH Ur Specific [place] Urine Protein Urine Ketones Urine Blood Urine Nitrate Urine Bilirubin Urine Urobilinogen Ur Leukocyte Esterase Urine WBC (Auto) Urine RBC (Auto) Ur Squamous Epith Cells Urine Bacteria Hyaline Casts Urine Glucose Urine Ascorbic Acid Studies: CXR 03/01 IMPRESSION: #. The endotracheal tube could be pulled back 1 cm. #. Stigmata of probable chronic obstructive pulmonary disease. CT Head 03/01 IMPRESSION: No acute intracranial abnormality. 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 Plan: Neuro - good mental status - pain control CV - htn, hld, diastolic CHF - c/w asa - bp ok off medication Pulm - copd, cassandra, respiratory failure - respiratory failure 2/2 aspiration - +cuff leak - extubate to bipap - nebs prn - steroids for possible airway swelling - ENT eval when extubated - NIV qhs ID - aspiration pna - on empiric cefepime and flagyl - f/u cultures - lactate normal GI - npo - swallow eval when extubated - c/w ppi Renal - monitor bmp Heme - laryngeal ca - s/p radiation Endo - check fs, niss Lines - piv, remove IO ppx - gi/dvt Full Code Critical Care Time: 40 mins
[2018-03-01] MEDS ORDERED: oxyCODONE/Acetamin 5/325 MG* TAB PO PRN (09:51)
[2018-03-01] MEDS: oxyCODONE/Acetamin 5/325 MG* TAB PO PRN ×3 (11:10→22:17)
[2018-03-01] MEDS: Lansoprazole susp Kit 3 MG/ML (15 MG = 5 ML) PO SCH (11:10)
[2018-03-01] MEDS: PROCHLORPERAZINE INJ 5 MG/ML 2 ML VIAL IV PRN (19:13)
[2018-03-02] MEDS: Cefepime 2 GM in Dextrose(*) 2 GM/50 ML BAG IV SCH (05:07)
[2018-03-02] MEDS: Dexamethasone IV* 4 MG/ML 1 ML (4 MG) IV SLOW PU SCH ×3 (05:07→22:02)
[2018-03-02] MEDS: Heparin VIAL(*) 5000 UNITS/ML VIAL (FIVE THOUSAND) SUBCUT SCH ×3 (05:07→22:03)
[2018-03-02] MEDS: oxyCODONE/Acetamin 5/325 MG* TAB PO PRN ×4 (05:08→22:36)
[2018-03-02 05:10] LABS: ABS Basophils 0 10^3/ul (0-0.2); ABS Eosinophils 0 10^3/ul (0-0.6); ABS Lymphocytes 0.4 10^3/ul (1.0-4.8); ABS Monocytes 0.1 10^3/ul (0-0.8); ABS Neutrophils 5.9 10^3/ul (1.5-7.7); ABS Nucleated RBC 0 10^3/ul; Eosinophil % 0 %; Hematocrit 30 % (35-47); Hemoglobin 10.3 g/dl (12.0-16.0); Lymphocyte % 6.2 %; Mean Corpuscular HGB Conc 35 g/dl (31-36); Mean Corpuscular Hemoglobin 32 pg (27-31); Mean Corpuscular Volume 91 fL (80-97); Mean Platelet Volume 7.2 fL (7.4-10.4); Nucleated Red Blood Cells % 0; Platelet Count 168 10^3/ul (150-450); Red Blood Count 3.27 10^6/ul (4.00-5.40); Red Cell Distribution Width 14 % (10.5-15); White Blood Count 6.5 10^3/ul (3.5-10.8)
[2018-03-02 05:26] LABS: BUN/Creatinine Ratio 18.9 (8-20); Calcium 8.4 mg/dL (8.6-10.3); EGFR Non-African American 83.1 (>60); Potassium 4.2 mmol/L (3.5-5.0)
[2018-03-02] MEDS: metroNIDAZOLE IV 500 MG/100ML* 500 MG/100 ML BAG IVPB SCH ×3 (07:06→22:04)
[2018-03-02] MEDS: Lansoprazole susp Kit 3 MG/ML (15 MG = 5 ML) PO SCH (09:39)
[2018-03-02] MEDS: PROCHLORPERAZINE INJ 5 MG/ML 2 ML VIAL IV PRN ×2 (09:41→20:55)
--- NOTE | 2018-03-02 09:45 | PN ---
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 In the ER the foreign body was removed but she was intubated as there may have been some airway edema. 03/01: The patient is awake and following commands. Tolerating SBT. +Cuff Leak. Likely extubation today. 03/02: successful extubation yesterday. failed swallow eval. Vital Signs: Temp Pulse Resp BP SpO2 FiO2 98 F 80 13 113/73 98 30 03/02/18 05:07 03/02/18 08:17 03/02/18 08:31 03/02/18 08:31 03/02/18 08:17 03/01 08:00 Physical Exam: Gen - intubated, nad heent - +neck scar cv - s1/s2, no murmur lungs - cta, no wheeze abd - soft, nt, +g tube ext - no cce neuro - non-focal Fluid Balance (Past 24 Hours): I= O= Net Intake & Output 02/28/18 03/01/18 03/02/18 03/03/18 06:59 06:59 06:59 06:59 Intake Total 1107 1678 Output Total 60 640 Balance 1047 1038 Weight 79 kg 77 kg Intake: IV Fluids 819 982 NS (0.9%) 69 982 IVPB 220 22 ABX - CEFEPIME 22 NS (0.9%) 220 Medicated IV 68 44 CC - Propofol/Diprivan 68 44 Oral 0 Tube Feeding 480 Tube Feeding Flush Amount 150 Output: Turpin 60 640 Other: Estimated Void Medium Date of Last Bowel 03/01/18 Movement # Bowel Movements 1 Estimated Stool Amount Small # Voids 1 Labs: Laboratory Results - last 24 hr 03/02/18 03/02/18 04:50 04:50 WBC 6.5 RBC 3.27 L Hgb 10.3 L Hct 30 L MCV 91 MCH 32 H MCHC 35 RDW 14 Plt Count 168 MPV 7.2 L Neut % (Auto) 91.5 Lymph % (Auto) 6.2 [place] % (Auto) 2.2 Eos % (Auto) 0 Baso % (Auto) 0.1 Absolute Neuts (auto) 5.9 Absolute Lymphs (auto) 0.4 L Absolute Monos (auto) 0.1 Absolute Eos (auto) 0 Absolute Basos (auto) 0 Absolute Nucleated RBC 0 Nucleated RBC % 0 Sodium 133 L Potassium 4.2 Chloride 103 Carbon Dioxide 26 Anion Gap 4 BUN 14 Creatinine 0.74 Est GFR ( Amer) 100.5 Est GFR (Non-Af Amer) 83.1 BUN/Creatinine Ratio 18.9 Glucose 142 H Calcium 8.4 L Magnesium 2.0 Studies: CXR 03/01 IMPRESSION: #. The endotracheal tube could be pulled back 1 cm. #. Stigmata of probable chronic obstructive pulmonary disease. CT Head 03/01 IMPRESSION: No acute intracranial abnormality. 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 Plan: Neuro - good mental status - pain control CV - htn, hld, diastolic CHF - c/w asa - bp ok off medication Pulm - copd, cassandra, respiratory failure - s/p extubation - cpap qhs - nebs prn - home inhalers ID - aspiration pna - wbc now improved - afebrile - dc abx GI - npo - failed swallow eval - start tube feeds Renal - monitor bmp Heme - laryngeal ca - s/p radiation Endo - check fs, niss Lines - piv ppx - gi/dvt Full Code Transfer to floor
[2018-03-02] MEDS: Cefepime 1 GM in Dextrose(*) 1 GM/50 ML BAG IV SCH (17:01)
[2018-03-02] MEDS: traZODone TAB* 100 MG PO PRN (22:04)
[2018-03-02] MEDS: clonazePAM TAB(*) 0.5 MG PO PRN (22:04)
[2018-03-03] MEDS: Cefepime 1 GM in Dextrose(*) 1 GM/50 ML BAG IV SCH (05:49)
[2018-03-03] MEDS: metroNIDAZOLE IV 500 MG/100ML* 500 MG/100 ML BAG IVPB SCH (06:38)
[2018-03-03] MEDS: Heparin VIAL(*) 5000 UNITS/ML VIAL (FIVE THOUSAND) SUBCUT SCH ×3 (06:38→21:59)
[2018-03-03] MEDS: Dexamethasone IV* 4 MG/ML 1 ML (4 MG) IV SLOW PU SCH ×3 (06:38→21:59)
[2018-03-03] MEDS ORDERED: NS 0.9% 1000 ML* 1,000 ML IV ONE (08:22)
[2018-03-03] MEDS ORDERED: Iohexol 350* (CONTRAST) 500 ML MDV IV ONE (08:54)
[2018-03-03] MEDS: Ketorolac INJ* 15 MG/ML 1 ML VIAL IV PUSH PRN (10:57)
[2018-03-03] MEDS: Lansoprazole susp Kit 3 MG/ML (15 MG = 5 ML) PO SCH (12:21)
[2018-03-03] MEDS: oxyCODONE/Acetamin 5/325 MG* TAB PO PRN ×2 (14:45→19:51)
--- NOTE | 2018-03-03 15:05 | PN ---
Subjective Date of Service: 03/03/18 Interval History: HOSPITALIST PROGRESS NOTE Patient seen and examined at bedside. Care reviewed and d/w Marcela Salinas RN. She c/o right sided chest pain earlier today, with no change in her breathing. Concerned one of the stoppers on her PEG is about to break off. Family History: Unchanged from Admission Social History: Unchanged from Admission Past Medical History: Unchanged from Admission Objective Active Medications: Acetaminophen (Tylenol Adult Liq*) 650 mg PO Q6H PRN PRN Reason: FEVER/PAIN Last Admin: 03/01/18 14:49 Dose: 650 mg Albuterol (Ventolin 2.5 Mg/3 Ml Neb.Shira*) 2.5 mg INH Q2H PRN PRN Reason: SOB/WHEEZING Clonazepam (Klonopin Tab(*)) 0.5 mg PO BID PRN PRN Reason: ANXIETY Last Admin: 03/02/18 22:04 Dose: 0.5 mg Dexamethasone Sodium Phosphate (Decadron Iv*) 4 mg IV SLOW PU Q8HR NATHANAEL Last Admin: 03/03/18 14:45 Dose: 4 mg Heparin Sodium (Porcine) (Heparin Vial(*)) 5,000 units SUBCUT Q8HR NATHANAEL Last Admin: 03/03/18 14:45 Dose: 5,000 units Cefepime HCl (Maxipime 1 Gm In Dextrose Duplex (*)) 1 gm in 50 mls @ 100 mls/ hr IV Q12H NATHANAEL Stop: 03/03/18 16:59 Last Admin: 03/03/18 05:49 Dose: 100 mls/hr Ketorolac Tromethamine (Toradol Inj*) 15 mg IV PUSH Q6H PRN PRN Reason: PAIN Last Admin: 03/03/18 10:57 Dose: 15 mg Lansoprazole (Lansoprazole Susp Kit) 15 mg PO DAILY NATHANAEL Last Admin: 03/03/18 12:21 Dose: 15 mg Ondansetron HCl (Zofran Inj*) 4 mg IV Q6H PRN PRN Reason: NAUSEA Oxycodone/Acetaminophen (Percocet 5/325 Tab*) 2 tab PO Q4H PRN PRN Reason: PAIN Last Admin: 03/03/18 14:45 Dose: 2 tab Prochlorperazine Edisylate (Compazine Inj*) 5 mg IV Q6H PRN PRN Reason: NAUSEA/VOMITING Last Admin: 03/02/18 20:55 Dose: 5 mg Trazodone HCl (Desyrel Tab*) 100 mg PO BEDTIME PRN PRN Reason: SLEEP Last Admin: 03/02/18 22:04 Dose: 100 mg Vital Signs - 8 hr 03/03/18 03/03/18 03/03/18 08:00 08:01 08:10 Temperature 97.7 F Pulse Rate 43 56 Respiratory 15 15 Rate Blood Pressure 93/57 96/60 (mmHg) O2 Sat by Pulse 100 Oximetry 03/03/18 03/03/18 10:53 14:45 Temperature 97.4 F Pulse Rate 56 Respiratory 15 Rate Blood Pressure 116/76 (mmHg) O2 Sat by Pulse 100 Oximetry Oxygen Devices in Use Now: Nasal Cannula Appearance: Pleasant lady lying in bed in NAD Eyes: No Scleral Icterus Ears/Nose/Mouth/Throat: Mucous Membranes Moist Neck: - - Neck is obese, trach surgical scar is well healed Respiratory: Symmetrical Chest Expansion and Respiratory Effort, Clear to Auscultation Cardiovascular: NL Sounds; No Murmurs; No JVD, RRR, - - Pain on palpation of right ACW Abdominal: NL Sounds; No Tenderness; No Distention, - - PEG in place Neurological: Alert and Oriented x 3, NL Muscle Strength and Tone Result Diagrams: 03/02/18 04:50 03/02/18 04:50 Assess/Plan/Problems-Billing Assessment: Mrs Reza is a 52yo F with PMH of squamous cell carcinoma s/p trach/PEG/ radiation, COPD, KATHY, psoriasis, diastolic CHF, GERD, HTN, HLD, who presented to ED after choking on a piece on chicken, requiring foreign body removal and subsequent intubation. - Patient Problems (1) Acute hypoxemic respiratory failure Comment: - Secondary to mechanical obstruction due to choking - resolved. (2) Dysphagia Comment: - Speech pathology input appreciated - NPO at this time. - Continue TF via PEG. - Dr Frye consulted to exchange PEG as stopper is about to brake off. (3) Laryngeal edema Comment: - Secondary to choking episode, requiring intubation. - Continue dexamethasone. (4) Chest pain Comment: - Most likely musculoskeletal due to Heimlich maneuver. - CTA chest negative for PE, no acute infiltrates. - EKG shows no acute ischemic changes and troponins are negative. - Toradol PRN for pain. (5) DVT prophylaxis Comment: - SQ heparin. (6) Full code status Comment: Status and Disposition: Inpatient.
--- NOTE | 2018-03-03 17:08 | CONS ---
GASTROENTEROLOGY CONSULT: DATE OF CONSULT: 03/03/18 CONSULTING PHYSICIAN: Amberly Cortes MD. REASON FOR CONSULTATION: Dysphagia and failing PEG tube with clogging and cracking of its external port. HISTORY OF PRESENT ILLNESS: This 52-year-old woman who had radiation treatment of a laryngeal tumor in the early summer, had started to eat some solid food about 5 or 6 weeks ago. She had been using the tube successfully right along for most of her needs. She went initially for mashed potatoes, gravy, and yogurt, and on the day of admission, had started eating white meat chicken. See the details in the history and physical by Jose Blanco NP. She was in the ICU for a day or so and was extubated. At this time, she says her throat is sore. She has no abdominal pain. She does have trouble often eating her meals fast. She has had an upper plate for many years, partial lower plate and over recent months, apparently associated with radiation and has had the rest of her lower teeth removed and the lower denture was relatively recent. From way back, she would be unwilling to take on corn on the cob or steak and has not gone to those foods recently either. The PEG tube was placed on 07/13/17 in Interventional Radiology. It had stay sutures x3 and was a 20-Serbian tube placed over a guidewire after serial dilation of the tract. It has been working okay since then. She has been still using it for Ensure and crushing her meds in water. PAST MEDICAL HISTORY: 1. Morbid obesity. 2. 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 3. History of smoking and COPD. 4. Status post cholecystectomy. 5. Psoriasis. 6. Sleep apnea. 7. . 8. History of exploratory laparotomy. MEDICATIONS: At home: 1. OxyContin. 2. Percocet. 3. Klonopin. 4. Compazine. 5. Trazodone. 6. Omeprazole 20. 7. Aspirin 81. ALLERGIES: PENICILLIN, CLINDAMYCIN, MORPHINE and also LATEX. FAMILY HISTORY: Her mother had lung cancer and of it. Her father had AFib. SOCIAL HISTORY: She quit smoking at the time of laryngeal cancer diagnosis. She does not drink alcohol. REVIEW OF SYSTEMS: No history of MO, syncope on a cardiac basis, TB, hemoptysis , renal failure, recent fevers. She was discharged from [facility] primary care practice a month ago and has an appointment with the [facility] on 03/06/18. PHYSICAL EXAM: She is a chronically ill-appearing, morbidly obese woman, in no distress. She says her throat is a little bit sore. She does not hurt anywhere else. Her skin is a little bit erythematous. She has no adenopathy. There is some stiffness to the neck tissues. Lungs show rhonchi. Heart sounds are regular. The abdomen has a PEG in the mid left upper quadrant. There is no dermatitis around it. It is loose currently with a bolster at 8. It freely rotates. It is a little bit kinked internally. The abdomen has normal bowel sounds and is soft without focal tenderness. Rectal deferred. Extremities show puffiness, 1+ edema, and no erythema. Pulses are intact. DIAGNOSTIC STUDIES/LAB DATA: On admission, hemoglobin 12.2, hematocrit 38, platelets 174, white count 9.8. Albumin 2.8, ALT 11, total bili 0.4, calcium 8.8. Prior cardiology studies - echo, November 2017, EF 55% to 60%. IMPRESSION: This 52-year-old woman with a recent laryngeal plugging event secondary to attempting a high-risk food, now is recovering. She has poor dentition and has multiple reasons for difficulty with chewing and eating solid food. This was reviewed briefly with her. She will need ongoing strict attention to hygiene during meals. She also has trouble with her PEG tube wearing out now after 8 months. The particulars of her tube need to be investigated before attempt at traction removal and replacement. She is quite phobic about any pain occurring with this and may need anesthesia assistance. Addendum: she had a vigorous Heimlich maneuver during her resusitation and had soreness in the tube area and some leakage [id number]/[facility] #: [id number] [facility]IN[facility] INSANEGaby
[2018-03-03] MEDS: traZODone TAB* 100 MG PO PRN (21:58)
[2018-03-03] MEDS: clonazePAM TAB(*) 0.5 MG PO PRN (21:59)
[2018-03-04] MEDS: Dexamethasone IV* 4 MG/ML 1 ML (4 MG) IV SLOW PU SCH ×3 (06:22→21:26)
[2018-03-04] MEDS: Heparin VIAL(*) 5000 UNITS/ML VIAL (FIVE THOUSAND) SUBCUT SCH ×3 (06:22→21:26)
[2018-03-04] MEDS: oxyCODONE/Acetamin 5/325 MG* TAB PO PRN ×3 (10:44→21:45)
[2018-03-04] MEDS: Lansoprazole susp Kit 3 MG/ML (15 MG = 5 ML) PO SCH (11:00)
--- NOTE | 2018-03-04 11:47 | PN ---
Subjective Date of Service: 03/04/18 Interval History: HOSPITALIST PROGRESS NOTE Patient seen and examined at bedside. Care reviewed and d/w Marcela Salinas RN. She offers no new complaints at this time. Right side of the chest is still sore , but not as bad as yesterday. Family History: Unchanged from Admission Social History: Unchanged from Admission Past Medical History: Unchanged from Admission Objective Active Medications: Acetaminophen (Tylenol Adult Liq*) 650 mg PO Q6H PRN PRN Reason: FEVER/PAIN Last Admin: 03/01/18 14:49 Dose: 650 mg Albuterol (Ventolin 2.5 Mg/3 Ml Neb.Shira*) 2.5 mg INH Q2H PRN PRN Reason: SOB/WHEEZING Clonazepam (Klonopin Tab(*)) 0.5 mg PO BID PRN PRN Reason: ANXIETY Last Admin: 03/03/18 21:59 Dose: 0.5 mg Dexamethasone Sodium Phosphate (Decadron Iv*) 4 mg IV SLOW PU Q8HR [facility] Last Admin: 03/04/18 06:22 Dose: 4 mg Heparin Sodium (Porcine) (Heparin Vial(*)) 5,000 units SUBCUT Q8HR NATHANAEL Last Admin: 03/04/18 06:22 Dose: 5,000 units Ketorolac Tromethamine (Toradol Inj*) 15 mg IV PUSH Q6H PRN PRN Reason: PAIN Last Admin: 03/03/18 10:57 Dose: 15 mg Lansoprazole (Lansoprazole Susp Kit) 15 mg PO DAILY [facility] Last Admin: 03/04/18 11:00 Dose: 15 mg Ondansetron HCl (Zofran Inj*) 4 mg IV Q6H PRN PRN Reason: NAUSEA Oxycodone/Acetaminophen (Percocet 5/325 Tab*) 2 tab PO Q4H PRN PRN Reason: PAIN Last Admin: 03/04/18 10:44 Dose: 2 tab Prochlorperazine Edisylate (Compazine Inj*) 5 mg IV Q6H PRN PRN Reason: NAUSEA/VOMITING Last Admin: 03/02/18 20:55 Dose: 5 mg Trazodone HCl (Desyrel Tab*) 100 mg PO BEDTIME PRN PRN Reason: SLEEP Last Admin: 03/03/18 21:58 Dose: 100 mg Vital Signs - 8 hr 03/04/18 03/04/18 03/04/18 07:41 07:42 08:31 Temperature 97.4 F Pulse Rate 90 54 Respiratory 14 16 Rate Blood Pressure 125/73 (mmHg) O2 Sat by Pulse 96 96 100 Oximetry 03/04/18 10:44 Temperature Pulse Rate Respiratory 17 Rate Blood Pressure (mmHg) O2 Sat by Pulse Oximetry Oxygen Devices in Use Now: Nasal Cannula Appearance: Middle aged lady lying bed in NAD. Eyes: No Scleral Icterus Ears/Nose/Mouth/Throat: Mucous Membranes Moist Neck: Trachea Midline Respiratory: Symmetrical Chest Expansion and Respiratory Effort, Clear to Auscultation Cardiovascular: RRR - Normal S1 and S2 Abdominal: NL Sounds; No Tenderness; No Distention, - - PEG in place Neurological: Alert and Oriented x 3, NL Muscle Strength and Tone Result Diagrams: 03/02/18 04:50 03/02/18 04:50 Assess/Plan/Problems-Billing Assessment: Mrs Reza is a 52yo F with PMH of squamous cell carcinoma s/p trach/PEG/ radiation, COPD, KATHY, psoriasis, diastolic CHF, GERD, HTN, HLD, who presented to ED after choking on a piece on chicken, requiring foreign body removal and subsequent intubation. - Patient Problems (1) Acute hypoxemic respiratory failure Comment: - Secondary to mechanical obstruction due to choking - resolved. (2) Dysphagia Comment: - Speech pathology input appreciated - NPO at this time. - Continue TF via PEG as tolerated. - Dr Frye consulted to exchange PEG as stopper is about to brake off. (3) Laryngeal edema Comment: - Secondary to choking episode, requiring intubation. - Taper dexamethasone. (4) Chest pain Comment: - Most likely musculoskeletal due to Heimlich maneuver. - CTA chest negative for PE, no acute infiltrates. - EKG shows no acute ischemic changes and troponins are negative. - Toradol PRN for pain. (5) DVT prophylaxis Comment: - SQ heparin. (6) Full code status Comment: Status and Disposition: Inpatient.
[2018-03-04] MEDS: Ketorolac INJ* 15 MG/ML 1 ML VIAL IV PUSH PRN ×2 (15:18→23:46)
[2018-03-04] MEDS: clonazePAM TAB(*) 0.5 MG PO PRN (21:45)
[2018-03-04] MEDS: traZODone TAB* 100 MG PO PRN (21:45)
[2018-03-05] MEDS: Dexamethasone IV* 4 MG/ML 1 ML (4 MG) IV SLOW PU SCH ×3 (05:40→21:44)
[2018-03-05] MEDS: Heparin VIAL(*) 5000 UNITS/ML VIAL (FIVE THOUSAND) SUBCUT SCH ×3 (05:40→21:44)
[2018-03-05 08:15] LABS: Calcium 8.7 mg/dL (8.6-10.3); Magnesium 1.9 mg/dL (1.9-2.7); Potassium 4.4 mmol/L (3.5-5.0)
[2018-03-05 08:21] LABS: BUN/Creatinine Ratio 41.1 (8-20); EGFR Non-African American 114.6 (>60)
[2018-03-05] MEDS: Ketorolac INJ* 15 MG/ML 1 ML VIAL IV PUSH PRN ×3 (08:47→19:19)
[2018-03-05] MEDS: Lansoprazole susp Kit 3 MG/ML (15 MG = 5 ML) PO SCH (08:47)
--- NOTE | 2018-03-05 12:12 | PN ---
Subjective Date of Service: 03/05/18 Interval History: HOSPITALIST PROGRESS NOTE Patient seen and examined at bedside. Care reviewed and d/w Isabela Mayberry RN. No new complaints. Right sided chest pain is still present, some relief with pain meds, but feels she needs something stronger. Family History: Unchanged from Admission Social History: Unchanged from Admission Past Medical History: Unchanged from Admission Objective Active Medications: Acetaminophen (Tylenol Adult Liq*) 650 mg PO Q6H PRN PRN Reason: FEVER/PAIN Last Admin: 03/01/18 14:49 Dose: 650 mg Albuterol (Ventolin 2.5 Mg/3 Ml Neb.Shira*) 2.5 mg INH Q2H PRN PRN Reason: SOB/WHEEZING Clonazepam (Klonopin Tab(*)) 0.5 mg PO BID PRN PRN Reason: ANXIETY Last Admin: 03/04/18 21:45 Dose: 0.5 mg Dexamethasone Sodium Phosphate (Decadron Iv*) 4 mg IV SLOW PU Q8HR [facility] Last Admin: 03/05/18 05:40 Dose: 4 mg Heparin Sodium (Porcine) (Heparin Vial(*)) 5,000 units SUBCUT Q8HR [facility] Last Admin: 03/05/18 05:40 Dose: 5,000 units Hydromorphone HCl (Dilaudid Tab*) 2 mg G TUBE Q6H PRN PRN Reason: SEVERE PAIN Ketorolac Tromethamine (Toradol Inj*) 15 mg IV PUSH Q6H PRN PRN Reason: PAIN Last Admin: 03/05/18 10:35 Dose: 15 mg Lansoprazole (Lansoprazole Susp Kit) 15 mg PO DAILY [facility] Last Admin: 03/05/18 08:47 Dose: 15 mg Ondansetron HCl (Zofran Inj*) 4 mg IV Q6H PRN PRN Reason: NAUSEA Oxycodone/Acetaminophen (Percocet 5/325 Tab*) 2 tab PO Q4H PRN PRN Reason: PAIN Last Admin: 03/04/18 21:45 Dose: 2 tab Prochlorperazine Edisylate (Compazine Inj*) 5 mg IV Q6H PRN PRN Reason: NAUSEA/VOMITING Last Admin: 03/02/18 20:55 Dose: 5 mg Trazodone HCl (Desyrel Tab*) 100 mg PO BEDTIME PRN PRN Reason: SLEEP Last Admin: 03/04/18 21:45 Dose: 100 mg Vital Signs - 8 hr 03/05/18 03/05/18 03/05/18 04:19 07:38 08:00 Temperature 97.5 F Pulse Rate 48 48 Respiratory 14 20 Rate Blood Pressure 130/70 (mmHg) O2 Sat by Pulse 100 Oximetry Oxygen Devices in Use Now: Nasal Cannula - 4 liters Appearance: Middle aged lady lying in bed in NAD. Eyes: No Scleral Icterus Ears/Nose/Mouth/Throat: Mucous Membranes Moist Neck: Trachea Midline Respiratory: Symmetrical Chest Expansion and Respiratory Effort, Clear to Auscultation Cardiovascular: NL Sounds; No Murmurs; No JVD, RRR Neurological: Alert and Oriented x 3, NL Muscle Strength and Tone Result Diagrams: 03/02/18 04:50 03/05/18 07:21 Assess/Plan/Problems-Billing Assessment: Mrs Reza is a 52yo F with PMH of squamous cell carcinoma s/p trach/PEG/ radiation, COPD, KATHY, psoriasis, diastolic CHF, GERD, HTN, HLD, who presented to ED after choking on a piece on chicken, requiring foreign body removal and subsequent intubation. - Patient Problems (1) Acute hypoxemic respiratory failure Comment: - Secondary to mechanical obstruction due to choking - resolved. (2) Dysphagia Comment: - Speech pathology input appreciated - NPO at this time. - Continue TF via PEG as tolerated. - Dr Frye consulted to exchange PEG as stopper is about to brake off - it will probably be done tomorrow. (3) Laryngeal edema Comment: - Secondary to choking episode, requiring intubation. - Taper dexamethasone. (4) Chest pain Comment: - Most likely musculoskeletal due to Heimlich maneuver. - CTA chest negative for PE, no acute infiltrates. - EKG shows no acute ischemic changes and troponins are negative. - Toradol not enough for pain, will add Dilaudid. (5) DVT prophylaxis Comment: - SQ heparin. (6) Full code status Comment: Status and Disposition: Inpatient. Anticipate d/c home after PEG exchanged.
[2018-03-05] MEDS: HYDROmorphone TAB* 2 MG G TUBE PRN (12:49)
[2018-03-05] MEDS: oxyCODONE/Acetamin 5/325 MG* TAB PO PRN ×2 (14:14→19:32)
[2018-03-05] MEDS: clonazePAM TAB(*) 0.5 MG PO PRN (23:11)
[2018-03-06] MEDS: Ketorolac INJ* 15 MG/ML 1 ML VIAL IV PUSH PRN ×3 (00:39→20:46)
[2018-03-06] MEDS: Dexamethasone IV* 4 MG/ML 1 ML (4 MG) IV SLOW PU SCH ×2 (05:27→20:46)
[2018-03-06] MEDS: Heparin VIAL(*) 5000 UNITS/ML VIAL (FIVE THOUSAND) SUBCUT SCH ×3 (05:28→20:46)
[2018-03-06] MEDS: Lansoprazole susp Kit 3 MG/ML (15 MG = 5 ML) PO SCH (07:25)
[2018-03-06] MEDS ORDERED: HYDROmorphone INJ1* 1 MG/ML SYRINGE ONE (09:15)
[2018-03-06] MEDS ORDERED: HYDROmorphone INJ1* 1 MG/ML SYRINGE IV ONE (10:00)
[2018-03-06] MEDS: oxyCODONE/Acetamin 5/325 MG* TAB PO PRN ×3 (11:32→22:34)
[2018-03-06] MEDS: clonazePAM TAB(*) 0.5 MG PO PRN ×2 (11:32→22:07)
--- NOTE | 2018-03-06 13:31 | PN ---
Subjective Date of Service: 03/06/18 Interval History: HOSPITALIST PROGRESS NOTE Patient seen and examined at bedside. Care reviewed and d/w Eva Da Silva RN. She continues to c/o pain on her right side. She thinks Percocet works better than Dilaudid. Anxious about getting her PEG tube exchanged today. Family History: Unchanged from Admission Social History: Unchanged from Admission Past Medical History: Unchanged from Admission Objective Active Medications: Acetaminophen (Tylenol Adult Liq*) 650 mg PO Q6H PRN PRN Reason: FEVER/PAIN Last Admin: 03/01/18 14:49 Dose: 650 mg Albuterol (Ventolin 2.5 Mg/3 Ml Neb.Shira*) 2.5 mg INH Q2H PRN PRN Reason: SOB/WHEEZING Clonazepam (Klonopin Tab(*)) 0.5 mg PO BID PRN PRN Reason: ANXIETY Last Admin: 03/06/18 11:32 Dose: 0.5 mg Dexamethasone Sodium Phosphate (Decadron Iv*) 4 mg IV SLOW PU Q8HR [facility] Last Admin: 03/06/18 05:27 Dose: 4 mg Heparin Sodium (Porcine) (Heparin Vial(*)) 5,000 units SUBCUT Q8HR [facility] Last Admin: 03/06/18 05:28 Dose: 5,000 units Hydromorphone HCl (Dilaudid Tab*) 2 mg G TUBE Q6H PRN PRN Reason: SEVERE PAIN Last Admin: 03/05/18 12:49 Dose: 2 mg Ketorolac Tromethamine (Toradol Inj*) 15 mg IV PUSH Q6H PRN PRN Reason: PAIN Last Admin: 03/06/18 08:03 Dose: 15 mg Lansoprazole (Lansoprazole Susp Kit) 15 mg PO DAILY [facility] Last Admin: 03/06/18 07:25 Dose: Not Given Ondansetron HCl (Zofran Inj*) 4 mg IV Q6H PRN PRN Reason: NAUSEA Oxycodone/Acetaminophen (Percocet 5/325 Tab*) 2 tab PO Q4H PRN PRN Reason: PAIN Last Admin: 03/06/18 11:32 Dose: 2 tab Prochlorperazine Edisylate (Compazine Inj*) 5 mg IV Q6H PRN PRN Reason: NAUSEA/VOMITING Last Admin: 03/02/18 20:55 Dose: 5 mg Trazodone HCl (Desyrel Tab*) 100 mg PO BEDTIME PRN PRN Reason: SLEEP Last Admin: 03/04/18 21:45 Dose: 100 mg Vital Signs - 8 hr 03/06/18 03/06/18 03/06/18 07:39 08:00 09:20 Temperature 97.8 F Pulse Rate 51 Respiratory 17 18 18 Rate Blood Pressure 131/68 (mmHg) O2 Sat by Pulse 100 Oximetry 03/06/18 03/06/18 11:07 11:32 Temperature 97.3 F Pulse Rate 54 Respiratory 15 18 Rate Blood Pressure 131/82 (mmHg) O2 Sat by Pulse 100 Oximetry Oxygen Devices in Use Now: Nasal Cannula Appearance: Pleasant lady lying in bed in NAD. Eyes: No Scleral Icterus Ears/Nose/Mouth/Throat: Mucous Membranes Moist Neck: Trachea Midline - well healed trach site Neurological: Alert and Oriented x 3, NL Muscle Strength and Tone Result Diagrams: 03/02/18 04:50 03/05/18 07:21 Assess/Plan/Problems-Billing Assessment: Mrs Reza is a 52yo F with PMH of squamous cell carcinoma s/p trach/PEG/ radiation, COPD, KATHY, psoriasis, diastolic CHF, GERD, HTN, HLD, who presented to ED after choking on a piece on chicken, requiring foreign body removal and subsequent intubation. - Patient Problems (1) Acute hypoxemic respiratory failure Comment: - Secondary to mechanical obstruction due to choking - resolved. (2) Dysphagia Comment: - Speech pathology input appreciated - NPO at this time. - Continue TF via PEG as tolerated. - Dr Frye will exchange PEG today. (3) Laryngeal edema Comment: - Secondary to choking episode, requiring intubation. - Taper dexamethasone. (4) Chest pain Comment: - Most likely musculoskeletal due to Heimlich maneuver. - CTA chest negative for PE, no acute infiltrates. - EKG shows no acute ischemic changes and troponins are negative. - Toradol not enough for pain, but she thinks Dilaudid is not helping. Continue Percocet. (5) DVT prophylaxis Comment: - SQ heparin. (6) Full code status Comment: Status and Disposition: Inpatient. Anticipate d/c home after PEG exchanged and pain better controlled.
[2018-03-06] MEDS: HYDROmorphone TAB* 2 MG G TUBE PRN (17:38)
[2018-03-06] MEDS ORDERED: diPHENhydraMINE LIQ* 12.5 MG/5 ML UDC PO ONE (20:04)
[2018-03-06] MEDS: traZODone TAB* 100 MG PO PRN (22:07)
[2018-03-07] MEDS: Heparin VIAL(*) 5000 UNITS/ML VIAL (FIVE THOUSAND) SUBCUT SCH ×2 (06:13→14:55)
[2018-03-07] MEDS: Lansoprazole susp Kit 3 MG/ML (15 MG = 5 ML) PO SCH (08:13)
[2018-03-07] MEDS: oxyCODONE/Acetamin 5/325 MG* TAB PO PRN ×2 (08:13→13:37)
[2018-03-07] MEDS: Dexamethasone IV* 4 MG/ML 1 ML (4 MG) IV SLOW PU SCH (08:13)
[2018-03-07] MEDS: Ketorolac INJ* 15 MG/ML 1 ML VIAL IV PUSH PRN (08:58)
[2018-03-07 12:44] VITALS: BP 122/72
--- NOTE | 2018-03-08 06:36 | DS ---
CC: Dr. Raul Jarrett; Dr. Espinoza; Dr. Capone; Dr. Gee; Dr. Elam; Dr. Frye; Renetta Aquino NP * DISCHARGE SUMMARY: DATE OF ADMISSION: 03/01/18 DATE OF DISCHARGE: 03/07/18 PRIMARY CARE PROVIDER: Dr. Raul Jarrett. ENT: Dr. Espinoza and Dr. Capone. RADIATION ONCOLOGIST: Dr. Gee. ONCOLOGIST: Dr. Elam. GI: Dr. Frye. DISCHARGE DIAGNOSES: 1. Episode of choking, requiring intubation due to airway edema. 2. Severe dysphagia. 3. PEG malfunction. 4. Urhhy-uh-ymhezbi hypoxemic respiratory failure. 5. Laryngeal edema. 6. Chest pain, musculoskeletal in nature; myocardial infarction and pulmonary embolism ruled out. SECONDARY DIAGNOSES: 1. Squamous cell carcinoma head and neck, status post trach, PEG, and radiation. 2. Chronic obstructive pulmonary disease. 3. Chronic hypoxemic respiratory failure, on 4 L of oxygen continuously. 4. Obstructive sleep apnea. 5. Psoriasis. 6. Diastolic congestive heart failure. 7. Gastroesophageal reflux disease. 8. Hypertension. 9. Hyperlipidemia. MEDICATION LIST: 1. Albuterol HFA 1 to 2 puffs inhaled q.4 hours p.r.n. shortness of breath. 2. DuoNeb 1 nebulized q.4 hours p.r.n. shortness of breath. 3. Aspirin 81 mg via PEG tube daily. 4. Clonazepam 0.25 to 0.5 mg via PEG tube as needed for anxiety. 5. Percocet 10/325 plus Percocet 5/325 one tablet of each via PEG tube q.4 hours p.r.n. severe pain, MDD 6 tablets. The patient received prescription for Percocet 10 mg from her pain clinic provider and I gave her a prescription for 20 tablets of Percocet 5 mg just for the acute phase of her pain. 6. Potassium chloride liquid 20 mEq via PEG tube daily. 8. Compazine 10 mg via PEG tube q.6 hours p.r.n. nausea. 9. Trazodone 100 mg via PEG tube at bedtime. New medication: Dexamethasone oral solution taper as follows: 4 mg b.i.d. via PEG for 3 days and 4 mg daily via PEG for 3 days, 3 mg 3 days, 2 mg 3 days, 1 mg 3 days, 0.5 mg 3 days and stop. HOSPITAL COURSE: Mrs. Reza is a 52-year-old lady with a past medical history as stated above who presented to the emergency room on 03/01/18 after choking on a piece of chicken. She has had the trach removed a couple months ago and her tracheostomy had been slowly closing and she was able to eat, but unfortunately on the night of admission she was eating chicken and choked on a piece. Her son attempted the Heimlich maneuver, but the patient was turning cyanotic and EMS was called. EMS was unable to alleviate the obstruction and they were having difficulty bagging her. In the emergency room, with assistance of a GlideScope, they found a foreign body which appeared to be a piece of chicken. This was removed and there was concern for swelling in the epiglottis near the vocal cords, and for that reason, she was intubated. On presentation, as per report, her oxygen saturation was in the 60s. The patient was intubated, admitted to the intensive care unit, and for more details about her presentation, I refer you to her history and physical. While in ICU, the patient did well and she was extubated on 03/02/18, but failed a swallow evaluation. She had been started on steroids for the airway edema. On 03/03/18, the patient was transferred to the medical floor and she had complaints of right-sided chest pain. She did have some bruising on that side and also on her right arm that she attributed to a family member trying to do the Heimlich maneuver. Her EKG showed no ischemic changes. She had serial troponins that were negative and a CTA of the chest showed no PE, only enlargement of the pulmonary artery compared to the aorta suggestive of pulmonary arterial hypertension and signs of emphysema. The major issue was pain control. The patient received Toradol with no significant relief. I added Dilaudid via PEG tube and that did not work either , but with a higher dose of Percocet, she did better. She is concerned as she follows up with pain clinic, but since she has experienced acute pain due to trauma of the Heimlich maneuver, I did provide 20 tablets of Percocet 5 mg to add to her usual Percocet dose just to assist with pain relief during this acute phase. The patient was seen and followed by Speech Therapy while in the hospital and she failed multiple swallow evaluations. The recommendation is for the patient to be n.p.o. and to receive 100% of her hydration and nutrition by tube feeding. She was referred to visiting nurse services including speech therapy at home and she will need followup as outpatient with her PCP and ENT to decide when she can have a video fluoroscopic swallow study as outpatient. The patient was seen by Dietary and the recommendation is for tube feeds, Glucerna 1.2 via PEG 240 mL 6 times a day, followed by 120 mL of water 6 times a day. The patient noted that the stopper on one of the ports of her PEG was breaking off. The patient was seen in consultation by GI (Dr. Frye) and he exchanged the tube for a new one on 03/06/18. A Gastrografin study was performed and the PEG tube was located within the stomach. The patient is medically stable for discharge today and she will follow up with her primary care provider and Dr. Espinoza as outpatient. The patient also has an appointment scheduled with her pain management provider on 03/08/18. She is medically stable to be discharged home today with visiting nurse services. PHYSICAL EXAMINATION: Vital Signs: Temperature 97.5, heart rate is 67, respiratory rate is 20, oxygen saturation is 98% on 4 L nasal cannula, blood pressure is 122/72. General: The patient is a pleasant middle-aged lady lying in the bed, in no acute distress. Chest: The patient has bruising in the lateral aspect of her right chest and also her right arm. Neuro: She is alert and oriented x3, able to move all 4 extremities. DIET: NPO. The patient will receive only tube feeds as described above. Glucerna 1.2, 240 mL via PEG 6 times a day, followed by water 120 mL. ACTIVITY: As tolerated. DISPOSITION: To home. STATUS WHILE IN THE HOSPITAL: Inpatient. Please keep in mind this is a summarized version of this patient's hospital stay. If you need more information, please feel free to call me at or please obtain the full medical records. TIME SPENT: Approximately 45 minutes were spent to complete this discharge. [id number]/CPS #: [id number] MTDD
== END 2018-03-07 15:50 | disposition home health service (06) | DRG 208 ==
LOC: ED 01:26 → ICU 03:44 → MED 03-02 23:19
PROVIDERS: ADMIT Internal Medicine; ATTEND Internal Medicine
PROC: 0BH17EZ Insertion of Endotracheal Airway into Trachea, Via Natural or Artificial Opening (ICD-10-PCS; principal; 2018-03-01)
PROC: 5A1935Z Respiratory Ventilation, Less than 24 Consecutive Hours (ICD-10-PCS; 2018-03-01)
PROC: 0CCS8ZZ Extirpation of Matter from Larynx, Via Natural or Artificial Opening Endoscopic (ICD-10-PCS; 2018-03-01)
PROC: 0BP1XDZ Removal of Intraluminal Device from Trachea, External Approach (ICD-10-PCS; 2018-03-01)
PROC: 0D20XUZ Change Feeding Device in Upper Intestinal Tract, External Approach (ICD-10-PCS; 2018-03-06)
DX: J96.21 Acute and chronic respiratory failure with hypoxia (principal); J69.0 Pneumonitis due to inhalation of food and vomit; T85.598A Other mechanical complication of other gastrointestinal prosthetic devices, implants and grafts, initial encounter; K94.23 Gastrostomy malfunction; I50.30 Unspecified diastolic (congestive) heart failure; T17.320A Food in larynx causing asphyxiation, initial encounter; E78.5 Hyperlipidemia, unspecified; G47.33 Obstructive sleep apnea (adult) (pediatric); L40.9 Psoriasis, unspecified; F17.210 Nicotine dependence, cigarettes, uncomplicated; K21.9 Gastro-esophageal reflux disease without esophagitis; D64.9 Anemia, unspecified; F41.9 Anxiety disorder, unspecified; F32.9 Major depressive disorder, single episode, unspecified; J43.9 Emphysema, unspecified; I27.21 Secondary pulmonary arterial hypertension; S40.021A Contusion of right upper arm, initial encounter; J38.4 Edema of larynx; I11.0 Hypertensive heart disease with heart failure; Z87.442 Personal history of urinary calculi; Z85.828 Personal history of other malignant neoplasm of skin; Z88.5 Allergy status to narcotic agent; Z88.0 Allergy status to penicillin; Z88.1 Allergy status to other antibiotic agents; Z91.040 Latex allergy status; Y92.9 Unspecified place or not applicable; Z85.21 Personal history of malignant neoplasm of larynx; Z92.3 Personal history of irradiation; Z87.01 Personal history of pneumonia (recurrent); Z99.81 Dependence on supplemental oxygen; Z90.49 Acquired absence of other specified parts of digestive tract; Z86.14 Personal history of Methicillin resistant Staphylococcus aureus infection; Z80.1 Family history of malignant neoplasm of trachea, bronchus and lung; Z82.49 Family history of ischemic heart disease and other diseases of the circulatory system; Z79.52 Long term (current) use of systemic steroids; Z68.29 Body mass index [BMI] 29.0-29.9, adult; R07.89 Other chest pain
CPT/HCPCS: 36415; 49465; 70450; 71045; 71275; 80048; 80053; 81003; 81015; 82565; 82803; 83605; 83735; 83880; 84484; 84520; 85025; 85610; 85730; 86140; 87086; 87641; 93005; 94640; 94660; 99285; A9270-GY; J0692; J0780; J1100; J1170; J1644; J1885; J2704; J3490; Q9967

== ENCOUNTER 2018-03-20 20:09 | Inpatient (IN) | payer MEDICARE, MEDICAID ==
[2018-03-20] MEDS ORDERED: Albuterol 2.5 MG/3 ML NEB.SOL* (0.083%) INH ONE (20:21)
--- NOTE | 2018-03-20 20:36 | ED ---
Abdominal Pain/Female - HPI Summary HPI Summary: This patient is a 52 year old F brought in by ambulance accompanied by a woman with a chief complaint of bleeding out of her peg tube since earlier today. This tube has been leaking since its placement two weeks ago, but only started bleeding today. The patient rates the pain 9/10 in severity. Patient reports weakness in the LEs, wheezing, productive cough with grayson phlegm, facial abrasions and ecchymosis, and difficulty eating. Patient denies fever, ORELLANA, or difficulty passing stool. The patient also had a fall last night while reaching for toilet paper, leading to the abrasions and ecchymosis on her face. She did not have LOC. She states that she is normally able to ambulate on her own but is currently unable due to pain and weakness. She also has a cold with URI symptoms, her boyfriend has bronchitis. The patient works with a physical and speech therapist for talking. The patient uses Miralax to keep her BMs regular.PMHX COPD, remission for throat CA. Vitals in the room: HR 69 bpm, BP 159/96. - History of Current Complaint Chief Complaint: EDGeneral Stated Complaint: DIZZINESS/FALL Hx Obtained From: Patient Hx Last Menstrual Period: spots occassionally over last year Onset/Duration: Sudden Onset, Lasting Hours Timing: Constant Severity Initially: Severe Severity Currently: Severe Pain Intensity: 9 Pain Scale Used: 0-10 Numeric Associated Signs and Symptoms: Positive: Cough. Negative: Fever Allergies/Adverse Reactions: Allergies Allergy/AdvReac Type Severity Reaction Status Date / Time Penicillins Allergy Severe See Comment Verified 01/12/18 15:12 clindamycin Allergy Intermediate Difficulty Verified 01/12/18 15:12 Swallowing latex Allergy WELTS Verified 01/12/18 15:12 morphine Allergy Itching Verified 01/12/18 15:12 PMH/Surg Hx/FS Hx/Imm Hx Endocrine/Hematology History: Reports: Hx Anemia Denies: Hx Diabetes, Hx Thyroid Disease Cardiovascular History: Reports: Hx Congestive Heart Failure, Hx Hypercholesterolemia, Hx Hypertension, Other Cardiovascular Problems/Disorders - STATES IS RETAINING FLUID IN FEET- REPORTS HAS NOT BEEN ABLE TO ELEVATE FEE Denies: Hx Pacemaker/ICD Respiratory History: Reports: Hx Asthma, Hx Chronic Bronchitis, Hx Chronic Obstructive Pulmonary Disease (COPD), Hx Pneumonia, Hx Sleep Apnea - Unable to tolerate CPAP, Other Respiratory Problems/Disorders GI History: Reports: Hx Gall Bladder Disease - Cholecystectomy, Hx Gastroesophageal Reflux Disease Denies: Hx Ulcer History: Reports: Hx Kidney Infection - HX OF, Hx Kidney Stones - HX OF, Other Problems/Disorders - Reports blood in urine. ED test negative. Musculoskeletal History: Reports: Hx Arthritis - bikateral hands, Other Musculoskeletal History - bilateral knee pain Sensory History: Reports: Hx Contacts or Glasses Denies: Hx Cataracts, Hx Eye Injury, Hx Eye Prosthesis, Hx Hearing Aid, Hx Hearing Problem, Other Sensory Impairments Opthamlomology History: Reports: Hx Contacts or Glasses Denies: Hx Cataracts, Hx Eye Injury, Hx Eye Prosthesis, Other Sensory Impairments Neurological History: Reports: Hx Headaches, Other Neuro Impairments/Disorders - REPORTS CARPAL TUNNEL -HANDS Psychiatric History: Reports: Hx Anxiety, Hx Depression Denies: Hx Panic Disorder, Hx of Violent Episodes Against Others - Cancer History Cancer Type, 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 Hx Chemotherapy: No Hx Radiation Therapy: Yes - Surgical History Surgery Procedure, Year, and Place: TRACHEOSTOMY, G-TUBE PLACED, X3, EXPLORATORY LAPAROTOMY, TONSILS, GALLBLADDER Hx Anesthesia Reactions: No - Immunization History Date of Tetanus Vaccine: UTD Date of Influenza Vaccine: NO Infectious Disease History: Yes Infectious Disease History: Reports: Hx of Known/Suspected MRSA - [facility], nares Denies: Hx Clostridium Difficile, Hx Hepatitis, Hx Human Immunodeficiency Virus (HIV), History Other Infectious Disease, Traveled Outside the [place] in Last 30 Days - Family History Known Family History: Positive: Other - sister of sepsis at age 34 Family History: Mother: Lung CA. Father: CHF - Social History Alcohol Use: None Hx Substance Use: Yes Substance Use Type: Reports: None Substance Use Comment - Amount & Last Used: chronic oxycodone Hx Tobacco Use: Yes Smoking Status (MU): Former Smoker Type: Cigarettes Amount Used/How Often: 5-10 cigarettes/day Length of Time of Smoking/Using Tobacco: 50 years Have You Smoked in the Last Year: Yes Review of Systems Negative: Fever Positive: Cough Negative: incontinence Positive: Bruising - face Positive: Weakness - LE's. Negative: Headache All Other Systems Reviewed And Are Negative: Yes Physical Exam - Summary Physical Exam Summary: Appearance: Well-appearing, Well-nourished, lying in bed comfortably Skin: Warm, dry, no obvious rash Face: Left periorbital contusion without proptosis Eyes: sclera anicteric, no conjunctival pallor. ENT: mucous membranes moist, pharynx appears normal Neck: Supple, nontender. Healed tracheostomy present. Respiratory: Clear to auscultation, no signs of respiratory distress. There are diffuse rhonchi on the left side without esophagi. No wheezes. Cardiovascular: Normal S1, S2. No murmurs. Normal distal pulses in tibial and radial bilaterally. Abdomen: Soft, nontender, normal active bowel sounds present. There is a peg tube in place with superficial inflammation about the tube. The tube itself appears too small for the stoma. There is serous drainage around the tube. Musculoskeletal: Normal, Strength/ROM Intact Neurological: A&Ox3, awake and alert, mentation is normal, speech is fluent and appropriate Psychiatric: affect is normal, does not appear anxious or depressed GCS: 15 Triage Information Reviewed: Yes Vital Signs On Initial Exam: Initial Vitals Temp Pulse Resp BP Pulse Ox 98.3 F 73 18 159/96 93 03/20/18 20:13 03/20/18 20:13 03/20/18 20:13 03/20/18 20:13 03/20/18 20:13 Vital Signs Reviewed: Yes Procedures - Procedure Summary Procedure Summary: Inserted new peg tube. The old balloon was deflated. Using a 24 Malay, reinserted without trouble. Inflated with 10 cc of tap water. Diagnostics - Vital Signs Vital Signs Temp Pulse Resp BP Pulse Ox 03/20/18 20:14 73 93 03/20/18 20:13 98.3 F 77 18 159/96 89 - Laboratory Result Diagrams: 03/21/18 05:27 03/21/18 05:27 Lab Statement: Any lab studies that have been ordered have been reviewed, and results considered in the medical decision making process. - Radiology CXR Radiology Interpretation Completed By: ED Physician Summary of Radiographic Findings: left lower lobe infiltrate, new compared to prior film from december - CT Brain Summary of CT Findings: 1. No acute intracranial abnormality. 2. No change from the comparison study. ED physician has reviewed this report Abdominal Pain Fem Course/Dx - Course Course Of Treatment: This patient is a 52 year old F brought in by ambulance accompanied by a woman with a chief complaint of bleeding out of her peg tube since earlier today. This tube has been leaking since its placement two weeks ago, but only started bleeding today. The patient rates the pain 9/10 in severity. Patient reports weakness in the LEs, wheezing, productive cough with grayson phlegm, facial abrasions and ecchymosis, and difficulty eating. Patient denies fever, ORELLANA, or difficulty passing stool. CXR reveals, per radiologist, left lower lobe infiltrate, new compared to prior film from December. Brain CT reveals 1. No acute intracranial abnormality. 2. No change from the comparison study. Pending official radiology report. Test results with no significant abnormalities. In the ED course the patient was given Albuterol, Levofloxacin, and Methylprednisolone. A new peg tube was inserted successfully. We discussed patient care with Dr. Yi and they recommended admission. - Diagnoses Provider Diagnoses: COPD (chronic obstructive pulmonary disease), Tobacco abuse, Pneumonia - Provider Notifications Discussed Care Of Patient With: Kacey Yi Time Discussed With Above Provider: 21:20 Instructed by Provider To: Admit As Inpatient Discharge - Sign-Out/Discharge Documenting (check all that apply): Patient Departure - admission - Discharge Plan Condition: Fair Disposition: ADMITTED TO [facility] - Billing Disposition and Condition Condition: FAIR Disposition: Admitted to [facility] - Attestation Statements Document Initiated by Soto[employer]: Yes Documenting Scribe: Pavel Mathew Provider For Whom Aline is Documenting (Include Credential): Jose Colindres MD Scribe Attestation: Pavel Temple, scribed for Jose Colindres MD on 03/21/18 at 1826. Scribe Documentation Reviewed: Yes Provider Attestation: The documentation as recorded by the Pavel santa accurately reflects the service I personally performed and the decisions made by Jose mcneal MD Status of Scribe Document: Viewed
[2018-03-20 21:16] LABS: ABS Basophils 0 10^3/ul (0-0.2); ABS Eosinophils 0 10^3/ul (0-0.6); ABS Lymphocytes 0.3 10^3/ul (1.0-4.8); ABS Monocytes 0.2 10^3/ul (0-0.8); ABS Neutrophils 13.8 10^3/ul (1.5-7.7); ABS Nucleated RBC 0 10^3/ul; Eosinophil % 0 %; Hematocrit 31 % (35-47); Hemoglobin 10.4 g/dl (12.0-16.0); Lymphocyte % 1.8 %; Mean Corpuscular HGB Conc 34 g/dl (31-36); Mean Corpuscular Hemoglobin 31 pg (27-31); Mean Corpuscular Volume 93 fL (80-97); Mean Platelet Volume 6.3 fL (7.4-10.4); Nucleated Red Blood Cells % 0.1; Platelet Count 195 10^3/ul (150-450); Red Blood Count 3.31 10^6/ul (4.00-5.40); Red Cell Distribution Width 14 % (10.5-15); White Blood Count 14.2 10^3/ul (3.5-10.8)
[2018-03-20] MEDS ORDERED: methylPREDNISolone 125 MG* 2 ML VIAL IV ONE (21:18)
[2018-03-20] MEDS ORDERED: Levofloxacin 500 MG IVPREMIX(* 500 MG/100 ML BAG IVPB ONE (21:23)
[2018-03-20 21:33] LABS: Albumin 2.9 g/dL (3.2-5.2); Albumin/Globulin Ratio 0.8 (1-3); BUN/Creatinine Ratio 26.4 (8-20); EGFR Non-African American 85.7 (>60); Globulin 3.5 g/dL (2-4); Potassium 4.4 mmol/L (3.5-5.0); Total Bilirubin 0.5 mg/dL (0.2-1.0); Total Protein 6.4 g/dL (6.4-8.9)
[2018-03-20] MEDS ORDERED: oxyCODONE/Acetamin 5/325 MG* TAB PO ONE (21:54)
[2018-03-20] MEDS ORDERED: Albuterol 2.5 MG/3 ML NEB.SOL* (0.083%) INH PRN (22:12)
[2018-03-20] MEDS ORDERED: Albuterol/Ipratropium NEB.SOL* Albuterol 2.5 MG/Ipratropium 0.5 MG 3 ML INH PRN (22:12)
[2018-03-20] MEDS ORDERED: Docusate CAP* 100 MG PRN (22:14)
[2018-03-20] MEDS ORDERED: Al Hydrox/Mg Hydrox/Simet LIQ* 30 ML UDC PO PRN (22:14)
[2018-03-20] MEDS ORDERED: Senna TAB G TUBE PRN (22:14)
[2018-03-20] MEDS ORDERED: Ondansetron INJ* 2 MG/ML VIAL IV PRN (22:14)
[2018-03-20] MEDS ORDERED: oxyCODONE/Acetamin 5/325 MG* TAB G TUBE PRN (22:48)
[2018-03-20] MEDS ORDERED: Prochlorperazine TAB* 10 MG G TUBE PRN (22:48)
[2018-03-21] MEDS: traZODone TAB* 100 MG G TUBE PRN ×2 (00:15→22:12)
[2018-03-21] MEDS: clonazePAM TAB(*) 0.5 MG G TUBE PRN ×2 (00:15→22:16)
--- NOTE | 2018-03-21 00:24 | HP ---
CC: [facility] * HISTORY AND PHYSICAL: DATE OF ADMISSION: 03/20/18 TIME OF EVALUATION: 2200 PRIMARY CARE PHYSICIAN: [facility]. CHIEF COMPLAINT: Leaking around her G-tube site. HISTORY OF PRESENT ILLNESS: This is a 52-year-old female with a past medical history of head and neck cancer, who was recently admitted 2 weeks ago for a choking event, requiring intubation and PEG tube placement for dysphagia, who presented with bleeding around her G-tube site. She states she has been very weak since her discharge on 03/07/18. She does have full-time care with her daughter and her boyfriend there taking care of her. A few days ago, she was leaning on the toilet, reaching for the toilet paper, and she could not stop herself and she fell over and hit her left eye on the sink. No loss of consciousness. No residual symptoms. However, she complains she has been weak. She also states her boyfriend has been sick with upper respiratory tract infection. She began with worsening cough and congestion over the past week. She states she has had a wet cough since her admission, but her URI symptoms have gotten worse and she has run out of her albuterol inhaler. She denies any shortness of breath. No chest pain. No fevers. No nausea, vomiting, or diarrhea. She states she was constipated, but improved with MiraLAX. Regarding her dysphagia, she states she has been working with a speech therapist and they told her that she can start eating pureed, so she has been eating soups and potatoes, but she states she still chokes and coughs after them , though she was told that it was okay to continue eating. She denies any changes in her medications since her discharge on 03/07/18. She is being weaned off of her prednisone. Today, she noted bleeding and irritation around the site of her PEG tube, which she is not sure of if it was related to when she fell. She had her tube replaced on 03/06/[address] Frye while she was an inpatient here. Otherwise, remaining review of systems is negative. In the emergency room, the patient had labs and imaging. She was given 125 mg of Solu- Medrol, Levaquin 500 mg, albuterol nebs, and referred to the hospitalist service for further evaluation. PAST MEDICAL HISTORY: 1. Admission from 03/01/18 to 03/07/18 for a choking event requiring intubation secondary to airway edema resulting in severe dysphagia. 2. History of PEG malfunction requiring tube replacement on 03/06/18. 3. History of acute on chronic hypoxemic respiratory failure on 4 L of oxygen continuously. 4. Obstructive sleep apnea. Noncompliant due to discomfort issue. 5. 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 Gee, in remission, per patient. 6. History of psoriasis. 7. History of diastolic congestive heart failure. 8. GERD. 9. Hypertension. 10. Hyperlipidemia. 11. Chronic pain. MEDICATIONS: From her discharge list per the patient are unchanged. 1. Albuterol inhaler 1 to 2 puffs every 4 hours as needed. 2. Albuterol nebulizer q.4 hours as needed for shortness of breath. 3. Aspirin 81 via PEG daily. 4. Clonazepam 0.25 to 0.5 via PEG as needed for anxiety. 5. Percocet 10/325 plus 5 every 4 hours as needed for pain. 6. Potassium chloride 20 mEq via PEG daily. 7. Compazine 10 mg every 6 hours as needed for nausea. 8. Trazodone 100 mg via PEG at bedtime. 9. She is currently on a dexamethasone taper at 3 mL daily. ALLERGIES: PENICILLIN, CLINDAMYCIN, LATEX, and MORPHINE. FAMILY HISTORY: Mother at age 55 from lung cancer. Father is alive. SOCIAL HISTORY: She lives at home with her daughter, William, and her boyfriend. William is her healthcare proxy. Both of them help with her care 24x7. She is a former smoker, quit in June 2017. She smoked 2 packs per day for 30 years. No alcohol use or illicit drug use. She is currently taking Jevity 5 three to four cans per day with 200 mL of water 2 to 3 times a day. Code status is full code. REVIEW OF SYSTEMS: A 14-point review of systems as mentioned in the HPI, otherwise negative. PHYSICAL EXAMINATION GENERAL: Ill-appearing in no acute distress. Has cushingoid features. VITAL SIGNS: Temp 98.3, pulse rate is 66, respiratory rate is 18, oxygen saturation is 93% on 4 L, blood pressure is 136/82. HEENT: As mentioned cushingoid features. Pupils are equal and reactive. She has ecchymosis around her left orbit and some erythema on her right cheek. Oropharynx, mucous membranes moist. She has a white, she claims, a dry patch on the tip of her tongue that is chronic. NECK: Supple. No adenopathy. No nuchal rigidity. RESPIRATORY: Coarse rhonchorous breath sounds bilaterally with expiratory wheezing. No increased work of breathing. No tachypnea. CARDIAC: Regular rate and rhythm. Soft systolic murmur heard throughout. ABDOMEN: Soft and nontender. She has a G-tube in place with clear drainage surrounding the G-tube site with a skin laceration and erythema surrounding the G- tube sites. EXTREMITIES: Trace edema. +1 DP. NEUROLOGIC: Alert and oriented x3. No gross focal neurological deficits. LABORATORY DATA: White count is 14.2, hemoglobin 10.4, hematocrit 31, platelets 195. Sodium 137, potassium 4.4, chloride 99, bicarb 29, BUN 19, creatinine 0.72, glucose 111, trop of 0, albumin was 2.9. RADIOGRAPHIC DATA: Question of a left lower lobe infiltrate. Head CT: No acute intracranial abnormality. ASSESSMENT: This is a 52-year-old female with a past medical history of head and neck squamous cell carcinoma status post PEG tube with chronic obstructive pulmonary disease, on 4 L, who was recently admitted for a choking episode, who still has dysphagia, but has advanced to a pureed diet, who presented to the emergency room with leaking around her G-tube site incidentally with upper respiratory infection illness. 1. Upper respiratory infection illness. Assessment: The patient with white count and findings on x-ray concerning for a new pneumonia. She is still on her home 4 L. She sounds rhonchorous. There is a question of if she is continuing to aspirate as she states she has been choking since she has advanced to pureed food. She is currently on a steroid taper and she also ran out of her albuterol neb. Plan: I am going to continue her on her taper unless she is not clinically improving as she has no increased work of breathing and she sounds coarse rhonchorous, more consistent with an aspiration event and less likely a chronic obstructive pulmonary disease exacerbation. With her cushingoid features, I am hesitant to continue increasing her steroid. We will continue her taper as it was prescribed on prior discharge. Continue her on Levaquin. We will have speech therapy reevaluate her regarding resuming p.o. feeds and obtain a sputum culture, and followup on her blood cultures, and repeat her labs in the morning. 2. Leaking around her G-tube site. Assessment: Had her tube replaced on 03/06. As her skin appears macerated around the site, we will order zinc oxide barrier cream for now and contact GI regarding reevaluation of her tube and wound care consult as well. CHRONIC MEDICAL PROBLEMS: 1. Chronic obstructive pulmonary disease. Continue her on 4 liters. We will continue her on her albuterol and DuoNebs. She likely would benefit from Dulera as well. We will start this as well. Continue her on her aspirin, clonazepam, Percocet, and trazodone. 2. PEG tube feeds. Continue her PEG tube feeds or inpatient consult for any further evaluation for this. 3. FEN: N.p.o. until she is seen by speech therapy and PEG tube feeds as above. 4. DVT prophylaxis: The patient scores high risk. We will start her on heparin subcu t.i.d. 5. Code status: Full code. PATIENT TIME: Greater than 60 minutes was spent doing the history and physical , more than half the time spent in direct patient contact. [id number]/[facility] #: [id number] PHYLLIS
[2018-03-21] MEDS: Zinc Oxide 40% (TOPICAL)* TUBE TOPICAL SCH ×3 (00:34→20:18)
[2018-03-21] MEDS: Heparin VIAL(*) 5000 UNITS/ML VIAL (FIVE THOUSAND) SUBCUT SCH ×3 (05:18→22:09)
[2018-03-21 06:00] LABS: ABS Basophils 0 10^3/ul (0-0.2); ABS Eosinophils 0 10^3/ul (0-0.6); ABS Lymphocytes 0.1 10^3/ul (1.0-4.8); ABS Monocytes 0 10^3/ul (0-0.8); ABS Neutrophils 9.9 10^3/ul (1.5-7.7); ABS Nucleated RBC 0 10^3/ul; Eosinophil % 0 %; Hematocrit 30 % (35-47); Lymphocyte % 1.5 %; Mean Corpuscular HGB Conc 34 g/dl (31-36); Mean Corpuscular Hemoglobin 31 pg (27-31); Mean Corpuscular Volume 93 fL (80-97); Mean Platelet Volume 6.6 fL (7.4-10.4); Nucleated Red Blood Cells % 0.1; Platelet Count 169 10^3/ul (150-450); Red Blood Count 3.22 10^6/ul (4.00-5.40); Red Cell Distribution Width 14 % (10.5-15); White Blood Count 10.1 10^3/ul (3.5-10.8)
[2018-03-21] MEDS: Aspirin 81 mg CHEW TAB* 81 MG TAB.CHEW G TUBE SCH (07:49)
[2018-03-21] MEDS: Dexamethasone Oral Solution* 1 MG/ML 10 ML UDC (10 MG) PO SCH (07:49)
[2018-03-21 07:55] LABS: Calcium 8.8 mg/dL (8.6-10.3); Potassium 4.7 mmol/L (3.5-5.0)
[2018-03-21 08:00] LABS: EGFR Non-African American 91.6 (>60)
[2018-03-21] MEDS: Mometasone/Formoter 200/5 MDI INH SCH ×2 (08:20→20:12)
--- NOTE | 2018-03-21 09:38 | PN ---
Subjective Date of Service: 03/21/18 Interval History: Cough improved. No more bleeding from G-tube site but it is [employer]. Objective Active Medications: Al Hydrox/Mg Hydrox/Simethicone (Maalox Plus*) 30 ml PO Q6H PRN PRN Reason: INDIGESTION Albuterol (Ventolin 2.5 Mg/3 Ml Neb.Shira*) 2.5 mg INH Q2H PRN PRN Reason: SOB/WHEEZING Albuterol/Ipratropium (Duoneb (Albuterol 2.5 Mg/Ipratropium 0.5 Mg)) 1 neb INH Q4H PRN PRN Reason: SOB/WHEEZING Aspirin (Aspirin 81 Mg Chew Tab*) 81 mg G TUBE DAILY [facility] Last Admin: 03/21/18 07:49 Dose: 81 mg Clonazepam (Klonopin Tab(*)) 0.5 mg G TUBE BID PRN PRN Reason: ANXIETY Last Admin: 03/21/18 00:15 Dose: 0.5 mg Dexamethasone (Decadron Oral Solution*) 3 mg PO DAILY [facility] Stop: 03/23/18 09:01 Last Admin: 03/21/18 07:49 Dose: 3 mg Dexamethasone (Decadron Oral Solution*) 2 mg PO DAILY [facility] Stop: 03/26/18 09:01 Dexamethasone (Decadron Oral Solution*) 1 mg PO DAILY [facility] Stop: 03/29/18 09:01 Docusate Sodium (Colace Cap*) 100 mg .SEE ORDER BID PRN PRN Reason: CONSTIPATION Heparin Sodium (Porcine) (Heparin Vial(*)) 5,000 units SUBCUT Q8HR [facility] Last Admin: 03/21/18 05:18 Dose: 5,000 units Levofloxacin/Dextrose (Levaquin 750 Mg Ivpremix(*)) 750 mg in 150 mls @ 100 mls /hr IVPB Q24H [facility] Mometasone Furoate/Formoterol Fumar (Dulera 200/5 Mdi*) 2 puff INH BID [facility] Last Admin: 03/21/18 08:20 Dose: 2 puff Mupirocin (Bactroban 2% Cream*) 1 applic TOPICAL TID [facility] Ondansetron HCl (Zofran Inj*) 4 mg IV Q4H PRN PRN Reason: NAUSEA/VOMITING Oxycodone/Acetaminophen (Percocet 5/325 Tab*) 2 tab G TUBE Q6H PRN PRN Reason: PAIN Last Admin: 03/21/18 07:49 Dose: 2 tab Prochlorperazine (Compazine Tab*) 10 mg G TUBE Q6HR PRN PRN Reason: NAUSEA Senna (Senokot Tab*) 1 tab G TUBE BID PRN PRN Reason: CONSTIPATION Trazodone HCl (Desyrel Tab*) 100 mg G TUBE BEDTIME PRN PRN Reason: SLEEP Last Admin: 03/21/18 00:15 Dose: 100 mg Zinc Oxide (Zinc Oxide 40% (Topical)*) 1 applic TOPICAL BID NATHANAEL Last Admin: 03/21/18 07:50 Dose: 1 applic Vital Signs - 8 hr 03/21/18 03/21/18 03/21/18 02:23 03:06 04:52 Temperature 97.4 F Pulse Rate 56 61 Respiratory 20 16 20 Rate Blood Pressure 127/69 (mmHg) O2 Sat by Pulse 94 98 Oximetry 03/21/18 03/21/18 07:49 08:24 Temperature Pulse Rate 62 Respiratory 22 14 Rate Blood Pressure (mmHg) O2 Sat by Pulse 98 Oximetry Oxygen Devices in Use Now: Nasal Cannula Appearance: Alert, supine in bed. In good spirits. Looks comfortable. No cough during my visit. Eyes: No Scleral Icterus Respiratory: Symmetrical Chest Expansion and Respiratory Effort, Clear to Auscultation, Clear to Percussion Cardiovascular: NL Sounds; No Murmurs; No JVD, RRR, No Edema, - Extremities: No Edema, No Clubbing, Cyanosis, - Skin: No Nodules or Sclerosis, - - mild to mod erythema 1.5 cm radius around G- tube site. Neurological: Alert and Oriented x 3, NL Sensation Result Diagrams: 03/21/18 05:27 03/21/18 05:27 Microbiology and Other Data: Microbiology 03/21/18 00:49 Gram Stain - Final Sputum Assess/Plan/Problems-Billing Assessment: - Patient Problems (1) Aspiration into airway Current Visit: Yes Status: Acute Code(s): T17.908A - UNSP FB IN RESP TRACT, PART UNSP CAUSING OTH INJURY, INIT SNOMED Code(s): 222217002 Comment: Keep NPO. Has home swallow tx. Possible aspiration PNA, continue levofloxacin. (2) Dermatitis Current Visit: Yes Status: Acute Code(s): L30.9 - DERMATITIS, UNSPECIFIED SNOMED Code(s): 294870165 Comment: Irritation and burning at G-tube site. No more bleeding since larger tube inserted 03/20/18. Mupirocin ordered. (3) Laryngeal squamous cell carcinoma Current Visit: No Status: Acute Code(s): C32.9 - MALIGNANT NEOPLASM OF LARYNX, UNSPECIFIED SNOMED Code(s): 172735924 Comment: - s/p trach - completed radiation, follows with Dr. Elam.
[2018-03-21] MEDS: Mupirocin 2% CREAM* 15 GM TOPICAL SCH ×3 (09:55→20:18)
[2018-03-21] MEDS: oxyCODONE TAB* 5 MG TAB PO PRN ×4 (10:56→22:12)
[2018-03-21] MEDS ORDERED: fentaNYL PATCH 25 MCG/HR TRANSDERM SCH (11:00)
[2018-03-21] MEDS: fentaNYL Patch Check Q Shift 1 NOTE FOLLOW UP SCH (19:30)
[2018-03-21] MEDS ORDERED: Levofloxacin 750 MG IVPREMIX(* 750 MG/150 ML BAG IVPB SCH (22:00)
[2018-03-22] MEDS: Heparin VIAL(*) 5000 UNITS/ML VIAL (FIVE THOUSAND) SUBCUT SCH ×3 (05:31→21:46)
[2018-03-22] MEDS: fentaNYL Patch Check Q Shift 1 NOTE FOLLOW UP SCH ×2 (06:42→19:21)
[2018-03-22] MEDS: oxyCODONE TAB* 5 MG TAB PO PRN ×4 (06:44→20:36)
[2018-03-22] MEDS: Mometasone/Formoter 200/5 MDI INH SCH ×2 (07:46→20:10)
[2018-03-22] MEDS: Mupirocin 2% CREAM* 15 GM TOPICAL SCH ×3 (09:10→20:59)
[2018-03-22] MEDS: Zinc Oxide 40% (TOPICAL)* TUBE TOPICAL SCH ×2 (09:11→20:59)
[2018-03-22] MEDS: Aspirin 81 mg CHEW TAB* 81 MG TAB.CHEW G TUBE SCH (09:18)
[2018-03-22] MEDS: Dexamethasone Oral Solution* 1 MG/ML 10 ML UDC (10 MG) PO SCH (09:19)
--- NOTE | 2018-03-22 09:21 | PN ---
"Progress Note - Progress Note Date of Service: 03/22/18 Note: This report was requested by: Tushar Harrington | Reference #: [id number] Others' Prescriptions Patient Name: Niharika Reza Date: 1965 Address: [address] [place] [address] Sex: Female Rx Written Rx Dispensed Drug Quantity Days Supply Prescriber Name 03/16/2018 03/19/2018 oxycodone-acetaminophen 10-325 mg tablet 180 30 Renetta Aquino 03/14/2018 03/15/2018 clonazepam 0.5 mg tablet 60 30 Jaiden Gee W () 03/06/2018 03/07/2018 oxycodone-acetaminophen 5-325 mg tab 20 4 Amberly Noel () 02/14/2018 02/17/2018 oxycodone-acetaminophen 10-325 mg tablet 180 30 Jaiden Gee W () 02/07/2018 02/07/2018 clonazepam 0.5 mg tablet 60 30 Jaiden Gee W () 01/18/2018 01/18/2018 oxycodone-acetaminophen 10-325 mg tablet 180 30 Jaiden Gee W () 01/03/2018 01/05/2018 oxycontin 10 mg tablet 60 30 Jaiden Gee W ( ) 12/15/2017 12/18/2017 oxycodone-acetaminophen 10-325 mg tablet 180 30 Jaiden Gee W () 12/04/2017 12/06/2017 oxycontin 10 mg tablet 60 30 Jaiden Gee W ( ) 11/15/2017 11/18/2017 oxycodone-acetaminophen 10-325 mg tablet 180 30 Jaiden Gee W () 10/31/2017 11/06/2017 oxycontin 10 mg tablet 60 30 Jaiden Gee W ( ) 10/05/2017 10/19/2017 oxycodone-acetaminophen 10-325 mg tablet 180 30 Jaiden Gee W () 09/26/2017 10/06/2017 oxycontin 10 mg tablet 60 30 Jaiden Gee W ( ) 10/06/2017 10/06/2017 fentanyl 25 mcg/hr patch 10 30 Jaiden Gee W () 09/27/2017 09/27/2017 oxycodone hcl er 10 mg tablet 90 30 Jaiden Gee W () 09/07/2017 09/19/2017 clonazepam 0.5 mg tablet 14 14 Raul Jarrett 09/14/2017 09/19/2017 oxycodone-acetaminophen 10-325 mg tablet 180 30 Aquino, Renetta 09/05/2017 09/06/2017 oxycontin 10 mg tablet 60 30 Jaiden Gee W ( ) 08/25/2017 08/25/2017 clonazepam 0.5 mg tablet 14 14 Raul Jarrett 08/18/2017 08/20/2017 oxycodone-acetaminophen 10-325 mg tablet 180 30 AquinoRenetta marin 07/26/2017 07/26/2017 clonazepam 0.5 mg tablet 14 7 Raul Jarrett 07/25/2017 07/25/2017 diazepam 5 mg tablet 30 30 Jaiden Gee W () 07/20/2017 07/21/2017 oxycodone-acetaminophen 10-325 mg tablet 180 30 Aquino, Renetta 07/18/2017 07/18/2017 clonazepam 0.5 mg tablet 14 7 Raul Jarrett 07/14/2017 07/14/2017 hydromorphone 4 mg tablet 50 13 HumblejorgeKristian 06/19/2017 06/21/2017 oxycodone-acetaminophen 10-325 mg tablet 180 30 Miles, Renetta 05/22/2017 05/22/2017 oxycodone-acetaminophen 10-325 mg tab 180 30 Aquino, Renetta 04/21/2017 04/22/2017 oxycodone-acetaminophen 10-325 mg tab 180 30 Miles, Renetta 04/05/2017 04/05/2017 clonazepam 0.5 mg tablet 14 7 Raul Jarrett 03/22/2017 03/23/2017 oxycodone-acetaminophen 10-325 mg tab 180 30 Aquino, Renetta"
--- NOTE | 2018-03-22 09:35 | PN ---
Progress Note - Progress Note Date of Service: 03/22/18 Note: Time spent on discharge including exam of pt, discussion with pt, nurse, CM, retail pharmacist, review of EMR and preparation of discharge documents 45 minutes.
[2018-03-22] MEDS ORDERED: Levofloxacin TAB* 500 MG PO SCH (17:00)
--- NOTE | 2018-03-22 17:05 | DS ---
DISCHARGE SUMMARY: DATE OF ADMISSION: 03/21/18 DATE OF DISCHARGE: 03/22/18 HISTORY OF PRESENT ILLNESS AND HOSPITAL COURSE: This 52-year-old woman presented with leakage around the G-tube site. There was irritation from it. There was actually some bleeding from it. She also was felt to have respiratory infection. She was eating food. It is not clear that she was actually instructed to have her eat food as opposed to keep her on the strict tube feeding diet. She did note that she was choking on food, very likely, she did have some aspiration. In the emergency room, her G-tube was changed to a larger tube, this solved her leakage problem. She was seen by the wound care nurse and a protective barrier film was applied. She seemed much more comfortable with this. She had no further bleeding. She was quite stable. She was given levofloxacin intravenously by 2 doses and will complete 7-day course at home with 5 days of oral medication. She was completely at her baseline. She had a video swallowing study which did show aspiration. She was instructed not to have anything by mouth at all. She was started on a fentanyl patch for pain control. At discharge, she said she was out of clonazepam and trazodone, but I verified with the pharmacist that on 03/15/18 at 2 p.m., she picked of a 1-month supply of both medications. FINAL DIAGNOSES: 1. Possible aspiration pneumonia. 2. Head and neck cancer with aspiration. 3. Chronic obstructive pulmonary disease. DISCHARGE MEDICATIONS: 1. Dexamethasone solution to taper from 3 mg daily to none over 9 days. 2. Fentanyl patch 25 mcg daily every 72 hours. 3. Levofloxacin 500 mg every 24 hours for 5 days. 4. Albuterol inhaler 1 to 2 puffs every 4 hours p.r.n. 5. Potassium 20 mEq by PEG tube daily. 6. Albuterol ipratropium nebulizer every 4 hours p.r.n. 7. Aspirin 81 mg daily. 8. Oxycodone/acetaminophen 10/325 one every 4 hours p.r.n. 9. Prochlorperazine 10 mg every 6 hours p.r.n. 10. Trazodone 100 mg h.s. The patient has a new provider at the [facility]. She may need to be seen in the [facility] if the appointment cannot be moved up to an appropriately early date. CONDITION ON DISCHARGE: Improved. DISPOSITION: Discharged home. [id number]/[facility] #: [id number] PHYLLIS
[2018-03-22] MEDS: clonazePAM TAB(*) 0.5 MG G TUBE PRN ×2 (20:35→21:46)
[2018-03-22] MEDS: traZODone TAB* 100 MG G TUBE PRN ×2 (20:36→21:46)
[2018-03-23] MEDS: oxyCODONE TAB* 5 MG TAB PO PRN ×3 (03:37→12:18)
[2018-03-23] MEDS: Heparin VIAL(*) 5000 UNITS/ML VIAL (FIVE THOUSAND) SUBCUT SCH (05:30)
[2018-03-23] MEDS: fentaNYL Patch Check Q Shift 1 NOTE FOLLOW UP SCH (07:31)
[2018-03-23] MEDS: clonazePAM TAB(*) 0.5 MG G TUBE PRN (07:34)
[2018-03-23] MEDS: Aspirin 81 mg CHEW TAB* 81 MG TAB.CHEW G TUBE SCH (07:35)
[2018-03-23] MEDS: Dexamethasone Oral Solution* 1 MG/ML 10 ML UDC (10 MG) PO SCH (07:35)
[2018-03-23] MEDS: Mometasone/Formoter 200/5 MDI INH SCH (07:40)
[2018-03-23] MEDS: Mupirocin 2% CREAM* 15 GM TOPICAL SCH (07:42)
[2018-03-23] MEDS: Zinc Oxide 40% (TOPICAL)* TUBE TOPICAL SCH (07:42)
[2018-03-23 07:51] VITALS: BP 105/55
[2018-03-24] MEDS ORDERED: Dexamethasone TAB* 1 MG G TUBE SCH (09:00)
[2018-03-27] MEDS ORDERED: Dexamethasone TAB* 1 MG G TUBE SCH (09:00)
== END 2018-03-23 13:40 | disposition home or self-care (01) | DRG 919 ==
LOC: ED 20:09 → MED 22:14 → OBSVTOIN 03-21 16:00
PROVIDERS: ADMIT Pediatrics; ATTEND Internal Medicine
DX: T85.598A Other mechanical complication of other gastrointestinal prosthetic devices, implants and grafts, initial encounter (principal); J69.0 Pneumonitis due to inhalation of food and vomit; I50.30 Unspecified diastolic (congestive) heart failure; Z99.81 Dependence on supplemental oxygen; I11.0 Hypertensive heart disease with heart failure; R13.10 Dysphagia, unspecified; G47.33 Obstructive sleep apnea (adult) (pediatric); L30.9 Dermatitis, unspecified; Z85.89 Personal history of malignant neoplasm of other organs and systems; J44.9 Chronic obstructive pulmonary disease, unspecified; L40.9 Psoriasis, unspecified; K21.9 Gastro-esophageal reflux disease without esophagitis; E78.5 Hyperlipidemia, unspecified; G89.29 Other chronic pain; Z79.82 Long term (current) use of aspirin; Z79.51 Long term (current) use of inhaled steroids; Z79.899 Other long term (current) drug therapy; Z88.5 Allergy status to narcotic agent; Z88.0 Allergy status to penicillin; Z88.8 Allergy status to other drugs, medicaments and biological substances; Z91.040 Latex allergy status; Z80.1 Family history of malignant neoplasm of trachea, bronchus and lung; Z87.891 Personal history of nicotine dependence
CPT/HCPCS: 36415; 70450; 71046; 74230; 80048; 80053; 83605; 84484; 85025; 87040; 87070; 87077; 87185; 87186; 87205; 94640; 99285; A9270-GY; G8996-GN-CN; G8997-GN-CN; G8998-GN-CN; J1644; J1956; J2930

== ENCOUNTER 2018-06-19 12:21 | Emergency (ER) | payer MEDICARE, MEDICAID ==
[2018-06-19] MEDS ORDERED: EPINEPHrine SYR 0.1MG/ML* SYRINGE ONE (12:25)
[2018-06-19 12:30] VITALS: BP 000/00
--- OUTSIDE RECORDS SUMMARY | 2018-06-19 12:38 | XMS REPORT | Continuity of Care Document ---
:1965 External Reference #:[id number] Author Name Kamlesh Espinoza MD Address [address] [place] [address] Care Team Providers Name Role Phone Jaiden Jarrett M.D. Care Team Information Mannequin Mounter Unavailable Tez Yi Jillian Primary Care Physician Unavailable Payers Date Identification Numbers Payment Provider Subscriber Policy Number: [id number] [place] [employer] [employer] Niharika Reza PayID: [id number] [address] [place] [address] Advance Directives Description No Information Available Problems Date Description Provider Status Onset: 08/14/2014 Essential hypertension Kamlesh Espinoza MD Active Onset: 05/24/2018 Malignant tumor of supraglottis Kamlesh Espinoza MD Active Onset: 12/22/2017 Tracheostomy present Kamlesh Espinoza MD Active Onset: 06/29/2017 Neoplasm of uncertain behavior of larynx Kamlesh Espinoza MD Active Onset: 06/29/2017 Difficulty speaking Kamlesh Espinoza MD Active Onset: 06/29/2017 Esophageal dysphagia Kamlesh Espinoza MD Active Family History Date Family Member(s) Observation Comments General Allergies General Asthma General Cancer Social History Type Date Description Comments Sex Unknown Occupation Disabled Tobacco Use Start: Unknown Current Cigarette Smoker 1 Pack Daily Cigarette Use for 20 yrs Tobacco Use Start: Unknown Never Smoked Cigars Tobacco Use Start: Unknown Never Smoked A Pipe Smokeless Tobacco Never Used Smokeless Tobacco ETOH Use Currently rarely consumes alcohol Allergies, Adverse Reactions, Alerts Date Description Reaction Status Severity Comments 07/25/2008 Penicillin Active rash, blisters 08/14/2014 Clindamycin Active Medications Medication Date Status Form Strength Qnty [...] Active Tablets 25mg 1/2 by Law, Arcenio 0000 mouth M.D. every day Lisinopril / Active Tablets 20mg 1 by Law, Arcenio 0000 mouth M.D. every day Trazodone HCL / Active Tablets 50mg as Law, Arcenio 0000 directed M.D. Omeprazole / Active Capsules 20mg one by , Arcenio [address] DR mouth one M.D. per day Aspirin Low Dose / Active Chewtabs 81mg 1 by , Arcenio 0000 mouth M.D. every day Dulera / Active Aerosol 100-5mcg/A 2 puff Arcen[address] twice a M.D. day No Active Unknown Medications 2014 - 2014 Omeprazole 07/25/ Hx Capsules 40mg 120cap 40mg PO 530.[address], MD 2014 Albuteral / Hx Unknown Inhaler - 2014 Atrovent / Hx Unknown - 2014 Triamcinolone / Hx Unknown [facility], 0000 - Micronized 2014 Immunizations Description No Information Available Vital Signs Date Vital Result Comment 05/24/2018 2:48pm Weight 161.00 lb Weight 73.030 kg Height 63 inches 5'3" Height in cm's 160.0 cm BMI (Body Mass Index) 28.5 kg/m2 12/22/2017 10:56am Weight 176.00 lb Weight 79.834 kg Height 63 inches 5'3" Height in cm's 160.0 cm BMI (Body Mass Index) 31.2 kg/m2 12/11/2017 11:05am Weight 182.50 lb Weight 82.782 kg Height 63 inches 5'3" Height in cm's 160.0 cm BMI (Body Mass Index) 32.3 kg/m2 11/06/2017 11:35am Weight 205.00 lb Weight 92.988 kg Height 63 inches 5'3" Height in cm's 160.0 cm BMI (Body Mass Index) 36.3 kg/m2 09/04/2017 11:40am Weight 289.00 lb Weight 131.090 kg Height 63 inches 5'3" Height in cm's 160.0 cm BMI (Body Mass Index) 51.2 kg/m2 06/29/2017 11:00am Weight 289.00 lb Weight 131.090 kg Height 63 inches 5'3" Height in cm's 160.0 cm BMI (Body Mass Index) 51.2 kg/m2 08/28/2008 8:45am Heart Rate 82 /min Respiratory Rate 16 /min Weight 325.00 lb Weight 147.420 kg 07/25/2008 9:11am Heart Rate 86 /min Respiratory Rate 20 /min Weight 325.00 lb Weight 147.420 kg Results Test Date Facility Test Result H/L Range Note Basic Metabolic 06/29/2017 [facility] Sodium 137 mmol/ L Low 139-145 Panel c/o [facility] [place] [address] [phone] Potassium 3.4 mmol/L Low 3.5-5.0 Chloride 93 mmol/L Low 101-111 Co2 Carbon Dioxide 37 mmol/L High 22-32 Anion Gap 7 mmol/L N 2-11 Glucose 119 mg/dL High 70-100 Blood Urea Nitrogen 18 mg/dL N 6-24 Creatinine 0.74 mg/dL N 0.51-0.95 BUN/Creatinine Ratio 24.3 High 8-20 Calcium 9.3 mg/dL N 8.6-10.3 Egfr Non- 83.1 >60 Egfr 106.8 >60 1 CBC Auto 06/29/2017 [facility] White Blood 11.8 10^3/ uL High 3.5-10.8 Diff c/o Department [place] [address] [phone] Red Blood Count 5.20 10^6/uL N 4.0-5.4 Hemoglobin 14.8 g/dL N 12.0-16.0 Hematocrit 45 % N 35-47 Mean Corpuscular Volume 86 fL N 80-97 Mean Corpuscular Hemoglobin 28 pg N 27-31 Mean Corpuscular HGB Conc 33 g/dL N 31-36 Red Cell Distribution Width 16 % High 10.5-15 Platelet Count 215 10^3/uL N 150-450 Mean Platelet Volume 7.5 um3 N 7.4-10.4 Abs Neutrophils 8.6 10^3/uL High 1.5-7.7 Abs Lymphocytes 2.5 10^3/uL N 1.0-4.8 Abs Monocytes 0.5 10^3/uL N 0-0.8 Abs Eosinophils 0.1 10^3/uL N 0-0.6 Abs Basophils 0.1 10^3/uL N 0-0.2 Abs Nucleated RBC 0 10^3/uL Granulocyte % 72.7 % N 38-83 Lymphocyte % 21.5 % Low 25-47 Monocyte % 4.2 % N 0-7 Eosinophil % 0.6 % N 0-6 Basophil % 1.0 % N 0-2 Nucleated Red Blood Cells % 0 [...] Kidney failure <15 (or dialysis) Procedures Date Code Description Status 05/24/2018 07431 Fiberoptic Laryngoscopy Completed 12/22/2017 74760 Fiberoptic Laryngoscopy Completed 12/11/2017 63255 Fiberoptic Laryngoscopy Completed 09/04/2017 56512 Fiberoptic Laryngoscopy Completed 06/30/2017 36691 Tracheostomy W/Skin Flaps Completed 06/30/2017 38156 Tracheostomy W/Skin Flaps Completed 06/30/2017 03000 Laryngoscopy, Direct, Operative, With Biopsy Completed 06/30/2017 16632 Laryngoscopy, Direct, Operative, With Biopsy Completed 06/29/2017 98345 Fiberoptic Laryngoscopy Completed 08/28/2008 85876 Fiberoptic Laryngoscopy Completed 07/25/2008 28529 Fiberoptic Laryngoscopy Completed Encounters Type Date Location Provider Dx Diagnosis Office Visit 05/24/2018 [facility] Kamlesh Espinoza R49.8 Other voice and 3:00p 03/20/07 resonance disorders R13.14 Dysphagia, pharyngoesophageal phase C32.1 Malignant neoplasm of supraglottis Office Visit 12/22/2017 10:45a [facility] Kamlesh D38.0 Neoplasm of 03/20/07 uncertain behavior of larynx R49.8 Other voice and resonance disorders Z43.0 Encounter for attention to tracheostomy Office Visit 12/11/2017 11:00a [facility] Kamlesh D38.0 Neoplasm of 03/20/07 uncertain behavior of larynx R49.8 Other voice and resonance disorders Office Visit 11/06/2017 11:00a [facility], Kamlesh D38.0 Neoplasm of 03/20/07 MD uncertain behavior of larynx Office Visit 09/04/2017 11:15a [facility] Kamlesh R49.8 Other voice and 03/20/07 MD resonance disorders D38.0 Neoplasm of uncertain behavior of larynx Office 06/29/2017 [facility] Alexis, R13.14 Dysphagia, Visit 10:15a 03/20/07 Kamlesh ONTIVEROS pharyngoesophageal phase R49.8 Other voice and resonance disorders D38.0 Neoplasm of uncertain behavior of larynx Office Visit 08/28/2008 [facility] Alexis Kamlesh 784.49 Hoarseness 8:45a 03/20/07 MD /Other 530.81 Reflux, Gastroesophageal 787.24 Dysphagia, Pharyngoesophageal Phase 780.59 Sleep Disturbances Other Office 07/25/2008 [facility] Alex[facility], 787.24 Dysphagia, Visit 9:00a 03/20/07 Kamlesh ONTIVEROS Pharyngoesophageal Phase 530.81 Reflux, Gastroesophageal 784.49 Hoarseness /Other Plan of Treatment Future Appointment(s):06/28/2018 2:45 pm - Kamlesh Espinoza MD at [facility] - Kamlesh Espinoza MDR49.8 Other voice and resonance amjjrldqqD81.14 Dysphagia, pharyngoesophageal vtxehK35.1 Malignant neoplasm of supraglottisComments:Patient with a history of supraglottic CA, presently there is a superficial ulcer however this is fairly bland looking today however I think it requires careful observation I suggest we recheck her back in 1 month' s time. Submental swelling is most likely related to lymphatic edema no evidence of lymph node mass.
--- NOTE | 2018-06-19 12:39 | ED ---
Cardiac Resuscitation - HPI Summary HPI Summary: LEVEL 5 CAVEAT: HPI LIMITED DUE TO PATIENT CONDITION, EXTREMIS Pt is a 53 y/o F brought in by ambulance in cardiac arrest. Per EMS: Patient's home health nurse called EMS when pt became unresponsive and pulse-less. EMS called at 1152 and arrived on scene approx 2 minutes later. EMS report 2 agonal respirations and asystole when put on their monitor. They were unable to acquire IV access en route. Pupils were fixed and dilated IT ADMINISTRATIVE ASSISTANT. CPR compressions in progress at arrival. ED provider met patient and EMS in room 14 immediately upon arrival. CPR continued in room. Epinephrine given 2x in ED. Time of called at 1232. - History of Current Complaint Chief Complaint: EDCardiacArrest Stated Complaint: ABC ALERT Hx Obtained From: EMS Hx From Patient Unobtainable Due To: Extremis Onset/Duration: Unknown Arrest Witnessed: No Down-time Before Basic Life Support Initiated: Unknown Down-time Before Advanced Life Support Initiated: Unknown Was AED Placed on Patient: No - Prehospital Findings Breathing: Apnea Circulation/Rhythm: Asystole - Prehospital Intervention Breathing: Oxygen-Bag, Oxygen-Mask, Oxygen-Valve Circulation/Rhythm: Chest Compressions - Prehospital Response Airway: Gag Reflex Absent Circulation/Rhythm: Asystole - Additional Pertinent History Primary Care Physician: [id number] Do Not Resuscitate/Living Will: No EMS/Code Sheet Reviewed: Yes - Allergies/Home Medications Allergies/Adverse Reactions: Allergies Allergy/AdvReac Type Severity Reaction Status Date / Time Penicillins Allergy Severe See Comment Verified 05/16/18 15:04 clindamycin Allergy Intermediate Difficulty Verified 05/16/18 15:04 Swallowing latex Allergy WELTS Verified 05/16/18 15:04 morphine Allergy Itching Verified 05/16/18 15:04 - Past Medical History Past Medical History: Unobtainable Due to Extremis, Other: - esophageal CA - Family History Family History: Unobtainable Due to Extremis - Social History Social History: Unobtainable Due to Extremis - Review of Systems Review of Systems: Unobtainable Due to Extremis Physical Examination - Physical Examination Triage Information Reviewed: Yes Completion Of Physical Exam Limited Due To: Extremis Resuscitation Termination Time: 12:32 Resuscitation: Unsuccessful - ED Findings Airway: Gag Reflex Absent Breathing: Apnea Circulation/Rhythm: Asystole Disability/Neurological: Unresponsive - ED Intervention Airway: Other: - Suction Breathing: Intubation:, Oral Endotracheal - 7.5 Tube Circulation/Rhythm: Chest Compressions - ED Response Airway: Gag Reflex Absent Breathing: Equal Breath Sounds, ETT in Airway:, Placement Confirmed by Auscultation, Placement Confirmed by Capnometer Circulation/Rhythm: Asystole - Occ agonal beat - Glascow Coma Score Eye Openin - None Motor: 1 - None Verbal: 1 - None Coma Scale Total: 3 Diagnostics - Vital Signs Vital Signs Temp Pulse Resp BP Pulse Ox 06/19/18 12:25 97.1 F 0 15 000/00 58 - Laboratory Lab Statement: Any lab studies that have been ordered have been reviewed, and results considered in the medical decision making process. Cardiac Resus. Course/Dx - Course Course Of Treatment: Ms. Reza was seen by her son last night and her daughter this morning. Both of them report to me that she seemed short of breath but stated that she was fine. This morning she told her daughter she was just tired and wanted to rest and requested additional pain medication. Apparently her visiting nurse found her unresponsive when he came to see her. He called the ambulance his and was performing chest compressions when I arrived. They found her in asystole with fixed pupils and a couple of agonal breaths. They continued CPR and were unable to obtain a line or definitive airway. On arrival she was in asystole, with fixed pupils and no spontaneous pulse or respirations. She had copious thick greenish secretions in her airway and from her trachea. She has a history of laryngeal cancer and possibly surgery but definitely a past tracheostomy. Her architecture was unrecognizable but I was able to intubate her with a 7.5 ET tube using the [place] Scope. There were good bilateral breath sounds and color change with the capnometer. CPR was continued in the emergency department and she was given 3 rounds of epinephrine. This did not change her presentation a bit. She had 15 minutes of asystole with CPR prior to arrival and about 15 minutes of CPR in the ED with no response. From the story she may have been down quite a bit prior to being discovered. She was pronounced at 1233. I spoke with Dr Yi who is the patient's PCP and came to the department to speak with the family. I spoke with Dr. Soto pondman for medical staff services coordinator. The family was adamant that they wanted an autopsy and that is the current plan. - Diagnoses Provider Diagnoses: Cardiopulmonary arrest During the Visit The Following Alert/Code Occurred: ABC Alert - called at 1210; EMS 10 mins out - Provider Notifications Discussed Care Of Patient With: Kacey Yi - Internal Time Discussed With Above Provider: 13:20 Instructed by Provider To: Other - Notifying, and MD will come to ED. - Critical Care Time Critical Care Time: 30-74 min Discharge - Sign-Out/Discharge Documenting (check all that apply): Patient Departure - Patient Received Moderate/Deep Sedation with Procedure: No - Discharge Plan Condition: Disposition: Referrals: Kacey Yi DO [Primary Care Provider] - - Billing Disposition and Condition Condition: Disposition: - Attestation Statements Document Initiated by Scribe: Yes Documenting Scribe: Bhupendra Agarwal Provider For Whom Scribe is Documenting (Include Credential): Dr. Jose Leal MD Scribe Attestation: I, Bhupendra Agarwal, scribed for Dr. Jose Leal MD on 06/19/18 at 1747. Scribe Documentation Reviewed: Yes Provider Attestation: The documentation as recorded by the Bhupendra santa accurately reflects the service I personally performed and the decisions made by me, Dr. Jose Leal MD Status of Scribe Document: Viewed Consult Consult: 1327: Consult with ME Curt Notified. Would like family input on if they want an autopsy. 1332: Consult with Dr. Yi Will speak with family, discuss autopsy 1355: Spoke with patient's family Son and daughter present, want an autopsy performed 1400: Consult with Anne Blanco Confirmed with family, yes they want an autopsy. Will perform autopsy.
== END 2018-06-19 12:33 | disposition expired ==
LOC: EDBD → EDUNIT# → ED 12:21
DX: I46.9 Cardiac arrest, cause unspecified (principal); Z88.0 Allergy status to penicillin; Z88.3 Allergy status to other anti-infective agents; Z88.5 Allergy status to narcotic agent; Z91.040 Latex allergy status; Z85.01 Personal history of malignant neoplasm of esophagus
CPT/HCPCS: 31500; 96374; 99285; J0171